=== PATIENT | female | born 1955 | race Caucasian/White ===

== ENCOUNTER 2025-08-02 19:21 | Inpatient (IN) | payer MEDICARE, MEDICAID, SELFPAY ==
[2025-08-02] VITALS (7 sets, daily range): BP systolic 74–138; BP diastolic 40–117; PULSE 61–76; RESP 14–25; TEMP 36.6–37; O2SAT 90–99; BMI 29.6
[2025-08-02 20:25] LABS: Hematocrit 32.5 % (37-47); Hemoglobin 10.8 g/dL (12.0-15.0); Immature Granulocytes Count 0.030 X10^3/uL (0.0-0.0); Mean Corp Hgb Conc 33.2 g/dL (32-36); Mean Corpuscular Volume 95.6 fL (81-99); Mean Platelet Vol. 10.4 fl (6.2-12.0); NRBC Flagged by Analyzer 0 % (0-5); Platelet Count 181 K/mm3 (150-450); RBC Distribution Width CV 13.8 % (11.6-14.6); RBC Distribution Width SD 47.9 fl (35.1-43.9); Red Blood Count 3.40 M/mm3 (4.2-5.4); White Blood Count 10.8 K/mm3 (4.4-11.0)
[2025-08-02] MEDS: 0.9% Normal Saline (1000mL) 1,000 ML 1000 ML IV ×2 (20:26→23:09)
--- NOTE | 2025-08-02 20:37 | CT_ITS ---
PROCEDURE: CT ABDOMEN/PELVIS WITHOUT CONTRAST 08/02/2025 REASON FOR EXAM: DIARRHEA TECHNIQUE: Procedure Code: CTABDPEL Modality: CT Procedure: ABDOMEN/PELVIS WITHOUT CONT Noncontrast technique limits evaluation of the abdominal and pelvic viscera. Coronal and Sagittal reconstruction series were provided. One or more dose reduction techniques were used (e.g., Automated exposure control, adjustment of the mA and/or kV according to patient size, use of iterative reconstruction technique). RADIATION DOSE SUMMARY: CTDlvol: 12.27 mGy DLP: 597.56 mGycm COMPARISON: None. FINDINGS: Lung bases: Clear. Liver: Unremarkable. Gallbladder: Surgically absent. Spleen: Unremarkable. Pancreas: Unremarkable. Adrenals: Unremarkable. Kidneys: No urolithiasis or hydronephrosis. Nonspecific bilateral perinephric fat stranding, nonspecific but symmetric and most likely chronic. Bladder: Unremarkable. Reproductive Organs: Enlarged lobulated myomatous uterus. Unremarkable adnexae. Bowel: No evidence of obstruction or active inflammatory process. Normal appendix. Extensive distal colonic diverticulosis without evidence for active diverticulitis/colitis. Lymph nodes: No suspicious lymph node enlargement. Vasculature: Normal caliber abdominal aorta and IVC. Mild atherosclerotic calcifications. Peritoneum / Retroperitoneum: No ascites or free air. Bones: Mild multilevel degenerative changes of the spine. CT/Abdomen/Pelvis without Cont IMPRESSION: 1. No bowel obstruction or active inflammatory process identified. 2. Extensive distal colonic diverticulosis without evidence of active diverticu litis/colitis. 3. Mildly enlarged lobulated myomatous uterus. Reading Location: [facility]
--- NOTE | 2025-08-02 20:40 | EX.ED.DYSGE1 ---
HPI History of Present Illness Chief Complaint: Abn Labs Informant: patient and family Onset/Context/Timing Onset: Today Context: Gradual Onset Timing: Continuous Quality: Weak, tired Location: Generalized Worsened by: Nothing Relieved by: Nothing Narrative Narrative: Patient presents with diarrhea that has been constant for the past several days. Patient saw her primary care nurse practitioner today who will stop the Ozempic and metformin. They noted that the patient's blood pressure was low and referred the patient to the emergency department. They did check labs earlier today which showed an elevated creatinine of 2.42. Primary care nurse practitioner states that this is markedly increased from previous results. Patient has a history of dementia and is a poor informant. [facility] Medical History Chronic kidney disease, stage 3 unspecified Other specified disorders of bone density and structure, unspecified site HTN (hypertension) Pure hypercholesterolemia, unspecified Diabetes mellitus Hypothyroidism, unspecified Other frontotemporal neurocognitive disorder AD (Alzheimer's disease) Allergy/AdvReac Type Severity Reaction Status Date / Time erythromycin base AdvReac PT UNSURE Verified 08/02/25 19:24 OF REACTION exenatide (From [place]) AdvReac PT UNSURE Verified 08/02/25 19:24 OF REACTION Penicillins AdvReac PT UNSURE Verified 08/02/25 19:24 OF REACTION Sulfa (Sulfonamide AdvReac PT UNSURE Verified 08/02/25 19:24 Antibiotics) OF REACTION Surgical History History of thyroid surgery Social History housing: group home Smoking Status: Former smoker ROS ROS ED Constitutional Constitutional ED: Denies chills or fever(s) Eyes Eyes: Denies blurry vision or change in vision ENT ENT ED: Denies rhinorrhea or sore throat Cardiovascular Cardiovascular: Denies chest pain or palpitations Respiratory/Chest Respiratory/Chest: Denies cough or dyspnea Gastrointestinal Gastrointestinal: Reports diarrhea, nausea and vomiting Genitourinary Genitourinary ED: Denies dysuria or hematuria Musculoskeletal Musculoskeletal: Denies back pain or neck pain Integumentary Denies abscess or rash Neurologic Neurologic: Denies headache(s) or weakness Allergic/Immunologic Allergic/Immunologic ED: Denies mouth swelling or urticaria EXAM Physical Exam Const Vital Signs: 08/02/25 19:22 08/02/25 19:22 08/02/25 19:34 Temperature 98 F Temperature Source Temporal Pulse Rate 76 Respiratory Rate 19 H Respiratory Pattern Normal Blood Pressure 74/45 L 79/40 L Blood Pressure Mean 54 53 Pulse Ox 99 Oxygen Delivery Method Room Air 08/02/25 19:40 08/02/25 20:15 08/02/25 21:00 Temperature Temperature Source Pulse Rate 66 69 64 Respiratory Rate 17 18 25 H Respiratory Pattern Blood Pressure 93/55 L 99/66 88/52 L Blood Pressure Mean 67 77 65 Pulse Ox 98 98 90 Oxygen Delivery Method Room Air 08/02/25 22:00 08/02/25 23:00 Temperature Temperature Source Pulse Rate 61 64 Respiratory Rate 21 H 14 Respiratory Pattern Blood Pressure 98/60 130/111 H Blood Pressure Mean 73 117 Pulse Ox 96 Oxygen Delivery Method Room Air Positive well nourished and well developed Constitutional Narrative: BMI is 29.6. General Appearance ED: well developed and NAD HEENT Reports moist mucous membranes Neck supple and no JVD Resp normal respiratory effort and clear to auscultation bilaterally Cardio regular rate and regular rhythm GI non-tender and non-distended Palpation: soft Extremity normal to inspection General Extremety ED: Negative for edema or tenderness General Extremity: Negative for edema Neuro CN's II-XII intact bilaterally and no sensory deficits noted Sensorium / Orientation: alert and orientation impaired Motor Exam: strength 5/5 throughout MDM MDM MDM Narrative Medical decision making narrative: Differential diagnosis includes acute kidney injury, dehydration, electrolyte abnormality, urinary tract infection, pyelonephritis, bowel obstruction, perforation, and sepsis. CBC will be obtained to assess for leukocytosis and anemia. Basic metabolic profile will be obtained to assess for electrolyte abnormality and renal function. PT with INR and PTT will be obtained to assess for coagulopathy. Serum lactate will be obtained to assess for sepsis. Urinalysis will be obtained to assess for urinary tract infection hematuria. Blood cultures will be obtained to assess for sepsis. Urine culture will be obtained to assess for urinary tract infection. CT scan of the abdomen pelvis will be obtained to assess for bowel obstruction, perforation, and pyelonephritis. Lab Data Attestation: I reviewed the patient's lab results. Lab results narrative: CBC was reviewed. There is a mild anemia with a hemoglobin of 10.8 and hematocrit of 32.5. Basic metabolic profile was reviewed. BUN was elevated at 47 and creatinine was 2.59. There are no prior labs available for comparison. Glucose was mildly elevated at 137. Serum lactate was reviewed and was normal at 1.9. PT with INR and PTT were reviewed and were within normal limits. Urinalysis was reviewed. Leukocyte esterase was 500 with 50-100 white blood cells. There is 1+ bacteria. Labs: Laboratory Results - last 24 hr 08/02/25 08/02/25 08/02/25 19:42 21:15 21:30 WBC 10.8 RBC 3.40 L Hgb 10.8 L Hct 32.5 L MCV 95.6 MCH 31.8 MCHC 33.2 RDW Std Deviation 47.9 H RDW Coeff of Kayleen 13.8 Plt Count 181 MPV 10.4 Immature Gran % (Auto) 0.300 Neut % (Auto) 70.2 H Lymph % (Auto) 21.0 [place] % (Auto) 7.6 Eos % (Auto) 0.6 Baso % (Auto) 0.3 Absolute Neuts (auto) 7.6 Absolute Lymphs (auto) 2.26 Nucleated RBC % 0 PT 13.0 INR 1.0 APTT 30.3 Sodium 141 Potassium 4.8 Chloride 104 Carbon Dioxide 23.7 Anion Gap 13 BUN 47 H Creatinine 2.59 H Estim Creat Clear Calc 19.72 L Est GFR (MDRD) Non-Af 19 L BUN/Creatinine Ratio 18.2 Glucose 137 H Lactic Acid 1.9 Calcium 9.8 Urine Color Yellow Urine Clarity Sl. Cloudy Urine pH 5.0 Ur Specific Elaine 1.015 Urine Protein 30 H Urine Glucose (UA) 1000 H Urine Ketones Negative Urine Occult Blood 10 H Urine Nitrite Negative Urine Bilirubin Negative Urine Urobilinogen Normal Ur Leukocyte Esterase 500 H Urine RBC 0-5 SEEN Urine WBC 50-100 SEEN Ur Squamous Epith Cells 0-5 SEEN Urine Bacteria 1+ Urine Mucus 0 SEEN Radiography Diagnostic Testing: Clinical Impression(s) from Imaging Studies Abdomen/Pelvis CT 08/02/25 20:37 IMPRESSION: 1. No bowel obstruction or active inflammatory process identified. 2. Extensive distal colonic diverticulosis without evidence of active diverticulitis/colitis. 3. Mildly enlarged lobulated myomatous uterus. Reading Location: [facility] CT scan of the abdomen pelvis was obtained. There is no evidence of bowel obstruction. There is diverticulosis but no evidence of diverticulitis or colitis. This was interpreted by the radiologist and was also independently reviewed by myself. Management Discussion w/another healthcare provider: Hospitalist Treatment and Re-Evaluation :: Patient was given IV fluids. Patient was given a dose of Rocephin here. Patient and family were apprised of the findings. Patient was advised of the need for admission to the hospital. Case was discussed with the hospitalist. He will admit the patient to his service. Family understands and is agreeable with the plan. All questions were answered. Discharge Plan Triage Chief Complaint: Abn Labs ED Provider: Lamberto Montiel Dx/Rx/DC Orders Clinical Impression: Acute kidney injury, Urinary tract infection, Anemia Primary Care Provider: Eduardo Hong NP Referrals: Eduardo Hong LEADERSHIP DEVELOPMENT MANAGER, LEADERSHIP DEVELOPMENT MANAGER-C [Primary Care Provider] - Print Language: Albanian Disposition Disposition: Acute Care Hospital [facility]
[2025-08-02 20:46] LABS: Anion Gap 13 (5-15); BUN 47 mg/dL (4-19); BUN/Creat Ratio 18.2 RATIO (10-20); Calcium,Total 9.8 mg/dL (7.6-11.0); Carbon Dioxide 23.7 mmol/L (21.0-32.0); Chloride 104 mmol/L (98-108); Estimated Creatinine Clearance 19.72 ml/min (50-250); Glucose 137 mg/dL (70-99); Potassium 4.8 mmol/L (3.3-5.1)
[2025-08-02 20:54] LABS: Prothrombin Time (Protime)PT. 13.0 SECONDS (11.7-14.9)
[2025-08-02 20:55] LABS: Partial Thromboplast Time 30.3 Seconds (24.1-36.2)
[2025-08-02 21:37] LABS: Mucous, Urine 0 SEEN /hpf (<or=2+)
[2025-08-02 21:43] LABS: Color, Urine Yellow (Yellow); Glucose, Dipstick 1000 mg/dl (Normal); Ketone-Dipstick Negative (Negative); Leukocyte Esterase-Dipstick 500 /ul (Negative); Nitrite-Dipstick Negative (Negative); Occult Blood-Urine 10 /ul (Negative); Protein-Dipstick 30 mg/dl (Negative); Specific Gravity, Urine 1.015 (1.002-1.030); Urine Bilirubin Dipstick Negative (Negative)
[2025-08-02 22:12] LABS: Squamous Epithelial Cells - UA 0-5 SEEN /hpf (5-10)
[2025-08-02 22:13] LABS: Red Blood Cells-Urine 0-5 SEEN /hpf (0-5)
--- NOTE | 2025-08-02 23:13 | PCM.HP.STD ---
[facility] - General General Date of Admission: 08/02/25 Date of Service: 08/02/25 Chief Complaint: Diarrhea, Generalized Weakness and Abnormal Labs. HPI Narrative GADIEL SAUL, is a 70 F with a past medical history of essential hypertension, hyperlipidemia, hypothyroidism; with history of thyroid surgery, overweight; with BMI of 29.6 this admission, former tobacco abuse, Alzheimer's dementia, DM-2; of unknown control on metformin and Ozempic, CKD; stage III of uncertain subtype and OA who presents to [facility] ER after she was noted to have diarrhea, generalized weakness and abnormal labs. Ms. Saul is not a reliable historian so information was gathered from chart, medical staff and computer. According to the records patient was noted to have nonbloody diarrhea that has been constant for the past several days with nurse practitioner at her facility electing to stop her Ozempic and metformin with initial suspicion for adverse drug reaction. Then earlier today she underwent routine laboratory testing which revealed an elevated serum creatinine of 2.42 mg deciliter consistent with TRACEY in the setting of CKD; stage III with nurse practitioner informing ER physician that this was a marked increase from the previous results. There was no report of associated fever, chills, changes in vision, discharge from eyes, runny nose, sore throat, chest pain, palpitations, heart racing, lower extremity edema, shortness of breath, cough, nausea, vomiting, abdominal pain, dysuria, hematuria, headache or rash. In the ER she was noted to have a UA positive for Acute Cystitis; without hematuria complicated by additional laboratory evidence of TRACEY; in setting of CKD: Stage III of uncertain subtype with elevated serum creatinine of 2.59 mg/dL and eGFR of 19 mL/min (with no previous results in our system available for comparison) compounded by Nonbloody Diarrhea all combining to cause Generalized Weakness with a corresponding CT scan of the abdomen and pelvis without contrast that revealed no bowel obstruction or active inflammatory process identified with extensive distal colonic diverticulosis without evidence of active diverticulitis/colitis and mildly enlarged lobulated myomatous uterus. She was then admitted to the general medical floor with telemetric monitoring for ongoing care for status is expected to extend beyond 2 midnights. [facility] Medical History (Updated 08/02/25 @ 23:[address] Jhonny Albrecht DO) Chronic kidney disease, stage 3 unspecified Other specified disorders of bone density and structure, unspecified site HTN (hypertension) Pure hypercholesterolemia, unspecified Diabetes mellitus Hypothyroidism, unspecified Other frontotemporal neurocognitive disorder AD (Alzheimer's disease) Home Medications ?Medication ?Instructions ?Recorded ?Last Taken ?Type calcium citrate 250 mg PO DAILY 08/02/25 Unknown History cholecalciferol (vitamin D3) 50 50 mcg PO DAILY 08/02/25 Unknown History mcg (2,000 unit) capsule dapagliflozin propanediol 5 mg 5 mg PO DAILY 08/02/25 Unknown History tablet (Farxiga) lisinopril 2.5 mg tablet 2.5 mg PO DAILY 08/02/25 Unknown History multivitamin (Daily Multi-Vitamin 1 tab PO DAILY 08/02/25 Unknown History tablet) quetiapine 25 mg tablet (Seroquel) 12.5 mg PO QHS 08/02/25 Unknown History rosuvastatin 20 mg tablet 20 mg PO QHS 08/02/25 Unknown History semaglutide 0.25 mg or 0.5 mg (2 0.5 mg subcut QWEEK 08/02/25 Unknown History mg/3 mL) subcutaneous pen injector (Ozempic) sertraline 25 mg tablet 25 mg PO DAILY 08/02/25 Unknown History Allergy/AdvReac Type Severity Reaction Status Date / Time erythromycin base AdvReac PT UNSURE Verified 08/02/25 19:24 OF REACTION exenatide (From [place]) AdvReac PT UNSURE Verified 08/02/25 19:24 OF REACTION Penicillins AdvReac PT UNSURE Verified 08/02/25 19:24 OF REACTION Sulfa (Sulfonamide AdvReac PT UNSURE Verified 08/02/25 19:24 Antibiotics) OF REACTION Surgical History History of thyroid surgery Social History housing: senior care Smoking Status: Former smoker ROS ROS Narrative Review of Systems: Constitutional: Patient denies fever or chills. Eyes: Patient denies changes in vision or discharge from eyes. ENT: Patient denies runny nose, sore throat or ear pain. Resp: Patient denies shortness of breath or cough. CV: Patient denies chest pain, palpitations, heart racing or lower extremity edema. GI: Patient admits to nonbloody diarrhea but she denies nausea, vomiting or abdominal pain as per HPI. : Patient denies dysuria or hematuria. MSK: Patient denies arthralgias or myalgias. Skin: Patient denies rash, abscess, wounds or jaundice. Psych: Patient has chronic dementia but she denies symptoms of uncontrolled depression or anxiety. Neuro: Patient denies headache, paresthesias or focal neurologic deficits. Allergy: Patient denies lip swelling, tongue swelling or urticaria. Hematology: Patient denies easy bleeding or easy bruisability. Endocrinology: Patient denies polyuria, polydipsia, polyphagia or heat/cold intolerance. 14 point ROS otherwise negative except for positives noted above in HPI. Vital Signs Vital Signs Vital Signs: 08/02/25 19:22 08/02/25 19:22 08/02/25 19:34 Temperature 98 F Temperature Source Temporal Pulse Rate 76 Respiratory Rate 19 H Respiratory Pattern Normal Blood Pressure 74/45 L 79/40 L Blood Pressure Mean 54 53 Pulse Ox 99 Oxygen Delivery Method Room Air 08/02/25 19:40 08/02/25 20:15 08/02/25 21:00 Temperature Temperature Source Pulse Rate 66 69 64 Respiratory Rate 17 18 25 H Respiratory Pattern Blood Pressure 93/55 L 99/66 88/52 L Blood Pressure Mean 67 77 65 Pulse Ox 98 98 90 Oxygen Delivery Method Room Air 08/02/25 22:00 Temperature Temperature Source Pulse Rate 61 Respiratory Rate 21 H Respiratory Pattern Blood Pressure 98/60 Blood Pressure Mean 73 Pulse Ox 96 Oxygen Delivery Method Weight Weight: 167 lb 5.294 oz Body Mass Index (BMI) 29.6 Physical Exam Const alert and no apparent distress Constitutional Narrative: Patient is pleasantly confused and nontoxic in appearance. General Appearance: cooperative Orientation / Consciousness: confused HEENT normocephalic, head/scalp atraumatic and hearing grossly normal bilaterally HEENT Narrative: Mucous membranes dry. Eyes PERRL, EOMs intact bilaterally and conjunctivae normal Neck no lymphadenopathy, supple and no JVD Resp normal respiratory effort, no retractions, no use of accessory muscles and clear to auscultation bilaterally Cardio regular rate and regular rhythm GI normal to inspection, nondistended, normoactive bowel sounds, soft to palpation, non-tender and non-distended Extremity normal to inspection, full ROM and no clubbing, cyanosis or edema Skin Skin Narrative: Patient is no evidence of rash, abscess, wounds or jaundice. Neuro CN's II-XII intact bilaterally, moves all extremities and no focal motor deficits Sensorium / Orientation: awake, alert, oriented to person and oriented to place Speech: speech normal Psych affect normal Results Medical Records Data Attestation: I reviewed the patient's medical records Lab / Micro Data Attestation: I reviewed the patient's lab results. 08/02/25 19:42 08/02/25 19:42 Labs: Laboratory Results - last 24 hr 08/02/25 19:42: WBC 10.8, RBC 3.40 L, Hgb 10.8 L, Hct 32.5 L, MCV 95.6, MCH 31.8, MCHC 33.2, RDW Std Deviation 47.9 H, RDW Coeff of Kayleen 13.8, Plt Count 181, MPV 10.4, Immature Gran % (Auto) 0.300, Neut % (Auto) 70.2 H, Lymph % (Auto) 21.0, Barnes % (Auto) 7.6, Eos % (Auto) 0.6, Baso % (Auto) 0.3, Absolute Neuts (auto) 7.6, Absolute Lymphs (auto) 2.26, Nucleated RBC % 0, PT 13.0, INR 1.0, APTT 30.3, Sodium 141, Potassium 4.8, Chloride 104, Carbon Dioxide 23.7, Anion Gap 13, BUN 47 H, Creatinine 2.59 H, Estim Creat Clear Calc 19.72 L, Est GFR (MDRD) Non-Af 19 L, BUN/Creatinine Ratio 18.2, Glucose 137 H, Calcium 9.8 08/02/25 21:15: Lactic Acid 1.9 08/02/25 21:30: Urine Color Yellow, Urine Clarity Sl. Cloudy, Urine pH 5.0, Ur Specific [place] 1.015, Urine Protein 30 H, Urine Glucose (UA) 1000 H, Urine Ketones Negative, Urine Occult Blood 10 H, Urine Nitrite Negative, Urine Bilirubin Negative, Urine Urobilinogen Normal, Ur Leukocyte Esterase 500 H, Urine RBC 0-5 SEEN, Urine WBC 50-100 SEEN, Ur Squamous Epith Cells 0-5 SEEN, Urine Bacteria 1+, Urine Mucus 0 SEEN Imaging Radiology Impression Abdomen/Pelvis CT 08/02/25 20:37 IMPRESSION: 1. No bowel obstruction or active inflammatory process identified. 2. Extensive distal colonic diverticulosis without evidence of active diverticulitis/colitis. 3. Mildly enlarged lobulated myomatous uterus. Reading Location: [facility] Assessment & Plan Assessment/Plan (1) Acute cystitis without hematuria: (2) Diarrhea: QUALIFIERS: Diarrhea type: presumed infectious Qualified Code(s): R19.7 - Diarrhea, unspecified (3) TRACEY (acute kidney injury): (4) CKD (chronic kidney disease), stage III: QUALIFIERS: Chronic kidney disease stage 3 subtype: unspecified whether 3a or 3b Qualified Code(s): N18.30 - Chronic kidney disease, stage 3 unspecified (5) Adverse drug reaction: QUALIFIERS: Encounter type: initial encounter Qualified Code(s): T50.905A - Adverse effect of unspecified drugs, medicaments and biological substances, initial encounter (6) Generalized weakness: (7) AD (Alzheimer's disease): (8) Overweight (BMI 25.0-29.9): PLAN: Plan 1. UA positive for Acute Cystitis; without hematuria - Admit to general medical floor telemetric monitoring. Continue empiric IV ceftriaxone begun in ER and await culture & sensitivity data. Give acetaminophen as needed for pain or fever. 2. Nonbloody Diarrhea complicating creatinine #1 - Place on enteric precautions and check stool studies. 3. TRACEY; in setting of CKD: Stage III of uncertain subtype with elevated serum creatinine of 2.59 mg/dL and eGFR of 19 mL/min (with no previous results in our system available for comparison) complicating #1 & #2 - Give vigorous IV fluid and recheck renal indices daily to follow trend. We will avoid potentially nephrotoxic agents. 4. DM-2; of unknown control on metformin and Ozempic with possible adverse drug reaction contributing to #2 & #3 - ADA diet. FSBS q. AC/HS plus SSI. Check HgbA1c to objectively assess quality of diabetic control. 5. Generalized Weakness attributable to #1 - #4 - PT/OT and Case Management to consult and treat for further recommendations with help appreciated in advance. 6. Alzheimer's dementia adding to the medical complexity of #1 - #5 - Stable. Check TSH, B12, Folate, HgbA1c, UDS and TANA to evaluate for potentially reversible causes of confusion. 7. Overweight; with BMI of 29.6 this admission adding to the burden of disease outlined from #1 - #6 - Weight loss will be recommended. Check TSH. 8. Essential hypertension - Hold scheduled antihypertensives in light of #3. Give IV hydralazine prn for systolic blood pressure > 160 mmHg. 9. Hyperlipidemia - Check Lipid Profile. 10. Hypothyroidism; with history of thyroid surgery - Check TSH. 11. Former tobacco abuse - Noted. 12. OA - We will give acetaminophen prn as outlined in #1. 13. DVT prophylaxis - Heparin 5,000U sq BID plus SCD's. Total time: Approximately (but not less than) 75 minutes. Charges/Coding Visit Charges Inpatient E&M: 14651 Init Hosp L3
[2025-08-03] VITALS (7 sets, daily range): BP systolic 86–115; BP diastolic 41–91; PULSE 58–82; RESP 16–18; TEMP 36.2–36.9; O2SAT 97–100; BMI 28.1; BMI 28.8
[2025-08-03 00:38] LABS: Magnesium 1.4 mg/dL (1.5-2.2)
[2025-08-03 00:49] LABS: Alcohol, Blood (Medical)-Serum < 10.1 mg/dL (<=10.0)
[2025-08-03 00:50] LABS: Barbiturate Urine NEGATIVE (< 200 ng/mL); Benzodiazepine Urine NEGATIVE (< 200 ng/mL); PCP Urine NEGATIVE (< 25 ng/mL); THC Urine NEGATIVE (< 50 ng/mL)
[2025-08-03 00:54] LABS: FOLATES,SERUM (FOLIC ACID) 6.23 ng/mL (4.60-34.80)
[2025-08-03] MEDS: 0.9% Normal Saline (1000mL) 1,000 ML 100 ML IV (01:01)
[2025-08-03] MEDS: MELATONIN 10 MG TABLET PO (01:20)
[2025-08-03 01:23] LABS: Vitamin B12 312 pg/mL (180-914)
--- NOTE | 2025-08-03 03:35 | NURSING ---
pt awake, pulled her iv out, keeps pulling her tele leads off. pt very suspicious of anything we ask her to do. refusing to let me restart an iv.
[2025-08-03 04:05] LABS: Hematocrit 28.1 % (37-47); Hemoglobin 9.3 g/dL (12.0-15.0); Immature Granulocytes Count 0.020 X10^3/uL (0.0-0.0); Mean Corp Hgb Conc 33.1 g/dL (32-36); Mean Corpuscular Volume 98.3 fL (81-99); Mean Platelet Vol. 10.1 fl (6.2-12.0); NRBC Flagged by Analyzer 0 % (0-5); Platelet Count 144 K/mm3 (150-450); RBC Distribution Width CV 13.7 % (11.6-14.6); RBC Distribution Width SD 49.7 fl (35.1-43.9); Red Blood Count 2.86 M/mm3 (4.2-5.4); White Blood Count 8.0 K/mm3 (4.4-11.0)
[2025-08-03 04:24] LABS: AST(SGOT) 38 U/L (<=31); Alanine Aminotransfer ALT/SGPT 22 U/L (<=34); Albumin, Serum 3.5 g/dL (3.4-4.8); Alkaline Phosphatase 35 U/L (35-104); Anion Gap 12 (5-15); BUN 42 mg/dL (4-19); BUN/Creat Ratio 20.1 RATIO (10-20); Calcium,Total 8.5 mg/dL (7.6-11.0); Carbon Dioxide 17.6 mmol/L (21.0-32.0); Chloride 109 mmol/L (98-108); Estimated Creatinine Clearance 24.74 ml/min (50-250); Globulin 2.2 g/dL (2.2-4.2); Glucose 153 mg/dL (70-99); Potassium 4.5 mmol/L (3.3-5.1)
[2025-08-03] MEDS: Magnesium Sulfate 2 GM in Dextrose 5%-Water (100mL Bag) 100 ML IV (07:00)
[2025-08-03 07:06] LABS: Cholesterol 99 mg/dL (<=200); Low Density Lipoprotein Calc. 38 mg/dL; Triglycerides 62 mg/dL; Very Low Density Lipoprotein 12 mg/dL (5-40); cholesterol:hdl ratio screen 2.03
--- NOTE | 2025-08-03 08:52 | PN.HOSP_ITS ---
Reason for Visit Chief Complaint: Diarrhea, Generalized Weakness and Abnormal Labs. Subjective Subjective Feeling well. Objective Data Objective Data Vital Signs: Vital Signs Temp Pulse Resp BP Pulse Ox O2 Del Method 36.9 C 64 16 110/58 L 98 Room Air 08/03/25 04:30 08/03/25 04:30 08/03/25 04:30 08/03/25 04:30 08/03/25 04:30 08/03/25 04:30 Oxygen Delivery Method Room Air Weight: 76.6 kg Body Mass Index (BMI) 28.8 Intake & Output: Intake and Output for Last 24 Hours 08/01/25 08/02/25 08/03/25 23:59 23:59 23:59 Intake Total 1000 / 1000 1050 / 1050 Balance 1000 / 1000 1050 / 1050 Lab / Micro Data 08/03/25 03:53 08/03/25 03:53 Labs: Laboratory Results - last 24 hr 08/02/25 19:42: WBC 10.8, RBC 3.40 L, Hgb 10.8 L, Hct 32.5 L, MCV 95.6, MCH 31.8, MCHC 33.2, RDW Std Deviation 47.9 H, RDW Coeff of Kayleen 13.8, Plt Count 181, MPV 10.4, Immature Gran % (Auto) 0.300, Neut % (Auto) 70.2 H, Lymph % (Auto) 21.0, [place] % (Auto) 7.6, Eos % (Auto) 0.6, Baso % (Auto) 0.3, Absolute Neuts (auto) 7.6, Absolute Lymphs (auto) 2.26, Nucleated RBC % 0, PT 13.0, INR 1.0, APTT 30.3, Sodium 141, Potassium 4.8, Chloride 104, Carbon Dioxide 23.7, Anion Gap 13, BUN 47 H, Creatinine 2.59 H, Estim Creat Clear Calc 19.72 L, Est GFR (MDRD) Non-Af 19 L, BUN/Creatinine Ratio 18.2, Glucose 137 H, Hemoglobin A1c 5.8 H, Calcium 9.8, Magnesium 1.4 L, TSH 1.490 08/02/25 21:15: Lactic Acid 1.9 08/02/25 21:30: Urine Color Yellow, Urine Clarity Sl. Cloudy, Urine pH 5.0, Ur Specific [place] 1.015, Urine Protein 30 H, Urine Glucose (UA) 1000 H, Urine Ketones Negative, Urine Occult Blood 10 H, Urine Nitrite Negative, Urine Bilirubin Negative, Urine Urobilinogen Normal, Ur Leukocyte Esterase 500 H, Urine RBC 0-5 SEEN, Urine WBC 50-100 SEEN, Ur Squamous Epith Cells 0-5 SEEN, Urine Bacteria 1+, Urine Mucus 0 SEEN, Urine Opiates Screen NEGATIVE, U Buprenorphine Qual NEGATIVE, Ur Oxycodone Screen NEGATIVE, Urine Methadone Screen NEGATIVE, Urine Fentanyl Screen NEGATIVE, Ur Barbiturates Screen NEGATIVE, Ur Phencyclidine Scrn NEGATIVE, Ur Amphetamines Screen NEGATIVE, U Benzodiazepines Scrn NEGATIVE, Urine Cocaine Screen NEGATIVE, U Cannabinoids Screen NEGATIVE 08/02/25 23:57: Vitamin B12 312, Serum Folate 6.23, Ethyl Alcohol < 10.1 08/03/25 03:53: WBC 8.0, RBC 2.86 L, Hgb 9.3 L, Hct 28.1 L, MCV 98.3, MCH 32.5 H , MCHC 33.1, RDW Std Deviation 49.7 H, RDW Coeff of Kayleen 13.7, Plt Count 144 L, MPV 10.1, Immature Gran % (Auto) 0.200, Neut % (Auto) 60.2, Lymph % (Auto) 31.0, [place] % (Auto) 7.5, Eos % (Auto) 0.6, Baso % (Auto) 0.5, Absolute Neuts (auto) 4.8, Absolute Lymphs (auto) 2.48, Nucleated RBC % 0, Sodium 139, Potassium 4.5, Chloride 109 H, Carbon Dioxide 17.6 L, Anion Gap 12, BUN 42 H, Creatinine 2.09 H , Estim Creat Clear Calc 24.74 L, Est GFR (MDRD) Non-Af 25 L, BUN/Creatinine Ratio 20.1 H, Glucose 153 H, Calcium 8.5, Phosphorus 2.4 L, Total Bilirubin 0.30, AST 38 H, ALT 22, Alkaline Phosphatase 35, Total Protein 5.7 L, Albumin 3.5, Globulin 2.2, Albumin/Globulin Ratio 1.6, Triglycerides 62, Cholesterol 99, LDL Cholesterol, Calc 38, VLDL Cholesterol 12, HDL Cholesterol 49, Cholesterol/HDL Ratio 2.03 08/03/25 06:18: POC Glucose 141 H Radiography Diagnostic Testing: Radiology Impression Abdomen/Pelvis CT 08/02/25 20:37 IMPRESSION: 1. No bowel obstruction or active inflammatory process identified. 2. Extensive distal colonic diverticulosis without evidence of active diverticulitis/colitis. 3. Mildly enlarged lobulated myomatous uterus. Reading Location: [facility] Physical Exam Const Constitutional Narrative: pleasantly confused. non-toxic. Resp normal respiratory effort, no retractions, no use of accessory muscles and clear to auscultation bilaterally Cardio regular rate, regular rhythm, S1 normal heart sound, S2 normal heart sound and no murmurs Extremity normal to inspection, full ROM and no clubbing, cyanosis or edema Neuro Sensorium / Orientation: awake, alert, oriented to person, oriented to place and oriented to time Assessment & Plan Assessment/Plan (1) Urinary tract infection: PLAN: UCx pending. On CTX (2) Acute kidney injury: PLAN: suspected. No baseline labs. Creatinine down from from 2.59 to 2.09. Continue IVF (3) Generalized weakness: PLAN: 2/2 UTI, TRACEY in patient w dementia. PT OT evaluate and treat PLAN: Plan Chronic medical conditions: * Alzheimer's dementia TSH, B12, Folate unremarkable. * Essential hypertension - Hold lisinopril given TRACEY * Hyperlipidemia - FLP WNL. LDL 38 * Hypothyroidism; TSH WNL. DVT prophylaxis - Heparin 5,000U sq BID plus SCD's. Charges/Coding Visit Charges Inpatient E&M: 79884 Subs Hosp L2
[2025-08-03] MEDS: Heparin Injection (Vial) 5,000 UNIT/ML VIAL 5000 UNIT SC ×2 (10:29→21:53)
[2025-08-03] MEDS: Lactobacillis Acidophilus 1 CAP PO ×4 (10:30→21:52)
[2025-08-03] MEDS: Cholecalciferol (VIT D3) 25 MCG TABLET (1,000 UNITS) 50 MCG PO (10:30)
--- NOTE | 2025-08-03 13:34 | CASEMGMT ---
Addendum entered by Thao Glasgow 08/03/25 14:24: CHANDRIKA met with Kristen and pt in pt room. Kristen reports that if pt needs SNF at d/c, she would like [facility] as [facility]. Pt agreeable. PT/OT to eval. CHANDRIKA remains available to follow. RIGO Zavala Original Note: Social Work- SW met with pt to verify directives. Pt is non-sensical and unable to maintain appropriate conversation. Pt observed to have disorganized speech. CHANDRIKA messaged René TOMPKINS via [employer] and provided clinical updates, as well as requested copies for HCPOA. SW called Kristen, reported HCPOA and left a non-descript voicemail. CHANDRIKA remains available to follow. RIGO Zavala
--- NOTE | 2025-08-03 14:16 | CASEMGMT ---
KEVIN CM into pt room, discussed therapy and DC planning with Pt. Pt states he does not feel he is able to DC home at this time and would like to go to a SNF. States he is a lot weaker than his usual baseline. Provided pt a list of local SNF choices, chose 1. [facility] and 2. [facility].
[2025-08-03] MEDS: 0.9% Saline Lock 10 ML Syringe IV (22:16)
[2025-08-04] VITALS (9 sets, daily range): BP systolic 87–119; BP diastolic 48–65; PULSE 58–70; RESP 16–18; TEMP 36.4–37.4; O2SAT 95–98; BMI 27.9
[2025-08-04] MEDS: MELATONIN 10 MG TABLET PO ×2 (00:21→21:42)
[2025-08-04 04:32] LABS: Hematocrit 27.2 % (37-47); Hemoglobin 8.7 g/dL (12.0-15.0); Immature Granulocytes Count 0.010 X10^3/uL (0.0-0.0); Mean Corp Hgb Conc 32.0 g/dL (32-36); Mean Corpuscular Volume 96.8 fL (81-99); Mean Platelet Vol. 9.9 fl (6.2-12.0); NRBC Flagged by Analyzer 0.3 % (0-5); Platelet Count 151 K/mm3 (150-450); RBC Distribution Width CV 13.7 % (11.6-14.6); RBC Distribution Width SD 49.1 fl (35.1-43.9); Red Blood Count 2.81 M/mm3 (4.2-5.4); White Blood Count 6.1 K/mm3 (4.4-11.0)
[2025-08-04 04:57] LABS: Anion Gap 9 (5-15); BUN 30 mg/dL (4-19); BUN/Creat Ratio 22.0 RATIO (10-20); Calcium,Total 8.7 mg/dL (7.6-11.0); Carbon Dioxide 19.9 mmol/L (21.0-32.0); Chloride 112 mmol/L (98-108); Estimated Creatinine Clearance 38.54 ml/min (50-250); Glucose 87 mg/dL (70-99); Potassium 4.7 mmol/L (3.3-5.1)
--- NOTE | 2025-08-04 07:30 | PCM.PN.HOSP ---
Reason for Visit Chief Complaint: Diarrhea, Generalized Weakness and Abnormal Labs. Subjective Subjective Confused overnight. Required additional Seroquel. Objective Data Objective Data Vital Signs: Vital Signs Temp Pulse Resp BP Pulse Ox O2 Del Method 36.6 C 66 16 99/56 L 95 Room Air 08/04/25 02:39 08/04/25 02:39 08/04/25 02:39 08/04/25 02:39 08/04/25 02:39 08/04/25 02:39 Oxygen Delivery Method Room Air Weight: 74.2 kg Body Mass Index (BMI) 27.9 Intake & Output: Intake and Output for Last 24 Hours 08/02/25 08/03/25 08/04/25 23:59 23:59 23:59 Intake Total 1000 / 1000 2684 / 2684 Balance 1000 / 1000 2684 / 2684 Lab / Micro Data 08/04/25 04:22 08/04/25 04:22 Labs: Laboratory Results - last 24 hr 08/03/25 11:32: POC Glucose 113 H 08/03/25 17:16: POC Glucose 109 H 08/03/25 22:32: POC Glucose 108 H 08/04/25 04:22: WBC 6.1, RBC 2.81 L, Hgb 8.7 L, Hct 27.2 L, MCV 96.8, MCH 31.0, MCHC 32.0, RDW Std Deviation 49.1 H, RDW Coeff of Kayleen 13.7, Plt Count 151, MPV 9.9, Immature Gran % (Auto) 0.200, Neut % (Auto) 54.5, Lymph % (Auto) 37.5, [place] % (Auto) 6.7, Eos % (Auto) 0.8, Baso % (Auto) 0.3, Absolute Neuts (auto) 3.4, Absolute Lymphs (auto) 2.30, Nucleated RBC % 0.3, Sodium 141, Potassium 4.7, Chloride 112 H, Carbon Dioxide 19.9 L, Anion Gap 9, BUN 30 H, Creatinine 1.34 H, Estim Creat Clear Calc 38.54 L, Est GFR (MDRD) Non-Af 43 L, BUN/Creatinine Ratio 22.0 H, Glucose 87, Calcium 8.7, Phosphorus 3.8 Physical Exam Const no apparent distress Constitutional Narrative: pleasantly confused. HEENT head/scalp atraumatic and moist oral mucous membranes Resp normal respiratory effort, no retractions, no use of accessory muscles and clear to auscultation bilaterally Cardio regular rate, regular rhythm, S1 normal heart sound and S2 normal heart sound GI normal to inspection, nondistended, normoactive bowel sounds and soft to palpation Assessment & Plan Assessment/Plan (1) Urinary tract infection: PLAN: UCx pending. On CTX (2) Acute kidney injury: PLAN: confirmed: Creatinine down from from 2.59 to 2.09 now to 1.34 completed IVF. continue to monitor (3) Generalized weakness: PLAN: 2/2 UTI, TRACEY in patient w dementia. PT OT follwing. PLAN: Plan Chronic medical conditions: Alzheimer's dementia TSH, B12, Folate unremarkable. Essential hypertension - lisinopril held given TRACEY. Would continue to hold given low BP. Hyperlipidemia - FLP WNL. LDL 38 Hypothyroidism; TSH WNL. DVT prophylaxis - Heparin 5,000U sq BID plus SCD's. Disposition: TBD. pt is a resident at [facility], but if SNF services needed, family (Kristen) requested [facility]. to reassess on 08/05 to readress with family. Charges/Coding Visit Charges Inpatient E&M: 13764 Subs Hosp L2
[2025-08-04] MEDS: Cholecalciferol (VIT D3) 25 MCG TABLET (1,000 UNITS) 50 MCG PO (09:41)
[2025-08-04] MEDS: Lactobacillis Acidophilus 1 CAP PO ×4 (09:41→21:42)
[2025-08-04] MEDS: Heparin Injection (Vial) 5,000 UNIT/ML VIAL 5000 UNIT SC ×2 (09:41→21:42)
[2025-08-04] MEDS: Glucerna Shake 120 ML LIQUID PO ×3 (09:46→21:52)
[2025-08-04] MEDS: 0.9% Saline Lock 10 ML Syringe IV (22:12)
[2025-08-05 06:00] VITALS: BMI 27.8
[2025-08-05 06:24] VITALS: BP 115/69; PULSE 55; RESP 16; TEMP 36.5; O2SAT 96
[2025-08-05 06:25] LABS: Hematocrit 27.8 % (37-47); Hemoglobin 9.1 g/dL (12.0-15.0); Immature Granulocytes Count 0.010 X10^3/uL (0.0-0.0); Mean Corp Hgb Conc 32.7 g/dL (32-36); Mean Corpuscular Volume 95.5 fL (81-99); Mean Platelet Vol. 10.3 fl (6.2-12.0); NRBC Flagged by Analyzer 0 % (0-5); Platelet Count 158 K/mm3 (150-450); RBC Distribution Width CV 14.0 % (11.6-14.6); RBC Distribution Width SD 48.6 fl (35.1-43.9); Red Blood Count 2.91 M/mm3 (4.2-5.4); White Blood Count 5.3 K/mm3 (4.4-11.0)
[2025-08-05 06:50] LABS: Anion Gap 10 (5-15); BUN 25 mg/dL (4-19); BUN/Creat Ratio 19.9 RATIO (10-20); Calcium,Total 8.9 mg/dL (7.6-11.0); Carbon Dioxide 21.4 mmol/L (21.0-32.0); Chloride 111 mmol/L (98-108); Estimated Creatinine Clearance 41.96 ml/min (50-250); Glucose 92 mg/dL (70-99); Potassium 4.6 mmol/L (3.3-5.1)
[2025-08-05 07:05] VITALS: O2SAT 93
[2025-08-05 09:16] VITALS: BP 99/62; PULSE 64; RESP 16; TEMP 36.7; O2SAT 98
[2025-08-05] MEDS: Lactobacillis Acidophilus 1 CAP PO ×4 (09:26→20:49)
[2025-08-05] MEDS: Heparin Injection (Vial) 5,000 UNIT/ML VIAL 5000 UNIT SC ×2 (09:26→20:50)
[2025-08-05] MEDS: Cholecalciferol (VIT D3) 25 MCG TABLET (1,000 UNITS) 50 MCG PO (09:27)
[2025-08-05] MEDS: Glucerna Shake 120 ML LIQUID PO ×3 (09:31→17:09)
--- NOTE | 2025-08-05 10:56 | CASEMGMT ---
Social Work- SW received updated from bedside nurse and hospitalist. CHANDRIKA called HCPOA to discuss discharge planning. Kristen, HCPOA, reports that she feels SNF at d/c is preference and is agreeable to referral to [facility]. [facility] notified of referral request. CHANDRIKA remains available to follow. RIGO Zavala
--- NOTE | 2025-08-05 11:26 | CASEMGMT ---
Addendum entered by Sir Tran 08/05/25 12:16: [facility] has accepted. Uncertain if precert will be needed as [facility] shows pt has traditional MCR and our records indicated [facility]. Awaiting confirmation from [facility]. Sri Tran DC Planning Asst. Original Note: Discharge Planning Referral sent to [facility]. Sri Tran DC Planning Asst.
--- NOTE | 2025-08-05 12:05 | CASEMGMT ---
Addendum entered by Thao Glasgow 08/05/25 16:06: Social Work- [facility] accepted referral and reporting that pt has MCR A & B. CHANDRIKA called [facility] registration to verify. [facility] registration verified and will correct in the system. CHANDRIKA notified [facility] of insurance verification. CHANDRIKA remains available to follow. RIGO Zavala Original Note: Social Work- CHANDRIKA received a copy of HCPOA document from René Lucio. Brother Galo is listed as primary agent. CHANDRIKA called Galo to verify agreement with discharge planning. Galo reports that although he is primary agent, Kristen as alternate agent is boots on the ground and as long as she's involved, it's fine. CHANDRIKA updated Galo on discharge plans; he expressed agreement. Galo reports that he would appreciate a call at d/c. CHANDRIKA remains available to follow. Plan: [facility]; pend level of care RIGO Zavala
--- NOTE | 2025-08-05 12:10 | PN_ITS ---
Subjective Subjective Patient seen and examined. She had no active complaints. Patient however does remain confused. She is however able to answer questions. She had no active complaints and review of systems otherwise negative. Objective Data Objective Data Vital Signs: Vital Signs Temp Pulse Resp BP Pulse Ox O2 Del Method 98.0 F 64 16 99/62 98 Room Air 08/05/25 09:16 08/05/25 09:16 08/05/25 09:16 08/05/25 09:16 08/05/25 09:16 08/05/25 09:16 Oxygen Delivery Method Room Air Weight: 163 lb 5.8 oz Body Mass Index (BMI) 27.8 Intake & Output: Intake and Output for Last 24 Hours 08/03/25 08/04/25 08/05/25 23:59 23:59 23:59 Intake Total 2684 / 2684 1000 / 1000 Balance 2684 / 2684 1000 / 1000 Lab / Micro Data 08/05/25 06:16 08/05/25 06:16 Labs: Laboratory Results - last 24 hr 08/04/25 15:58: POC Glucose 107 H 08/04/25 21:39: POC Glucose 100 08/05/25 06:16: WBC 5.3, RBC 2.91 L, Hgb 9.1 L, Hct 27.8 L, MCV 95.5, MCH 31.3, MCHC 32.7, RDW Std Deviation 48.6 H, RDW Coeff of Kayleen 14.0, Plt Count 158, MPV 10.3, Immature Gran % (Auto) 0.200, Neut % (Auto) 52.2, Lymph % (Auto) 39.0, [place] % (Auto) 7.1, Eos % (Auto) 1.1, Baso % (Auto) 0.4, Absolute Neuts (auto) 2.8, Absolute Lymphs (auto) 2.08, Nucleated RBC % 0, Sodium 142, Potassium 4.6, Chloride 111 H, Carbon Dioxide 21.4, Anion Gap 10, BUN 25 H, Creatinine 1.23 H, Estim Creat Clear Calc 41.96 L, Est GFR (MDRD) Non-Af 47 L, BUN/Creatinine Ratio 19.9, Glucose 92, Calcium 8.9 08/05/25 07:55: POC Glucose 91 08/05/25 10:52: POC Glucose 133 H Micro: Microbiology 08/02/25 22:40 Blood Culture (Wb) - Anticubital Right Blood Culture - Preliminary No growth in 48 hours. 08/02/25 23:05 Blood Culture (Wb) - Anticubital Right Blood Culture - Preliminary No growth in 48 hours. Physical Exam Const alert and no apparent distress Constitutional Narrative: confused General Appearance: cooperative HEENT normocephalic, head/scalp atraumatic, moist oral mucous membranes and oropharynx normal Eyes PERRL Neck no lymphadenopathy and supple Lymph Lymphatic: no lymphedema noted Resp normal respiratory effort, normal air movement and clear to auscultation bilaterally Cardio regular rate, regular rhythm, S1 normal heart sound and S2 normal heart sound GI normal to inspection, nondistended, normoactive bowel sounds, soft to palpation and non-tender Extremity normal capillary refill, no clubbing, cyanosis or edema and no calf tenderness General Extremity: no tenderness to palpation of joints or extremities Skin General Skin Exam: no breakdown Neuro no focal motor deficits and no sensory deficits noted Motor Exam: strength 5/5 throughout and general weakness Psych cooperative Psych Narrative: confused Assessment & Plan Assessment/Plan (1) Generalized weakness: (2) Acute cystitis without hematuria: PLAN: Plan #UTI * On IV ceftriaxone. Urine cultures pending still. #TRACEY: Creatinine has trended down to normal at 1.23 today. Encourage oral hydration #Debility and weakness: PT OT on board. Fall precautions. #Benign essential hypertension: On lisinopril which was held due to TRACEY and remains on hold due to low BP. IV hydralazine as needed #History of Alzheimer's dementia: Hyperlipidemia: On statin #Hypothyroidism: On Synthroid #DVT prophylaxis: heparin Disposition: Will benefit from placement. Case management on board to help with this. Charges/Coding Visit Charges Inpatient E&M: 03310 Subs Hosp L2
[2025-08-05 14:35] VITALS: BP 98/62; PULSE 67; RESP 16; TEMP 36.6; O2SAT 94
[2025-08-05 20:40] VITALS: BP 100/73; PULSE 67; RESP 18; TEMP 36.6; O2SAT 98
[2025-08-06 02:28] VITALS: BP 99/45; PULSE 71; RESP 18; TEMP 36.8; O2SAT 97
[2025-08-06 05:01] LABS: Hematocrit 28.1 % (37-47); Hemoglobin 9.2 g/dL (12.0-15.0); Immature Granulocytes Count 0.020 X10^3/uL (0.0-0.0); Mean Corp Hgb Conc 32.7 g/dL (32-36); Mean Corpuscular Volume 93.7 fL (81-99); Mean Platelet Vol. 10.1 fl (6.2-12.0); NRBC Flagged by Analyzer 0 % (0-5); Platelet Count 177 K/mm3 (150-450); RBC Distribution Width CV 13.6 % (11.6-14.6); RBC Distribution Width SD 46.6 fl (35.1-43.9); Red Blood Count 3.00 M/mm3 (4.2-5.4); White Blood Count 6.2 K/mm3 (4.4-11.0)
[2025-08-06 05:25] LABS: Anion Gap 10 (5-15); BUN 29 mg/dL (4-19); BUN/Creat Ratio 23.0 RATIO (10-20); Calcium,Total 9.1 mg/dL (7.6-11.0); Carbon Dioxide 23.1 mmol/L (21.0-32.0); Chloride 109 mmol/L (98-108); Estimated Creatinine Clearance 40.64 ml/min (50-250); Glucose 104 mg/dL (70-99); Potassium 4.6 mmol/L (3.3-5.1)
[2025-08-06 05:48] VITALS: BMI 28.3
[2025-08-06] MEDS: Lactobacillis Acidophilus 1 CAP PO ×4 (08:21→21:10)
[2025-08-06] MEDS: Cholecalciferol (VIT D3) 25 MCG TABLET (1,000 UNITS) 50 MCG PO (08:21)
[2025-08-06] MEDS: Heparin Injection (Vial) 5,000 UNIT/ML VIAL 5000 UNIT SC ×2 (08:21→21:11)
[2025-08-06] MEDS: Glucerna Shake 120 ML LIQUID PO (08:26)
[2025-08-06 08:30] VITALS: BP 93/63; PULSE 66; RESP 16; TEMP 36.3; O2SAT 96
[2025-08-06 11:19] VITALS: BP 92/61; PULSE 55; RESP 16; TEMP 36.3; O2SAT 96
--- NOTE | 2025-08-06 11:20 | CASEMGMT ---
Discharge Planning Clinicals sent to [facility] with update that pt won't discharge for another day or two. Sri Tran DC Planning Asst.
--- NOTE | 2025-08-06 12:56 | PN_ITS ---
Subjective Subjective Patient seen and examined with her nurse by the bedside. She had no active complaints this morning. She does seem to still be confused as she kept saying she has to going to call from 1 to and she was going to her mother's house. Her blood pressure is still running low today in the 90s systolic. Review of systems otherwise negative. Objective Data Objective Data Vital Signs: Vital Signs Temp Pulse Resp BP Pulse Ox O2 Del Method 97.4 F L 55 L 16 92/61 96 Room Air 08/06/25 11:19 08/06/25 11:19 08/06/25 11:19 08/06/25 11:19 08/06/25 11:19 08/06/25 11:19 Oxygen Delivery Method Room Air Weight: 166 lb 0.129 oz Body Mass Index (BMI) 28.3 Intake & Output: Intake and Output for Last 24 Hours 08/04/25 08/05/25 08/06/25 23:59 23:59 23:59 Intake Total 1000 / 1000 50 / 50 650 / 650 Balance 1000 / 1000 50 / 50 650 / 650 Lab / Micro Data 08/06/25 04:41 08/06/25 04:41 Labs: Laboratory Results - last 24 hr 08/05/25 16:06: POC Glucose 161 H 08/05/25 20:48: POC Glucose 126 H 08/06/25 04:41: WBC 6.2, RBC 3.00 L, Hgb 9.2 L, Hct 28.1 L, MCV 93.7, MCH 30.7, MCHC 32.7, RDW Std Deviation 46.6 H, RDW Coeff of Kayleen 13.6, Plt Count 177, MPV 10.1, Immature Gran % (Auto) 0.300, Neut % (Auto) 52.2, Lymph % (Auto) 39.7, [place] % (Auto) 6.5, Eos % (Auto) 1.0, Baso % (Auto) 0.3, Absolute Neuts (auto) 3.2, Absolute Lymphs (auto) 2.46, Nucleated RBC % 0, Sodium 142, Potassium 4.6, Chloride 109 H, Carbon Dioxide 23.1, Anion Gap 10, BUN 29 H, Creatinine 1.27 H, Estim Creat Clear Calc 40.64 L, Est GFR (MDRD) Non-Af 45 L, BUN/Creatinine Ratio 23.0 H, Glucose 104 H, Calcium 9.1 Micro: Microbiology 08/02/25 21:30 Urine, Clean Catch Urine Culture - Final Corynebacterium minutissimum GNR lactose clinical editor 08/02/25 22:40 Blood Culture (Wb) - Anticubital Right Blood Culture - Preliminary No growth in 48 hours. 08/02/25 23:05 Blood Culture (Wb) - Anticubital Right Blood Culture - Preliminary No growth in 48 hours. Physical Exam Const alert and no apparent distress Constitutional Narrative: confused General Appearance: cooperative Orientation / Consciousness: confused HEENT normocephalic, head/scalp atraumatic, hearing grossly normal bilaterally, moist oral mucous membranes and oropharynx normal Eyes PERRL, EOMs intact bilaterally and conjunctivae normal Neck no lymphadenopathy, supple and no JVD Lymph Lymphatic: no lymphedema noted Resp normal respiratory effort, normal air movement, no retractions, no use of accessory muscles and clear to auscultation bilaterally Cardio regular rate, regular rhythm, S1 normal heart sound, S2 normal heart sound and no murmurs GI normal to inspection, nondistended, normoactive bowel sounds, soft to palpation, non-tender and non-distended Extremity normal to inspection, full ROM, normal capillary refill, no clubbing, cyanosis or edema and no calf tenderness General Extremity: no tenderness to palpation of joints or extremities Skin General Skin Exam: no breakdown Neuro CN's II-XII intact bilaterally, moves all extremities, no focal motor deficits and no sensory deficits noted Sensorium / Orientation: awake and alert Speech: speech normal Motor Exam: strength 5/5 throughout and general weakness Psych cooperative and affect normal Psych Narrative: confused Assessment & Plan Assessment/Plan (1) Generalized weakness: (2) Acute cystitis without hematuria: PLAN: Plan #UTI * On IV ceftriaxone. Urine cultures growing corynebacterium remain UTI seen on and gram-negative pedrito lactose clinical editor. * Continue IV ceftriaxone pending speciation and sensitivities * #TRACEY: Creatinine is 1.27. Has largely resolved. Encourage oral hydration. #Debility and weakness: PT OT on board. Fall precautions. #Benign essential hypertension: On lisinopril which was held due to TRACEY and remains on hold due to low BP. IV hydralazine as needed #Hypotension: patient still remains hypotensive though asymptomatic. Will start on midodrine 5mg tid. #History of Alzheimer's dementia: Hyperlipidemia: On statin #Hypothyroidism: On Synthroid #DVT prophylaxis: heparin Disposition: Will benefit from placement. Case management on board to help with this. Charges/Coding Visit Charges Inpatient E&M: 48307 Subs Hosp L2
[2025-08-06 15:16] VITALS: BP 94/48; PULSE 60; RESP 16; TEMP 36.9; O2SAT 99
[2025-08-06 21:09] VITALS: BP 104/71; PULSE 72; RESP 17; TEMP 36.9; O2SAT 95
[2025-08-06] MEDS: MELATONIN 10 MG TABLET PO (21:11)
[2025-08-07 01:40] VITALS: BP 109/72; PULSE 53; RESP 14; TEMP 36.4; O2SAT 95
[2025-08-07 01:41] VITALS: PULSE 53
[2025-08-07 05:12] LABS: Hematocrit 28.7 % (37-47); Hemoglobin 9.5 g/dL (12.0-15.0); Immature Granulocytes Count 0.020 X10^3/uL (0.0-0.0); Mean Corp Hgb Conc 33.1 g/dL (32-36); Mean Corpuscular Volume 96.6 fL (81-99); Mean Platelet Vol. 9.8 fl (6.2-12.0); NRBC Flagged by Analyzer 0 % (0-5); Platelet Count 177 K/mm3 (150-450); RBC Distribution Width CV 14.0 % (11.6-14.6); RBC Distribution Width SD 49.6 fl (35.1-43.9); Red Blood Count 2.97 M/mm3 (4.2-5.4); White Blood Count 5.4 K/mm3 (4.4-11.0)
[2025-08-07 05:43] VITALS: BMI 28.4
[2025-08-07 05:54] LABS: Anion Gap 12 (5-15); BUN 24 mg/dL (4-19); BUN/Creat Ratio 20.5 RATIO (10-20); Calcium,Total 9.0 mg/dL (7.6-11.0); Carbon Dioxide 21.9 mmol/L (21.0-32.0); Chloride 110 mmol/L (98-108); Estimated Creatinine Clearance 44.92 ml/min (50-250); Glucose 93 mg/dL (70-99); Potassium 4.4 mmol/L (3.3-5.1)
[2025-08-07 06:13] VITALS: BP 100/64; PULSE 56; RESP 15; TEMP 36.4; O2SAT 97
[2025-08-07] MEDS: Heparin Injection (Vial) 5,000 UNIT/ML VIAL 5000 UNIT SC (09:28)
[2025-08-07] MEDS: Cholecalciferol (VIT D3) 25 MCG TABLET (1,000 UNITS) 50 MCG PO (09:31)
[2025-08-07] MEDS: Lactobacillis Acidophilus 1 CAP PO (09:32)
[2025-08-07 09:56] VITALS: BP 107/56; PULSE 62; RESP 16; TEMP 36.6; O2SAT 100
--- NOTE | 2025-08-07 11:46 | PCM.DC.SUM ---
Providers Date of Admission: 08/02/25 Date of Discharge: 08/07/25 Primary Care Physician: JARETT Mendes Reason For Visit: UTI, DIARRHEA & TRACEY WITH GENERALIZED Diagnosis Discharge Diagnosis (1) Generalized weakness: Status: Acute Code(s): R53.1 - Weakness (2) Acute cystitis without hematuria: Status: Acute Code(s): N30.00 - Acute cystitis without hematuria Plan #UTI On IV ceftriaxone. Urine cultures growing corynebacterium remain UTI seen on and gram-negative pedrito lactose adjustment examiner. Continue IV ceftriaxone pending speciation and sensitivities #TRACEY: Creatinine is 1.27. Has largely resolved. Encourage oral hydration. #Debility and weakness: PT OT on board. Fall precautions. #Benign essential hypertension: On lisinopril which was held due to TRACEY and remains on hold due to low BP. IV hydralazine as needed #Hypotension: patient still remains hypotensive though asymptomatic. Will start on midodrine 5mg tid. #History of Alzheimer's dementia: Hyperlipidemia: On statin #Hypothyroidism: On Synthroid #DVT prophylaxis: heparin Disposition: Will benefit from placement. Case management on board to help with this. Medications at Discharge Home Medications calcium citrate 250 mg PO DAILY 08/02/25 cholecalciferol (vitamin D3) 50 mcg (2,000 unit) capsule 50 mcg PO DAILY 08/02/25 dapagliflozin propanediol 5 mg tablet (Farxiga) 5 mg PO DAILY 08/02/25 multivitamin (Daily Multi-Vitamin tablet) 1 tab PO DAILY 08/02/25 quetiapine 25 mg tablet (Seroquel) 12.5 mg PO QHS 08/02/25 rosuvastatin 20 mg tablet 20 mg PO QHS 08/02/25 semaglutide 0.25 mg or 0.5 mg (2 mg/3 mL) subcutaneous pen injector (Ozempic) 0.5 mg subcut QWEEK 08/02/25 sertraline 25 mg tablet 25 mg PO DAILY 08/02/25 cefdinir 300 mg capsule 300 mg PO Q12 #8 caps 08/07/25 midodrine 5 mg tablet 5 mg PO TIDCM #90 tabs 08/07/25 Hospital Course Operations None Procedures None Summary of Care Provided Minutes Spent on Discharge: 45 Hospital Course: Patient is a 70-year-old female with an extensive past medical history as outlined which includes Alzheimer's dementia who was admitted from her correction on 08/02/2025 with a complaint of diarrhea, generalized weakness and abnormal labs. Due to patient's Alzheimer's dementia she is not a reliable historian so information was mainly gathered from the chart, medical staff and computer on admission. She was apparently found to have nonbloody diarrhea which have been going on for several days. She was on Ozempic and metformin and these were discontinued with concern for adverse drug reaction. Labs subsequently done showed elevated creatinine of 2.42 consistent with TRACEY in the setting of CKD stage III. She was brought into the ED where urinalysis done was positive for UTI. CT of the abdomen and pelvis showed no evidence of bowel obstruction or acute inflammatory process and showed extensive distal colonic diverticulosis without evidence of acute diverticulitis and colitis and mildly enlarged lobulated myomatous uterus. She was admitted to be managed for TRACEY in the setting of diarrhea and UTI. She was started on IV ceftriaxone. She was hydrated with IV fluids and her creatinine trended down to normal. Hospital course was complicated by hypotension. Her blood pressure medications were held. However stated her blood pressure remained low so she was started on midodrine. Urine cultures grew corynebacterium may need to send him and gram-negative pedrito lactose adjustment examiner of a low colony count of less than 8000. Susceptibility was no usually performed on the corynebacterium and the colony count of the gram-negative pedrito lactose adjustment examiner was thought to be below infection level. Her blood pressure improved on the midodrine. She was therefore discharged on p.o. cefdinir 300 mg daily for 5 days. She was also given a prescription for p.o. midodrine 5 mg 3 times daily. She is to have her blood pressure checked in the correction to determine if and when the blood pressure medication can be resumed and the midodrine discontinued. She is to follow-up with her primary care doctor within 1 to 2 weeks. Patient seen and examined. She remained confused though she was able to answer questions. She had no active complaints. Review of systems otherwise negative. Labs and vitals reviewed. Home medication reviewed and reconciled. Physical Exam Const alert and no apparent distress Constitutional Narrative: confused General Appearance: cooperative and comfortable Orientation / Consciousness: confused HEENT normocephalic, head/scalp atraumatic, hearing grossly normal bilaterally, moist oral mucous membranes and oropharynx normal Mouth: oral and palatal mucosa normal Eyes PERRL, EOMs intact bilaterally and conjunctivae normal Neck supple and no JVD Lymph Lymphatic: no lymphedema noted Resp normal respiratory effort, normal air movement, no retractions, no use of accessory muscles and clear to auscultation bilaterally Cardio regular rate, regular rhythm, S1 normal heart sound, S2 normal heart sound and no murmurs GI normal to inspection, nondistended, normoactive bowel sounds, soft to palpation, non-tender and non-distended Extremity normal to inspection, full ROM, normal capillary refill, no clubbing, cyanosis or edema and no calf tenderness General Extremity: no tenderness to palpation of joints or extremities Skin no rashes or lesions noted General Skin Exam: no breakdown Neuro CN's II-XII intact bilaterally, moves all extremities, no focal motor deficits and no sensory deficits noted Sensorium / Orientation: awake, alert, oriented to person, oriented to place and oriented to time Speech: speech normal Motor Exam: strength 5/5 throughout and general weakness Psych cooperative and affect normal Psych Narrative: confused Weight / BMI Weight Weight: 166 lb 10.711 oz Body Mass Index (BMI) 28.4 ABG / Lab / Microbiology Data 08/07/25 04:39 08/07/25 04:39 Laboratory: Laboratory Results - last 24 hr 08/07/25 04:39: WBC 5.4, RBC 2.97 L, Hgb 9.5 L, Hct 28.7 L, MCV 96.6, MCH 32.0, MCHC 33.1, RDW Std Deviation 49.6 H, RDW Coeff of Kayleen 14.0, Plt Count 177, MPV 9.8, Immature Gran % (Auto) 0.400, Neut % (Auto) 46.1 L, Lymph % (Auto) 43.4 H, [place] % (Auto) 7.7, Eos % (Auto) 1.7, Baso % (Auto) 0.7, Absolute Neuts (auto) 2.5, Absolute Lymphs (auto) 2.36, Nucleated RBC % 0, Sodium 144, Potassium 4.4, Chloride 110 H, Carbon Dioxide 21.9, Anion Gap 12, BUN 24 H, Creatinine 1.16, Estim Creat Clear Calc 44.92 L, Est GFR (MDRD) Non-Af 51 L, BUN/Creatinine Ratio 20.5 H, Glucose 93, Calcium 9.0 Microbiology: Microbiology 08/02/25 21:30 Urine, Clean Catch Urine Culture - Final Corynebacterium minutissimum GNR lactose adjustment examiner 08/02/25 22:40 Blood Culture (Wb) - Anticubital Right Blood Culture - Preliminary No growth in 48 hours. 08/02/25 23:05 Blood Culture (Wb) - Anticubital Right Blood Culture - Preliminary No growth in 48 hours. D/C Instructions Discharge Activity: Return to Normal Activity Weight Bearing Status: Weight bearing as tolerated Call your doctor if you observe: Fever of 101 or Higher, Shortness of breath, Dizziness, Swelling in the ankles and Chest pain DC O2, CPAP, BIPAP Needs Home O2 Discharge instructions: No DC home with Oxygen: No Meaningful Use Info Meaningful Use Meaningful Use Diagnoses (Choose all that apply): None applicable Discharge Plan Admission Admit Date/Time: 08/02/25 23:37 Primary Reason for Your Visit: UTI Attending Provider: Fatou Mcrae Primary Care Provider: Eduardo Hong NP Consulting Providers: Jhonny Albrecht; Lamberto Taylor Instructions Patient Instructions: ED Cystitis Female Adult Discharge Orders/Prescriptions Prescriptions: New midodrine 5 mg Tablet 5 mg PO TIDCM Qty: 90 2RF cefdinir 300 mg Capsule 300 mg PO Q12 Qty: 8 0RF Continued calcium citrate 250 mg calcium tablet 250 mg PO DAILY cholecalciferol (vitamin D3) 50 mcg (2,000 unit) capsule 50 mcg PO DAILY dapagliflozin propanediol [Farxiga] 5 mg tablet 5 mg PO DAILY multivitamin [Daily Multi-Vitamin] Tablet 1 tab PO DAILY Ozempic 0.25 mg or 0.5 mg (2 mg/3 mL) pen injector 0.5 mg SUBCUT QWEEK Patient Comments: [NO ORIGINAL SIG] Rx Instructions: inject sq in the morning every rosuvastatin 20 mg tablet 20 mg PO QHS quetiapine [Seroquel] 25 mg tablet 12.5 mg PO QHS sertraline 25 mg tablet 25 mg PO DAILY Discontinued lisinopril 2.5 mg tablet 2.5 mg PO DAILY Referrals / Follow Up: Eduardo Hong NP, [employer] [Primary Care Provider, Medical] - Within 1 Week Disposition Disposition (needs filled in before D/C Order can be placed): Longterm Facility Charges/Coding Visit Charges Inpatient E&M: 99069 Disch Hosp >30min
--- NOTE | 2025-08-07 11:46 | PCM.TXEXTCAR ---
Diet Diet Order/Speech Therapy: [facility]PATIENT [facility] Diet / Speech Therapy Order(s) 08/03/25 10:57 Diet: Carbohydrate Controlled Food consistency:: Regular Liquid Consistency:: Regular/Thin Dietary Modifications:: Sodium Restricted Routine Orders/Code Status Enema Type: Fleetz Enema Frequency: Daily PRN Suppository Type: Dulcolax 10mg Suppository Frequency: Daily PRN DC O2, CPAP, BIPAP needs Home O2 Discharge instructions: No Therapies Weight Bearing: Weight bearing as tolerated Physical Therapy: Eval and Treat Occupational Therapy: Eval and Treat Problem/Diagnosis (1) Generalized weakness: Status: Acute Code(s): R53.1 - Weakness (2) Acute cystitis without hematuria: Status: Acute Code(s): N30.00 - Acute cystitis without hematuria Plan #UTI On IV ceftriaxone. Urine cultures growing corynebacterium remain UTI seen on and gram-negative pedrito lactose community development specialist. Continue IV ceftriaxone pending speciation and sensitivities #TRACEY: Creatinine is 1.27. Has largely resolved. Encourage oral hydration. #Debility and weakness: PT OT on board. Fall precautions. #Benign essential hypertension: On lisinopril which was held due to TRACEY and remains on hold due to low BP. IV hydralazine as needed #Hypotension: patient still remains hypotensive though asymptomatic. Will start on midodrine 5mg tid. #History of Alzheimer's dementia: Hyperlipidemia: On statin #Hypothyroidism: On Synthroid #DVT prophylaxis: heparin Disposition: Will benefit from placement. Case management on board to help with this. Allergies/Procedures Done in Hospital Allergies erythromycin base Adverse Reaction (Verified 08/02/25 19:24) PT UNSURE OF REACTION exenatide (From [place]) Adverse Reaction (Verified 08/02/25 19:24) PT UNSURE OF REACTION Penicillins Adverse Reaction (Verified 08/02/25 19:24) PT UNSURE OF REACTION Sulfa (Sulfonamide Antibiotics) Adverse Reaction (Verified 08/02/25 19:24) PT UNSURE OF REACTION Procedures: None Type of Care/Length of Stay Estimated LOS: Convalescent Care Less Than 30 days Type of Care Needed: Skilled Rehab Potential: Fair Prognosis: Fair Additional Orders/Day of Discharge Day of Discharge: 08/07/25 Dietary and Speech Recommendations Dietitian Recommendations/Changes: Continue to consistent carbohydrate diet with a sodium restriction to manage medical condition. Continue 120ml glucerna shake 4x daily with medpass. Will monitor weight trends. Discharge Plan Admission Admit Date/Time: 08/02/25 23:37 Primary Reason for Your Visit: UTI Attending Provider: Fatou Mcrae Primary Care Provider: Eduardo Hong [employer]ER Consulting Providers: Jhonny Albrecht; Lamberto Taylor Instructions Patient Instructions: ED Cystitis Female Adult Discharge Orders/Prescriptions Prescriptions: New midodrine 5 mg Tablet 5 mg PO TIDCM Qty: 90 2RF cefdinir 300 mg Capsule 300 mg PO Q12 Qty: 8 0RF Continued calcium citrate 250 mg calcium tablet 250 mg PO DAILY cholecalciferol (vitamin D3) 50 mcg (2,000 unit) capsule 50 mcg PO DAILY dapagliflozin propanediol [Farxiga] 5 mg tablet 5 mg PO DAILY multivitamin [Daily Multi-Vitamin] Tablet 1 tab PO DAILY Ozempic 0.25 mg or 0.5 mg (2 mg/3 mL) pen injector 0.5 mg SUBCUT QWEEK Patient Comments: [NO ORIGINAL SIG] Rx Instructions: inject sq in the morning every rosuvastatin 20 mg tablet 20 mg PO QHS quetiapine [Seroquel] 25 mg tablet 12.5 mg PO QHS sertraline 25 mg tablet 25 mg PO DAILY Discontinued lisinopril 2.5 mg tablet 2.5 mg PO DAILY Referrals / Follow Up: Eduardo Hong TOOTH POLISHER, [facility] [employer] [Primary Care Provider, Medical] - Within 1 Week Disposition Disposition (needs filled in before D/C Order can be placed): [facility]
--- NOTE | 2025-08-07 12:40 | CASEMGMT ---
Social Work Physician updated that pt is ready for discharge today.? 7000 convalescent form completed in [facility] and sent along with discharge orders to [facility] via [facility].? Transportation arranged; Kristen to pickup at 14:00.? CHANDRIKA met with pt and they are agreeable to discharge plan as stated above.?Kristen and bedside nurse notified of discharge time. Disposition:[facility], skilled level of care RIGO Zavala
--- NOTE | 2025-08-07 13:18 | PHA.DC.MR.R ---
Pharmacy MA Med Reconciliation Pharmacy Service has performed discharge medication reconciliation for this patient. The patient's discharge medication list was reviewed for discrepancies and discrepancies were resolved. Medications at Discharge Home Medications calcium citrate 250 mg PO DAILY 08/02/25 cholecalciferol (vitamin D3) 50 mcg (2,000 unit) capsule 50 mcg PO DAILY 08/02/25 dapagliflozin propanediol 5 mg tablet (Farxiga) 5 mg PO DAILY 08/02/25 multivitamin (Daily Multi-Vitamin tablet) 1 tab PO DAILY 08/02/25 quetiapine 25 mg tablet (Seroquel) 12.5 mg PO QHS 08/02/25 rosuvastatin 20 mg tablet 20 mg PO QHS 08/02/25 semaglutide 0.25 mg or 0.5 mg (2 mg/3 mL) subcutaneous pen injector (Ozempic) 0.5 mg subcut QWEEK 08/02/25 sertraline 25 mg tablet 25 mg PO DAILY 08/02/25 cefdinir 300 mg capsule 300 mg PO Q12 #8 caps 08/07/25 midodrine 5 mg tablet 5 mg PO TIDCM #90 tabs 08/07/25
--- NOTE | 2025-08-07 14:15 | NURSING ---
report called and given to Radha at [facility]
== END 2025-08-07 13:59 | disposition skilled nursing facility (03) | DRG 683 ==
LOC: ED 23:30 → MS3 08-03 00:09
PROVIDERS: Admitting Provider Internal Medicine; Emergency Provider Emergency Medicine; PCP Nurse Practitioner Primary Care; Visit Provider Student in an Organized Health Care Education/Training Program
DX: N17.9 Acute kidney failure, unspecified (principal); N30.00 Acute cystitis without hematuria; E03.9 Hypothyroidism, unspecified; N18.30 Chronic kidney disease, stage 3 unspecified; E11.22 Type 2 diabetes mellitus with diabetic chronic kidney disease; F02.80 Dementia in other diseases classified elsewhere, unspecified severity, without behavioral disturbance, psychotic disturbance, mood disturbance, and anxiety; I12.9 Hypertensive chronic kidney disease with stage 1 through stage 4 chronic kidney disease, or unspecified chronic kidney disease; E78.00 Pure hypercholesterolemia, unspecified; M19.90 Unspecified osteoarthritis, unspecified site; G30.9 Alzheimer's disease, unspecified; K57.30 Diverticulosis of large intestine without perforation or abscess without bleeding; I95.9 Hypotension, unspecified; R19.7 Diarrhea, unspecified; T38.3X5A Adverse effect of insulin and oral hypoglycemic [antidiabetic] drugs, initial encounter; E66.3 Overweight; Z68.29 Body mass index [BMI] 29.0-29.9, adult; R53.81 Other malaise; R53.1 Weakness; Z79.84 Long term (current) use of oral hypoglycemic drugs; Z79.899 Other long term (current) drug therapy; Z87.891 Personal history of nicotine dependence
CPT/HCPCS: 36415; 74176; 80048; 80053; 80061; 80307; 81001; 82077; 82607; 82746; 82962; 83036; 83605; 83735; 84100; 84443; 85025; 85610; 85730; 87040; 87077; 87086; 87088; 97162; 97166; 97530; 97535; 97803; 99285; A4216

== ENCOUNTER → 2025-08-19 05:00 | Outpatient (REF) | payer MEDICARE, SELFPAY ==
--- OUTSIDE RECORDS SUMMARY | 2025-08-02 15:06 | XMS RPT_ITS ---
Author Name Auto Generated Organization [facility] Care Team Providers Care Checkman Name Role Phone MARIA T JULIEN Attending Unavailabl e BALTES WINDOW INSTALLER-REGRINDER, MARIA T Primary Care Unavailabl e BALTES WINDOW INSTALLER-REGRINDER, MARIA T Primary Care Unavailabl LAURO Griffiths MD Attending Unavailable ALEKSANDAR WINDOW INSTALLER-REGRINDER, MARIA T Primary Care Unavailabl e BALTES WINDOW INSTALLER-REGRINDER, MARIA T Attending Unavailabl e BALTES WINDOW INSTALLER-REGRINDER, MARIA T Attending Unavailabl e BALTES WINDOW INSTALLER-REGRINDER, MARIA T Primary Care Unavailabl e BALTES WINDOW INSTALLER-REGRINDER, MARIA T Primary Care Unavailabl e BALTES WINDOW INSTALLER-REGRINDER, MARIA T Attending Unavailabl e BALTES WINDOW INSTALLER-REGRINDER, MARIA T Attending Unavailabl e BALTES WINDOW INSTALLER-REGRINDER, MARIA T Primary Care Unavailabl e JOSH BERRY DO Attending Unavailable ALEKSANDAR WINDOW INSTALLER-REGRINDER, MARIA T Primary Care Unavailabl e PROBLEMS DATE TYPE CONDITION / CODE ATTENDING STATUS [facility] 08/02/2025 Admitting Diagnosis Nausea with vomiting, unspecified / R11.2(ICD-10) MARIA T JULIEN [facility] 08/02/2025 Admitting Diagnosis Type 2 diabetes mellitus without complications / E11.9(ICD-10) [facility] [place] [facility] 06/05/2025 Admitting Diagnosis 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) [facility] [place] [facility] 06/05/2025 Admitting Diagnosis Essential (primary) hypertension / I10(ICD-10) [facility] [place] [facility] 05/30/2025 Unknown Impacted cerumen , unspecified ear / H61.20(ICD-10) [facility] Encounter for screening, unspecified / Z13.9(ICD-10) [facility] Admitting Diagnosis Pure hypercholesterolemia , unspecified / E78.00(ICD-10) [facility] [place] [facility] 09/04/2024 Admitting Diagnosis Chronic kidney disease, unspecified / N18.9(ICD-10) [facility] [place] [facility] 09/04/2024 Admitting Diagnosis Vitamin D deficiency, unspecified / E55.9(ICD-10) [facility] [place] [facility] PROCEDURES No Procedure Records Found RESULTS CMP Collected: 08/02/2025 3:13 PM Status: F Source: [facility] TYPE CODE TESTS RESULT OUT OF RANGE REFERENCE UNITS LAB GLU(LOINC) Glucose Level 143 High 83-110 mg/dL LAB NA(LOINC) Sodium Level 144 136-145 mmol/L LAB K(LOINC) Potassium Level 4.7 3.5-5.1 mmol/L LAB CL(LOINC) Chloride 106 98-107 mmol/L LAB CO2(LOINC) CO2 28 23-31 mmol/L LAB EBAL(LOINC) Electrolyte Balance 10.0 4.0-15.0 mEq/L LAB BUN(LOINC) BUN 45 High 7-18 mg/dL LAB CRE(LOINC) Creatinine Lvl (s) 2.48 High 0.51-0.95 mg/dL LAB BC(LOINC) BUN/Creatinine Ratio 18 7-27 ratio LAB CA(LOINC) Calcium Lvl 9.7 8.4-10.2 mg/dL LAB PROT(LOINC) Total Protein 7.4 6.4-8.2 G/dL LAB ALB(LOINC) Albumin Level 4.1 3.4-4.8 G/dL LAB GLB(LOINC) Globulin 3.3 2.7-4.4 G/dL LAB AG(LOINC) A/G Ratio 1.2 1.1-2.5 ratio LAB BILT(LOINC) Bili Total 0.6 0.2-1.0 mg/dL Result Comment: Use of this assay is not recommended for patients undergoing treatment with eltrombopag due to the potential for falsely elevated results. LAB AP(LOINC) Alk Phos 41 40-135 U/L LAB AST(LOINC) AST/SGOT 38 10-40 U/L LAB ALT(LOINC) ALT/SGPT 38 14-59 U/L Performed By: #### CMP, GFR, A1C #### [address] [address] .GFR Collected: 08/02/2025 3:13 PM Status: F Source: [facility] TYPE CODE TESTS RESULT OUT OF RANGE REFERENCE UNITS LAB eGFR(LOINC) Estimated Glomerular Filtration Rate 20 ml/min/1. 73sqm Result Comment: Stages of Chronic Kidney Disease (CKD) Stage Description eGFR(ml/min/1.73 sq.m.) CKD 1 Normal kidney function or >=90 normal kindney function with possible kidney damage (ex. Proteinuria) CKD 2 Kidney damage with mild loss 60-89 of kidney function CKD 3a Mild to moderate loss of kidney 45-59 function CKD 3b Moderate to severe loss of 30-44 of kindey function CKD 4 Severe loss of kidney function 15-29 CKD 5 Kidney failure <15 Note: (go live 2024) the eGFR calculation was updated to the 2020 CKD-EPI creatinine equation without a race factor to calculate the eGFR results. Performed By: #### CMP, GFR, A1C #### [address] [address] A1C Collected: 3:13 PM Status: F Source: [facility] TYPE CODE TESTS RESULT OUT OF RANGE REFERENCE UNITS LAB A1C(LOINC) Hgb A1c 5.7 4.3-6.4 % LAB eAG(LOINC) Est Avg Glucose 117 mg/dL Result Comment: Estimated Av erage Glucose calculated by equation ((28.7xA1C)- 46.7) Estimated average glucose (eAG) is a calculated value from Hemoglobin A1C and is major account representative of the average blood glucose level in the last 2-3 month period. Normal range: less than 114 mg/dL Performed By: #### CMP, GFR, A1C #### [address] [place], [place] [address] BMP Collected: 06/06/2025 3:47 PM Status: F Source: [facility] TYPE CODE TESTS RESULT OUT OF RANGE REFERENCE UNITS LAB GLU(LOINC) Glucose Level 76 Low 83-110 mg/dL LAB NA(LOINC) Sodium Level 134 Low 136-145 mmol/L LAB K(LOINC) Potassium Level 5.1 3.5-5.1 mmol/L LAB CL(LOINC) Chloride 99 98-107 mmol/L LAB CO2(LOINC) CO2 24 23-31 mmol/L LAB EBAL(LOINC) Electrolyte Balance 11.0 4.0-15.0 mEq/L LAB BUN(LOINC) BUN 34 High 7-18 mg/dL LAB CRE(LOINC) Creatinine Lvl (s) 1.42 High 0.51-0.95 mg/dL LAB BC(LOINC) BUN/Creatinine Ratio 24 7-27 ratio LAB CA(LOINC) Calcium Lvl 9.4 8.4-10.2 mg/dL Performed By: #### BMP, GFR #### [address] [place], [place] [address] .GFR Collected: 06/06/2025 3:47 PM Status: F Source: [facility] TYPE CODE TESTS RESULT OUT OF RANGE REFERENCE UNITS LAB eGFR(LOINC) Estimated Glomerular Filtration Rate 40 ml/min/1. 73sqm Result Comment: Stages of Chronic Kidney Disease (CKD) Stage Description eGFR(ml/min/1.73 sq.m.) CKD 1 Normal kidney function or >=90 normal kindney function with possible kidney damage (ex. Proteinuria) CKD 2 Kidney damage with mild loss 60-89 of kidney function CKD 3a Mild to moderate loss of kidney 45-59 function CKD 3b Moderate to severe loss of 30-44 of kindey function CKD 4 Severe loss of kidney function 15-29 CKD 5 Kidney failure <15 Note: (go live 2024) the eGFR calculation was updated to the 2020 CKD-EPI creatinine equation without a race factor to calculate the eGFR results. Performed By: #### BMP, GFR #### [address] [address] MALBR Collected: 06/06/2025 9:28 AM Status: F Source: [facility] TYPE CODE TESTS RESULT OUT OF RANGE REFERENCE UNITS LAB CRU(LOINC) U Creatinine 281.7 mg/dL LAB MRUR(LOINC) U Microalb 66.3 mg/L LAB RMAL(LOINC) U Ratio Alb/Cre 24 0-30 mg/G Performed By: #### MALBR ### # [address] [address] BMP Collected: 06/05/2025 2:09 PM Status: F Source: [facility] TYPE CODE TESTS RESULT OUT OF RANGE REFERENCE UNITS LAB GLU(LOINC) Glucose Level 105 83-110 mg/dL LAB NA(LOINC) Sodium Level 141 136-145 mmol/L LAB K(LOINC) Potassium Level 4.5 3.5-5.1 mmol/L LAB CL(LOINC) Chloride 105 98-107 mmol/L LAB CO2(LOINC) CO2 25 23-31 mmol/L LAB EBAL(LOINC) Electrolyte Balance 11.0 4.0-15.0 mEq/L LAB BUN(LOINC) BUN 37 High 7-18 mg/dL LAB CRE(LOINC) Creatinine Lvl (s) 1.77 High 0.51-0.95 mg/dL LAB BC(LOINC) BUN/Creatinine Ratio 21 7-27 ratio LAB CA(LOINC) Calcium Lvl 9.5 8.4-10.2 mg/dL Performed By: #### GFR, BMP #### [address] [address] .GFR Collected: 06/05/2025 2:09 PM Status: F Source: [facility] TYPE CODE TESTS RESULT OUT OF RANGE REFERENCE UNITS LAB eGFR(LOINC) Estimated Glomerular Filtration Rate 31 ml/min/1. 73sqm Result Comment: Stages of Chronic Kidney Disease (CKD) Stage Description eGFR(ml/min/1.73 sq.m.) CKD 1 Normal kidney function or >=90 normal kindney function with possible kidney damage (ex. Proteinuria) CKD 2 Kidney damage with mild loss 60-89 of kidney function CKD 3a Mild to moderate loss of kidney 45-59 function CKD 3b Moderate to severe loss of 30-44 of kindey function CKD 4 Severe loss of kidney function 15-29 CKD 5 Kidney failure <15 Note: (go live 2024) the eGFR calculation was updated to the 2020 CKD-EPI creatinine equation without a race factor to calculate the eGFR results. Performed By: #### GFR, BMP #### [address] [address] UA Collected: 05/30/2025 8:21 PM Status: F Source: [facility] TYPE CODE TESTS RESULT OUT OF RANGE REFERENCE UNITS LAB SPCUA(LOINC) UA Specimen Type Clean Catch LAB CLRUA(LOINC) UA Color Yellow LAB APPUA(LOINC) UA Appear Clear Clear LAB SGUA(LOINC) UA Spec Grav >=1.030 Abnormal 1.015-1.025 LAB GLUA(LOINC) UA Glucose >=1000 Abnormal Negative mg/dL LAB BILUA(LOINC) UA Bili Moderate Abnormal Negative LAB KETUA(LOINC) UA Ketones 15 Abnormal Negative mg/dL LAB BLDUA(LOINC) UA Blood Moderate Abnormal Negative LAB PHUA(LOINC) UA pH 6.0 5.0 - 8.0 LAB PROUA(LOINC) UA Protein 100 Abnormal Negative mg/dL LAB UROUA(LOINC) UA Urobilinogen 0.2 0.2-1.0 E.U ./dL LAB NITUA(LOINC) UA Nitrite Negative Negative LAB LEUUA(LOINC) UA Leuk Est Trace Negative Performed By: #### UA, UAMIC #### [address] [address] UAMIC Collected: 8:21 PM Status: F Source: [facility] TYPE CODE TESTS RESULT OUT OF RANGE REFERENCE UNITS LAB RBCUA(LOINC) UA RBC 0-2 0-2 /hpf Result Comment: Microscopic exam performed on unspun urine specimen due to insufficient volume. LAB WBCUA(LOINC) UA WBC 5-10 Abnormal 0-5 /hpf LAB EPIUA(LOINC) UA Squam Epithelial 0-2 0-20 /hpf Performed By: #### UA, UAMIC #### [address] [address] VIDH Collected: 1:27 PM Status: F Source: [facility] TYPE CODE TESTS RESULT OUT OF RANGE REFERENCE UNITS LAB [facility] Vit. D 25-Hydroxy 41.3 ng/mL Result Comment: Interpretive Values Based on Total 25(OH) Vitamin D: Deficient <20 ng/mL Insufficient 20 - <30 ng/mL Sufficient 30-100 ng/mL Performed By: #### VIDH, CMP , GFR, LIPID #### [address] [address] CMP Collected: 09/04/2024 1:27 PM Status: F Source: [facility] TYPE CODE TESTS RESULT OUT OF RANGE REFERENCE UNITS LAB GLU(LOINC) Glucose Level 232 High 80-115 mg/dL LAB NA(LOINC) Sodium Level 139 136-145 mmol/L LAB K(LOINC) Potassium Level 4.2 3.5-5.1 mmol/L LAB CL(LOINC) Chloride 103 98-107 mmol/L LAB CO2(LOINC) CO2 29 23-31 mmol/L LAB EBAL(LOINC) Electrolyte Balance 7.0 4.0-15.0 mEq/L LAB BUN(LOINC) BUN 19 High 7-18 mg/dL LAB CRE(LOINC) Creatinine Lvl (s) 0.98 0.55-1.02 mg/dL Result Comment: Testing perf ormed on Siemens Dimension EXL analyzer using a modified kinetic Oscar technique. LAB BC(LOINC) BUN/Creatinine Ratio 19 7-27 ratio LAB CA(LOINC) Calcium Lvl 9.8 8.4-10.2 mg/dL LAB PROT(LOINC) Total Protein 6.7 6.4-8.2 G/dL LAB ALB(LOINC) Albumin Level 3.7 3.4-4.8 G/dL LAB GLB(LOINC) Globulin 3.0 G/dL LAB AG(LOINC) A/G Ratio 1.2 1.1-2.5 ratio LAB BILT(LOINC) Bili Total 0.8 0.2-1.0 mg/dL Result Comment: Use of this assay is not recommended for patients undergoing treatment with eltrombopag due to the potential for falsely elevated results. LAB AP(LOINC) Alk Phos 55 40-135 U/L LAB AST(LOINC) AST/SGOT 28 10-40 U/L LAB ALT(LOINC) ALT/SGPT 38 14-59 U/L Performed By: #### VIDH, CMP , GFR, LIPID #### [place] [address] .GFR Collected: 4 1:27 PM Status: F Source: [facility] TYPE CODE TESTS RESULT OUT OF RANGE REFERENCE UNITS LAB GFRAA(LOINC) GFR 68 ml/min/1. 73sqm Result Comment: GFR Population mean for , Non- Americans Ages 20-29 = 116 mL/min/1.73 sq.m. Ages 30-39 = 107 mL/min/1.73 sq.m. Ages 40-49 = 99 mL/min/1.73 sq.m. Ages 50-59 = 93 mL/min/1.73 sq.m. Ages 60-69 = 85 mL/min/1.73 sq.m. Ages 70+ = 75 mL/min/1.73 sq.m. Chronic Kidney Disease: Less than 60 mL/min/1.73 square meters End Stage Renal Disease: Less than 15 mL/min/1.73 square meters LAB GFRNO(LOINC) GFR Non- 56 ml/min/1. 73sqm Result Comment: GFR Population mean for , Non- Americans Ages 20-29 = 116 mL/min/1.73 sq.m. Ages 30-39 = 107 mL/min/1.73 sq.m. Ages 40-49 = 99 mL/min/1.73 sq.m. Ages 50-59 = 93 mL/min/1.73 sq.m. Ages 60-69 = 85 mL/min/1.73 sq.m. Ages 70+ = 75 mL/min/1.73 sq.m. Chronic Kidney Disease: Less than 60 mL/min/1.73 square meters End Stage Renal Disease: Less than 15 mL/min/1.73 square meters Performed By: #### MARIELENA, CMP , GFR, LIPID #### [facility] [address] [place], [place] [address] LIPID Collected: 09/04/2024 1:27 PM Status: F Source: [facility] TYPE CODE TESTS RESULT OUT OF RANGE REFERENCE UNITS LAB CHOL(LOINC) Cholesterol 141 0-200 mg/dL Result Comment: Cholesterol Reference Interval: Less than 200 Desirable 200-239 Borderline high risk 240 and above High risk LAB TRIG(LOINC) Triglycerides 134 0-150 mg/dL Result Comment: Triglyceride Reference Interval: Less than 150 Normal 150-199 Borderline high risk 200-499 High risk 500 or higher Very high risk LAB HD(LOINC) HDL Cholesterol 59 40-60 mg/dL LAB LDL(LOINC) LDL Cholesterol 55 0-130 mg/dL Performed By: #### MARIELENA, CMP , GFR, LIPID #### [address] [place], [place] [address] MRI BRAIN W/ + W/O CONTRAST Observed: 2:30 PM Status: F Source: [facility] ORIGINAL EXAMINATION: MRI OF THE BRAIN WITHOUT AND WITH CONTRAST 08/24/2024 3:09 pm TECHNIQUE: Multiplanar multisequence MRI of the head/brain was performed without and with the administration of intravenous contrast. COMPARISON: None. HISTORY: ORDERING SYSTEM PROVIDED HISTORY: Reason for Exam: Unsp symptoms and signs w cognitive functions and awareness FINDINGS: INTRACRANIAL STRUCTURES/VENTRICLES: There is no acute infarct. No mass effect or midline shift. No evidence of an acute intracranial hemorrhage. The ventricles and sulci are moderately enlarged. Scattered punctate foci of increased T2 signal are present in the periventricular white matter bilaterally. The sellar/suprasellar regions appear unremarkable. The normal signal voids within the major intracranial vessels appear maintained. No abnormal focus of enhancement is seen within the brain. ORBITS: The visualized portion of the orbits demonstrate no acute abnormality. SINUSES: The visualized paranasal sinuses and mastoid air cells demonstrate no acute abnormality. BONES/SOFT TISSUES: The bone marrow signal intensity appears normal. The soft tissues demonstrate no acute abnormality. IMPRESSION: 1. Moderate cerebral volume loss. 2. Mild chronic white matter changes. 3. No acute intracranial finding. Interpreted by: Lamberto Rinaldi Preliminary Report By: Lamberto Rinaldi Electronically signed By Lamberto Rinaldi Dictated Date: 08/28/2024 8:45:15 AM Prelim Date: 08/28/2024 8:51:12 AM Sign Date: 08/28/2024 8:51:12 AM Ordering Provider: LAURO PAT ALLERGIES No Allergies Records Found ENCOUNTERS ADMIT/DISCHARGE ACCOUNT NUMBER ADMITTING ENCOUNTER CLASS LOC ATION SOURCE 08/02/2025/ 5 [id number] [facility] 06/06/2025/ 5 [id number] [facility] 06/05/2025/ 5 [id number] [facility] [facility] 06/05/2025/ 5 [id number] [facility] [facility] 05/30/2025/ 5 [id number] [facility] 09/04/2024/ 4 [id number] [facility] [facility] 08/24/2024/ 4 [id number] [facility] [facility] PAYERS ENCOUNTER GUARANTOR PAYER SUBSCRIBER SOURCE 08/02/2025 GADIEL Arce SHORTDOB: [id number] [place] [address]~osmin [email or web address]: () Primary Insurance:MEDICARE PART B INSCOPolicy Number: [id number] Date:3833-83-70Pevt Name:[facility] [place] [place] Administrators [facility] [address] [place] [address]VF: GADIEL Arce SHORTDOB: [id number] [place] [address]Iic: (HP) (WP) [facility] 08/02/2025 Secondary Insurance:CARESOURCE INSCOPolicy Number: [id number] Date:1903-62-36Mwqo Name:XAttn Claims DeptPO [address] [place] [address]AZ: GADIEL Arce SHORTDOB: [id number] [place] [address]Vom: (HP) (WP) [facility] 06/06/2025 GADIEL Arce SHORTDOB: [place] [address]~cashort [email or web address]: (HP) Primary Insurance:CARESOURCE INSCOPolicy Number: [id number] Date:2756-25-73Xxkf Name:NATTN Claims DeptPO [address] [place] [phone]: GADIEL Arce SHORTDOB: [id number] [place] [address]Iuc: (HP) (WP) [facility] 06/05/2025 GADIEL Arce SHORTDOB: [place] [address]~cashort [email or web address]: (HP) Primary Insurance:[employer]OURCE INSCOPolicy Number: [id number] Date:6551-68-84Xyyu Name:NATTN Claims DeptPO [address] [place] [address]YX: GADIEL Arce SHORTDOB: [id number] [place] [address]Bui: (HP) (WP) [facility] 06/05/2025 GADIEL Arce SHORTDOB: [place] [address]~cashort [email or web address]: (HP) Primary Insurance:[employer]OURCE INSCOPolicy Number: [id number] Date:8838-60-05Edta Name:NATTN Claims [address] [address]IB: GADIEL Arce SHORTDOB: [id number] [place] [address]Yuh: (HP) (WP) [facility] 05/30/2025 GADIEL Arce SHORTDOB: [place] [address]~cashort [email or web address]: (HP) Primary Insurance:CARESOURCE INSCOPolicy Number: [id number] Date:1946-62-44Wipy Name:NATTN Claims [address] [address]PX: GADIEL Arce SHORTDOB: [id number] [place] [address]Rzz: (HP) (WP) [facility] 09/04/2024 GADIEL Arce SHORTDOB: [id number] [address] [address]~cashort [email or web address]: (HP) Primary Insurance:PRIMETIME INSCOPolicy Number: [id number] Date:5401-73-74Cgxv Name:[address] [address]UQ: GADIEL Arce SHORTDOB: [id number], [place] [address]Ydx: (WP) [facility] 08/24/2024 GADIEL Arce SHORTDOB: [id number] [address]~osmin [email or web address]: () Primary Insurance:PRIMETIME INSCOPolicy Number: [id number] Date:8091-06-63Bxtb Name:[facility] [address] [address]QU: GADIEL Arce SHORTDOB: [id number], [place] [address]Ikq: (WP) [facility]
[2025-08-19 08:29] LABS: Hematocrit 30.1 % (37-47); Hemoglobin 10.1 g/dL (12.0-15.0); Mean Corp Hgb Conc 33.6 g/dL (32-36); Mean Corpuscular Volume 94.4 fL (81-99); Mean Platelet Vol. 10.0 fl (6.2-12.0); Platelet Count 224 K/mm3 (150-450); RBC Distribution Width CV 13.9 % (11.6-14.6); RBC Distribution Width SD 48.0 fl (35.1-43.9); Red Blood Count 3.19 M/mm3 (4.2-5.4); White Blood Count 6.4 K/mm3 (4.4-11.0)
[2025-08-19 08:51] LABS: Anion Gap 10 (5-15); BUN 20 mg/dL (4-19); BUN/Creat Ratio 15.9 RATIO (10-20); Calcium,Total 9.4 mg/dL (7.6-11.0); Carbon Dioxide 24.7 mmol/L (21.0-32.0); Chloride 106 mmol/L (98-108); Glucose 137 mg/dL (70-99); Potassium 4.4 mmol/L (3.3-5.1)
== END ==
LOC: OLS.WCC 05:00
PROVIDERS: PCP Nurse Practitioner Primary Care; Visit Provider Family Medicine
DX: D64.9 Anemia, unspecified (principal); E11.22 Type 2 diabetes mellitus with diabetic chronic kidney disease; I12.9 Hypertensive chronic kidney disease with stage 1 through stage 4 chronic kidney disease, or unspecified chronic kidney disease; N18.30 Chronic kidney disease, stage 3 unspecified; E78.5 Hyperlipidemia, unspecified; E03.9 Hypothyroidism, unspecified; N30.00 Acute cystitis without hematuria; E78.00 Pure hypercholesterolemia, unspecified; N17.9 Acute kidney failure, unspecified
CPT/HCPCS: 36415; 80048; 85027

== ENCOUNTER → 2025-11-18 04:00 | Outpatient (REF) | payer MEDICARE, MEDICAID, SELFPAY ==
--- OUTSIDE RECORDS SUMMARY | 2025-11-18 03:18 | XMS RPT_ITS | CCD ---
Author Organization [facility] Care Team Providers Care Internet Security Specialist Name Role Phone MARIA T JULIEN Primary Care Physician [phone] ALEKSANDAR ALVAREZ, MARIA T Attending Unavailabl e BALTES FLEET DISPATCH MANAGER-STREET LIGHT SERVICER HELPER, MARIA T Primary Care Unavailabl e BALTES FLEET DISPATCH MANAGER-STREET LIGHT SERVICER HELPER, MARIA T Attending Unavailabl e BALTES FLEET DISPATCH MANAGER-STREET LIGHT SERVICER HELPER, MARIA T Primary Care Unavailabl e BALTES FLEET DISPATCH MANAGER-STREET LIGHT SERVICER HELPER, MARIA T Attending Unavailabl e BALTES FLEET DISPATCH MANAGER-STREET LIGHT SERVICER HELPER, MARIA T Primary Care Unavailabl e BALTES FLEET DISPATCH MANAGER-STREET LIGHT SERVICER HELPER, MARIA T Attending Unavailabl e BALTES FLEET DISPATCH MANAGER-STREET LIGHT SERVICER HELPER, MARIA T Primary Care Unavailabl e BALTES FLEET DISPATCH MANAGER-STREET LIGHT SERVICER HELPER, MARIA T Attending Unavailabl e BALTES FLEET DISPATCH MANAGER-STREET LIGHT SERVICER HELPER, MARIA T Primary Care Unavailabl e BALTES FLEET DISPATCH MANAGER-STREET LIGHT SERVICER HELPER, MARIA T Attending Unavailabl e BALTES FLEET DISPATCH MANAGER-STREET LIGHT SERVICER HELPER, MARIA T Primary Care Unavailabl e Baltes [employer] ELECTRICAL ENGINEER-C, Maria T Primary Care Provider [phone] Dr. Lamberto Montiel DO Emergency Provider Dr. Jhonny Albrecht DO Admit Provider Unavail able Dr. Jhonny Albrecht DO Attending Provider Unav ailable Aleksandar W[employer]UR[employer] ELECTRICAL ENGINEER-Mari aT Douglas Primary Care Physician [phone] Dr. Lamberto Montiel DO Emergency Department Physi vianca Dr. Jhonny Albrecht DO Admitting Physician Dominique vailable Dr. Jhonny Albrecht DO Nurse Practitioner Unav augusto Mcrae MD, Dr. Fatou Cole Attending Physician Dr. Lamberto Taylor DO Nurse Practitioner Dr. Lamberto Taylor DO Attending Physician [phone] [address]. Fatou Mcrae MD Nurse Practitioner BALTES FLEET DISPATCH MANAGER-STREET LIGHT SERVICER HELPER, MARIA T Attending Unavailabl e BALTES FLEET DISPATCH MANAGER-STREET LIGHT SERVICER HELPER, MARIA T Primary Care Unavailabl e BALTES FLEET DISPATCH MANAGER-STREET LIGHT SERVICER HELPER, MARIA T Primary Care Unavailabl e BALTES FLEET DISPATCH MANAGER-STREET LIGHT SERVICER HELPER, MARIA T Attending Unavailabl e BALTES FLEET DISPATCH MANAGER-STREET LIGHT SERVICER HELPER, MARIA T Primary Care Unavailabl e BALTES FLEET DISPATCH MANAGER-STREET LIGHT SERVICER HELPER, MARIA T Attending Unavailabl e BALTES FLEET DISPATCH MANAGER-STREET LIGHT SERVICER HELPER, MARIA T Primary Care Unavailabl e BALTES FLEET DISPATCH MANAGER-STREET LIGHT SERVICER HELPER, MARIA T Attending Unavailabl e BALTES FLEET DISPATCH MANAGER-STREET LIGHT SERVICER HELPER, MARIA T Primary Care Unavailabl e BALTES FLEET DISPATCH MANAGER-STREET LIGHT SERVICER HELPER, MARIA T Attending Unavailabl e LAURO PAT MD Attending Unavailable BALTES FLEET DISPATCH MANAGER-STREET LIGHT SERVICER HELPER, MARIA T Primary Care Unavailabl e BALTES FLEET DISPATCH MANAGER-STREET LIGHT SERVICER HELPER, MARIA T Primary Care Unavailabl e JOSH BERRY DO Attending Unavailable hJonny Albrecht Admitting Unavailable Baltes, Maria T Primary Care Unavailable KorFatou dickens Attending Unavailable Jhonny Albrecht Consulting Unavailable Lamberto Taylor Consulting Unavailable StaramFatou Consulting Unavailable Baltes, Maria T Primary Care Unavailable Vladimir Valencia Attending Unavailable Baltes, Maria T Primary Care Unavailable Jhonny Albrecht Consulting Unavailable Jhonny Albrecht Admitting Unavailable Fatou Mcrae Attending Unavailable Lamberto Taylor Consulting Unavailable Lamberto Taylor Attending Unavailable Jhonny Albrecht Attending Unavailable Allergies Allergy Classification Reported Allergen(s) Allergy Type Date of Onset Reaction(s) Facility (15 sources) Erythromycin; Translations: [erythromycin] Drug Allergy 5 Hives, PT UNSURE OF REACTION [facility] (15 sources) exenatide; Translations: [exenatide] Drug Allergy 5 Hives, PT UNSURE OF REACTION [facility] Comment on above: States it's the pack aging not the medicine (8 sources) Penicillin; Translations: [penicillins] Drug Allergy Hives [facility] (5 sources) Sulfonamides (Antibiotic); Translations: [sulfa drugs] Drug [facility] (8 sources) Sulfonamide; Translations: [sulfa drugs] Drug allergy [facility] (5 sources) Penicillin; Translations: [penicillins] [facility] (2 sources) Penicillins Propensity to adverse reactions 5 PT UNSURE OF REACTION [facility] (2 sources) Sulfonamides (Antibiotic) Propensity to adverse reactions 5 PT UNSURE OF REACTION [facility] (1 source) Erythromycin Drug Allergy 5 [facility] (1 source) exenatide Drug Allergy 5 [facility] (1 source) Penicillins Drug allergy (disorder) 5 [facility] (1 source) Sulfonamides (Antibiotic) Drug allergy (disorder) 5 [facility] Medications Current Medications Medication Drug Class(es) Dates Sig (Normalized) Sig (Original) 0.5 ML semaglutide 1 MG/ML Auto-Injector (4 sources) Start: 05-13-2025 End: 06-10-2025 inject 1 dose by subcutaneous injection every week semaglutide 0.5 mg/0.5 mL (0.5 mg dose) subcutaneous solution Dose : 0.5 mg =, Subcutaneous, qWeek, in the abdomen, thigh, or upper arm, # 2 mL, 0 Refill(s), Pharmacy: [facility], Type 2 diabetes mellitus, 162, cm, 03/05/25 11:50:00 EDT, Height, kg, 03/05/25 11:50:00 EDT, Dosing Weight Start Date: 05/13/25 Stop Date: 06/10/25 Status: Ordered Quantity: 2.0 Unit: mL Repeat number: 1 Indications: Type 2 diabetes mellitus without complications; 3 ML semaglutide 1.34 MG/ML Pen Injector [Ozempic] (4 sources) Start: 03-06-2025 inject 1 dose by subcutaneous injection every week Ozempic 4 mg/3 mL (1 mg dose) subcutaneous solution Dose : 1 mg =, Subcutaneous, qWeek, # 3 mL, 0 Refill(s), Pharmacy: [facility], Type 2 diabetes mellitus, 162, cm, 03/05/25 11:50:00 EDT, Height, kg, 03/05/25 11:50:00 EDT, Dosing Weight Start Date: 03/06/25 Status: Ordered Quantity: 3.0 Unit: mL Repeat number: 1 Indications: Type 2 diabetes mellitus without complications; acetaminophen 500 mg oral tablet (13 sources) Start: 06-25-2019 acetaminophen 500 mg oral tablet Dose : 1,000 mg = 2 tab(s), Oral, q6hr, PRN for pain, 0 Refill(s) Start Date: 06/25/19 Status: Ordered Medication Dispense Status: Completed Total Allowed Fills: 1 Fills Dispensed: 0 aspirin 81 mg delayed release oral tablet (6 sources) Platelet Aggregation Inhibitor, Nonsteroidal Anti-inflammatory Drug Start: 06-27-2020 aspirin 81 mg oral delayed release tablet Dose : 81 mg = 1 tab(s), Oral, qDay, 0 Refill(s) Start Date: 06/27/20 Status: Ordered calcium carbonate 1500 mg / cholecalciferol 0.01 mg oral tablet (6 sources) Vitamin D Start: 05-27-2023 take 1 tablet by mouth twice daily calcium (as carbonate)-vitamin D 600 mg-10 mcg (400 intl units) oral tablet Dose = 1 tab(s), Oral, BID, # 180 tab(s), 3 Refill(s), [facility], Osteopenia, 161.29, cm, 05/27/23 8:24:00 EDT, Height, kg, 05/27/23 8:24:00 EDT, Dosing Weight Start Date: 05/27/23 Status: Ordered Start: 12-16-2021 take 1 tablet by tia th twice daily calcium (as carbonate)-vitamin D 600 mg-10 mcg (400 intl units) oral tablet Dose = 1 tab(s), Oral, BID, # 180 tab(s), 3 Refill(s), [facility]: [id number], Osteopenia, 160, cm, 10/27/21 7:57:00 EST, Height, kg, 10/27/21 7:57:00 EST, Dosing Weight Start Date: 12/16/21 Status: Ordered calcium citrate 1040 mg oral tablet (7 sources) Start: 08-02-2025 take 1 tablet by tia once daily Start: 03-05-2025 calcium (as ca lcium citrate) 250 mg oral tablet Dose : 250 mg = 1 tab(s), Oral, BID, # 180 tab(s), 3 Refill(s), Pharmacy: [facility], Osteopenia Post-menopausal, 162, cm, 03/05/25 11:50:00 EDT, Height, kg, 03/05/25 11:50:00 EDT, Dosing Weight Start Date: 03/05/25 Status: Ordered Medication Dispense Status: Completed Quantity: 180.0 Unit: tab(s) Total Allowed Fills: 4 Fills Dispensed: 0 Indications: Asymptomatic menopausal state; Other specified disorders of bone density and structure, unspecified site; carbamide peroxide 65 mg/ml otic solution (1 source) Start: 05-30-2025 End: 06-07-2025 Debrox 6.5% otic solution Dose = 4 drop(s), Ear, both, BID, may repeat every 2 weeks as needed, X 4 day(s), # 15 mL, 1 Refill(s) Start Date: 05/30/25 Stop Date: 06/07/25 Status: Ordered Quantity: 15.0 Unit: mL Repeat number: 2 cefdinir 300 mg oral capsule (1 source) Cephalosporin Antibacterial Start: 08-07-2025 take 1 capsule by mouth every twelve hours cholecalciferol 0.05 mg oral capsule (2 sources) Vitamin D Start: 08-02-2025 take 1 capsule by mouth once daily D3-50 (50,000 units) oral capsule (1 source) Start: 06-24-2024 D3-50 (50,000 units) oral capsule Dose : 1,250 mcg = 1 cap(s), Oral, qWeek, # 13 cap(s), 0 Refill(s), Pharmacy: [facility]/pharmacy #[id number], Vitamin D deficiency, 161, cm, 05/25/24 11:07:00 EDT, Height, kg, 05/25/24 11:07:00 EDT, Dosing Weight Start Date: 06/24/24 Status: Ordered dapagliflozin 5 mg oral tablet (7 sources) Sodium-Glucose Cotransporter 2 Inhibitor Start: 08-02-2025 take 1 tablet by mouth once daily Start: 03-05-2025 End: 06-03-2025 Farxiga 5 mg oral tablet Dos e : 5 mg = 1 tab(s), Oral, qDay, # 90 tab(s), 0 Refill(s), Pharmacy: [facility], Type 2 diabetes mellitus Chronic kidney disease, 162, cm, 03/05/25 11:50:00 EDT, Height, kg, 03/05/25 11:50:00 EDT, Dosing Weight Start Date: 03/05/25 Stop Date: 06/03/25 Status: Ordered Medication Dispense Status: Completed Quantity: 90.0 Unit: tab(s) Total Allowed Fills: 1 Fills Dispensed: 0 Indications: Chronic kidney disease, unspecified; Type 2 diabetes mellitus without complications; donepezil hydrochloride 5 mg oral tablet (1 source) Start: 09-04-2024 donepezil 5 mg oral tablet Dose : 5 mg = 1 tab(s), Oral, qHS, 0 Refill(s) Start Date: 09/04/24 Status: Ordered ibuprofen 200 mg oral tablet (7 sources) Nonsteroidal Anti-inflammatory Drug Start: 09-18-2024 ibuprofen 200 mg oral tablet Dose : 600 mg = 3 tab(s), Oral, q6h, PRN for fever/pain, Take with food or milk., 0 Refill(s) Start Date: 09/18/24 Status: Ordered Repeat number: 1 Start: 06-25-2019 ibuprofen 200 mg oral tablet Dose : 400 mg = 2 tab(s), Oral, q6h, PRN for pain, Take with food or milk., 0 Refill(s) Start Date: 06/25/19 Status: Ordered 3 ml insulin glargine 300 unt/ml pen injector (5 sources) Insulin Analog Start: 05-27-2023 End: 11-23-2023 inject 1 dose by subcutaneous injection once daily Kim Morgan SoloStar 300 units/mL subcutaneous solution Dose : 22 unit(s) =, Subcutaneous, qDay, EA=BOX of 2? Dose increased from previous order, # 4.5 mL, 1 Refill(s), Pharmacy: [facility], Type 2 diabetes mellitus, 161.29, cm, 05/27/23 8:24:00 EDT, Height, kg, 05/27/23 8:24:00 EDT, Dosing Weight Start Date: 05/27/23 Stop Date: 11/23/23 Status: Ordered Start: 04-30-2022 End: 10-27-2022 inject 1 dose by subcutaneous injection once daily Kim Morgan SoloStar 300 units/mL subcutaneous solution Dose : 18 unit(s) =, Subcutaneous, qDay, EA=BOX of 2? Dose increased from previous order, # 1.5 mL, 1 Refill(s), other reason (Rx), Type 2 diabetes mellitus Start Date: 04/30/22 Stop Date: 10/27/22 Status: Ordered levothyroxine sodium 0.075 mg oral tablet (7 sources) l-Thyroxine Start: 04-17-2024 End: 10-14-2024 levothyroxine 75 mcg (0.075 mg) oral tablet Dose : 75 mcg = 1 tab(s), Oral, qDayAC, # 90 tab(s), 1 Refill(s), [facility]: [facility] #[id number], 161, cm, 04/03/24 11:35:00 EDT, Height, kg, 04/03/24 11:35:00 EDT, Dosing Weight Start Date: 04/17/24 Stop Date: 10/14/24 Status: Ordered Start: 05-27-2023 End: 11-23-2023 levothyroxine 75 mcg (0.075 mg) oral tablet Dose : 75 mcg = 1 tab(s), Oral, qDayAC, # 90 tab(s), 1 Refill(s), [facility], 161.29, cm, 05/27/23 8:24:00 EDT, Height, kg, 05/27/23 8:24:00 EDT, Dosing Weight Start Date: 05/27/23 Stop Date: 11/23/23 Status: Ordered Start: 10-06-2022 End: 04-04-2023 levothyroxine 75 mcg (0.075 mg) oral tablet Dose : 75 mcg = 1 tab(s), Oral, qDayAC, # 90 tab(s), 1 Refill(s), [facility]acy: [facility] #[id number], 161.29, cm, 08/04/22 13:13:00 EDT, Height, kg, 08/04/22 13:13:00 EDT, Dosing Weight Start Date: 10/06/22 Stop Date: 04/04/23 Status: Ordered Start: 03-23-2022 End: 09-19-2022 levothyroxine 75 mcg (0.075 mg) oral tablet Dose : 75 mcg = 1 tab(s), Oral, qDayAC, # 90 tab(s), 1 Refill(s), [facility] [address] 161.29, cm, 01/26/22 8:00:00 EST, Height, kg, 01/26/22 8:00:00 EST, Dosing Weight Start Date: 03/23/22 Stop Date: 09/19/22 Status: Ordered Menthol / methyl salicylate (13 sources) Start: 06-11-2021 BENGAY Arthrit is topical cream PRN arthritis, Isatu scent, 0 Refill(s), 111.6 Start Date: 06/11/21 Status: Ordered Medication Dispense Status: Completed Total Allowed Fills: 1 Fills Dispensed: 0 Start: 06-11-2021 BENGAY Arthrit is topical cream PRN arthritis, Isatu scent, 0 Refill(s), 111.6 Start Date: 06/11/21 Status: Ordered Repeat number: 1 Start: 06-11-2021 BENGAY Arthrit is topical cream PRN arthritis, Isatu scent, 0 Refill(s), 111.6 Start Date: 06/11/21 Status: Ordered metFORMIN hydrochloride 500 mg oral tablet (12 sources) Biguanide Start: 09-04-2024 End: 12-13-2024 metFORMIN 500 mg oral tablet (IR) Dose : 1,000 mg = 2 tab(s), Oral, BID, # 180 tab(s), 0 Refill(s), other reason (Rx), Type 2 diabetes mellitus Start Date: 12/05/24 Status: Ordered Quantity: 180.0 Unit: tab(s) Repeat number: 1 Indications: Type 2 diabetes mellitus without complications; Start: 04-03-2024 End: 07-12-2024 metFORMIN 500 mg oral tablet (IR) Dose : 1,000 mg = 2 tab(s), Oral, BID, # 400 tab(s), 0 Refill(s), [facility]: [facility] #[id number], Type 2 diabetes mellitus, 161, cm, 04/03/24 11:35:00 EDT, Height, kg, 04/03/24 11:35:00 EDT, Dosing Weight Start Date: 04/03/24 Stop Date: 07/12/24 Status: Ordered Start: 05-27-2023 metFORMIN 500 mg oral tablet (IR) Dose : 1,000 mg = 2 tab(s), Oral, BID, # 360 tab(s), 3 Refill(s), Pharmacy: [facility], Type 2 diabetes mellitus, 161.29, cm, 05/27/23 8:24:00 EDT, Height, kg, 05/27/23 8:24:00 EDT, Dosing Weight Start Date: 05/27/23 Status: Ordered Start: 04-30-2022 metFORMIN 500 mg oral tablet (IR) Dose : 1,000 mg = 2 tab(s), Oral, BID, # 360 tab(s), 3 Refill(s), [facility]: [facility], Type 2 diabetes mellitus, 161.29, cm, 04/30/22 9:48:00 EDT, Height, kg, 04/30/22 9:48:00 EDT, Dosing Weight Start Date: 04/30/22 Status: Ordered midodrine hydrochloride 5 mg oral tablet (1 source) alpha-Adrenergic Agonist Start: 08-07-2025 take 1 tablet b y mouth three times daily at mealtime Multivitamin (Daily Multi-Vitamin) tablet (2 sources) Start: 08-02-2025 Start: 08-02-2025 Multivitamin ( Daily Multi-Vitamin) tablet Active 1 {tbl} PO DAILY August 02, 2025 12:00am Multivitamin preparation (7 sources) Start: 05-25-2024 take 1 tablet by mouth once daily Multivitamin Dose = 1 tab(s), Oral, Daily, 0 Refill(s) Start Date: 05/25/24 Status: Ordered Medication Dispense Status: Completed Total Allowed Fills: 1 Fills Dispensed: 0 Start: 05-25-2024 take 1 tablet by tia th once daily Multivitamin Dose = 1 tab(s), Oral, Daily, 0 Refill(s) Start Date: 05/25/24 Status: Ordered Repeat number: 1 Start: 05-25-2024 take 1 tablet by tia th once daily Multivitamin Dose = 1 tab(s), Oral, Daily, 0 Refill(s) Start Date: 05/25/24 Status: Ordered Pen needles 6 mm (13 sources) Start: 05-05-2021 Pen needles 6 mm See Instructions, EA=BOX of 100, # 5 EA, 3 Refill(s), [facility] [address] 161.29, cm, 04/23/21 9:29:00 EDT, Height, 111.6, kg, 04/23/21 9:29:00 EDT, Dosing Weight Start Date: 05/05/21 Status: Ordered Medication Dispense Status: Completed Quantity: 5.0 Unit: EA Total Allowed Fills: 4 Fills Dispensed: 0 Start: 05-05-2021 Pen needles 6 mm See Instructions, EA=BOX of 100, # 5 EA, 3 Refill(s), [facility] [address] 161.29, cm, 04/23/21 9:29:00 EDT, Height, 111.6, kg, 04/23/21 9:29:00 EDT, Dosing Weight Start Date: 05/05/21 Status: Ordered Quantity: 5.0 Unit: EA Repeat number: 4 Start: 05-05-2021 Pen needles 6 mm See Instructions, EA=BOX of 100, # 5 EA, 3 Refill(s), [facility] [address] 161.29, cm, 04/23/21 9:29:00 EDT, Height, 111.6, kg, 04/23/21 9:29:00 EDT, Dosing Weight Start Date: 05/05/21 Status: Ordered QUEtiapine 25 mg oral tablet (3 sources) Atypical Antipsychotic Start: 08-02-2025 Start: 06-19-2025 End: 10-17-2025 Seroquel 25 mg oral tablet D ose : 12.5 mg = 0.5 tab(s), Oral, qHS, # 15 tab(s), 3 Refill(s), Pharmacy: [facility] Anxiety, 161, cm, 06/05/25 12:48:00 EDT, Height, kg, 06/05/25 12:36:00 EDT, Dosing Weight Start Date: 06/19/25 Stop Date: 10/17/25 Status: Ordered Medication Dispense Status: Completed Quantity: 15.0 Unit: tab(s) Total Allowed Fills: 4 Fills Dispensed: 0 Indications: Delirium due to known physiological condition; Anxiety disorder, unspecified; rosuvastatin calcium 20 mg oral tablet (15 sources) HMG-CoA Reductase Inhibitor Start: 08-02-2025 take 1 tablet by mouth at bedtime Start: 04-03-2024 End: 05-08-2025 rosuvastatin 20 mg oral tabl et Dose : 20 mg = 1 tab(s), Oral, qDay, Patient requested 30 day supply only, # 30 tab(s), 0 Refill(s), Pharmacy: [facility]/pharmacy #[id number], Hypercholesteremia Type 2 diabetes mellitus, 161, cm, 12/05/24 11:24:00 EST, Height, kg, 12/05/24 11:24:00 EST, Dosing Weight Start Date: 12/05/24 Stop Date: 01/04/25 Status: Ordered Medication Dispense Status: Completed Quantity: 30.0 Unit: tab(s) Total Allowed Fills: 1 Fills Dispensed: 0 Indications: Pure hypercholesterolemia, unspecified; Type 2 diabetes mellitus without complications; Start: 05-27-2023 rosuvastatin 2 0 mg oral tablet Dose : 20 mg = 1 tab(s), Oral, qDay, # 90 tab(s), 3 Refill(s), Pharmacy: [facility], Hypercholesteremia Type 2 diabetes mellitus, 161.29, cm, 05/27/23 8:24:00 EDT, Height, kg, 05/27/23 8:24:00 EDT, Dosing Weight Start Date: 05/27/23 Status: Ordered Start: 12-16-2021 rosuvastatin 2 0 mg oral tablet Dose : 20 mg = 1 tab(s), Oral, qDay, # 90 tab(s), 3 Refill(s), Pharmacy: [facility], Hypercholesteremia Type 2 diabetes mellitus, 160, cm, 10/27/21 7:57:00 EST, Height, kg, 10/27/21 7:57:00 EST, Dosing Weight Start Date: 12/16/21 Status: Ordered 0.25 mg, 0.5 mg dose 1.5 ml semaglutide 1.34 mg/ml pen injector (1 source) Start: 03-30-2023 End: 07-20-2023 inject 0.5 mg by subcutaneous injection every week Ozempic 2 mg/1.5 mL (0.25 mg or 0.5 mg dose) subcutaneous solution 0.5 mg, Subcutaneous, qWeek, rotate injection sites, # 1 EA, 3 Refill(s), Pharmacy: [facility], 160, cm, 02/25/23 11:34:00 EDT, Height, kg, 02/25/23 11:34:00 EDT, Dosing Weight Start Date: 03/30/23 Stop Date: 07/20/23 Status: Ordered Semaglutide (2 sources) Start: 08-02-2025 Start: 08-02-2025 Semaglutide (O zempic) 0.25 mg or 0.5 mg (2 mg/3 mL) pen injector Active 0.5 mg SC EVERY WEEK August 02, 2025 12:00am inject sq in the morning every sertraline 25 mg oral tablet (7 sources) Serotonin Reuptake Inhibitor Start: 05-13-2025 take 1 tablet by mouth once daily Vitamin D3 50 mcg (2000 intl units) oral capsule (6 sources) Start: 09-07-2024 End: 09-02-2025 Vitamin D3 50 mcg (2000 intl units) oral capsule Dose : 50 mcg = 1 cap(s), Oral, qDay, # 90 cap(s), 3 Refill(s), Pharmacy: [facility]/pharmacy #[id number], 161, cm, 09/04/24 11:35:00 EDT, Height, kg, 09/04/24 11:35:00 EDT, Dosing Weight Start Date: 09/07/24 Stop Date: 09/02/25 Status: Ordered Medication Dispense Status: Completed Quantity: 90.0 Unit: cap(s) Total Allowed Fills: 4 Fills Dispensed: 0 Start: 09-07-2024 End: 09-02-2025 Vitamin D3 50 mcg (2000 intl units) oral capsule Dose : 50 mcg = 1 cap(s), Oral, qDay, # 90 cap(s), 3 Refill(s), Pharmacy: [facility]/pharmacy #[id number], 161, cm, 09/04/24 11:35:00 EDT, Height, kg, 09/04/24 11:35:00 EDT, Dosing Weight Start Date: 09/07/24 Stop Date: 09/02/25 Status: Ordered Quantity: 90.0 Unit: cap(s) Repeat number: 4 Start: 09-07-2024 End: 09-02-2025 Vitamin D3 50 mcg (2000 intl units) oral capsule Dose : 50 mcg = 1 cap(s), Oral, qDay, # 90 cap(s), 3 Refill(s), [id number], 161, cm, 09/04/24 11:35:00 EDT, Height, kg, 09/04/24 11:35:00 EDT, Dosing Weight Start Date: 09/07/24 Stop Date: 09/02/25 Status: Ordered Completed/Discontinued Medications Medication Drug Class(es) Dates Sig (Normalized) Sig (Original) 0.25 MG, 0.5 MG Dose 3 ML semaglutide 0.68 MG/ML Pen Injector [Ozempic] (2 sources) Start: 06-28-2024 End: 07-26-2024 inject 0.5 mg by subcutaneous injection every week Ozempic 2 mg/3 mL (0.25 mg or 0.5 mg dose) subcutaneous solution Dose : 0.5 mg =, Subcutaneous, qWeek, rotate injection sites, # 1 EA, 0 Refill(s), Uncontrolled type 2 diabetes mellitus with hyperglycemia Start Date: 06/28/24 Stop Date: 07/26/24 Status: Ordered lisinopril 2.5 mg oral tablet (15 sources) Angiotensin Converting Enzyme Inhibitor Start: 04-03-2024 End: 08-07-2025 take 1 tablet by mouth once daily Lisinopril 2.5 mg tablet Discontinued 2.5 mg PO DAILY August 02, 2025 12:00am August 07, 2025 11:43am Start: 05-27-2023 lisinopril 10 mg oral tablet Dose : 10 mg = 1 tab(s), Oral, qDay, # 90 tab(s), 3 Refill(s), Pharmacy: [facility], Hypertension Type 2 diabetes mellitus, 161.29, cm, 05/27/23 8:24:00 EDT, Height, kg, 05/27/23 8:24:00 EDT, Dosing Weight Start Date: 05/27/23 Status: Ordered Start: 04-30-2022 lisinopril 10 mg oral tablet Dose : 10 mg = 1 tab(s), Oral, qDay, # 90 tab(s), 3 Refill(s), Pharmacy: [facility], Hypertension Type 2 diabetes mellitus, 161.29, cm, 04/30/22 9:48:00 EDT, Height, kg, 04/30/22 9:48:00 EDT, Dosing Weight Start Date: 04/30/22 Status: Ordered Problems Problem Classification Problem Date Documented Da te Episodic/Chronic Acute and unspecified renal failure (8 sources) Acute renal failure syndrome; Translations: [Acute kidney failure, unspecified] Onset: 08-07-2025 08-02-2025 Episodic Chronic kidney disease (20 sources) Chronic kidney disease stage 3; Translations: [Chronic kidney disease] Onset: 09-04-2024 05-27-2023 Chronic Chronic kidney disease (1 source) Chronic kidney disease; Translations: [Chronic kidney disease, stage 3 unspecified] Onset: 08-07-2025 Deficiency and other anemia (4 sources) Anemia; Translations: [Anemia, unspecified] 08-02-2025 Episodic Delirium, dementia, and amnestic and other cognitive disorders (6 sources) Alzheimer's disease; Translations: [Alzheimer's disease, unspecified] Onset: 08-07-2025 08-02-2025 Chronic Diabetes mellitus with complications (11 sources) Type II diabetes mellitus uncontrolled; Translations: [Chronic kidney disease due to type 2 diabetes mellitus] Onset: 06-05-2025 06-28-2024 Chronic Diabetes mellitus without complication (20 sources) Type 2 diabetes mellitus; Translations: [Secondary diabetes mellitus] Onset: 04-03-2024 03-24-2020 Chronic Disorders of lipid metabolism (15 sources) Hypercholesterolemia ; Translations: [Pure hypercholesterolemia , unspecified] Onset: 09-04-2024 03-24-2020 Chronic E Codes: Adverse effects of medical drugs (5 sources) Adverse reaction to drug; Translations: [Adverse effect of unspecified drugs, medicaments and biological substances, initial encounter] Onset: 08-07-2025 08-02-2025 Episodic Essential hypertension (20 sources) Hypertensive disorder; Translations: [Essential hypertension] Onset: 06-05-2025 06-22-2019 Chronic Inflammatory diseases of female pelvic organs (7 sources) Abscess of vulva 08-09-2024 Episodic Malaise and fatigue (5 sources) Asthenia; Translations: [Weakness] Onset: 08-07-2025 08-02-2025 Episodic Nausea and vomiting (2 sources) Nausea with vomiting, unspecified; Translations: [Nausea with vomiting, unspecified] Onset: 08-02-2025 Episodic Nutritional deficiencies (2 sources) Vitamin D deficiency, unspecified; Translations: [Vitamin D deficiency, unspecified] Onset: 09-04-2024 Chronic Other bone disease and musculoskeletal deformities (13 sources) Osteopenia 09-26-2020 Episodic Other ear and sense organ disorders (1 source) Impacted cerumen; Translations: [Impacted cerumen, unspecified ear] Onset: 05-30-2025 Episodic Other ear and sense organ disorders (1 source) Impacted cerumen, unspecified ear; Translations: [Impacted cerumen, unspecified ear] Onset: 05-30-2025 Episodic Other gastrointestinal disorders (4 sources) Diarrhea; Translations: [Diarrhea, unspecified] 08-02-2025 Episodic Other gastrointestinal disorders (1 source) Diarrhea, unspecified; Translations: [Diarrhea, unspecified] Onset: 08-07-2025 Episodic Other nutritional; endocrine; and metabolic disorders (9 sources) Body mass index 30+ - obesity 01-26-2022 Chronic Other nutritional; endocrine; and metabolic disorders (4 sources) Body mass index 25-29 - overweight; Translations: [Overweight] 08-02-2025 Episodic Other nutritional; endocrine; and metabolic disorders (1 source) Overweight; Translations: [Overweight] Onset: 08-07-2025 Episodic Other screening for suspected conditions (not mental disorders or infectious disease) (15 sources) Viral screening status; Translations: [Procedure carried out on subject] Onset: 05-30-2025 04-30-2022 Episodic Other upper respiratory infections (13 sources) Chronic sinusitis 06-22-2019 Chronic Residual codes; unclassified (12 sources) Postmenopausal state 07-30-2022 Episodic Residual codes; unclassified (1 source) Amnesia; Translations: [Other amnesia] Episodic Residual codes; unclassified (7 sources) Memory impairment 05-25-2024 Episodic Thyroid disorders (14 sources) Hypothyroidism; Translations: [Hypothyroidism, unspecified] 03-24-2020 Chronic Unclassified (20 sources) Patient encounter status 08-13-2020 Unclassified (12 sources) Pain of knee region 08-24-2022 Urinary tract infections (10 sources) Urinary tract infectious disease; Translations: [Urinary tract infection, site not specified] Onset: 08-07-2025 08-02-2025 Episodic Results Test Name Value Interpretation Reference Range Facility Basic Metabolic Profile (BMP )on 08-19-2025 BUN/CRE 15.9 RATIO Normal - [facility] Comment on above: Order Comment: 105.1 Performed By: #### L 501.080 #### [facility] [address] [place], [address] Calcium [Mass/Vol] 9.4 mg/dL Normal 7.6-11.0 [facility] Comment on above: Order Comment: 105.1 Performed By: #### L 501.080 #### [facility] [address] [place], [address] Chloride [Moles/Vol] 106 mmol/L Normal 98-108 [facility] Comment on above: Order Comment: 105.1 Performed By: #### L 501.080 #### [facility] [address] [place], [address] CO2 [Moles/Vol] 24.7 mmol/L Normal 21.0-32.0 [facility] Comment on above: Order Comment: 105.1 Performed By: #### L 501.080 #### [facility] [address] [place], [address] Creatinine [Mass/Vol] 1.23 mg/dL High 0.70-1.20 [facility] Comment on above: Order Comment: 105.1 Performed By: #### L 501.080 #### [facility] [address] [place], [address] GAP 10 Normal 5-15 [facility] Comment on above: Order Comment: 105.1 Performed By: #### L 501.080 #### [facility] [address] [place], [address] GFR/1.73 sq M.predicted among non-blacks MDRD (S/P/Bld) [Vol rate/Area] 47 mL/min/{1.73_m2} Low >60 [facility] Comment on above: Order Comment: 105.1 Result Comment: mL/m in/1.73m2 CKD-EPI Creatinine Equation (2020) Performed By: #### L 501.080 #### [facility] [address] [place], [address] Glucose [Mass/Vol] 137 mg/dL High 70-99 [facility] Comment on above: Order Comment: 105.1 Performed By: #### L 501.080 #### [facility] [address] [place], [address] Potassium [Moles/Vol] 4.4 mmol/L Normal 3.3-5.1 [facility] Comment on above: Order Comment: 105.1 Performed By: #### L 501.080 #### [facility] [address] [place], [address] Sodium [Moles/Vol] 141 mmol/L Normal 133-145 [facility] Comment on above: Order Comment: 105.1 Performed By: #### L 501.080 #### [facility] [address] [place], [address] Urea nitrogen [Mass/Vol] 20 mg/dL High 4-19 [facility] Comment on above: Order Comment: 105.1 Performed By: #### L 501.080 #### [facility] [address] [place], [address] CBC-Complete Blood Cnt No Kimmy porras 08-19-2025 Erythrocyte distribution width (RBC) [Ratio] 13.9 % Normal 11.6-14.6 [facility] Comment on above: Order Comment: 105.1 Performed By: #### L 501.080 #### [facility] [address] [place], [address] Hematocrit (Bld) [Volume fraction] 30.1 % Low 37-47 [facility] Comment on above: Order Comment: 105.1 Performed By: #### L 501.080 #### [facility] [address] [place], [address] Hemoglobin (Bld) [Mass/Vol] 10.1 g/dL Low 12.0-15.0 [facility] Comment on above: Order Comment: 105.1 Performed By: #### L 501.080 #### [facility] [address] [place], [address] MCH (RBC) [Entitic mass] 31.7 pg Normal 27.0-32.0 [facility] Comment on above: Order Comment: 105.1 Performed By: #### L 501.080 #### [facility] [address] [place], [address] MCHC (RBC) [Mass/Vol] 33.6 g/dL Normal 32-36 [facility] Comment on above: Order Comment: 105.1 Performed By: #### L 501.080 #### [facility] [address] [place], [address] MCV (RBC) [Entitic vol] 94.4 fL Normal 81-99 [facility] Comment on above: Order Comment: 105.1 Performed By: #### L 501.080 #### [facility] [address] [place], [address] Platelet mean volume (Bld) [Entitic vol] 10.0 fL Normal 6.2-12.0 [facility] Comment on above: Order Comment: 105.1 Performed By: #### L 501.080 #### [facility] [address] [place], [address] Platelets (Bld) [#/Vol] 224 10*3/uL Normal 150-450 [facility] Comment on above: Order Comment: 105.1 Performed By: #### L 501.080 #### [facility] [address] [place], [address] RBC (Bld) [#/Vol] 3.19 10*6/uL Low 4.2-5.4 [facility] Comment on above: Order Comment: 105.1 Performed By: #### L 501.080 #### [facility] [address] [place], [address] RDW SD 48.0 fl High 35.1-43.9 [facility] Comment on above: Order Comment: 105.1 Performed By: #### L 501.080 #### [facility] [address] [place], [address] WBC (Bld) [#/Vol] 6.4 10*3/uL Normal 4.4-11.0 [facility] Comment on above: Order Comment: 105.1 Performed By: #### L 501.080 #### [facility] [address] [place], [address] Basic Metabolic Profile (BMP )on 08-13-2025 BUN Normal 4-19 [facility] Comment on above: Result Comment: Canc elled via OM: Order cancelled - Patient discharged Performed By: #### L 501.080 #### [facility] [address] [place], [address] BUN/CRE Normal 10-20 [facility] Comment on above: Result Comment: Canc elled via OM: Order cancelled - Patient discharged Performed By: #### L 501.080 #### [facility] [address] [place], [address] Calcium Normal 7.6-11.0 [facility] Comment on above: Result Comment: Canc elled via OM: Order cancelled - Patient discharged Performed By: #### L 501.080 #### [facility] [address] [place], [address] CL Normal 98-108 [facility] Comment on above: Result Comment: Canc elled via OM: Order cancelled - Patient discharged Performed By: #### L 501.080 #### [facility] [address] [place], [address] CO2 Normal 21.0-32.0 [facility] Comment on above: Result Comment: Canc elled via OM: Order cancelled - Patient discharged Performed By: #### L 501.080 #### [facility] [address] [place], [address] CREAT,SERUM Normal 0.70-1.20 [facility] Comment on above: Result Comment: Canc elled via OM: Order cancelled - Patient discharged Performed By: #### L 501.080 #### [facility] [address] [place], [address] eGFR Normal >60 [facility] Comment on above: Result Comment: Canc elled via OM: Order cancelled - Patient discharged Performed By: #### L 501.080 #### [facility] [address] [place], [address] GAP Normal 5-15 [facility] Comment on above: Result Comment: Canc elled via OM: Order cancelled - Patient discharged Performed By: #### L 501.080 #### [facility] [address] [place], [address] GLU Normal 70-99 [facility] Comment on above: Result Comment: Canc elled via OM: Order cancelled - Patient discharged Performed By: #### L 501.080 #### [facility] [address] [place], [address] Potassium Normal 3.3-5.1 [facility] Comment on above: Result Comment: Canc elled via OM: Order cancelled - Patient discharged Performed By: #### L 501.080 #### [facility] [address] [place], [address] Basic Metabolic Profile (BMP) Normal 133-145 [facility] Comment on above: Result Comment: Canc elled via OM: Order cancelled - Patient discharged Performed By: #### L 501.080 #### [facility] [address] [place], [address] CBC W/Diff, Automatedon 09-2 Absolute Neut Normal 2.0-7.7 [facility] Comment on above: Result Comment: Canc elled via OM: Order cancelled - Patient discharged Performed By: #### L 501.080 #### [facility] [address] [place], [address] HCT Normal 37-47 [facility] Comment on above: Result Comment: Canc elled via OM: Order cancelled - Patient discharged Performed By: #### L 501.080 #### [facility] [address] [place], [address] HGB Normal 12.0-15.0 [facility] Comment on above: Result Comment: Canc elled via OM: Order cancelled - Patient discharged Performed By: #### L 501.080 #### [facility] [address] [place], [address] MCH Normal 27.0-32.0 [facility] Comment on above: Result Comment: Canc elled via OM: Order cancelled - Patient discharged Performed By: #### L 501.080 #### [facility] [address] [place], [address] MCHC Normal 32-36 [facility] Comment on above: Result Comment: Canc elled via OM: Order cancelled - Patient discharged Performed By: #### L 501.080 #### [facility] [address] [place], [address] MCV Normal 81-99 [facility] Comment on above: Result Comment: Canc elled via OM: Order cancelled - Patient discharged Performed By: #### L 501.080 #### [facility] [address] [place], [address] NEUT% Normal 47-70 [facility] Comment on above: Result Comment: Canc elled via OM: Order cancelled - Patient discharged Performed By: #### L 501.080 #### [facility] [address] [place], [address] PLT Normal 150-450 [facility] Comment on above: Result Comment: Canc elled via OM: Order cancelled - Patient discharged Performed By: #### L 501.080 #### [facility] [address] [place], [address] RBC Normal 4.2-5.4 [facility] Comment on above: Result Comment: Canc elled via OM: Order cancelled - Patient discharged Performed By: #### L 501.080 #### [facility] [address] [place], [address] RDW CV Normal 11.6-14.6 [facility] Comment on above: Result Comment: Canc elled via OM: Order cancelled - Patient discharged Performed By: #### L 501.080 #### [facility] [address] [place], [address] RDW SD Normal 35.1-43.9 [facility] Comment on above: Result Comment: Canc elled via OM: Order cancelled - Patient discharged Performed By: #### L 501.080 #### [facility] [address] [place], [address] WBC Normal 4.4-11.0 [facility] Comment on above: Result Comment: Canc elled via OM: Order cancelled - Patient discharged Performed By: #### L 501.080 #### [facility] [address] [place], [address] Basic Metabolic Profile (BMP )on 08-12-2025 BUN Normal 4-19 [facility] Comment on above: Result Comment: Canc elled via OM: Order cancelled - Patient discharged Performed By: #### L 100.0100, L500.2500 #### [facility] [address] [place], [address] BUN/CRE Normal 10-20 [facility] Comment on above: Result Comment: Canc elled via OM: Order cancelled - Patient discharged Performed By: #### L 100.0100, L500.2500 #### [facility] [address] [place], [address] Calcium Normal 7.6-11.0 [facility] Comment on above: Result Comment: Canc elled via OM: Order cancelled - Patient discharged Performed By: #### L 100.0100, L500.2500 #### [facility] [address] [place], [address] CL Normal 98-108 [facility] Comment on above: Result Comment: Canc elled via OM: Order cancelled - Patient discharged Performed By: #### L 100.0100, L500.2500 #### [facility] [address] [place], [address] CO2 Normal 21.0-32.0 [facility] Comment on above: Result Comment: Canc elled via OM: Order cancelled - Patient discharged Performed By: #### L 100.0100, L500.2500 #### [facility] [address] [place], [address] CREAT,SERUM Normal 0.70-1.20 [facility] Comment on above: Result Comment: Canc elled via OM: Order cancelled - Patient discharged Performed By: #### L 100.0100, L500.2500 #### [facility] [address] [place], [address] eGFR Normal >60 [facility] Comment on above: Result Comment: Canc elled via OM: Order cancelled - Patient discharged Performed By: #### L 100.0100, L500.2500 #### [facility] [address] [place], [address] GAP Normal 5-15 [facility] Comment on above: Result Comment: Canc elled via OM: Order cancelled - Patient discharged Performed By: #### L 100.0100, L500.2500 #### [facility] [address] [place], [address] GLU Normal 70-99 [facility] Comment on above: Result Comment: Canc elled via OM: Order cancelled - Patient discharged Performed By: #### L 100.0100, L500.2500 #### [facility] [address] [place], [address] Potassium Normal 3.3-5.1 [facility] Comment on above: Result Comment: Canc elled via OM: Order cancelled - Patient discharged Performed By: #### L 100.0100, L500.2500 #### [facility] [address] [place], [address] Basic Metabolic Profile (BMP) Normal 133-145 [facility] Comment on above: Result Comment: Canc elled via OM: Order cancelled - Patient discharged Performed By: #### L 100.0100, L500.2500 #### [facility] [address] [place], [address] CBC W/Diff, Automatedon 09-2 Absolute Neut Normal 2.0-7.7 [facility] Comment on above: Result Comment: Canc elled via OM: Order cancelled - Patient discharged Performed By: #### L 100.0100, L500.2500 #### [facility] [address] [place], [address] HCT Normal 37-47 [facility] Comment on above: Result Comment: Canc elled via OM: Order cancelled - Patient discharged Performed By: #### L 100.0100, L500.2500 #### [facility] [address] [place], [address] HGB Normal 12.0-15.0 [facility] Comment on above: Result Comment: Canc elled via OM: Order cancelled - Patient discharged Performed By: #### L 100.0100, L500.2500 #### [facility] [address] [place], [address] MCH Normal 27.0-32.0 [facility] Comment on above: Result Comment: Canc elled via OM: Order cancelled - Patient discharged Performed By: #### L 100.0100, L500.2500 #### [facility] [address] [place], [address] MCHC Normal 32-36 [facility] Comment on above: Result Comment: Canc elled via OM: Order cancelled - Patient discharged Performed By: #### L 100.0100, L500.2500 #### [facility] [address] [place], [address] MCV Normal 81-99 [facility] Comment on above: Result Comment: Canc elled via OM: Order cancelled - Patient discharged Performed By: #### L 100.0100, L500.2500 #### [facility] [address] [place], [address] NEUT% Normal 47-70 [facility] Comment on above: Result Comment: Canc elled via OM: Order cancelled - Patient discharged Performed By: #### L 100.0100, L500.2500 #### [facility] [address] [place], [address] PLT Normal 150-450 [facility] Comment on above: Result Comment: Canc elled via OM: Order cancelled - Patient discharged Performed By: #### L 100.0100, L500.2500 #### [facility] [address] [place], [address] RBC Normal 4.2-5.4 [facility] Comment on above: Result Comment: Canc elled via OM: Order cancelled - Patient discharged Performed By: #### L 100.0100, L500.2500 #### [facility] [address] [place], [address] RDW CV Normal 11.6-14.6 [facility] Comment on above: Result Comment: Canc elled via OM: Order cancelled - Patient discharged Performed By: #### L 100.0100, L500.2500 #### [facility] [address] [place], [address] RDW SD Normal 35.1-43.9 [facility] Comment on above: Result Comment: Canc elled via OM: Order cancelled - Patient discharged Performed By: #### L 100.0100, L500.2500 #### [facility] [address] [place], [address] WBC Normal 4.4-11.0 [facility] Comment on above: Result Comment: Canc elled via OM: Order cancelled - Patient discharged Performed By: #### L 100.0100, L500.2500 #### [facility] [address] [place], [address] Basic Metabolic Profile (BMP )on 08-11-2025 BUN Normal 4-19 [facility] Comment on above: Result Comment: Canc elled via OM: Order cancelled - Patient discharged Performed By: #### L 100.0100, L500.2500 #### [facility] [address] [place], [address] BUN/CRE Normal 10-20 [facility] Comment on above: Result Comment: Canc elled via OM: Order cancelled - Patient discharged Performed By: #### L 100.0100, L500.2500 #### [facility] [address] [place], [address] Calcium Normal 7.6-11.0 [facility] Comment on above: Result Comment: Canc elled via OM: Order cancelled - Patient discharged Performed By: #### L 100.0100, L500.2500 #### [facility] [address] [place], [address] CL Normal 98-108 [facility] Comment on above: Result Comment: Canc elled via OM: Order cancelled - Patient discharged Performed By: #### L 100.0100, L500.2500 #### [facility] [address] [place], [address] CO2 Normal 21.0-32.0 [facility] Comment on above: Result Comment: Canc elled via OM: Order cancelled - Patient discharged Performed By: #### L 100.0100, L500.2500 #### [facility] [address] [place], [address] CREAT,SERUM Normal 0.70-1.20 [facility] Comment on above: Result Comment: Canc elled via OM: Order cancelled - Patient discharged Performed By: #### L 100.0100, L500.2500 #### [facility] [address] [place], [address] eGFR Normal >60 [facility] Comment on above: Result Comment: Canc elled via OM: Order cancelled - Patient discharged Performed By: #### L 100.0100, L500.2500 #### [facility] [address] [place], [address] GAP Normal 5-15 [facility] Comment on above: Result Comment: Canc elled via OM: Order cancelled - Patient discharged Performed By: #### L 100.0100, L500.2500 #### [facility] [address] [place], [address] GLU Normal 70-99 [facility] Comment on above: Result Comment: Canc elled via OM: Order cancelled - Patient discharged Performed By: #### L 100.0100, L500.2500 #### [facility] [address] [place], [address] Potassium Normal 3.3-5.1 [facility] Comment on above: Result Comment: Canc elled via OM: Order cancelled - Patient discharged Performed By: #### L 100.0100, L500.2500 #### [facility] [address] [place], [address] Basic Metabolic Profile (BMP) Normal 133-145 [facility] Comment on above: Result Comment: Canc elled via OM: Order cancelled - Patient discharged Performed By: #### L 100.0100, L500.2500 #### [facility] [address] [place], [address] CBC W/Diff, Automatedon 09-2 Absolute Neut Normal 2.0-7.7 [facility] Comment on above: Result Comment: Canc elled via OM: Order cancelled - Patient discharged Performed By: #### L 100.0100, L500.2500 #### [facility] [address] [place], [address] HCT Normal 37-47 [facility] Comment on above: Result Comment: Canc elled via OM: Order cancelled - Patient discharged Performed By: #### L 100.0100, L500.2500 #### [facility] [address] [place], [address] HGB Normal 12.0-15.0 [facility] Comment on above: Result Comment: Canc elled via OM: Order cancelled - Patient discharged Performed By: #### L 100.0100, L500.2500 #### [facility] [address] [place], [address] MCH Normal 27.0-32.0 [facility] Comment on above: Result Comment: Canc elled via OM: Order cancelled - Patient discharged Performed By: #### L 100.0100, L500.2500 #### [facility] [address] [place], [address] MCHC Normal 32-36 [facility] Comment on above: Result Comment: Canc elled via OM: Order cancelled - Patient discharged Performed By: #### L 100.0100, L500.2500 #### [facility] [address] [place], [address] MCV Normal 81-99 [facility] Comment on above: Result Comment: Canc elled via OM: Order cancelled - Patient discharged Performed By: #### L 100.0100, L500.2500 #### [facility] [address] [place], [address] NEUT% Normal 47-70 [facility] Comment on above: Result Comment: Canc elled via OM: Order cancelled - Patient discharged Performed By: #### L 100.0100, L500.2500 #### [facility] [address] [place], [address] PLT Normal 150-450 [facility] Comment on above: Result Comment: Canc elled via OM: Order cancelled - Patient discharged Performed By: #### L 100.0100, L500.2500 #### [facility] [address] [place], [address] RBC Normal 4.2-5.4 [facility] Comment on above: Result Comment: Canc elled via OM: Order cancelled - Patient discharged Performed By: #### L 100.0100, L500.2500 #### [facility] [address] [place], [address] RDW CV Normal 11.6-14.6 [facility] Comment on above: Result Comment: Canc elled via OM: Order cancelled - Patient discharged Performed By: #### L 100.0100, L500.2500 #### [facility] [address] [place], [address] RDW SD Normal 35.1-43.9 [facility] Comment on above: Result Comment: Canc elled via OM: Order cancelled - Patient discharged Performed By: #### L 100.0100, L500.2500 #### [facility] [address] [place], [address] WBC Normal 4.4-11.0 [facility] Comment on above: Result Comment: Canc elled via OM: Order cancelled - Patient discharged Performed By: #### L 100.0100, L500.2500 #### [facility] [address] [place], [address] Basic Metabolic Profile (BMP )on 08-10-2025 BUN Normal - [facility] Comment on above: Result Comment: Canc elled via OM: Order cancelled - Patient discharged Performed By: #### L 501.080 #### [facility] [address] [place], [address] BUN/CRE Normal - [facility] Comment on above: Result Comment: Canc elled via OM: Order cancelled - Patient discharged Performed By: #### L 501.080 #### [facility] [address] [place], [address] Calcium Normal 7.6-11.0 [facility] Comment on above: Result Comment: Canc elled via OM: Order cancelled - Patient discharged Performed By: #### L 501.080 #### [facility] [address] [place], [address] CL Normal 98-108 [facility] Comment on above: Result Comment: Canc elled via OM: Order cancelled - Patient discharged Performed By: #### L 501.080 #### [facility] [address] [place], [address] CO2 Normal 21.0-32.0 [facility] Comment on above: Result Comment: Canc elled via OM: Order cancelled - Patient discharged Performed By: #### L 501.080 #### [facility] [address] [place], [address] CREAT,SERUM Normal 0.70-1.20 [facility] Comment on above: Result Comment: Canc elled via OM: Order cancelled - Patient discharged Performed By: #### L 501.080 #### [facility] [address] [place], [address] eGFR Normal >60 [facility] Comment on above: Result Comment: Canc elled via OM: Order cancelled - Patient discharged Performed By: #### L 501.080 #### [facility] [address] [place], [address] GAP Normal 5-15 [facility] Comment on above: Result Comment: Canc elled via OM: Order cancelled - Patient discharged Performed By: #### L 501.080 #### [facility] [address] [place], [address] GLU Normal 70-99 [facility] Comment on above: Result Comment: Canc elled via OM: Order cancelled - Patient discharged Performed By: #### L 501.080 #### [facility] [address] [place], [address] Potassium Normal 3.3-5.1 [facility] Comment on above: Result Comment: Canc elled via OM: Order cancelled - Patient discharged Performed By: #### L 501.080 #### [facility] [address] [place], [address] Basic Metabolic Profile (BMP) Normal 133-145 [facility] Comment on above: Result Comment: Canc elled via OM: Order cancelled - Patient discharged Performed By: #### L 501.080 #### [facility] [address] [place], [address] CBC W/Diff, Automatedon 09-2 0-2024 Absolute Neut Normal 2.0-7.7 [facility] Comment on above: Result Comment: Canc elled via OM: Order cancelled - Patient discharged Performed By: #### L 501.080 #### [facility] [address] [place], [address] HCT Normal 37-47 [facility] Comment on above: Result Comment: Canc elled via OM: Order cancelled - Patient discharged Performed By: #### L 501.080 #### [facility] [address] [place], [address] HGB Normal 12.0-15.0 [facility] Comment on above: Result Comment: Canc elled via OM: Order cancelled - Patient discharged Performed By: #### L 501.080 #### [facility] [address] [place], [address] MCH Normal 27.0-32.0 [facility] Comment on above: Result Comment: Canc elled via OM: Order cancelled - Patient discharged Performed By: #### L 501.080 #### [facility] [address] [place], [address] MCHC Normal 32-36 [facility] Comment on above: Result Comment: Canc elled via OM: Order cancelled - Patient discharged Performed By: #### L 501.080 #### [facility] [address] [place], [address] MCV Normal 81-99 [facility] Comment on above: Result Comment: Canc elled via OM: Order cancelled - Patient discharged Performed By: #### L 501.080 #### [facility] [address] [place], [address] NEUT% Normal 47-70 [facility] Comment on above: Result Comment: Canc elled via OM: Order cancelled - Patient discharged Performed By: #### L 501.080 #### [facility] [address] [place], [address] PLT Normal 150-450 [facility] Comment on above: Result Comment: Canc elled via OM: Order cancelled - Patient discharged Performed By: #### L 501.080 #### [facility] [address] [place], [address] RBC Normal 4.2-5.4 [facility] Comment on above: Result Comment: Canc elled via OM: Order cancelled - Patient discharged Performed By: #### L 501.080 #### [facility] [address] [place], [address] RDW CV Normal 11.6-14.6 [facility] Comment on above: Result Comment: Canc elled via OM: Order cancelled - Patient discharged Performed By: #### L 501.080 #### [facility] [address] [place], [address] RDW SD Normal 35.1-43.9 [facility] Comment on above: Result Comment: Canc elled via OM: Order cancelled - Patient discharged Performed By: #### L 501.080 #### [facility] [address] [place], [address] WBC Normal 4.4-11.0 [facility] Comment on above: Result Comment: Canc elled via OM: Order cancelled - Patient discharged Performed By: #### L 501.080 #### [facility] [address] [place], [address] Basic Metabolic Profile (BMP )on 08-09-2025 BUN Normal -19 [facility] Comment on above: Result Comment: Canc elled via OM: Order cancelled - Patient discharged Performed By: #### L 100.0100, L500.2500 #### [facility] [address] [place], [address] BUN/CRE Normal -20 [facility] Comment on above: Result Comment: Canc elled via OM: Order cancelled - Patient discharged Performed By: #### L 100.0100, L500.2500 #### [facility] [address] [place], [address] Calcium Normal 7.6-11.0 [facility] Comment on above: Result Comment: Canc elled via OM: Order cancelled - Patient discharged Performed By: #### L 100.0100, L500.2500 #### [facility] [address] [place], [address] CL Normal 98-108 [facility] Comment on above: Result Comment: Canc elled via OM: Order cancelled - Patient discharged Performed By: #### L 100.0100, L500.2500 #### [facility] [address] [place], [address] CO2 Normal 21.0-32.0 [facility] Comment on above: Result Comment: Canc elled via OM: Order cancelled - Patient discharged Performed By: #### L 100.0100, L500.2500 #### [facility] [address] [place], [address] CREAT,SERUM Normal 0.70-1.20 [facility] Comment on above: Result Comment: Canc elled via OM: Order cancelled - Patient discharged Performed By: #### L 100.0100, L500.2500 #### [facility] [address] [place], [address] eGFR Normal >60 [facility] Comment on above: Result Comment: Canc elled via OM: Order cancelled - Patient discharged Performed By: #### L 100.0100, L500.2500 #### [facility] [address] [place], [address] GAP Normal 5-15 [facility] Comment on above: Result Comment: Canc elled via OM: Order cancelled - Patient discharged Performed By: #### L 100.0100, L500.2500 #### [facility] [address] [place], [address] GLU Normal 70-99 [facility] Comment on above: Result Comment: Canc elled via OM: Order cancelled - Patient discharged Performed By: #### L 100.0100, L500.2500 #### [facility] [address] [place], [address] Potassium Normal 3.3-5.1 [facility] Comment on above: Result Comment: Canc elled via OM: Order cancelled - Patient discharged Performed By: #### L 100.0100, L500.2500 #### [facility] [address] [place], [address] Basic Metabolic Profile (BMP) Normal 133-145 [facility] Comment on above: Result Comment: Canc elled via OM: Order cancelled - Patient discharged Performed By: #### L 100.0100, L500.2500 #### [facility] [address] [place], [address] CBC W/Diff, Automatedon 09-1 Absolute Neut Normal 2.0-7.7 [facility] Comment on above: Result Comment: Canc elled via OM: Order cancelled - Patient discharged Performed By: #### L 100.0100, L500.2500 #### [facility] [address] [place], [address] HCT Normal 37-47 [facility] Comment on above: Result Comment: Canc elled via OM: Order cancelled - Patient discharged Performed By: #### L 100.0100, L500.2500 #### [facility] [address] [place], [address] HGB Normal 12.0-15.0 [facility] Comment on above: Result Comment: Canc elled via OM: Order cancelled - Patient discharged Performed By: #### L 100.0100, L500.2500 #### [facility] [address] [place], [address] MCH Normal 27.0-32.0 [facility] Comment on above: Result Comment: Canc elled via OM: Order cancelled - Patient discharged Performed By: #### L 100.0100, L500.2500 #### [facility] [address] [place], [address] MCHC Normal 32-36 [facility] Comment on above: Result Comment: Canc elled via OM: Order cancelled - Patient discharged Performed By: #### L 100.0100, L500.2500 #### [facility] [address] [place], [address] MCV Normal 81-99 [facility] Comment on above: Result Comment: Canc elled via OM: Order cancelled - Patient discharged Performed By: #### L 100.0100, L500.2500 #### [facility] [address] [place], [address] NEUT% Normal 47-70 [facility] Comment on above: Result Comment: Canc elled via OM: Order cancelled - Patient discharged Performed By: #### L 100.0100, L500.2500 #### [facility] [address] [place], [address] PLT Normal 150-450 [facility] Comment on above: Result Comment: Canc elled via OM: Order cancelled - Patient discharged Performed By: #### L 100.0100, L500.2500 #### [facility] [address] [place], [address] RBC Normal 4.2-5.4 [facility] Comment on above: Result Comment: Canc elled via OM: Order cancelled - Patient discharged Performed By: #### L 100.0100, L500.2500 #### [facility] [address] [place], [address] RDW CV Normal 11.6-14.6 [facility] Comment on above: Result Comment: Canc elled via OM: Order cancelled - Patient discharged Performed By: #### L 100.0100, L500.2500 #### [facility] [address] [place], [address] RDW SD Normal 35.1-43.9 [facility] Comment on above: Result Comment: Canc elled via OM: Order cancelled - Patient discharged Performed By: #### L 100.0100, L500.2500 #### [facility] [address] [place], [address] WBC Normal 4.4-11.0 [facility] Comment on above: Result Comment: Canc elled via OM: Order cancelled - Patient discharged Performed By: #### L 100.0100, L500.2500 #### [facility] [address] [place], [address] Basic Metabolic Profile (BMP )on 08-08-2025 BUN Normal 4-19 [facility] Comment on above: Result Comment: Canc elled via OM: Order cancelled - Patient discharged Performed By: #### L 100.0100, L500.2500 #### [facility] [address] [place], [address] BUN/CRE Normal 10-20 [facility] Comment on above: Result Comment: Canc elled via OM: Order cancelled - Patient discharged Performed By: #### L 100.0100, L500.2500 #### [facility] [address] [place], [address] Calcium Normal 7.6-11.0 [facility] Comment on above: Result Comment: Canc elled via OM: Order cancelled - Patient discharged Performed By: #### L 100.0100, L500.2500 #### [facility] [address] [place], [address] CL Normal 98-108 [facility] Comment on above: Result Comment: Canc elled via OM: Order cancelled - Patient discharged Performed By: #### L 100.0100, L500.2500 #### [facility] [address] [place], [address] CO2 Normal 21.0-32.0 [facility] Comment on above: Result Comment: Canc elled via OM: Order cancelled - Patient discharged Performed By: #### L 100.0100, L500.2500 #### [facility] [address] [place], [address] CREAT,SERUM Normal 0.70-1.20 [facility] Comment on above: Result Comment: Canc elled via OM: Order cancelled - Patient discharged Performed By: #### L 100.0100, L500.2500 #### [facility] [address] [place], [address] eGFR Normal >60 [facility] Comment on above: Result Comment: Canc elled via OM: Order cancelled - Patient discharged Performed By: #### L 100.0100, L500.2500 #### [facility] [address] [place], [address] GAP Normal 5-15 [facility] Comment on above: Result Comment: Canc elled via OM: Order cancelled - Patient discharged Performed By: #### L 100.0100, L500.2500 #### [facility] [address] [place], [address] GLU Normal 70-99 [facility] Comment on above: Result Comment: Canc elled via OM: Order cancelled - Patient discharged Performed By: #### L 100.0100, L500.2500 #### [facility] [address] [place], [address] Potassium Normal 3.3-5.1 [facility] Comment on above: Result Comment: Canc elled via OM: Order cancelled - Patient discharged Performed By: #### L 100.0100, L500.2500 #### [facility] [address] [place], [address] Basic Metabolic Profile (BMP) Normal 133-145 [facility] Comment on above: Result Comment: Canc elled via OM: Order cancelled - Patient discharged Performed By: #### L 100.0100, L500.2500 #### [facility] [address] [place], [address] CBC W/Diff, Automatedon 09-1 Absolute Neut Normal 2.0-7.7 [facility] Comment on above: Result Comment: Canc elled via OM: Order cancelled - Patient discharged Performed By: #### L 100.0100, L500.2500 #### [facility] [address] [place], [address] HCT Normal 37-47 [facility] Comment on above: Result Comment: Canc elled via OM: Order cancelled - Patient discharged Performed By: #### L 100.0100, L500.2500 #### [facility] [address] [place], [address] HGB Normal 12.0-15.0 [facility] Comment on above: Result Comment: Canc elled via OM: Order cancelled - Patient discharged Performed By: #### L 100.0100, L500.2500 #### [facility] [address] [place], [address] MCH Normal 27.0-32.0 [facility] Comment on above: Result Comment: Canc elled via OM: Order cancelled - Patient discharged Performed By: #### L 100.0100, L500.2500 #### [facility] [address] [place], [address] MCHC Normal 32-36 [facility] Comment on above: Result Comment: Canc elled via OM: Order cancelled - Patient discharged Performed By: #### L 100.0100, L500.2500 #### [facility] [address] [place], [address] MCV Normal 81-99 [facility] Comment on above: Result Comment: Canc elled via OM: Order cancelled - Patient discharged Performed By: #### L 100.0100, L500.2500 #### [facility] [address] [place], [address] NEUT% Normal 47-70 [facility] Comment on above: Result Comment: Canc elled via OM: Order cancelled - Patient discharged Performed By: #### L 100.0100, L500.2500 #### [facility] [address] [place], [address] PLT Normal 150-450 [facility] Comment on above: Result Comment: Canc elled via OM: Order cancelled - Patient discharged Performed By: #### L 100.0100, L500.2500 #### [facility] [address] [place], [address] RBC Normal 4.2-5.4 [facility] Comment on above: Result Comment: Canc elled via OM: Order cancelled - Patient discharged Performed By: #### L 100.0100, L500.2500 #### [facility] [address] [place], [address] RDW CV Normal 11.6-14.6 [facility] Comment on above: Result Comment: Canc elled via OM: Order cancelled - Patient discharged Performed By: #### L 100.0100, L500.2500 #### [facility] [address] [place], [address] RDW SD Normal 35.1-43.9 [facility] Comment on above: Result Comment: Canc elled via OM: Order cancelled - Patient discharged Performed By: #### L 100.0100, L500.2500 #### [facility] [address] [place], [address] WBC Normal 4.4-11.0 [facility] Comment on above: Result Comment: Canc elled via OM: Order cancelled - Patient discharged Performed By: #### L 100.0100, L500.2500 #### [facility] [address] [place], [address] Culture, Blood (WB)on 2024 CUB Blood cultures x2, f rom two different sites No growth in 5 days. Normal [facility] Comment on above: Performed By: #### L 501.080 #### [facility] [address] [place], [address] Absolute lymphocyte countOrd ered By: Fatou Mcrae on 08-07-2025 Lymphocytes Auto (Unsp spec) [#/Vol] 2.36 10*3/uL 0.83-4.51 [facility] Absolute neutrophil countOrd ered By: Fatou Mcrae on 08-07-2025 Neutrophils (Bld) [#/Vol] 2.5 10*3/uL 2.0-7.7 [facility] Anion gap in Serum or Plasma Ordered By: Fatou Mcrae on 08-07-2025 Anion gap [Moles/Vol] 12 mmol/L 5-15 [facility] Automated lymphocyte count a s percentage of total leukocytesOrdered By: Fatou Mcrae on 08-07-2025 Lymphocytes/100 WBC Auto (Unsp spec) 43.4 % High 19-41 [facility] BUN/creatinine ratioOrdered By: Fatou Mcrae on 08-07-2025 Urea nitrogen/Creatinine [Mass ratio] 20.5 mg/mg High 10-20 [facility] Basic Metabolic Profile (BMP )on 08-07-2025 BUN/CRE 20.5 RATIO High 10-20 [facility] Comment on above: Performed By: #### L 501.080 #### [facility] [address] [place], [address] Calcium [Mass/Vol] 9.0 mg/dL Normal 7.6-11.0 [facility] Comment on above: Performed By: #### L 501.080 #### [facility] [address] [place], [address] Chloride [Moles/Vol] 110 mmol/L High 98-108 [facility] Comment on above: Performed By: #### L 501.080 #### [facility] [address] [place], [address] CO2 [Moles/Vol] 21.9 mmol/L Normal 21.0-32.0 [facility] Comment on above: Performed By: #### L 501.080 #### [facility] [address] [place], [address] Creatinine [Mass/Vol] 1.16 mg/dL Normal 0.70-1.20 [facility] Comment on above: Performed By: #### L 501.080 #### [facility] [address] [place], [address] ECRCL 44.92 ml/min Low 50-250 [facility] Comment on above: Performed By: #### L 501.080 #### [facility] [address] [place], [address] GAP 12 Normal 5-15 [facility] Comment on above: Performed By: #### L 501.080 #### [facility] [address] [place], [address] GFR/1.73 sq M.predicted among non-blacks MDRD (S/P/Bld) [Vol rate/Area] 51 mL/min/{1.73_m2} Low >60 [facility] Comment on above: Result Comment: mL/m in/1.73m2 CKD-EPI Creatinine Equation (2020) Performed By: #### L 501.080 #### [facility] [address] [place], [address] Glucose [Mass/Vol] 93 mg/dL Normal 70-99 [facility] Comment on above: Performed By: #### L 501.080 #### [facility] [address] [place], [address] Potassium [Moles/Vol] 4.4 mmol/L Normal 3.3-5.1 [facility] Comment on above: Performed By: #### L 501.080 #### [facility] [address] [place], [address] Sodium [Moles/Vol] 144 mmol/L Normal 133-145 [facility] Comment on above: Performed By: #### L 501.080 #### [facility] [address] [place], [address] Urea nitrogen [Mass/Vol] 24 mg/dL High 4-19 [facility] Comment on above: Performed By: #### L 501.080 #### [facility] [address] [place], [address] Basophil percentageOrdered B y: Fatou Mcrae on 08-07-2025 Basophils/100 WBC (Bld) 0.7 % 0-1 [facility] CBC W/Diff, Automatedon 07-22-2024 Absolute Lymph 2.36 X10 3/uL Normal 0.83-4.51 [facility] Comment on above: Performed By: #### L 501.080 #### [facility] [address] [place], [address] Absolute Neut 2.5 X10 3/uL Normal 2.0-7.7 [facility] Comment on above: Performed By: #### L 501.080 #### [facility] [address] [place], [address] Basophils/100 WBC (Bld) 0.7 % Normal 0-1 [facility] Comment on above: Performed By: #### L 501.080 #### [facility] [address] [place], [address] Eosinophils/100 WBC (Bld) 1.7 % Normal 0-5 [facility] Comment on above: Performed By: #### L 501.080 #### [facility] [address] [place], [address] Erythrocyte distribution width (RBC) [Ratio] 14.0 % Normal 11.6-14.6 [facility] Comment on above: Performed By: #### L 501.080 #### [facility] [address] [place], [address] Hematocrit (Bld) [Volume fraction] 28.7 % Low 37-47 [facility] Comment on above: Performed By: #### L 501.080 #### [facility] [address] [place], [address] Hemoglobin (Bld) [Mass/Vol] 9.5 g/dL Low 12.0-15.0 [facility] Comment on above: Performed By: #### L 501.080 #### [facility] [address] [place], [address] IG% 0.400 Normal 0.0-0.9 [facility] Comment on above: Result Comment: IG% - Immature Granulocytes (promyelocytes, myelocytes and metamyelocytes) > 1% indicates that a LEFT SHIFT is Present. Performed By: #### L 501.080 #### [facility] [address] [place], [address] Lymphocytes/100 WBC (Bld) 43.4 % High 19-41 [facility] Comment on above: Performed By: #### L 501.080 #### [facility] [place], [address] MCH (RBC) [Entitic mass] 32.0 pg Normal 27.0-32.0 [facility] Comment on above: Performed By: #### L 501.080 #### [facility] [place], [address] MCHC (RBC) [Mass/Vol] 33.1 g/dL Normal 32-36 [facility] Comment on above: Performed By: #### L 501.080 #### [facility] [address] [place], [address] MCV (RBC) [Entitic vol] 96.6 fL Normal 81-99 [facility] Comment on above: Performed By: #### L 501.080 #### [facility] [address] [place], [address] Monocytes/100 WBC (Bld) 7.7 % Normal 0-10 [facility] Comment on above: Performed By: #### L 501.080 #### [facility] [address] [place], [address] Neutrophils/100 WBC (Bld) 46.1 % Low 47-70 [facility] Comment on above: Performed By: #### L 501.080 #### [facility] [address] [place], [address] Nucleated RBC (Bld) [#/Vol] 0 10*3/uL Normal 0-5 [facility] Comment on above: Performed By: #### L 501.080 #### [facility] [address] [place], [address] Platelet mean volume (Bld) [Entitic vol] 9.8 fL Normal 6.2-12.0 [facility] Comment on above: Performed By: #### L 501.080 #### [facility] [address] [place], [address] Platelets (Bld) [#/Vol] 177 10*3/uL Normal 150-450 [facility] Comment on above: Performed By: #### L 501.080 #### [facility] [address] [place], [address] RBC (Bld) [#/Vol] 2.97 10*6/uL Low 4.2-5.4 [facility] Comment on above: Performed By: #### L 501.080 #### [facility] [address] [place], [address] RDW SD 49.6 fl High 35.1-43.9 [facility] Comment on above: Performed By: #### L 501.080 #### [facility] [address] [place], [address] WBC (Bld) [#/Vol] 5.4 10*3/uL Normal 4.4-11.0 [facility] Comment on above: Performed By: #### L 501.080 #### [facility] [address] [place], [address] Carbon dioxide, total [Moles /volume] in Central venous bloodOrdered By: Fatou Mcrae on 08-07-2025 CO2 [Moles/Vol] 21.9 mmol/L 21.0-32.0 [facility] Chloride assayOrdered By: Na na Thor on 08-07-2025 Chloride [Moles/Vol] 110 mmol/L High 98-108 [facility] Eosinophil percentageOrdered By: Fatou Mcrae on 08-07-2025 Eosinophils/100 WBC (Bld) 1.7 % 0-5 [facility] Erythrocyte distribution wid th ratioOrdered By: Fatou Mcrae on 08-07-2025 Erythrocyte distribution width (RBC) [Ratio] 14.0 % 11.6-14.6 [facility] Erythrocyte distribution wid th standard deviationOrdered By: Fatou Mcrae on 08-07-2025 Erythrocyte distribution width (RBC) [Ratio] 49.6 fl High 35.1-43.9 [facility] Glomerular filtration rate ( GFR) estimation/1.73 sq m using serum, plasma, or whole bOrdered By: Fatou Mcrae on 08-07-2025 GFR/1.73 sq M.predicted among non-blacks MDRD (S/P/Bld) [Vol rate/Area] 51 mL/min/{1.73_m2} Low >60 [facility] Comment on above: mL/min/1.73m2 CKD-EP I Creatinine Equation (2020) Hematocrit Auto (Bld) [Volum e fraction]Ordered By: Fatou Mcrae on 08-07-2025 Hematocrit (Bld) [Volume fraction] 28.7 % Low 37-47 [facility] Hemoglobin measurementOrdere d By: Fatou cMrae on 08-07-2025 Hemoglobin (Bld) [Mass/Vol] 9.5 g/dL Low 12.0-15.0 [facility] Immature granulocytes/100 WB C Auto (Bld)Ordered By: Fatou Mcrae 08-07-2025 Immature granulocytes/100 WBC (Bld) 0.400 % 0.0-0.9 [facility] Comment on above: IG% - Immature Granu locytes (promyelocytes, myelocytes and metamyelocytes) > 1% indicates that a LEFT SHIFT is Present. MCV (mean corpuscular volume ) determinationOrdered By: Fatou Mcrae on 08-07-2025 MCV (RBC) [Entitic vol] 96.6 fL 81-99 [facility] Mean corpuscular hemoglobin (MCH) determinationOrdered By: Fatou Mcrae on 08-07-2025 MCH (RBC) [Entitic mass] 32.0 pg 27.0-32.0 [facility] Mean corpuscular hemoglobin concentration (MCHC) determinationOrdered By: Fatou Mcrae on 08-07-2025 MCHC (RBC) [Mass/Vol] 33.1 g/dL 32-36 [facility] Mean platelet volume determi nationOrdered By: Fatou Mcrae on 08-07-2025 Platelet mean volume (Bld) [Entitic vol] 9.8 fL 6.2-12.0 [facility] Monocyte percentageOrdered B y: Fatou Mcrae on 08-07-2025 Monocytes/100 WBC (Bld) 7.7 % 0-10 [facility] Neutrophil percentageOrdered By: Fatou Mcrae on 08-07-2025 Neutrophils/100 WBC (Bld) 46.1 % Low 47-70 [facility] Nucleated red blood cell per centageOrdered By: Fatou Mcrae on 08-07-2025 Nucleated RBC/100 WBC (Bld) [Ratio] 0 % 0-5 [facility] Platelet countOrdered By: Rachel Mcrae on 08-07-2025 Platelets (Bld) [#/Vol] 177 10*3/uL 150-450 [facility] Potassium measurement (mass/ volume)Ordered By: Fatou Mcrae on 08-07-2025 Potassium (Unsp spec) [Mass/Vol] 4.4 mmol/L 3.3-5.1 [facility] RBC Auto (Bld) [#/Vol]Ordere d By: Fatou Mcrae on 08-07-2025 RBC (Bld) [#/Vol] 2.97 10*6/uL Low 4.2-5.4 [facility] Serum creatinine measurement (mass/volume)Ordered By: Fatou Mcrae on 08-07-2025 Creatinine [Mass/Vol] 1.16 mg/dL 0.70-1.20 [facility] Serum glucose measurement (m ass/volume)Ordered By: Fatou Mcrae on 08-07-2025 Glucose [Mass/Vol] 93 mg/dL 70-99 [facility] Serum or plasma calcium gaudencio urement (mass/volume)Ordered By: Fatoukatty Mcrae on 08-07-2025 Calcium [Mass/Vol] 9.0 mg/dL 7.6-11.0 [facility] Serum or plasma urea nitroge n measurement (mass/volume)Ordered By: Fatou Mcrae on 08-07-2025 Urea nitrogen [Mass/Vol] 24 mg/dL High 4-19 [facility] Sodium levelOrdered By: Fatou Mcrae on 08-07-2025 Sodium [Moles/Vol] 144 mmol/L 133-145 [facility] White blood cell (WBC) count Ordered By: Fatou Mcrae on 08-07-2025 WBC (Bld) [#/Vol] 5.4 10*3/uL 4.4-11.0 [facility] Basic Metabolic Profile (BMP )on 08-06-2025 BUN/CRE 23.0 RATIO High 10-20 [facility] Comment on above: Performed By: #### L 100.0100, L500.2500 #### [facility] [address] [place], [address] Calcium [Mass/Vol] 9.1 mg/dL Normal 7.6-11.0 [facility] Comment on above: Performed By: #### L 100.0100, L500.2500 #### [facility] [address] [place], [address] Chloride [Moles/Vol] 109 mmol/L High 98-108 [facility] Comment on above: Performed By: #### L 100.0100, L500.2500 #### [facility] [address] [place], [address] CO2 [Moles/Vol] 23.1 mmol/L Normal 21.0-32.0 [facility] Comment on above: Performed By: #### L 100.0100, L500.2500 #### [facility] [address] [place], [address] Creatinine [Mass/Vol] 1.27 mg/dL High 0.70-1.20 [facility] Comment on above: Performed By: #### L 100.0100, L500.2500 #### [facility] [address] [place], [address] ECRCL 40.64 ml/min Low 50-250 [facility] Comment on above: Performed By: #### L 100.0100, L500.2500 #### [facility] [address] [place], [address] GAP 10 Normal 5-15 [facility] Comment on above: Performed By: #### L 100.0100, L500.2500 #### [facility] [address] [place], [address] GFR/1.73 sq M.predicted among non-blacks MDRD (S/P/Bld) [Vol rate/Area] 45 mL/min/{1.73_m2} Low >60 [facility] Comment on above: Result Comment: mL/m in/1.73m2 CKD-EPI Creatinine Equation (2020) Performed By: #### L 100.0100, L500.2500 #### [facility] [address] [place], [address] Glucose [Mass/Vol] 104 mg/dL High 70-99 [facility] Comment on above: Performed By: #### L 100.0100, L500.2500 #### [facility] [address] [place], [address] Potassium [Moles/Vol] 4.6 mmol/L Normal 3.3-5.1 [facility] Comment on above: Performed By: #### L 100.0100, L500.2500 #### [facility] [address] [place], [address] Sodium [Moles/Vol] 142 mmol/L Normal 133-145 [facility] Comment on above: Performed By: #### L 100.0100, L500.2500 #### [facility] [address] [place], [address] Urea nitrogen [Mass/Vol] 29 mg/dL High 4-19 [facility] Comment on above: Performed By: #### L 100.0100, L500.2500 #### [facility] [address] [place], [address] CBC W/Diff, Automatedon 07-22-2024 Absolute Lymph 2.46 X10 3/uL Normal 0.83-4.51 [facility] Comment on above: Performed By: #### L 100.0100, L500.2500 #### [facility] [address] [place], [address] Absolute Neut 3.2 X10 3/uL Normal 2.0-7.7 [facility] Comment on above: Performed By: #### L 100.0100, L500.2500 #### [facility] [address] [place], [address] Basophils/100 WBC (Bld) 0.3 % Normal 0-1 [facility] Comment on above: Performed By: #### L 100.0100, L500.2500 #### [facility] [address] [place], [address] Eosinophils/100 WBC (Bld) 1.0 % Normal 0-5 [facility] Comment on above: Performed By: #### L 100.0100, L500.2500 #### [facility] [address] [place], [address] Erythrocyte distribution width (RBC) [Ratio] 13.6 % Normal 11.6-14.6 [facility] Comment on above: Performed By: #### L 100.0100, L500.2500 #### [facility] [address] [place], [address] Hematocrit (Bld) [Volume fraction] 28.1 % Low 37-47 [facility] Comment on above: Performed By: #### L 100.0100, L500.2500 #### [facility] [address] [place], [address] Hemoglobin (Bld) [Mass/Vol] 9.2 g/dL Low 12.0-15.0 [facility] Comment on above: Performed By: #### L 100.0100, L500.2500 #### [facility] [address] [place], [address] IG% 0.300 Normal 0.0-0.9 [facility] Comment on above: Result Comment: IG% - Immature Granulocytes (promyelocytes, myelocytes and metamyelocytes) > 1% indicates that a LEFT SHIFT is Present. Performed By: #### L 100.0100, L500.2500 #### [facility] [address] [place], [address] Lymphocytes/100 WBC (Bld) 39.7 % Normal 19-41 [facility] Comment on above: Performed By: #### L 100.0100, L500.2500 #### [facility] [address] [place], [address] MCH (RBC) [Entitic mass] 30.7 pg Normal 27.0-32.0 [facility] Comment on above: Performed By: #### L 100.0100, L500.2500 #### [facility] [address] [place], [address] MCHC (RBC) [Mass/Vol] 32.7 g/dL Normal 32-36 [facility] Comment on above: Performed By: #### L 100.0100, L500.2500 #### [facility] [address] [place], [address] MCV (RBC) [Entitic vol] 93.7 fL Normal 81-99 [facility] Comment on above: Performed By: #### L 100.0100, L500.2500 #### [facility] [address] [place], [address] Monocytes/100 WBC (Bld) 6.5 % Normal 0-10 [facility] Comment on above: Performed By: #### L 100.0100, L500.2500 #### [facility] [address] [place], [address] Neutrophils/100 WBC (Bld) 52.2 % Normal 47-70 [facility] Comment on above: Performed By: #### L 100.0100, L500.2500 #### [facility] [address] [place], [address] Nucleated RBC (Bld) [#/Vol] 0 10*3/uL Normal 0-5 [facility] Comment on above: Performed By: #### L 100.0100, L500.2500 #### [facility] [address] [place], [address] Platelet mean volume (Bld) [Entitic vol] 10.1 fL Normal 6.2-12.0 [facility] Comment on above: Performed By: #### L 100.0100, L500.2500 #### [facility] [address] [place], [address] Platelets (Bld) [#/Vol] 177 10*3/uL Normal 150-450 [facility] Comment on above: Performed By: #### L 100.0100, L500.2500 #### [facility] [address] [place], [address] RBC (Bld) [#/Vol] 3.00 10*6/uL Low 4.2-5.4 [facility] Comment on above: Performed By: #### L 100.0100, L500.2500 #### [facility] [address] [place], [address] RDW SD 46.6 fl High 35.1-43.9 [facility] Comment on above: Performed By: #### L 100.0100, L500.2500 #### [facility] [address] [place], [address] WBC (Bld) [#/Vol] 6.2 10*3/uL Normal 4.4-11.0 [facility] Comment on above: Performed By: #### L 100.0100, L500.2500 #### [facility] [address] [place], [address] Urine Cultureon 08-06-2025 URC #1 Susceptibility no t normally performed on this organism. #2 Below infection level. Corynebacterium minutissimum [place] Count 80,000-100,000 GNR lactose slab puller GNR lactose slab puller Normal [facility] Comment on above: Performed By: #### L 501.080 #### [facility] [address] [place], [address] Basic Metabolic Profile (BMP )on 08-05-2025 BUN/CRE 19.9 RATIO Normal 10-20 [facility] Comment on above: Performed By: #### L 100.0100, L500.2500 #### [facility] [address] [place], [address] Calcium [Mass/Vol] 8.9 mg/dL Normal 7.6-11.0 [facility] Comment on above: Performed By: #### L 100.0100, L500.2500 #### [facility] [address] [place], [address] Chloride [Moles/Vol] 111 mmol/L High 98-108 [facility] Comment on above: Performed By: #### L 100.0100, L500.2500 #### [facility] [address] [place], [address] CO2 [Moles/Vol] 21.4 mmol/L Normal 21.0-32.0 [facility] Comment on above: Performed By: #### L 100.0100, L500.2500 #### [facility] [address] [place], [address] Creatinine [Mass/Vol] 1.23 mg/dL High 0.70-1.20 [facility] Comment on above: Performed By: #### L 100.0100, L500.2500 #### [facility] [address] [place], [address] ECRCL 41.96 ml/min Low 50-250 [facility] Comment on above: Performed By: #### L 100.0100, L500.2500 #### [facility] [address] [place], [address] GAP 10 Normal 5-15 [facility] Comment on above: Performed By: #### L 100.0100, L500.2500 #### [facility] [address] [place], [address] GFR/1.73 sq M.predicted among non-blacks MDRD (S/P/Bld) [Vol rate/Area] 47 mL/min/{1.73_m2} Low >60 [facility] Comment on above: Result Comment: mL/m in/1.73m2 CKD-EPI Creatinine Equation (2020) Performed By: #### L 100.0100, L500.2500 #### [facility] [address] [place], [address] Glucose [Mass/Vol] 92 mg/dL Normal 70-99 [facility] Comment on above: Performed By: #### L 100.0100, L500.2500 #### [facility] [address] [place], [address] Potassium [Moles/Vol] 4.6 mmol/L Normal 3.3-5.1 [facility] Comment on above: Performed By: #### L 100.0100, L500.2500 #### [facility] [address] [place], [address] Sodium [Moles/Vol] 142 mmol/L Normal 133-145 [facility] Comment on above: Performed By: #### L 100.0100, L500.2500 #### [facility] [address] [place], [address] Urea nitrogen [Mass/Vol] 25 mg/dL High 4-19 [facility] Comment on above: Performed By: #### L 100.0100, L500.2500 #### [facility] [address] [place], [address] Bedside Glucoseon 08-05-2025 FINGERSTICK GLU 126 mg/dL High 74-106 [facility] Comment on above: Result Comment: REMIGIO GEMENT OF PATIENT CARE PER NURSING PROTOCOL Performed By: #### L 501.080 #### [facility] [address] [place], [address] FINGERSTICK GLU 161 mg/dL High 74-106 [facility] Comment on above: Result Comment: REMIGIO GEMENT OF PATIENT CARE PER NURSING PROTOCOL Performed By: #### L 501.080 #### [facility] [address] [place], [address] FINGERSTICK GLU 133 mg/dL High 74-106 [facility] Comment on above: Result Comment: REMIGIO GEMENT OF PATIENT CARE PER NURSING PROTOCOL Performed By: #### L 501.080 #### [facility] [address] [place], [address] FINGERSTICK GLU 91 mg/dL Normal 74-106 [facility] Comment on above: Result Comment: REMIGIO GEMENT OF PATIENT CARE PER NURSING PROTOCOL Performed By: #### L 501.080 #### [facility] [address] [place], [address] CBC W/Diff, Automatedon 09-11 25-2024 Absolute Lymph 2.08 X10 3/uL Normal 0.83-4.51 [facility] Comment on above: Performed By: #### L 100.0100, L500.2500 #### [facility] [address] [place], [address] Absolute Neut 2.8 X10 3/uL Normal 2.0-7.7 [facility] Comment on above: Performed By: #### L 100.0100, L500.2500 #### [facility] [address] [place], [address] Basophils/100 WBC (Bld) 0.4 % Normal 0-1 [facility] Comment on above: Performed By: #### L 100.0100, L500.2500 #### [facility] [address] [place], [address] Eosinophils/100 WBC (Bld) 1.1 % Normal 0-5 [facility] Comment on above: Performed By: #### L 100.0100, L500.2500 #### [facility] [address] [place], [address] Erythrocyte distribution width (RBC) [Ratio] 14.0 % Normal 11.6-14.6 [facility] Comment on above: Performed By: #### L 100.0100, L500.2500 #### [facility] [address] [place], [address] Hematocrit (Bld) [Volume fraction] 27.8 % Low 37-47 [facility] Comment on above: Performed By: #### L 100.0100, L500.2500 #### [facility] [address] [place], [address] Hemoglobin (Bld) [Mass/Vol] 9.1 g/dL Low 12.0-15.0 [facility] Comment on above: Performed By: #### L 100.0100, L500.2500 #### [facility] [address] [place], [address] IG% 0.200 Normal 0.0-0.9 [facility] Comment on above: Result Comment: IG% - Immature Granulocytes (promyelocytes, myelocytes and metamyelocytes) > 1% indicates that a LEFT SHIFT is Present. Performed By: #### L 100.0100, L500.2500 #### [facility] [address] [place], [address] Lymphocytes/100 WBC (Bld) 39.0 % Normal 19-41 [facility] Comment on above: Performed By: #### L 100.0100, L500.2500 #### [facility] [address] [place], [address] MCH (RBC) [Entitic mass] 31.3 pg Normal 27.0-32.0 [facility] Comment on above: Performed By: #### L 100.0100, L500.2500 #### [facility] [address] [place], [address] MCHC (RBC) [Mass/Vol] 32.7 g/dL Normal 32-36 [facility] Comment on above: Performed By: #### L 100.0100, L500.2500 #### [facility] [address] [place], [address] MCV (RBC) [Entitic vol] 95.5 fL Normal 81-99 [facility] Comment on above: Performed By: #### L 100.0100, L500.2500 #### [facility] [address] [place], [address] Monocytes/100 WBC (Bld) 7.1 % Normal 0-10 [facility] Comment on above: Performed By: #### L 100.0100, L500.2500 #### [facility] [address] [place], [address] Neutrophils/100 WBC (Bld) 52.2 % Normal 47-70 [facility] Comment on above: Performed By: #### L 100.0100, L500.2500 #### [facility] [address] [place], [address] Nucleated RBC (Bld) [#/Vol] 0 10*3/uL Normal 0-5 [facility] Comment on above: Performed By: #### L 100.0100, L500.2500 #### [facility] [address] [place], [address] Platelet mean volume (Bld) [Entitic vol] 10.3 fL Normal 6.2-12.0 [facility] Comment on above: Performed By: #### L 100.0100, L500.2500 #### [facility] [address] [place], [address] Platelets (Bld) [#/Vol] 158 10*3/uL Normal 150-450 [facility] Comment on above: Performed By: #### L 100.0100, L500.2500 #### [facility] [address] [place], [address] RBC (Bld) [#/Vol] 2.91 10*6/uL Low 4.2-5.4 [facility] Comment on above: Performed By: #### L 100.0100, L500.2500 #### [facility] [address] [place], [address] RDW SD 48.6 fl High 35.1-43.9 [facility] Comment on above: Performed By: #### L 100.0100, L500.2500 #### [facility] [address] [place], [address] WBC (Bld) [#/Vol] 5.3 10*3/uL Normal 4.4-11.0 [facility] Comment on above: Performed By: #### L 100.0100, L500.2500 #### [facility] [address] [place], [address] Glucose measurement at [facility] deOrdered By: Fatou Mcrae on 08-05-2025 Glucose [Mass/Vol] 126 mg/dL High 74-106 [facility] Comment on above: MANAGEMENT OF PATIEN T CARE PER NURSING PROTOCOL Basic Metabolic Profile (BMP )on 08-04-2025 BUN/CRE 22.0 RATIO High 10-20 [facility] Comment on above: Performed By: #### L 100.0100, L500.2500 #### [facility] [address] [place], [address] Calcium [Mass/Vol] 8.7 mg/dL Normal 7.6-11.0 [facility] Comment on above: Performed By: #### L 100.0100, L500.2500 #### [facility] [address] [place], [address] Chloride [Moles/Vol] 112 mmol/L High 98-108 [facility] Comment on above: Performed By: #### L 100.0100, L500.2500 #### [facility] [address] [place], [address] CO2 [Moles/Vol] 19.9 mmol/L Low 21.0-32.0 [facility] Comment on above: Performed By: #### L 100.0100, L500.2500 #### [facility] [address] [place], [address] Creatinine [Mass/Vol] 1.34 mg/dL High 0.70-1.20 [facility] Comment on above: Performed By: #### L 100.0100, L500.2500 #### [facility] [address] [place], [address] ECRCL 38.54 ml/min Low 50-250 [facility] Comment on above: Performed By: #### L 100.0100, L500.2500 #### [facility] [address] [place], [address] GAP 9 Normal 5-15 [facility] Comment on above: Performed By: #### L 100.0100, L500.2500 #### [facility] [address] [place], [address] GFR/1.73 sq M.predicted among non-blacks MDRD (S/P/Bld) [Vol rate/Area] 43 mL/min/{1.73_m2} Low >60 [facility] Comment on above: Result Comment: mL/m in/1.73m2 CKD-EPI Creatinine Equation (2020) Performed By: #### L 100.0100, L500.2500 #### [facility] [address] [place], [address] Glucose [Mass/Vol] 87 mg/dL Normal 70-99 [facility] Comment on above: Performed By: #### L 100.0100, L500.2500 #### [facility] [address] [place], [address] Potassium [Moles/Vol] 4.7 mmol/L Normal 3.3-5.1 [facility] Comment on above: Performed By: #### L 100.0100, L500.2500 #### [facility] [address] [place], [address] Sodium [Moles/Vol] 141 mmol/L Normal 133-145 [facility] Comment on above: Performed By: #### L 100.0100, L500.2500 #### [facility] [address] [place], [address] Urea nitrogen [Mass/Vol] 30 mg/dL High 4-19 [facility] Comment on above: Performed By: #### L 100.0100, L500.2500 #### [facility] [address] [place], [address] Bedside Glucoseon 08-04-2025 FINGERSTICK GLU 100 mg/dL Normal 74-106 [facility] Comment on above: Result Comment: REMIGIO GEMENT OF PATIENT CARE PER NURSING PROTOCOL Performed By: #### L 501.080 #### [facility] [address] [place], [address] FINGERSTICK GLU 107 mg/dL High 74-106 [facility] Comment on above: Result Comment: REMIGIO GEMENT OF PATIENT CARE PER NURSING PROTOCOL Performed By: #### L 100.0100, L500.2500 #### [facility] [address] [place], [address] FINGERSTICK GLU 97 mg/dL Normal 74-106 [facility] Comment on above: Result Comment: REMIGIO GEMENT OF PATIENT CARE PER NURSING PROTOCOL Performed By: #### L 501.080 #### [facility] [address] [place], [address] CBC W/Diff, Automatedon 09- Absolute Lymph 2.30 X10 3/uL Normal 0.83-4.51 [facility] Comment on above: Performed By: #### L 501.080 #### [facility] [address] [place], [address] Absolute Neut 3.4 X10 3/uL Normal 2.0-7.7 [facility] Comment on above: Performed By: #### L 501.080 #### [facility] [address] [place], [address] Basophils/100 WBC (Bld) 0.3 % Normal 0-1 [facility] Comment on above: Performed By: #### L 501.080 #### [facility] [address] [place], [address] Eosinophils/100 WBC (Bld) 0.8 % Normal 0-5 [facility] Comment on above: Performed By: #### L 501.080 #### [facility] [address] [place], [address] Erythrocyte distribution width (RBC) [Ratio] 13.7 % Normal 11.6-14.6 [facility] Comment on above: Performed By: #### L 501.080 #### [facility] [address] [place], [address] Hematocrit (Bld) [Volume fraction] 27.2 % Low 37-47 [facility] Comment on above: Performed By: #### L 501.080 #### [facility] [address] [place], [address] Hemoglobin (Bld) [Mass/Vol] 8.7 g/dL Low 12.0-15.0 [facility] Comment on above: Performed By: #### L 501.080 #### [facility] [address] [place], [address] IG% 0.200 Normal 0.0-0.9 [facility] Comment on above: Result Comment: IG% - Immature Granulocytes (promyelocytes, myelocytes and metamyelocytes) > 1% indicates that a LEFT SHIFT is Present. Performed By: #### L 501.080 #### [facility] [address] [place], [address] Lymphocytes/100 WBC (Bld) 37.5 % Normal 19-41 [facility] Comment on above: Performed By: #### L 501.080 #### [facility] [address] [place], [address] MCH (RBC) [Entitic mass] 31.0 pg Normal 27.0-32.0 [facility] Comment on above: Performed By: #### L 501.080 #### [facility] [address] [place], [address] MCHC (RBC) [Mass/Vol] 32.0 g/dL Normal 32-36 [facility] Comment on above: Performed By: #### L 501.080 #### [facility] [address] [place], [address] MCV (RBC) [Entitic vol] 96.8 fL Normal 81-99 [facility] Comment on above: Performed By: #### L 501.080 #### [facility] [address] [place], [address] Monocytes/100 WBC (Bld) 6.7 % Normal 0-10 [facility] Comment on above: Performed By: #### L 501.080 #### [facility] [address] [place], [address] Neutrophils/100 WBC (Bld) 54.5 % Normal 47-70 [facility] Comment on above: Performed By: #### L 501.080 #### [facility] [address] [place], [address] Nucleated RBC (Bld) [#/Vol] 0.3 10*3/uL Normal 0-5 [facility] Comment on above: Performed By: #### L 501.080 #### [facility] [address] [place], [address] Platelet mean volume (Bld) [Entitic vol] 9.9 fL Normal 6.2-12.0 [facility] Comment on above: Performed By: #### L 501.080 #### [facility] [address] [place], [address] Platelets (Bld) [#/Vol] 151 10*3/uL Normal 150-450 [facility] Comment on above: Performed By: #### L 501.080 #### [facility] [address] [place], [address] RBC (Bld) [#/Vol] 2.81 10*6/uL Low 4.2-5.4 [facility] Comment on above: Performed By: #### L 501.080 #### [facility] [address] [place], [address] RDW SD 49.1 fl High 35.1-43.9 [facility] Comment on above: Performed By: #### L 501.080 #### [facility] [address] [place], [address] WBC (Bld) [#/Vol] 6.1 10*3/uL Normal 4.4-11.0 [facility] Comment on above: Performed By: #### L 501.080 #### [facility] [address] [place], [address] Phosphoruson 08-04-2025 Phosphate [Mass/Vol] 3.8 mg/dL Normal 2.7-4.5 [facility] Comment on above: Performed By: #### L 100.0100, L500.2500 #### [facility] [address] [place], [address] Alcohol, Blood (Medical)-Ser umon 08-03-2025 SERUM ETOH < 10.1 Normal <=10.0 [facility] Comment on above: Result Comment: This test is for medical purposes only. The legal definition of intoxication varies according to local law. Performed By: #### L 100.0100, L500.2500 #### [facility] [address] [place], [address] Bedside Glucoseon 08-03-2025 FINGERSTICK GLU 108 mg/dL High 74-106 [facility] Comment on above: Result Comment: REMIIGO GRAHAM OF PATIENT CARE PER NURSING PROTOCOL Performed By: #### L 501.080 #### [facility] [address] [place], [address] FINGERSTICK GLU 109 mg/dL High 74-106 [facility] Comment on above: Result Comment: REMIGIO GEMENT OF PATIENT CARE PER NURSING PROTOCOL Performed By: #### L 100.0100, L500.2500 #### [facility] [address] [place], [address] FINGERSTICK GLU 113 mg/dL High 74-106 [facility] Comment on above: Result Comment: REMIGIO GEMENT OF PATIENT CARE PER NURSING PROTOCOL Performed By: #### L 501.080 #### [facility] [address] [place], [address] FINGERSTICK GLU 141 mg/dL High 74-106 [facility] Comment on above: Result Comment: REMIGIO GEMENT OF PATIENT CARE PER NURSING PROTOCOL Performed By: #### L 501.080 #### [facility] [address] [place], [address] Bilirubin, totalOrdered By: Jhonny Sesay on 08-03-2025 Bilirubin [Mass/Vol] 0.30 mg/dL 0.00-1.30 [facility] CBC W/Diff, Automatedon 07-22 Absolute Lymph 2.48 X10 3/uL Normal 0.83-4.51 [facility] Comment on above: Performed By: #### L 501.2300, L500.4100, L500.4050, L100.0100 #### [facility] [address] [place], [address] Absolute Neut 4.8 X10 3/uL Normal 2.0-7.7 [facility] Comment on above: Performed By: #### L 501.2300, L500.4100, L500.4050, L100.0100 #### [facility] [address] [place], [address] Basophils/100 WBC (Bld) 0.5 % Normal 0-1 [facility] Comment on above: Performed By: #### L 501.2300, L500.4100, L500.4050, L100.0100 #### [facility] [address] [place], [address] Eosinophils/100 WBC (Bld) 0.6 % Normal 0-5 [facility] Comment on above: Performed By: #### L 501.2300, L500.4100, L500.4050, L100.0100 #### [facility] [address] [place], [address] Erythrocyte distribution width (RBC) [Ratio] 13.7 % Normal 11.6-14.6 [facility] Comment on above: Performed By: #### L 501.2300, L500.4100, L500.4050, L100.0100 #### [facility] [address] [place], [address] Hematocrit (Bld) [Volume fraction] 28.1 % Low 37-47 [facility] Comment on above: Performed By: #### L 501.2300, L500.4100, L500.4050, L100.0100 #### [facility] [address] [place], [address] Hemoglobin (Bld) [Mass/Vol] 9.3 g/dL Low 12.0-15.0 [facility] Comment on above: Performed By: #### L 501.2300, L500.4100, L500.4050, L100.0100 #### [facility] [address] [place], [address] IG% 0.200 Normal 0.0-0.9 [facility] Comment on above: Result Comment: IG% - Immature Granulocytes (promyelocytes, myelocytes and metamyelocytes) > 1% indicates that a LEFT SHIFT is Present. Performed By: #### L 501.2300, L500.4100, L500.4050, L100.0100 #### [facility] [address] [place], [address] Lymphocytes/100 WBC (Bld) 31.0 % Normal 19-41 [facility] Comment on above: Performed By: #### L 501.2300, L500.4100, L500.4050, L100.0100 #### [facility] [address] [place], [address] MCH (RBC) [Entitic mass] 32.5 pg High 27.0-32.0 [facility] Comment on above: Performed By: #### L 501.2300, L500.4100, L500.4050, L100.0100 #### [facility] [address] [place], [address] MCHC (RBC) [Mass/Vol] 33.1 g/dL Normal 32-36 [facility] Comment on above: Performed By: #### L 501.2300, L500.4100, L500.4050, L100.0100 #### [facility] [address] [place], [address] MCV (RBC) [Entitic vol] 98.3 fL Normal 81-99 [facility] Comment on above: Performed By: #### L 501.2300, L500.4100, L500.4050, L100.0100 #### [facility] [address] [place], [address] Monocytes/100 WBC (Bld) 7.5 % Normal 0-10 [facility] Comment on above: Performed By: #### L 501.2300, L500.4100, L500.4050, L100.0100 #### [facility] [address] [place], [address] Neutrophils/100 WBC (Bld) 60.2 % Normal 47-70 [facility] Comment on above: Performed By: #### L 501.2300, L500.4100, L500.4050, L100.0100 #### [facility] [address] [place], [address] Nucleated RBC (Bld) [#/Vol] 0 10*3/uL Normal 0-5 [facility] Comment on above: Performed By: #### L 501.2300, L500.4100, L500.4050, L100.0100 #### [facility] [address] [place], [address] Platelet mean volume (Bld) [Entitic vol] 10.1 fL Normal 6.2-12.0 [facility] Comment on above: Performed By: #### L 501.2300, L500.4100, L500.4050, L100.0100 #### [facility] [address] [place], [address] Platelets (Bld) [#/Vol] 144 10*3/uL Low 150-450 [facility] Comment on above: Performed By: #### L 501.2300, L500.4100, L500.4050, L100.0100 #### [facility] [address] [place], [address] RBC (Bld) [#/Vol] 2.86 10*6/uL Low 4.2-5.4 [facility] Comment on above: Performed By: #### L 501.2300, L500.4100, L500.4050, L100.0100 #### [facility] [address] [place], [address] RDW SD 49.7 fl High 35.1-43.9 [facility] Comment on above: Performed By: #### L 501.2300, L500.4100, L500.4050, L100.0100 #### [facility] [address] [place], [address] WBC (Bld) [#/Vol] 8.0 10*3/uL Normal 4.4-11.0 [facility] Comment on above: Performed By: #### L 501.2300, L500.4100, L500.4050, L100.0100 #### [facility] [address] [place], [address] Calculated very low density lipoprotein (VLDL) cholesterol measurementOrdered By: Jhonny Sesay on 08-03-2025 Calculated very low density lipoprotein (VLDL) cholesterol measurement 12 mg/dL 5-40 [facility] Comprehensive Metabolic Prof ilon 08-03-2025 Albumin [Mass/Vol] 3.5 g/dL Normal 3.4-4.8 [facility] Comment on above: Performed By: #### L 501.2300, L500.4100, L500.4050, L100.0100 #### [facility] [address] [place], [address] Albumin/Globulin [Mass ratio] 1.6 {ratio} Normal 0.9-2.4 [facility] Comment on above: Performed By: #### L 501.2300, L500.4100, L500.4050, L100.0100 #### [facility] [address] [place], [address] ALK PHOS 35 U/L Normal 35-104 [facility] Comment on above: Performed By: #### L 501.2300, L500.4100, L500.4050, L100.0100 #### [facility] [address] [place], [address] ALT [Catalytic activity/Vol] 22 U/L Normal <=34 [facility] Comment on above: Performed By: #### L 501.2300, L500.4100, L500.4050, L100.0100 #### [facility] [address] [place], [address] AST [Catalytic activity/Vol] 38 U/L High <=31 [facility] Comment on above: Performed By: #### L 501.2300, L500.4100, L500.4050, L100.0100 #### [facility] [address] [place], [address] Bilirubin [Mass/Vol] 0.30 mg/dL Normal 0.00-1.30 [facility] Comment on above: Performed By: #### L 501.2300, L500.4100, L500.4050, L100.0100 #### [facility] [address] [place], [address] BUN/CRE 20.1 RATIO High 10-20 [facility] Comment on above: Performed By: #### L 501.2300, L500.4100, L500.4050, L100.0100 #### [facility] [address] [place], [address] Calcium [Mass/Vol] 8.5 mg/dL Normal 7.6-11.0 [facility] Comment on above: Performed By: #### L 501.2300, L500.4100, L500.4050, L100.0100 #### [facility] [address] [place], [address] Chloride [Moles/Vol] 109 mmol/L High 98-108 [facility] Comment on above: Performed By: #### L 501.2300, L500.4100, L500.4050, L100.0100 #### [facility] [address] [place], [address] CO2 [Moles/Vol] 17.6 mmol/L Low 21.0-32.0 [facility] Comment on above: Performed By: #### L 501.2300, L500.4100, L500.4050, L100.0100 #### [facility] [address] [place], [address] Creatinine [Mass/Vol] 2.09 mg/dL High 0.70-1.20 [facility] Comment on above: Performed By: #### L 501.2300, L500.4100, L500.4050, L100.0100 #### [facility] [address] [place], [address] ECRCL 24.74 ml/min Low 50-250 [facility] Comment on above: Performed By: #### L 501.2300, L500.4100, L500.4050, L100.0100 #### [facility] [address] [place], [address] GAP 12 Normal 5-15 [facility] Comment on above: Performed By: #### L 501.2300, L500.4100, L500.4050, L100.0100 #### [facility] [address] [place], [address] GFR/1.73 sq M.predicted among non-blacks MDRD (S/P/Bld) [Vol rate/Area] 25 mL/min/{1.73_m2} Low >60 [facility] Comment on above: Result Comment: mL/m in/1.73m2 CKD-EPI Creatinine Equation (2020) Performed By: #### L 501.2300, L500.4100, L500.4050, L100.0100 #### [facility] [address] [place], [address] Globulin (S) [Mass/Vol] 2.2 g/dL Normal 2.2-4.2 [facility] Comment on above: Performed By: #### L 501.2300, L500.4100, L500.4050, L100.0100 #### [facility] [address] [place], [address] Glucose [Mass/Vol] 153 mg/dL High 70-99 [facility] Comment on above: Performed By: #### L 501.2300, L500.4100, L500.4050, L100.0100 #### [facility] [address] [place], [address] Potassium [Moles/Vol] 4.5 mmol/L Normal 3.3-5.1 [facility] Comment on above: Performed By: #### L 501.2300, L500.4100, L500.4050, L100.0100 #### [facility] [address] [place], [address] Sodium [Moles/Vol] 139 mmol/L Normal 133-145 [facility] Comment on above: Performed By: #### L 501.2300, L500.4100, L500.4050, L100.0100 #### [facility] [address] [place], [address] T PROT 5.7 g/dL Low 5.9-8.4 [facility] Comment on above: Performed By: #### L 501.2300, L500.4100, L500.4050, L100.0100 #### [facility] [address] [place], [address] Urea nitrogen [Mass/Vol] 42 mg/dL High 4-19 [facility] Comment on above: Performed By: #### L 501.2300, L500.4100, L500.4050, L100.0100 #### [facility] [address] [place], [address] Folates,Serum (Folic Acid)on 08-03-2025 FOLATES,SERUM 6.23 ng/mL Normal 4.60-34.80 [facility] Comment on above: Result Comment: Hemo lysis, Results will be affected, Requires Recollection. Performed By: #### L 501.080 #### [facility] [address] [place], [address] Hemoglobin A1con 08-03-2025 HbA1c (Bld) [Mass fraction] 5.8 % High <=5.6 [facility] Comment on above: Result Comment: Norm al < 5.7 % Prediabetic 5.7 - 6.4 % Diabetic >or= 6.5 % Please note range changes. Performed By: #### L 100.0100, L500.2500 #### [facility] [address] [place], [address] LDL calc ser/plasOrdered By: Jhonny Sesay on 08-03-2025 Cholesterol in LDL [Mass/Vol] 38 mg/dL [facility] Comment on above: Ioybzcvktz=959-486 m g/dL & Higher Crto=861 mg/dL or greaterFriedwald Equation for LDL-C Laboratory - Chemistry and C hemistry - challengeOrdered By: Jhonny Sesay on 08-03-2025 AST [Catalytic activity/Vol] 38 U/L High <32 [facility] Lipid Profileon 08-03-2025 CHOL:HDL 2.03 Normal [facility] Comment on above: Performed By: #### L 501.2300, L500.4100, L500.4050, L100.0100 #### [facility] [address] [place], [address] Cholesterol [Mass/Vol] 99 mg/dL Normal <=200 [facility] Comment on above: Result Comment: Chol esterol level, Desirable <200 mg/dL Borderline high cholesterol 200-239 mg/dL High cholesterol >=240 mg/dL Recommendations of the NCEP Adult Treatment Panel for the following risk-cutoff thresholds for the [place] population. Performed By: #### L 501.2300, L500.4100, L500.4050, L100.0100 #### [facility] [address] [place], [address] Cholesterol in HDL [Mass/Vol] 49 mg/dL Normal [facility] Comment on above: Result Comment: Liz onal Cholesterol Education Program (NCEP) guidelines: <40 mg/dL: Low HDL-cholesterol (major risk factor for CHD) >= 60 mg/dL: High HDL-cholesterol (negative risk factor for CHD) HDL-cholesterol is affected by a number of factors, e.g. smoking, exercise, hormones, sex and age. Performed By: #### L 501.2300, L500.4100, L500.4050, L100.0100 #### [facility] [address] [place], [address] Cholesterol in LDL [Mass/Vol] 38 mg/dL Normal [facility] Comment on above: Result Comment: Bord gbyhma=492-952 mg/dL Higher Flsh=351 mg/dL or greater Friedwald Equation for LDL-C Performed By: #### L 501.2300, L500.4100, L500.4050, L100.0100 #### [facility] [address] [place], [address] Cholesterol in VLDL [Mass/Vol] 12 mg/dL Normal 5-40 [facility] Comment on above: Performed By: #### L 501.2300, L500.4100, L500.4050, L100.0100 #### [facility] [address] [place], [address] Triglyceride [Mass/Vol] 62 mg/dL Normal [facility] Comment on above: Result Comment: The drugs N-Acetylcysteine and Metamizole may falsely depress this assay. Normal range: <150 mg/dL Borderline High: 150-199 mg/dL High: 200-499 mg/dL Very High: >500 mg/dL Performed By: #### L 501.2300, L500.4100, L500.4050, L100.0100 #### [facility] [address] [place], [address] Magnesiumon 08-03-2025 Magnesium [Mass/Vol] 1.4 mg/dL Low 1.5-2.2 [facility] Comment on above: Performed By: #### L 100.0100, L500.2500 #### [facility] [address] [place], [address] Phosphoruson 08-03-2025 Phosphate [Mass/Vol] 2.4 mg/dL Low 2.7-4.5 [facility] Comment on above: Performed By: #### L 501.2300, L500.4100, L500.4050, L100.0100 #### [facility] [address] [place], [address] Screening total cholesterol/ high density lipoprotein (HDL) cholesterol ratioOrdered By: Jhonny Sesay on 08-03-2025 Cholesterol.total/Janey sterol in HDL [Mass ratio] 2.03 {ratio} [facility] Serum globulin measurementOr dered By: Jhonny Sesay on 08-03-2025 Globulin (S) [Mass/Vol] 2.2 g/dL 2.2-4.2 [facility] Serum or plasma alanine lopez otransferase (ALT) measurementOrdered By: Jhonny Sesay on 08-03-2025 ALT [Catalytic activity/Vol] 22 U/L <35 [facility] Serum or plasma albumin gaudencio urement (mass/volume)Ordered By: Jhonny Sesay on 08-03-2025 Albumin [Mass/Vol] 3.5 g/dL 3.4-4.8 [facility] Serum or plasma albumin/glob ulin mass ratioOrdered By: Jhonny Sesay on 08-03-2025 Albumin/Globulin [Mass ratio] 1.6 {ratio} 0.9-2.4 [facility] Serum or plasma alkaline seamus sphatase measurementOrdered By: Jhonny Sesay on 08-03-2025 ALP [Catalytic activity/Vol] 35 U/L 35-104 [facility] Serum or plasma cholesterol in HDL measurement (mass/volume)Ordered By: Jhonny Sesay on 08-03-2025 Cholesterol in HDL [Mass/Vol] 49 mg/dL >40 [facility] Comment on above: National Cholesterol Education Program (NCEP) guidelines:<40 mg/dL: Low HDL-cholesterol (major risk factor for CHD)>= 60 mg/dL: High HDL-cholesterol (negative risk factor for CHD)HDL-cholesterol is affected by a number of factors, e.g. smoking, exercise, hormones, sex and age. Serum or plasma cholesterol measurement (mass/volume)Ordered By: Jhonny Sesay on 08-03-2025 Cholesterol [Mass/Vol] 99 mg/dL <201 [facility] Comment on above: Cholesterol level, D esirable <200 mg/dLBorderline high cholesterol 200-239 mg/dLHigh cholesterol >=240 mg/dLRecommendations of the NCEP Adult Treatment Panel for the following risk-cutoff thresholds for the [place] population. Thyroid Stim Hormone (TSH)on 08-03-2025 TSH 1.490 uIU/mL Normal 0.300-4.200 [facility] Comment on above: Performed By: #### L 100.0100, L500.2500 #### [facility] [address] [facility] [id number] Total proteinOrdered By: Rubén Sesay on 08-03-2025 Protein [Mass/Vol] 5.7 g/dL Low 5.9-8.4 [facility] Triglycerides measurementOrd ered By: Jhonny Sesay on 08-03-2025 Triglyceride [Mass/Vol] 62 mg/dL <199 [facility] Comment on above: The drugs N-Acetylcy steine and Metamizole may falsely depress this assay. Normal range: <150 mg/dLBorderline High: 150-199 mg/dLHigh: 200-499 mg/dLVery High: >500 mg/dL Urine Drug Screen (VISTA)on 08-03-2025 AMPHETAMINES Negative Normal <1000 ng/mL [facility] Comment on above: Performed By: #### L 100.0100, L500.2500 #### [facility] [address] [place], [place], [id number] BARBITIURATES Negative Normal < 200 ng/mL [facility] Comment on above: Performed By: #### L 100.0100, L500.2500 #### [facility] [address] [place], [address] BENZODIAZIPINE Negative Normal < 200 ng/mL [facility] Comment on above: Performed By: #### L 100.0100, L500.2500 #### [facility] [address] [place], [address] BUP Ur Drug Scr Negative Normal < 200 ng/mL [facility] Comment on above: Performed By: #### L 100.0100, L500.2500 #### [facility] [address] [place], [address] COCAINE Negative Normal < 300 ng/mL [facility] Comment on above: Performed By: #### L 100.0100, L500.2500 #### [facility] [address] [place], [address] Fentanyl Negative Normal <5 ng/mL [facility] Comment on above: Result Comment: CONF IRMATORY TESTING FOR ALL POSITIVE URINE DRUG SCREEN RESULTS WILL ONLY BE SENT OUT UPON PHYSICIAN ORDER. Ca Pro Urine Drug Screen methods provide only preliminary analytical test results. A more specific alternate chemical method must be used in order to obtain a confirmed analytical result. Gas chromatography/mass spectrometery (GC/MS) is the preferred confirmatory method. Clinical consideration and professional judgement should be applied to any drug of abuse test result, particularly when preliminary positive results are used. Urine TCA testing must be ordered separately. Use test mnemonic: UTCA Performed By: #### L 100.0100, L500.2500 #### [facility] [address] [place], [address] METHADONE Negative Normal < 300 ng/mL [facility] Comment on above: Performed By: #### L 100.0100, L500.2500 #### [facility] [address] [place], [address] OPIATES Negative Normal < 300 ng/mL [facility] Comment on above: Performed By: #### L 100.0100, L500.2500 #### [facility] [address] [place], [address] OXYCODONE Negative Normal < 100 ng/mL [facility] Comment on above: Performed By: #### L 100.0100, L500.2500 #### [facility] [address] [place], [address] PCP Negative Normal < 25 ng/mL [facility] Comment on above: Performed By: #### L 100.0100, L500.2500 #### [facility] [address] [place], [address] THC Negative Normal < 50 ng/mL [facility] Comment on above: Performed By: #### L 100.0100, L500.2500 #### [facility] [address] [place], [address] Vitamin B12on 08-03-2025 Cobalamin (Vitamin B12) [Mass/Vol] 312 pg/mL Normal 180-914 [facility] Comment on above: Performed By: #### L 100.0100, L500.2500 #### [facility] [address] [place], [address] .GFRon 08-02-2025 Estimated Glomerular Filtration Rate 20 ml/min/1.73sqm Normal [facility] Comment on above: Result Comment: Stages of Chronic Kidney Disease [...] calculate the eGFR results. Performed By: #### B MP, GFR #### [address] [place], [place] [address] A1Con 08-02-2025 Glucose [Mass/Vol] 117 mg/dL Normal [facility] Comment on above: Result Comment: Danni mated Average Glucose calculated by equation ((28.7xA1C)-46.7) Estimated average glucose (eAG) is a calculated value from Hemoglobin A1C and is inside account representative of the average blood glucose level in the last 2-3 month period. Normal range: less than 114 mg/dL Performed By: #### B MP, GFR #### [facility] [address] [place], [place] [address] HbA1c (Bld) [Mass fraction] 5.7 % Normal 4.3-6.4 [facility] Comment on above: Performed By: #### B MP, GFR #### [facility] [address] [place], [place] [address] Abdomen/Pelvis without Conto n 08-02-2025 Abdomen/Pelvis without Cont [facility] Imaging Services [address] [place] [id number] Abdomen/Pelvis without Cont MR#: [id number] Acct: [id number] Name: GADIEL SAUL Rep #: [id number] : 1955 F 70 From: Cain Toney MD PCP: JARETT Mendes Status: REG ER Study: Abdomen/Pelvis without Cont Date of Exam: 07/22 01/15 Exam# [id number] Ordering Dr: Lamberto Montiel DO PROCEDURE: CT ABDOMEN/PELVIS WITHOUT CONTRAST 08/02/2025 REASON FOR EXAM: DIARRHEA TECHNIQUE: Procedure Code: CTABDPEL Modality: CT Procedure: ABDOMEN/PELVIS WITHOUT CONT Noncontrast technique limits evaluation of the abdominal and pelvic viscera. Coronal and Sagittal reconstruction series were provided. One or more dose reduction techniques were used (e.g., Automated exposure control, adjustment of the mA and/or kV according to patient size, use of iterative reconstruction technique). RADIATION DOSE SUMMARY: CTDlvol: 12.27 mGy DLP: 597.56 mGycm COMPARISON: None. FINDINGS: Lung bases: Clear. Liver: Unremarkable. Gallbladder: Surgically absent. Spleen: Unremarkable. Pancreas: Unremarkable. Adrenals: Unremarkable. Kidneys: No urolithiasis or hydronephrosis. Nonspecific bilateral perinephric fat stranding, nonspecific but symmetric and most likely chronic. Bladder: Unremarkable. Reproductive Organs: Enlarged lobulated myomatous uterus. Unremarkable adnexae. Bowel: No evidence of obstruction or active inflammatory process. Normal appendix. Extensive distal colonic diverticulosis without evidence for active diverticulitis/colitis. Lymph nodes: No suspicious lymph node enlargement. Vasculature: Normal caliber abdominal aorta and IVC. Mild atherosclerotic calcifications. Peritoneum / Retroperitoneum: No ascites or free air. Bones: Mild multilevel degenerative changes of the spine. CT/Abdomen/Pelvis without Cont IMPRESSION: 1. No bowel obstruction or active inflammatory process identified. 2. Extensive distal colonic diverticulosis without evidence of active diverticulitis/colitis. 3. Mildly enlarged lobulated myomatous uterus. Reading Location: [facility] CC: JARETT Huertas; Dr. Lamberto Montiel DO Pull Worker: Signed Normal [facility] Absolute lymphocyte countOrd ered By: Lamberto Montiel on 08-02-2025 Lymphocytes Auto (Unsp spec) [#/Vol] 2.26 10*3/uL 0.83-4.51 [facility] Absolute neutrophil countOrd ered By: Lamberto Montiel on 08-02-2025 Neutrophils (Bld) [#/Vol] 7.6 10*3/uL 2.0-7.7 [facility] Activated partial thrombopla stin time (aPTT) in platelet poor plasma by coagulation aOrdered By: Lamberto Montiel on 08-02-2025 aPTT Coag (PPP) [Time] 30.3 s 24.1-36.2 [facility] Amphetamine detection with 1 000 ng/mL as cutoffOrdered By: Jhonny Sesay on 08-02-2025 Amphetamines Screen method >1000 ng/mL Ql (U) Negative < 200 ng/mL [facility] Anion gap in Serum or Plasma Ordered By: Lamberto Montiel on 08-02-2025 Anion gap [Moles/Vol] 13 mmol/L 5-15 [facility] Automated lymphocyte count a s percentage of total leukocytesOrdered By: Lamberto Montiel on 08-02-2025 Lymphocytes/100 WBC Auto (Unsp spec) 21.0 % 19-41 [facility] BUN/creatinine ratioOrdered By: Lamberto Montiel on 08-02-2025 Urea nitrogen/Creatinine [Mass ratio] 18.2 mg/mg 10- [facility] Basic Metabolic Profile (BMP )on 08-02-2025 BUN/CRE 18.2 RATIO Normal 10- [facility] Comment on above: Performed By: #### L 501.080 #### [facility] [address] [place], [address] Calcium [Mass/Vol] 9.8 mg/dL Normal 7.6-11.0 [facility] Comment on above: Performed By: #### L 501.080 #### [facility] [address] [place], [address] Chloride [Moles/Vol] 104 mmol/L Normal 98-108 [facility] Comment on above: Performed By: #### L 501.080 #### [facility] [address] [place], [address] CO2 [Moles/Vol] 23.7 mmol/L Normal 21.0-32.0 [facility] Comment on above: Performed By: #### L 501.080 #### [facility] [address] [place], [address] Creatinine [Mass/Vol] 2.59 mg/dL High 0.70-1.20 [facility] Comment on above: Performed By: #### L 501.080 #### [facility] [address] [place], [address] ECRCL 19.72 ml/min Low 50-250 [facility] Comment on above: Performed By: #### L 501.080 #### [facility] [address] [place], [address] GAP 13 Normal 5-15 [facility] Comment on above: Performed By: #### L 501.080 #### [facility] [address] [place], [address] GFR/1.73 sq M.predicted among non-blacks MDRD (S/P/Bld) [Vol rate/Area] 19 mL/min/{1.73_m2} Low >60 [facility] Comment on above: Result Comment: mL/m in/1.73m2 CKD-EPI Creatinine Equation (2020) Performed By: #### L 501.080 #### [facility] [address] [place], [address] Glucose [Mass/Vol] 137 mg/dL High 70-99 [facility] Comment on above: Performed By: #### L 501.080 #### [facility] [address] [place], [address] Potassium [Moles/Vol] 4.8 mmol/L Normal 3.3-5.1 [facility] Comment on above: Performed By: #### L 501.080 #### [facility] [address] [place], [address] Sodium [Moles/Vol] 141 mmol/L Normal 133-145 [facility] Comment on above: Performed By: #### L 501.080 #### [facility] [address] [place], [address] Urea nitrogen [Mass/Vol] 47 mg/dL High 4-19 [facility] Comment on above: Performed By: #### L 501.080 #### [facility] [address] [place], [address] Basophil percentageOrdered B y: Lamberto Montiel on 08-02-2025 Basophils/100 WBC (Bld) 0.3 % 0-1 [facility] Bilirubin Test strip Ql (U)O rdered By: Lamberto Montiel on 08-02-2025 Bilirubin Ql (U) Negative Negative [facility] CBC W/Diff, Automatedon 09-11 22-2024 Absolute Lymph 2.26 X10 3/uL Normal 0.83-4.51 [facility] Comment on above: Performed By: #### L 501.080 #### [facility] [address] [place], [address] Absolute Neut 7.6 X10 3/uL Normal 2.0-7.7 [facility] Comment on above: Performed By: #### L 501.080 #### [facility] [address] [place], [address] Basophils/100 WBC (Bld) 0.3 % Normal 0-1 [facility] Comment on above: Performed By: #### L 501.080 #### [facility] [address] [place], [address] Eosinophils/100 WBC (Bld) 0.6 % Normal 0-5 [facility] Comment on above: Performed By: #### L 501.080 #### [facility] [address] [place], [address] Erythrocyte distribution width (RBC) [Ratio] 13.8 % Normal 11.6-14.6 [facility] Comment on above: Performed By: #### L 501.080 #### [facility] [address] [place], [address] Hematocrit (Bld) [Volume fraction] 32.5 % Low 37-47 [facility] Comment on above: Performed By: #### L 501.080 #### [facility] [address] [place], [address] Hemoglobin (Bld) [Mass/Vol] 10.8 g/dL Low 12.0-15.0 [facility] Comment on above: Performed By: #### L 501.080 #### [facility] [address] [place], [address] IG% 0.300 Normal 0.0-0.9 [facility] Comment on above: Result Comment: IG% - Immature Granulocytes (promyelocytes, myelocytes and metamyelocytes) > 1% indicates that a LEFT SHIFT is Present. Performed By: #### L 501.080 #### [facility] [address] [place], [address] Lymphocytes/100 WBC (Bld) 21.0 % Normal 19-41 [facility] Comment on above: Performed By: #### L 501.080 #### [facility] [address] [place], [address] MCH (RBC) [Entitic mass] 31.8 pg Normal 27.0-32.0 [facility] Comment on above: Performed By: #### L 501.080 #### [facility] [address] [place], [address] MCHC (RBC) [Mass/Vol] 33.2 g/dL Normal 32-36 [facility] Comment on above: Performed By: #### L 501.080 #### [facility] [address] [place], [address] MCV (RBC) [Entitic vol] 95.6 fL Normal 81-99 [facility] Comment on above: Performed By: #### L 501.080 #### [facility] [address] [place], [address] Monocytes/100 WBC (Bld) 7.6 % Normal 0-10 [facility] Comment on above: Performed By: #### L 501.080 #### [facility] [address] [place], [address] Neutrophils/100 WBC (Bld) 70.2 % High 47-70 [facility] Comment on above: Performed By: #### L 501.080 #### [facility] [address] [place], [address] Nucleated RBC (Bld) [#/Vol] 0 10*3/uL Normal 0-5 [facility] Comment on above: Performed By: #### L 501.080 #### [facility] [address] [place], [address] Platelet mean volume (Bld) [Entitic vol] 10.4 fL Normal 6.2-12.0 [facility] Comment on above: Performed By: #### L 501.080 #### [facility] [address] [place], [address] Platelets (Bld) [#/Vol] 181 10*3/uL Normal 150-450 [facility] Comment on above: Performed By: #### L 501.080 #### [facility] [address] [place], [address] RBC (Bld) [#/Vol] 3.40 10*6/uL Low 4.2-5.4 [facility] Comment on above: Performed By: #### L 501.080 #### [facility] [address] [place], [address] RDW SD 47.9 fl High 35.1-43.9 [facility] Comment on above: Performed By: #### L 501.080 #### [facility] [address] [place], [address] WBC (Bld) [#/Vol] 10.8 10*3/uL Normal 4.4-11.0 [facility] Comment on above: Performed By: #### L 501.080 #### [facility] [address] [place], [address] CMPon 08-02-2025 Albumin Level 4.1 G/dL Normal 3.4-4.8 [facility] Comment on above: Performed By: #### B DONNY GFR #### [address] [address] Albumin/Globulin [Mass ratio] 1.2 {ratio} Normal 1.1-2.5 [facility] Comment on above: Performed By: #### B MP, GFR #### [address] [address] ALP [Catalytic activity/Vol] 41 U/L Normal 40-135 [facility] Comment on above: Performed By: #### B MP, GFR #### [address] [address] ALT [Catalytic activity/Vol] 38 U/L Normal 14-59 [facility] Comment on above: Performed By: #### B MP, GFR #### [address] [address] AST [Catalytic activity/Vol] 38 U/L Normal 10-40 [facility] Comment on above: Performed By: #### B MP, GFR #### [address] [address] Bili Total 0.6 mg/dL Normal 0.2-1.0 [facility] Comment on above: Result Comment: Use of this assay is not recommended for patients undergoing treatment with eltrombopag due to the potential for falsely elevated results. Performed By: #### B MP, GFR #### [address] [address] BUN/Creatinine Ratio 18 ratio Normal 7-27 [facility] Comment on above: Performed By: #### B MP, GFR #### [address] [address] Calcium [Mass/Vol] 9.7 mg/dL Normal 8.4-10.2 [facility] Comment on above: Performed By: #### B MP, GFR #### [address] [address] Chloride [Moles/Vol] 106 mmol/L Normal 98-107 [facility] Comment on above: Performed By: #### B MP, GFR #### [address] [address] CO2 [Moles/Vol] 28 mmol/L Normal 23-31 [facility] Comment on above: Performed By: #### B MP, GFR #### [address] [address] Creatinine [Mass/Vol] 2.48 mg/dL High 0.51-0.95 [facility] Comment on above: Performed By: #### B MP, GFR #### [address] [address] Electrolyte Balance 10.0 mEq/L Normal 4.0-15.0 [facility] Comment on above: Performed By: #### B MP, GFR #### [address] [address] Globulin 3.3 G/dL Normal 2.7-4.4 [facility] Comment on above: Performed By: #### B MP, GFR #### [address] [address] Glucose [Mass/Vol] 143 mg/dL High 83-110 [facility] Comment on above: Performed By: #### B MP, GFR #### [address] [address] Potassium [Moles/Vol] 4.7 mmol/L Normal 3.5-5.1 [facility] Comment on above: Performed By: #### B MP, GFR #### [address] [address] Sodium [Moles/Vol] 144 mmol/L Normal 136-145 [facility] Comment on above: Performed By: #### B MP, GFR #### [address] [address] Total Protein 7.4 G/dL Normal 6.4-8.2 [facility] Comment on above: Performed By: #### B MP, GFR #### [address] [address] Urea nitrogen [Mass/Vol] 45 mg/dL High 7-18 [facility] Comment on above: Performed By: #### B MP, GFR #### [facility] [address] [place], [place] [address] Carbon dioxide, total [Moles /volume] in Central venous bloodOrdered By: Lamberto Montiel on 08-02-2025 CO2 [Moles/Vol] 23.7 mmol/L 21.0-32.0 [facility] Chloride assayOrdered By: Chris Montiel on 08-02-2025 Chloride [Moles/Vol] 104 mmol/L 98-108 [facility] Emergency Department Summary on 08-02-2025 Emergency Department Summary [facility] Medical Records Department [address] [place] [address] Emergency Department Summary 08/02/25 MR#: [id number] Acct: [id number] Name: GADIEL SAUL Rep #: [id number] : 1955 70 From: Lamberto Montiel DO PCP: NITZA MendesC Status:ADM IN Location: [facility] LP900-3 HPI History of Present Illness Chief Complaint: Abn Labs Informant: patient and family Onset/Context/Timing Onset: Today Context: Gradual Onset Timing: Continuous Quality: Weak, tired Location: Generalized Worsened by: Nothing Relieved by: Nothing Narrative Narrative: Patient presents with diarrhea that has been constant for the past several days. Patient saw her primary care nurse practitioner today who will stop the Ozempic and metformin. They noted that the patient's blood pressure was low and referred the patient to the emergency department. They did check labs earlier today which showed an elevated creatinine of 2.42. Primary care nurse practitioner states that this is markedly increased from previous results. Patient has a history of dementia and is a poor informant. [facility] Medical History Chronic kidney disease, stage 3 unspecified Other specified disorders of bone density and structure, unspecified site HTN (hypertension) Pure hypercholesterolemia, unspecified Diabetes mellitus Hypothyroidism, unspecified Other frontotemporal neurocognitive disorder AD (Alzheimer's disease) Allergy/AdvReac Type Severity Reaction Status Date / Time erythromycin base AdvReac PT UNSURE Verified 08/02/25 19:24 OF REACTION exenatide (From [place]) AdvReac PT UNSURE Verified 08/02/25 19:24 OF REACTION Penicillins AdvReac PT UNSURE Verified 08/02/25 19:24 OF REACTION Sulfa (Sulfonamide AdvReac PT UNSURE Verified 08/02/25 19:24 Antibiotics) OF REACTION Surgical History History of thyroid surgery Social History housing: group home Smoking Status: Former smoker ROS ROS ED Constitutional Constitutional ED: Denies chills or fever(s) Eyes Eyes: Denies blurry vision or change in vision ENT ENT ED: Denies rhinorrhea or sore throat Cardiovascular Cardiovascular: Denies chest pain or palpitations Respiratory/Chest Respiratory/Chest: Denies cough or dyspnea Gastrointestinal Gastrointestinal: Reports diarrhea, nausea and vomiting Genitourinary Genitourinary ED: Denies dysuria or hematuria Musculoskeletal Musculoskeletal: Denies back pain or neck pain Integumentary Denies abscess or rash Neurologic Neurologic: Denies headache(s) or weakness Allergic/Immunologic Allergic/Immunologic ED: Denies mouth swelling or urticaria EXAM Physical Exam Const Vital Signs: 08/02/25 19:22 08/02/25 19:22 08/02/25 19:34 Temperature 98 F Temperature Source Temporal Pulse Rate 76 Respiratory Rate 19 H Respiratory Pattern Normal Blood Pressure 74/45 L 79/40 L Blood Pressure Mean 54 53 Pulse Ox 99 Oxygen Delivery Method Room Air 08/02/25 19:40 08/02/25 20:15 08/02/25 21:00 Temperature Temperature Source Pulse Rate 66 69 64 Respiratory Rate 17 18 25 H Respiratory Pattern Blood Pressure 93/55 L 99/66 88/52 L Blood Pressure Mean 67 77 65 Pulse Ox 98 98 90 Oxygen Delivery Method Room Air 08/02/25 22:00 08/02/25 23:00 Temperature Temperature Source Pulse Rate 61 64 Respiratory Rate 21 H 14 Respiratory Pattern Blood Pressure 98/60 130/111 H Blood Pressure Mean 73 117 Pulse Ox 96 Oxygen Delivery Method Room Air Positive well nourished and well developed Constitutional Narrative: BMI is 29.6. General Appearance ED: well developed and NAD HEENT Reports moist mucous membranes Neck supple and no JVD Resp normal respiratory effort and clear to auscultation bilaterally Cardio regular rate and regular rhythm GI non-tender and non-distended Palpation: soft Extremity normal to inspection General Extremety ED: Negative for edema or tenderness General Extremity: Negative for edema Neuro CN's II-XII intact bilaterally and no sensory deficits noted Sensorium / Orientation: alert and orientation impaired Motor Exam: strength 5/5 throughout MDM MDM MDM Narrative Medical decision making narrative: Differential diagnosis includes acute kidney injury, dehydration, electrolyte abnormality, urinary tract infection, pyelonephritis, bowel obstruction, perforation, and sepsis. CBC will be obtained to assess for leukocytosis and anemia. Basic metabolic profile will be obtained to assess for electrolyte abnormality and renal function. PT with INR and PTT will be ob (more content not included)... Normal [facility] Eosinophil percentageOrdered By: Lamberto Montiel on 08-02-2025 Eosinophils/100 WBC (Bld) 0.6 % 0-5 [facility] Erythrocyte distribution wid th ratioOrdered By: Lamberto Montiel on 08-02-2025 Erythrocyte distribution width (RBC) [Ratio] 13.8 % 11.6-14.6 [facility] Erythrocyte distribution wid th standard deviationOrdered By: Lamberto Montiel on 08-02-2025 Erythrocyte distribution width (RBC) [Ratio] 47.9 fl High 35.1-43.9 [facility] Folate [Moles/volume] in Ser um or PlasmaOrdered By: Jhonny Sesay on 08-02-2025 Folate [Moles/Vol] 6.23 ng/mL 4.60-34.80 [facility] Comment on above: Hemolysis, Results w ill be affected, Requires Recollection. Glomerular filtration rate ( GFR) estimation/1.73 sq m using serum, plasma, or whole bOrdered By: Lamberto Montiel on 08-02-2025 GFR/1.73 sq M.predicted among non-blacks MDRD (S/P/Bld) [Vol rate/Area] 19 mL/min/{1.73_m2} Low >60 [facility] Comment on above: mL/min/1.73m2 CKD-EP I Creatinine Equation (2020) [facility] H&P Exam - Hospitalist [facility] Medical Records Department [address] [place] [address] H P Exam - Hospitalist 08/02/25 2313 MR#: [id number] Acct: [id number] Name: GADIEL SAUL Rep #: [id number] : 1955 70 From: Jhonny Albrecht DO PCP: Maria T Huertas, [employer] Status:ADM IN Location: [facility] [place] [id number] HPI - General General Date of Admission: 08/02/25 Date of Service: 08/02/25 Chief Complaint: Diarrhea, Generalized Weakness and Abnormal Labs. HPI Narrative GADIEL SAUL, is a 70 F with a past medical history of essential hypertension, hyperlipidemia, hypothyroidism; with history of thyroid surgery, overweight; with BMI of 29.6 this admission, former tobacco abuse, Alzheimer's dementia, DM-2; of unknown control on metformin and Ozempic, CKD; stage III of uncertain subtype and OA who presents to [facility] ER after she was noted to have diarrhea, generalized weakness and abnormal labs. Ms. aSul is not a reliable historian so information was gathered from chart, medical staff and computer. According to the records patient was noted to have nonbloody diarrhea that has been constant for the past several days with nurse practitioner at her facility electing to stop her Ozempic and metformin with initial suspicion for adverse drug reaction. Then earlier today she underwent routine laboratory testing which revealed an elevated serum creatinine of 2.42 mg deciliter consistent with TRACEY in the setting of CKD; stage III with nurse practitioner informing ER physician that this was a marked increase from the previous results. There was no report of associated fever, chills, changes in vision, discharge from eyes, runny nose, sore throat, chest pain, palpitations, heart racing, lower extremity edema, shortness of breath, cough, nausea, vomiting, abdominal pain, dysuria, hematuria, headache or rash. In the ER she was noted to have a UA positive for Acute Cystitis; without hematuria complicated by additional laboratory evidence of TRACEY; in setting of CKD: Stage III of uncertain subtype with elevated serum creatinine of 2.59 mg/dL and eGFR of 19 mL/min (with no previous results in our system available for comparison) compounded by Nonbloody Diarrhea all combining to cause Generalized Weakness with a corresponding CT scan of the abdomen and pelvis without contrast that revealed no bowel obstruction or active inflammatory process identified with extensive distal colonic diverticulosis without evidence of active diverticulitis/colitis and mildly enlarged lobulated myomatous uterus. She was then admitted to the general medical floor with telemetric monitoring for ongoing care for status is expected to extend beyond 2 midnights. [facility] Medical History (Updated 08/02/25 @ 23:[address] Jhonny Albrecht, DO) Chronic kidney disease, stage 3 unspecified Other specified disorders of bone density and structure, unspecified site HTN (hypertension) Pure hypercholesterolemia, unspecified Diabetes mellitus Hypothyroidism, unspecified Other frontotemporal neurocognitive disorder AD (Alzheimer's disease) Home Medications ???Medication ???Instructions ???Recorded ???Last Taken ???Type calcium citrate 250 mg PO DAILY 08/02/25 Unknown H istory cholecalciferol (vitamin D3) 50 50 mcg PO DAILY 08/02/25 Unknown H istory mcg (2,000 unit) capsule dapagliflozin propanediol 5 mg 5 mg PO DAILY 08/02/25 Unknown His tory tablet (Farxiga) lisinopril 2.5 mg tablet 2.5 mg PO DAILY 08/02/25 Unknown H istory multivitamin (Daily Multi-Vitamin 1 tab PO DAILY 08/02/25 Unknown H istory tablet) quetiapine 25 mg tablet (Seroquel) 12.5 mg PO QHS 08/02/25 Unknown History rosuvastatin 20 mg tablet 20 mg PO QHS 08/02/25 Unknown Hist ory semaglutide 0.25 mg or 0.5 mg (2 0.5 mg subcut QWEEK 08/02/25 Unkno wn History mg/3 mL) subcutaneous pen injector (Ozempic) sertraline 25 mg tablet 25 mg PO DAILY 08/02/25 Unknown Hi story Allergy/AdvReac Type Severity Reaction Status Date / Time erythromycin base AdvReac PT UNSURE Verified 08/02/25 19:24 OF REACTION exenatide (From [place]) AdvReac PT UNSURE Verified 08/02/25 19:24 OF REACTION Penicillins AdvReac PT UNSURE Verified 08/02/25 19:24 OF REACTION Sulfa (Sulfonamide AdvReac PT UNSURE Verified 08/02/25 19:24 Antibiotics) OF REACTION Surgical History History of thyroid surgery Social History housing: group home Smoking Status: Former smoker ROS ROS Narrative Review of Systems: Constitutional: Patient denies fever or chills. Eyes: Patient denies changes in vision or discharge from eyes. ENT: Patient denies runny nose, sore throat or ear pain. Resp: Patient denies shortness of breath or cough. CV: Pat (more content not included)... Normal [facility] Hematocrit Auto (Bld) [Volum e fraction]Ordered By: Lamberto Montiel on 08-02-2025 Hematocrit (Bld) [Volume fraction] 32.5 % Low 37-47 [facility] Hemoglobin A1c percentageOrd ered By: Jhonny Sesay on 08-02-2025 HbA1c (Bld) [Mass fraction] 5.8 % High <5.7 [facility] Comment on above: Normal < 5.7 % Predi abetic 5.7 - 6.4 % Diabetic >or= 6.5 % Please note range changes. Hemoglobin measurementOrdere d By: Lamberto Montiel on 08-02-2025 Hemoglobin (Bld) [Mass/Vol] 10.8 g/dL Low 12.0-15.0 [facility] Immature granulocytes/100 WB C Auto (Bld)Ordered By: Lamberto Montiel on 08-02-2025 Immature granulocytes/100 WBC (Bld) 0.300 % 0.0-0.9 [facility] Comment on above: IG% - Immature Granu locytes (promyelocytes, myelocytes and metamyelocytes) > 1% indicates that a LEFT SHIFT is Present. International normalized rat io (INR) calculationOrdered By: Lamberto Montiel on 08-02-2025 INR Coag (Bld) [Relative time] 1.0 {INR} [facility] Ketones Test strip Ql (U)Ord ered By: Lamberto Montiel on 08-02-2025 Ketones Ql (U) Negative Negative [facility] LABORATORYOrdered By: SYSTEM SYSTEM on 08-02-2025 Albumin BCP dye [Mass/Vol] 4.1 G/dL Normal 3.4 - 4.8 G/dL AO ADM SS Albumin/Globulin [Mass ratio] 1.2 {ratio} Normal 1.1 - 2.5 ratio AO ADM SS ALP [Catalytic activity/Vol] 41 U/L Normal 40 - 135 U/L AO ADM SS ALT With P-5'-P [Catalytic activity/Vol] 38 U/L Normal 14 - 59 U/L AO ADM SS AST With P-5'-P [Catalytic activity/Vol] 38 U/L Normal 10 - 40 U/L AO ADM SS Bilirubin [Mass/Vol] 0.6 mg/dL Normal 0.2 - 1 .0 mg/dL AO ADM SS Comment on above: Interpretive Data: U se of this assay is not recommended for patients undergoing treatment with eltrombopag due to the potential for falsely elevated results. Calcium [Mass/Vol] 9.7 mg/dL Normal 8.4 - 10. 2 mg/dL AO ADM SS Chloride [Moles/Vol] 106 mmol/L Normal 98 - 10 7 mmol/L AO ADM SS CO2 [Moles/Vol] 28 mmol/L Normal 23 - 31 mmol/L AO ADM SS Creatinine [Mass/Vol] 2.48 mg/dL High 0.51 - 0.95 mg/dL AO ADM SS Electrolyte Balance 10.0 mEq/L Normal 4.0 - 15 .0 mEq/L AO ADM SS Estimated Glomerular Filtration Rate 20 ml/min/1.73sqm Invalid Interpretation Code AO Chemistry S Comment on above: Interpretive Data: Stages of Chronic Kidney Disease (CKD) Stage [...] race factor to calculate the eGFR results. Globulin 3.3 G/dL Normal 2.7 - 4.4 G/dL AO ADM SS Glucose [Mass/Vol] 117 mg/dL Invalid Interpretation Code AO Chemistry S Comment on above: Interpretive Data: E stimated average glucose (eAG) is a calculated value from Hemoglobin A1C and is inside account representative of the average blood glucose level in the last 2-3 month period. Normal range: less than 114 mg/dL Glucose [Mass/Vol] 143 mg/dL High 83 - 110 mg/dL AO ADM SS HbA1c (Bld) [Mass fraction] 5.7 % Normal 4.3 - 6.4 % AO ADM SS Potassium [Moles/Vol] 4.7 mmol/L Normal 3.5 - 5.1 mmol/L AO ADM SS Protein [Mass/Vol] 7.4 G/dL Normal 6.4 - 8.2 G/dL AO ADM SS Sodium [Moles/Vol] 144 mmol/L Normal 136 - 145 mmol/L AO ADM SS Urea nitrogen [Mass/Vol] 45 mg/dL High 7 - 18 mg/dL AO ADM SS Urea nitrogen/Creatinine [Mass ratio] 18 ratio Normal 7 - 27 ratio AO ADM SS Lactic Acidon 08-02-2025 Lactate [Moles/Vol] 1.9 mmol/L Normal 0.0-2.0 [facility] Comment on above: Order Comment: Y Performed By: #### L 501.080 #### [facility] [address] [place] [address], [address] Lactic acid measurementOrder ed By: Lamberto Montiel on 08-02-2025 Lactate [Moles/Vol] 1.9 mmol/L 0.0-2.0 [facility] MCV (mean corpuscular volume ) determinationOrdered By: Lamberto Montiel on 08-02-2025 MCV (RBC) [Entitic vol] 95.6 fL 81-99 [facility] Magnesium measurement (mass/ volume)Ordered By: Jhonny Sesay on 08-02-2025 Magnesium (Unsp spec) [Mass/Vol] 1.4 mg/dL Low 1.5-2.2 [facility] Mean corpuscular hemoglobin (MCH) determinationOrdered By: Lamberto Montiel on 08-02-2025 MCH (RBC) [Entitic mass] 31.8 pg 27.0-32.0 [facility] Mean corpuscular hemoglobin concentration (MCHC) determinationOrdered By: Lamberto Montiel on 08-02-2025 MCHC (RBC) [Mass/Vol] 33.2 g/dL 32-36 [facility] Mean platelet volume determi nationOrdered By: Lamberto Montiel on 08-02-2025 Platelet mean volume (Bld) [Entitic vol] 10.4 fL 6.2-12.0 [facility] Microscopic analysis of urin e for red blood cells (RBC)Ordered By: Lamberto Montiel on 08-02-2025 Microscopic analysis of urine for red blood cells (RBC) 0-5 SEEN /hpf 0-5 [facility] Monocyte percentageOrdered B y: Lamberto Montiel on 08-02-2025 Monocytes/100 WBC (Bld) 7.6 % 0-10 [facility] Mucus LM Ql (Urine sed)Order ed By: Lamberto Montiel on 08-02-2025 Mucus Ql (Urine sed) 0 SEEN /hpf [facility] Neutrophil percentageOrdered By: Lamberto Montiel on 08-02-2025 Neutrophils/100 WBC (Bld) 70.2 % High 47-70 [facility] Nitrite Test strip Ql (U)Ord ered By: Lamberto Montiel on 08-02-2025 Nitrite Ql (U) Negative Negative [facility] No Panel InformationOrdered By: Jhonny Sesay on 08-02-2025 Urine Buprenorphine Qualitative Negative < 200 ng/mL [facility] Urine Oxycodone Screen Negative < 100 ng/mL [facility] Nucleated red blood cell per centageOrdered By: Lamberto Montiel on 08-02-2025 Nucleated RBC/100 WBC (Bld) [Ratio] 0 % 0-5 [facility] Partial Thromboplast Timeon 08-02-2025 aPTT Coag (Bld) [Time] 30.3 s Normal 24.1-36.2 [facility] Comment on above: Performed By: #### L 501.080 #### [facility] [place] [address] [address] [place], [address] Platelet countOrdered By: Chris Montiel on 08-02-2025 Platelets (Bld) [#/Vol] 181 10*3/uL 150-450 [facility] Potassium measurement (mass/ volume)Ordered By: Lamberto Montiel on 08-02-2025 Potassium (Unsp spec) [Mass/Vol] 4.8 mmol/L 3.3-5.1 [facility] Protein Test strip Ql (U)Ord ered By: Lamberto Montiel on 08-02-2025 Protein Ql (U) 30 mg/dl High Negative [facility] Prothrombin Time w/INRon INR Coag (PPP) [Relative time] 1.0 {INR} Normal [facility] Comment on above: Performed By: #### L 501.080 #### [facility] [address] [place], [address] PT Coag (PPP) [Time] 13.0 s Normal 11.7-14.9 [facility] Comment on above: Performed By: #### L 501.080 #### [facility] [address] [place], [address] Prothrombin timeOrdered By: Lamberto Montiel on 08-02-2025 PT Coag (PPP) [Time] 13.0 s 11.7-14.9 [facility] Quantitative urine opiates m easurementOrdered By: Jhonny Sesay on 08-02-2025 Opiates Ql (U) Negative < 300 ng/mL [facility] RBC Auto (Bld) [#/Vol]Ordere d By: Lamberto Montiel on 08-02-2025 RBC (Bld) [#/Vol] 3.40 10*6/uL Low 4.2-5.4 [facility] Screening urine fentanyl rehan surementOrdered By: Jhonny Sesay on 08-02-2025 fentaNYL Screen Ql (U) Negative <5 ng/mL [facility] Comment on above: CONFIRMATORY TESTING FOR ALL POSITIVE URINE DRUG SCREENRESULTS WILL ONLY BE SENT OUT UPON PHYSICIAN ORDER. Ca Pro Urine Drug Screen methods provide only preliminaryanalytical test results. A more specific alternate chemicalmethod must be used in order to obtain a confirmedanalytical result. Gas chromatography/mass spectrometery(GC/MS) is the preferred confirmatory method. Clinicalconsideration and professional judgement should be appliedto any drug of abuse test result, particularly whenpreliminary positive results are used. Urine TCA testing must be ordered separately. Use test mnemonic: UTCA Serum creatinine measurement (mass/volume)Ordered By: Lamberto Montiel on 08-02-2025 Creatinine [Mass/Vol] 2.59 mg/dL High 0.70-1.20 [facility] Serum glucose measurement (m ass/volume)Ordered By: Lamberto Montiel on 08-02-2025 Glucose [Mass/Vol] 137 mg/dL High 70-99 [facility] Serum or plasma calcium gaudencio urement (mass/volume)Ordered By: Lamberto Montiel on 08-02-2025 Calcium [Mass/Vol] 9.8 mg/dL 7.6-11.0 [facility] Serum or plasma ethanol gaudencio urement (mass/volume)Ordered By: Jhonny Sesay on 08-02-2025 Ethanol [Mass/Vol] mg/dL <10.1 [facility] Comment on above: This test is for med ical purposes only. The legal definition of intoxication varies according to local law. Serum or plasma urea nitroge n measurement (mass/volume)Ordered By: Lamberto Montiel on 08-02-2025 Urea nitrogen [Mass/Vol] 47 mg/dL High 4-19 [facility] Sodium levelOrdered By: Lamberto Montiel on 08-02-2025 Sodium [Moles/Vol] 141 mmol/L 133-145 [facility] Squamous epithelial cells de tection in urine sediment by light microscopyOrdered By: Lamberto Montiel on 08-02-2025 Epithelial cells.squamous LM Ql (Urine sed) 0-5 SEEN /hpf 5-10 [facility] TSH DL <= 0.005 mIU/L QnOrde red By: Jhonny Sesay on 08-02-2025 TSH Qn 1.490 uIU/mL 0.300-4.200 [facility] Urinalysis, Completeon 08-02 RBC 0-5 SEEN Normal 0-5 [facility] Comment on above: Order Comment: CLEAN CATCH Performed By: #### L 501.080 #### [facility] [address] [place], [place] [address], [address] BACTERIA 1+ /hpf Normal None Seen [facility] Comment on above: Order Comment: CLEAN CATCH Performed By: #### L 501.080 #### [facility] [address] [place], [address] EPI,SQUAMOUS 0-5 SEEN Normal 5-10 [facility] Comment on above: Order Comment: CLEAN CATCH Performed By: #### L [id number] #### [facility] [address] [facility] [address] WBC 50-100 SEEN Normal 0-5 [facility] Comment on above: Order Comment: CLEAN CATCH Performed By: #### L [id number] #### [facility] [address] [place], [address] Mucus Ql (Urine sed) 0 SEEN Normal [facility] Comment on above: Order Comment: CLEAN CATCH Performed By: #### L 501.080 #### [facility] [address] [place], [place], [id number] Urine benzodiazepine levelOr dered By: Jhonny Sesay on 08-02-2025 Benzodiazepines Ql (U) Negative < 200 ng/mL [facility] Urine clarityOrdered By: Vikki Montiel on 08-02-2025 Clarity (U) Sl. Cloudy Clear [facility] Urine cocaine levelOrdered B y: Jhonny Sesay on 08-02-2025 Cocaine Ql (U) Negative < 300 ng/mL [facility] Urine color determinationOrd ered By: Lamberto Montiel on 08-02-2025 Color (U) Yellow Yellow [facility] Urine cultureOrdered By: Vikki Montiel on 08-02-2025 Bacteria identified Cx Nom (U) Corynebacterium minutissimum Abnormal [facility] Bacteria identified Cx Nom (U) GNR lactose slab puller Abnormal [facility] Urine dxgbq-0-puypagwpxrksvm abinol (THC) measurementOrdered By: Jhonny Sesay on 08-02-2025 Cannabinoids Screen Ql (U) Negative < 50 ng/mL [facility] Urine glucose detectionOrder ed By: Lamberto Montiel on 08-02-2025 Glucose Ql (U) 1000 mg/dl High Normal [facility] Urine leukocyte esterase det ection by dipstickOrdered By: Lamberto Montiel on 08-02-2025 Leukocyte esterase Test strip Ql (U) 500 /ul High Negative [facility] Urine pHOrdered By: Lamberto rock on 08-02-2025 pH (U) 5.0 [pH] 5.0 - 8.0 [facility] Urine phencyclidine (PCP) de tectionOrdered By: Jhonny Sesay on 08-02-2025 Phencyclidine Ql (U) Negative < 25 ng/mL [facility] Urine sediment bacteria coun t by microscopy (number/high power field)Ordered By: Lamberto Montiel on 08-02-2025 Bacteria LM.HPF (Urine sed) [#/Area] 1 /[HPF] None Seen [facility] Urine specific gravity measu rementOrdered By: Lamberto Montiel on 08-02-2025 Specific gravity (U) [Rel density] 1.015 1.002-1.030 [facility] Urine urobilinogen measureme ntOrdered By: Lamberto Montiel on 08-02-2025 Urobilinogen Ql (U) Normal mg/dl Normal [facility] Vitamin B12 ser/plasOrdered By: Jhonny Sesay on 08-02-2025 Cobalamin (Vitamin B12) [Mass/Vol] 312 pg/mL 180-914 [facility] White blood cell (WBC) count Ordered By: Lamberto Montiel on 08-02-2025 WBC (Bld) [#/Vol] 10.8 10*3/uL 4.4-11.0 [facility] White blood cell countOrdere d By: Lamberto Montiel on 08-02-2025 White blood cell count 50-100 SEEN /hpf 0-5 [facility] .GFRon 06-06-2025 Estimated Glomerular Filtration Rate 40 ml/min/1.73sqm Normal [facility] Comment on above: Result Comment: Stages of Chronic Kidney Disease [...] calculate the eGFR results. Performed By: #### B MP, GFR #### [address] [address] BMPon 06-06-2025 BUN/Creatinine Ratio 24 ratio Normal 7-27 [facility] Comment on above: Performed By: #### B MP, GFR #### [address] [address] Calcium [Mass/Vol] 9.4 mg/dL Normal 8.4-10.2 [facility] Comment on above: Performed By: #### B MP, GFR #### [address] [address] Chloride [Moles/Vol] 99 mmol/L Normal 98-107 [facility] Comment on above: Performed By: #### B MP, GFR #### [address] [address] CO2 [Moles/Vol] 24 mmol/L Normal 23-31 [facility] Comment on above: Performed By: #### B MP, GFR #### [address] [address] Creatinine [Mass/Vol] 1.42 mg/dL High 0.51-0.95 [facility] Comment on above: Performed By: #### B MP, GFR #### [address] [address] Electrolyte Balance 11.0 mEq/L Normal 4.0-15.0 [facility] Comment on above: Performed By: #### B MP, GFR #### [address] [address] Glucose [Mass/Vol] 76 mg/dL Low 83-110 [facility] Comment on above: Performed By: #### B MP, GFR #### [facility] [address] [place], [place] [address] Potassium [Moles/Vol] 5.1 mmol/L Normal 3.5-5.1 [facility] Comment on above: Performed By: #### B MP, GFR #### [facility] [address] [place], [place] [address] Sodium [Moles/Vol] 134 mmol/L Low 136-145 [facility] Comment on above: Performed By: #### B MP, GFR #### [facility] [address] [place], [place] [address] Urea nitrogen [Mass/Vol] 34 mg/dL High 7-18 [facility] Comment on above: Performed By: #### B MP, GFR #### [id number] [place], [place] [address] LABORATORYOrdered By: SYSTEM SYSTEM on 06-06-2025 Calcium [Mass/Vol] 9.4 mg/dL Normal 8.4 - 10. 2 mg/dL AO ADM SS Chloride [Moles/Vol] 99 mmol/L Normal 98 - 10 7 mmol/L AO ADM SS CO2 [Moles/Vol] 24 mmol/L Normal 23 - 31 mmol/L AO ADM SS Creatinine [Mass/Vol] 1.42 mg/dL High 0.51 - 0.95 mg/dL AO ADM SS Electrolyte Balance 11.0 mEq/L Normal 4.0 - 15 .0 mEq/L AO ADM SS Estimated Glomerular Filtration Rate 40 ml/min/1.73sqm Invalid Interpretation Code AO Chemistry S Comment on above: Interpretive Data: Stages of Chronic Kidney Disease (CKD) Stage [...] race factor to calculate the eGFR results. Glucose [Mass/Vol] 76 mg/dL Low 83 - 110 mg/dL AO ADM SS Potassium [Moles/Vol] 5.1 mmol/L Normal 3.5 - 5.1 mmol/L AO ADM SS Sodium [Moles/Vol] 134 mmol/L Low 136 - 145 mmol/L AO ADM SS Urea nitrogen [Mass/Vol] 34 mg/dL High 7 - 18 mg/dL AO ADM SS Urea nitrogen/Creatinine [Mass ratio] 24 ratio Normal 7 - 27 ratio AO ADM SS MALBRon 06-06-2025 U Creatinine 281.7 mg/dL Normal [facility] Comment on above: Performed By: #### B MP, GFR #### [address] [address] U Microalb 66.3 mg/L Normal [facility] Comment on above: Performed By: #### B MP, GFR #### [address] [address] U Ratio Alb/Cre 24 mg/G Normal 0-30 [facility] Comment on above: Performed By: #### B MP, GFR #### [address] [address] .GFRon 06-05-2025 Estimated Glomerular Filtration Rate 31 ml/min/1.73sqm Normal [facility] Comment on above: Result Comment: Stages of Chronic Kidney Disease [...] calculate the eGFR results. Performed By: #### G FR, BMP #### [address] [address] BMPon 06-05-2025 BUN/Creatinine Ratio 21 ratio Normal 7-27 [facility] Comment on above: Performed By: #### G FR, BMP #### [address] [address] Calcium [Mass/Vol] 9.5 mg/dL Normal 8.4-10.2 [facility] Comment on above: Performed By: #### G FR, BMP #### [address] [address] Chloride [Moles/Vol] 105 mmol/L Normal 98-107 [facility] Comment on above: Performed By: #### G FR, BMP #### [address] [address] CO2 [Moles/Vol] 25 mmol/L Normal 23-31 [facility] Comment on above: Performed By: #### G FR, BMP #### [address] [address] Creatinine [Mass/Vol] 1.77 mg/dL High 0.51-0.95 [facility] Comment on above: Performed By: #### G FR, BMP #### [address] [address] Electrolyte Balance 11.0 mEq/L Normal 4.0-15.0 [facility] Comment on above: Performed By: #### G FR, BMP #### [address] [address] Glucose [Mass/Vol] 105 mg/dL Normal 83-110 [facility] Comment on above: Performed By: #### G FR, BMP #### [address] [address] Potassium [Moles/Vol] 4.5 mmol/L Normal 3.5-5.1 [facility] Comment on above: Performed By: #### G FR, BMP #### [address] [address] Sodium [Moles/Vol] 141 mmol/L Normal 136-145 [facility] Comment on above: Performed By: #### G FR, BMP #### [facility] [address] [place], [place] [address] Urea nitrogen [Mass/Vol] 37 mg/dL High 7-18 [facility] Comment on above: Performed By: #### G , AMEYA #### [facility] [address] [place], [place] [address] LABORATORYOrdered By: SYSTEM SYSTEM on 06-05-2025 Calcium [Mass/Vol] 9.5 mg/dL Normal 8.4 - 10. 2 mg/dL AO ADM SS Chloride [Moles/Vol] 105 mmol/L Normal 98 - 10 7 mmol/L AO ADM SS CO2 [Moles/Vol] 25 mmol/L Normal 23 - 31 mmol/L AO ADM SS Creatinine [Mass/Vol] 1.77 mg/dL High 0.51 - 0.95 mg/dL AO ADM SS Electrolyte Balance 11.0 mEq/L Normal 4.0 - 15 .0 mEq/L AO ADM SS Estimated Glomerular Filtration Rate 31 ml/min/1.73sqm Invalid Interpretation Code AO Chemistry S Comment on above: Interpretive Data: Stages of Chronic Kidney Disease (CKD) Stage [...] race factor to calculate the eGFR results. Glucose [Mass/Vol] 105 mg/dL Normal 83 - 110 mg/dL AO ADM SS Potassium [Moles/Vol] 4.5 mmol/L Normal 3.5 - 5.1 mmol/L AO ADM SS Sodium [Moles/Vol] 141 mmol/L Normal 136 - 145 mmol/L AO ADM SS Urea nitrogen [Mass/Vol] 37 mg/dL High 7 - 18 mg/dL AO ADM SS Urea nitrogen/Creatinine [Mass ratio] 21 ratio Normal 7 - 27 ratio AO ADM SS LABORATORYOrdered By: Nan Mayer on 05-30-2025 Appearance (U) Clear (05/30/25 8:21 PM) Normal Clear AO Auto Urine SS Bilirubin Ql (U) Moderate *ABN* (05/30/25 8:21 PM) Invalid Interpretation Code Negative AO Auto Urine SS Color (U) Yellow (05/30/25 8:21 PM) Normal AO Auto Urine SS Glucose Test strip (U) [Mass/Vol] >=1000 mg/dL Invalid Interpretation Code Negative AO Auto Urine SS Hemoglobin Auto test strip (U) [Mass/Vol] Moderate *ABN* (05/30/25 8:21 PM) Invalid Interpretation Code Negative AO Auto Urine SS Ketones Ql (U) 15 mg/dL Invalid Interpretation Code Negative AO Auto Urine SS UA Leuk Est Trace (05/30/25 8:21 PM) Normal Negative AO Auto Urine SS UA Nitrite Negative (05/30/25 8:21 PM) Normal Negative AO Auto Urine SS UA pH 6.0 (05/30/25 8:21 PM) Normal 5.0 - 8.0 AO Auto Urine SS UA Protein 100 mg/dL Invalid Interpretation Code Negative AO Auto Urine SS UA RBC 0-2 /HPF Normal 0-2 AO Auto Urine SS Comment on above: Result Comment: Micr oscopic exam performed on unspun urine specimen due to insufficient volume. UA Spec Grav >=1.030 *ABN* (05/30/25 8:21 PM) Invalid Interpretation Code 1.015-1.025 AO Auto Urine SS UA Specimen Type Clean Catch (05/30/25 8:21 PM) Normal AO Auto Urine SS UA Squam Epithelial 0-2 /HPF Normal 0-20 AO Au to Urine SS UA Urobilinogen 0.2 E.U./dL Normal 0.2-1.0 AO Auto Urine SS WBC LM.HPF (Urine sed) [#/Area] 5-10 /HPF Invalid Interpretation Code 0-5 AO Auto Urine SS UAon 05-30-2025 Color (U) Yellow Normal [facility] Comment on above: Performed By: #### U A, UAMIC #### [id number] [place], [place] [address] Glucose (U) [Mass/Vol] mg/dL Abnormal Negative [facility] Comment on above: Performed By: #### U A, UAMIC #### [place] [address] Ketones Ql (U) 15 mg/dL Abnormal Negative [facility] Comment on above: Performed By: #### U A, UAMIC #### [place] [address] UA Appear Clear Normal Clear [facility] Comment on above: Performed By: #### U A, UAMIC #### [place] [address] UA Bili Moderate Abnormal Negative [facility] Comment on above: Performed By: #### U A, UAMIC #### [place] [address] UA Blood Moderate Abnormal Negative [facility] Comment on above: Performed By: #### U A, UAMIC #### [place] [address] UA Leuk Est Trace Normal Negative [facility] Comment on above: Performed By: #### U A, UAMIC #### [place] [address] UA Nitrite Negative Normal Negative [facility] Comment on above: Performed By: #### U A, UAMIC #### [place] [address] UA pH 6.0 Normal 5.0 - 8.0 [facility] Comment on above: Performed By: #### U A, UAMIC #### [place] [address] UA Protein 100 mg/dL Abnormal Negative [facility] Comment on above: Performed By: #### U A, UAMIC #### [place] [address] UA Spec Grav >=1.030 Abnormal 1.015-1.025 [facility] Comment on above: Performed By: #### U A, UAMIC #### [place] [address] UA Specimen Type Clean Catch Normal [facility] Comment on above: Performed By: #### U A, UAMIC #### [place] [address] UA Urobilinogen 0.2 E.U./dL Normal 0.2-1.0 [facility] Comment on above: Performed By: #### U A, UAMIC #### [address] [place] [id number] UAMICon 05-30-2025 UA RBC 0-2 Normal 0-2 [facility] Comment on above: Result Comment: Micr oscopic exam performed on unspun urine specimen due to insufficient volume. Performed By: #### U A, UAMIC #### [address] [place] [id number] UA Squam Epithelial 0-2 Normal 0-20 [facility] Comment on above: Performed By: #### U A, UAMIC #### [place] [address] UA WBC 5-10 Abnormal 0-5 [facility] Comment on above: Performed By: #### U A, UAMIC #### [place] [address] .GFRon 09-04-2024 GFR 68 ml/min/1.73sqm Normal [facility] Comment on above: Result Comment: GFR Population mean for , [...] 15 mL/min/1.73 square meters Performed By: #### V IDH, CMP, GFR, LIPID #### [place] [address] GFR Non- 56 ml/min/1.73sqm Normal [facility] Comment on above: Result Comment: GFR Population mean for , [...] 15 mL/min/1.73 square meters Performed By: #### V IDH, CMP, GFR, LIPID #### [address] [address] CMPon 09-04-2024 Albumin Level 3.7 G/dL Normal 3.4-4.8 [facility] Comment on above: Performed By: #### V IDH, CMP, GFR, LIPID #### [address] [address] Albumin/Globulin [Mass ratio] 1.2 {ratio} Normal 1.1-2.5 [facility] Comment on above: Performed By: #### V IDH, CMP, GFR, LIPID #### [address] [address] ALP [Catalytic activity/Vol] 55 U/L Normal 40-135 [facility] Comment on above: Performed By: #### V IDH, CMP, GFR, LIPID #### [address] [address] ALT [Catalytic activity/Vol] 38 U/L Normal 14-59 [facility] Comment on above: Performed By: #### V IDH, CMP, GFR, LIPID #### [address] [address] AST [Catalytic activity/Vol] 28 U/L Normal 10-40 [facility] Comment on above: Performed By: #### V IDH, CMP, GFR, LIPID #### [address] [address] Bili Total 0.8 mg/dL Normal 0.2-1.0 [facility] Comment on above: Result Comment: Use of this assay is not recommended for patients undergoing treatment with eltrombopag due to the potential for falsely elevated results. Performed By: #### V IDH, CMP, GFR, LIPID #### [place] [address] BUN/Creatinine Ratio 19 ratio Normal 7-27 [facility] Comment on above: Performed By: #### V IDH, CMP, GFR, LIPID #### [place] [address] Calcium [Mass/Vol] 9.8 mg/dL Normal 8.4-10.2 [facility] Comment on above: Performed By: #### V IDH, CMP, GFR, LIPID #### [place] [address] Chloride [Moles/Vol] 103 mmol/L Normal 98-107 [facility] Comment on above: Performed By: #### V IDH, CMP, GFR, LIPID #### [place] [address] CO2 [Moles/Vol] 29 mmol/L Normal 23-31 [facility] Comment on above: Performed By: #### V IDH, CMP, GFR, LIPID #### [place] [address] Creatinine [Mass/Vol] 0.98 mg/dL Normal 0.55-1.02 [facility] Comment on above: Result Comment: Test ing performed on Siemens Dimension EXL analyzer using a modified kinetic Oscar technique. Performed By: #### V IDH, CMP, GFR, LIPID #### [place] [address] Electrolyte Balance 7.0 mEq/L Normal 4.0-15.0 [facility] Comment on above: Performed By: #### V IDH, CMP, GFR, LIPID #### [address] [address] Globulin 3.0 G/dL Normal [facility] Comment on above: Performed By: #### V IDH, CMP, GFR, LIPID #### [address] [address] Glucose [Mass/Vol] 232 mg/dL High 80-115 [facility] Comment on above: Performed By: #### V IDH, CMP, GFR, LIPID #### [address] [address] Potassium [Moles/Vol] 4.2 mmol/L Normal 3.5-5.1 [facility] Comment on above: Performed By: #### V IDH, CMP, GFR, LIPID #### [address] [address] Sodium [Moles/Vol] 139 mmol/L Normal 136-145 [facility] Comment on above: Performed By: #### V IDH, CMP, GFR, LIPID #### [address] [address] Total Protein 6.7 G/dL Normal 6.4-8.2 [facility] Comment on above: Performed By: #### V IDH, CMP, GFR, LIPID #### [address] [address] Urea nitrogen [Mass/Vol] 19 mg/dL High 7-18 [facility] Comment on above: Performed By: #### V IDH, CMP, GFR, LIPID #### [address] [address] LABORATORYOrdered By: SYSTEM SYSTEM on 09-04-2024 25-hydroxyvitamin D3 [Mass/Vol] 41.3 ng/mL Invalid Interpretation Code AO ADM SS Comment on above: Interpretive Data: I nterpretive Values Based on Total 25(OH) Vitamin D: Deficient <20 ng/mL Insufficient 20 - <30 ng/mL Sufficient 30-100 ng/mL Albumin BCP dye [Mass/Vol] 3.7 G/dL Normal 3.4 - 4.8 G/dL AO ADM SS Albumin/Globulin [Mass ratio] 1.2 {ratio} Normal 1.1 - 2.5 ratio AO ADM SS ALP [Catalytic activity/Vol] 55 U/L Normal 40 - 135 U/L AO ADM SS ALT With P-5'-P [Catalytic activity/Vol] 38 U/L Normal 14 - 59 U/L AO ADM SS AST With P-5'-P [Catalytic activity/Vol] 28 U/L Normal 10 - 40 U/L AO ADM SS Bilirubin [Mass/Vol] 0.8 mg/dL Normal 0.2 - 1 .0 mg/dL AO ADM SS Comment on above: Interpretive Data: U se of this assay is not recommended for patients undergoing treatment with eltrombopag due to the potential for falsely elevated results. Calcium [Mass/Vol] 9.8 mg/dL Normal 8.4 - 10. 2 mg/dL AO ADM SS Chloride [Moles/Vol] 103 mmol/L Normal 98 - 10 7 mmol/L AO ADM SS CO2 [Moles/Vol] 29 mmol/L Normal 23 - 31 mmol/L AO ADM SS Creatinine [Mass/Vol] 0.98 mg/dL Normal 0.55 - 1.02 mg/dL AO ADM SS Comment on above: Interpretive Data: T esting performed on Siemens Dimension EXL analyzer using a modified kinetic Oscar technique. Electrolyte Balance 7.0 mEq/L Normal 4.0 - 15 .0 mEq/L AO ADM SS GFR/1.73 sq M.predicted among blacks MDRD (S/P/Bld) [Vol rate/Area] 68 ml/min/1.73sqm Invalid Interpretation Code AO Chemistry S Comment on above: Interpretive Data: GFR Population mean for , Non- Americans Ages 20-29 = 116 mL/min/1.73 sq.m. Ages 30-39 = 107 mL/min/1.73 sq.m. Ages 40-49 = 99 mL/min/1.73 sq.m. Ages 50-59 = 93 mL/min/1.73 sq.m. Ages 60-69 = 85 mL/min/1.73 sq.m. Ages 70+ = 75 mL/min/1.73 sq.m. Chronic Kidney Disease: Less than 60 mL/min/1.73 square meters End Stage Renal Disease: Less than 15 mL/min/1.73 square meters GFR/1.73 sq M.predicted among non-blacks MDRD (S/P/Bld) [Vol rate/Area] 56 ml/min/1.73sqm Invalid Interpretation Code AO Chemistry S Comment on above: Interpretive Data: GFR Population mean for , Non- Americans Ages 20-29 = 116 mL/min/1.73 sq.m. Ages 30-39 = 107 mL/min/1.73 sq.m. Ages 40-49 = 99 mL/min/1.73 sq.m. Ages 50-59 = 93 mL/min/1.73 sq.m. Ages 60-69 = 85 mL/min/1.73 sq.m. Ages 70+ = 75 mL/min/1.73 sq.m. Chronic Kidney Disease: Less than 60 mL/min/1.73 square meters End Stage Renal Disease: Less than 15 mL/min/1.73 square meters Globulin 3.0 G/dL Invalid Interpretation Code AO ADM SS Glucose [Mass/Vol] 232 mg/dL High 80 - 115 mg/dL AO ADM SS Potassium [Moles/Vol] 4.2 mmol/L Normal 3.5 - 5.1 mmol/L AO ADM SS Protein [Mass/Vol] 6.7 G/dL Normal 6.4 - 8.2 G/dL AO ADM SS Sodium [Moles/Vol] 139 mmol/L Normal 136 - 145 mmol/L AO ADM SS Urea nitrogen [Mass/Vol] 19 mg/dL High 7 - 18 mg/dL AO ADM SS Urea nitrogen/Creatinine [Mass ratio] 19 ratio Normal 7 - 27 ratio AO ADM SS LABORATORYOrdered By: Ganesh Gray on 09-04-2024 Cholesterol [Mass/Vol] 141 mg/dL Normal 0 - 2 00 mg/dL AO ADM SS Comment on above: Interpretive Data: C holesterol Reference Interval: Less than 200 Desirable 200-239 Borderline high risk 240 and above High risk Cholesterol in HDL [Mass/Vol] 59 mg/dL Normal 40 - 60 mg/dL AO ADM SS Cholesterol in LDL [Mass/Vol] 55 mg/dL Normal 0 - 130 mg/dL AO ADM SS Triglyceride [Mass/Vol] 134 mg/dL Normal 0 - 150 mg/dL AO ADM SS Comment on above: Interpretive Data: T riglyceride Reference Interval: Less than 150 Normal 150-199 Borderline high risk 200-499 High risk 500 or higher Very high risk LIPIDon 09-04-2024 Cholesterol [Mass/Vol] 141 mg/dL Normal 0-200 [facility] Comment on above: Result Comment: Chol esterol Reference Interval: Less than 200 Desirable 200-239 Borderline high risk 240 and above High risk Performed By: #### V IDH, CMP, GFR, LIPID #### [address] [address] Cholesterol in HDL [Mass/Vol] 59 mg/dL Normal 40-60 [facility] Comment on above: Performed By: #### V IDH, CMP, GFR, LIPID #### [address] [address] Cholesterol in LDL [Mass/Vol] 55 mg/dL Normal 0-130 [facility] Comment on above: Performed By: #### V IDH, CMP, GFR, LIPID #### [address] [address] Triglyceride [Mass/Vol] 134 mg/dL Normal 0-150 [facility] Comment on above: Result Comment: Trig lyceride Reference Interval: Less than 150 Normal 150-199 Borderline high risk 200-499 High risk 500 or higher Very high risk Performed By: #### V IDH, CMP, GFR, LIPID #### [address] [address] VIDHon 09-04-2024 Vit. D 25-Hydroxy 41.3 ng/mL Normal [facility] Comment on above: Result Comment: Inte rpretive Values Based on Total 25(OH) Vitamin D: Deficient <20 ng/mL Insufficient 20 - <30 ng/mL Sufficient 30-100 ng/mL Performed By: #### V IDH, CMP, GFR, LIPID #### [address] [address] MRI BRAIN W/ + W/O CONTRASTo n 08-28-2024 MRI BRAIN W/ + W/O CONTRAST ORIGINAL EXAMINATION: MRI OF THE BRAIN WITHOUT [...] Date: 08/28/2024 8:51:12 AM Ordering Provider: LAURO Corona [facility] .Auto Diffon 04-03-2024 Basophil, Absolute 0.0 10 3/mcL Normal 0.0-0.2 [facility] ([place] Comment on above: Performed By: #### V IDH, LIPID, CBC, TSH, ADIFF, CMP, GFR, ANEU #### [address] [address] Basophils/100 WBC (Bld) 0.3 % Normal 0.0-2.5 [facility] ([place]) Comment on above: Performed By: #### V IDH, LIPID, CBC, TSH, ADIFF, CMP, GFR, ANEU #### [address] [address] Eosinophil, Absolute 0.1 10 3/mcL Normal 0.0-0.4 [facility] ([place]) Comment on above: Performed By: #### V IDH, LIPID, CBC, TSH, ADIFF, CMP, GFR, ANEU #### [address] [place] [address] Eosinophils/100 WBC (Bld) 0.9 % Normal 0.0-7.0 [facility] ([place]) Comment on above: Performed By: #### V IDH, LIPID, CBC, TSH, ADIFF, CMP, GFR, ANEU #### [address] [address] Lymphocyte, Absolute 2.3 10 3/mcL Normal 0.8-3.9 [facility] ([place] Comment on above: Performed By: #### V IDH, LIPID, CBC, TSH, ADIFF, CMP, GFR, ANEU #### [address] [address] Lymphocytes/100 WBC (Bld) 23.0 % Normal 10.0-50.0 [facility] ([place] Comment on above: Performed By: #### V IDH, LIPID, CBC, TSH, ADIFF, CMP, GFR, ANEU #### [address] [address] Monocyte, Absolute 0.5 10 3/mcL Normal 0.2-1.0 [facility] ([place] Comment on above: Performed By: #### V IDH, LIPID, CBC, TSH, ADIFF, CMP, GFR, ANEU #### [address] [address] Monocytes/100 WBC (Bld) 4.9 % Normal 1.7-13.0 [facility] ([place] Comment on above: Performed By: #### V IDH, LIPID, CBC, TSH, ADIFF, CMP, GFR, ANEU #### [address] [address] Neutrophils/100 WBC (Bld) 70.9 % Normal 37.0-80.0 [facility] ([place] Comment on above: Performed By: #### V IDH, LIPID, CBC, TSH, ADIFF, CMP, GFR, ANEU #### [address] [address] .GFRon 04-03-2024 GFR 68 ml/min/1.73sqm Normal [facility] ([place] Comment on above: Result Comment: GFR Population mean for , [...] 15 mL/min/1.73 square meters Performed By: #### V IDH, LIPID, CBC, TSH, ADIFF, CMP, GFR, ANEU #### [address] [address] GFR Non- 56 ml/min/1.73sqm Normal [facility] ([place] Comment on above: Result Comment: GFR Population mean for , [...] 15 mL/min/1.73 square meters Performed By: #### V IDH, LIPID, CBC, TSH, ADIFF, CMP, GFR, ANEU #### [address] [address] .NEUABSon 04-03-2024 Neutrophil, Absolute 7.1 10 3/mcL High 2.9-6.2 [facility] ([place]) Comment on above: Performed By: #### V IDH, LIPID, CBC, TSH, ADIFF, CMP, GFR, ANEU #### [address] [address] CBCon 04-03-2024 Erythrocyte distribution width (RBC) [Ratio] 12.9 % Normal 11.5-14.5 [facility] ([place] Comment on above: Performed By: #### V IDH, LIPID, CBC, TSH, ADIFF, CMP, GFR, ANEU #### [address] [address] Hematocrit (Bld) [Volume fraction] 46.2 % Normal 37.0-47.0 [facility] ([place] Comment on above: Performed By: #### V IDH, LIPID, CBC, TSH, ADIFF, CMP, GFR, ANEU #### [place] [address] Hgb 16.3 G/dL High 12.0-16.0 [facility] ([place]) Comment on above: Performed By: #### V IDH, LIPID, CBC, TSH, ADIFF, CMP, GFR, ANEU #### [place] [id number] MCH (RBC) [Entitic mass] 32.9 pg High 27.0-31.2 [facility] ([place] Comment on above: Performed By: #### V IDH, LIPID, CBC, TSH, ADIFF, CMP, GFR, ANEU #### [place] [id number] MCHC 35.3 G/dL Normal 33.0-37.0 [facility] ([place] Comment on above: Performed By: #### V IDH, LIPID, CBC, TSH, ADIFF, CMP, GFR, ANEU #### [address] [address] MCV (RBC) [Entitic vol] 93.2 fL Normal 80.0-94.0 [facility] ([place]) Comment on above: Performed By: #### V IDH, LIPID, CBC, TSH, ADIFF, CMP, GFR, ANEU #### [address] [address] Platelet 232 10 3/mcL Normal 130-400 [facility] ([place] Comment on above: Performed By: #### V IDH, LIPID, CBC, TSH, ADIFF, CMP, GFR, ANEU #### [address] [address] Platelet mean volume (Bld) [Entitic vol] 8.1 fL Normal 7.4-10.4 [facility] ([place] Comment on above: Performed By: #### V IDH, LIPID, CBC, TSH, ADIFF, CMP, GFR, ANEU #### [address] [address] RBC 4.96 10 6/mcL Normal 4.20-5.40 [facility] ([place] Comment on above: Performed By: #### V IDH, LIPID, CBC, TSH, ADIFF, CMP, GFR, ANEU #### [address] [address] WBC 10.0 10 3/mcL Normal 4.6-10.8 [facility] ([place] Comment on above: Performed By: #### V IDH, LIPID, CBC, TSH, ADIFF, CMP, GFR, ANEU #### [address] [address] CMPon 04-03-2024 Albumin Level 4.1 G/dL Normal 3.4-4.8 [facility] ([place] Comment on above: Performed By: #### V IDH, LIPID, CBC, TSH, ADIFF, CMP, GFR, ANEU #### [address] [address] Albumin/Globulin [Mass ratio] 1.1 {ratio} Normal 1.1-2.5 [facility] ([place] Comment on above: Performed By: #### V IDH, LIPID, CBC, TSH, ADIFF, CMP, GFR, ANEU #### [address] [address] ALP [Catalytic activity/Vol] 97 U/L Normal 40-135 [facility] ([place] Comment on above: Performed By: #### V IDH, LIPID, CBC, TSH, ADIFF, CMP, GFR, ANEU #### [address] [address] ALT [Catalytic activity/Vol] 50 U/L Normal 14-59 [facility] ([place] Comment on above: Performed By: #### V IDH, LIPID, CBC, TSH, ADIFF, CMP, GFR, ANEU #### [address] [address] AST [Catalytic activity/Vol] 37 U/L Normal 10-40 [facility] ([place] Comment on above: Performed By: #### V IDH, LIPID, CBC, TSH, ADIFF, CMP, GFR, ANEU #### [address] [address] Bili Total 0.9 mg/dL Normal 0.2-1.0 [facility] ([place] Comment on above: Result Comment: Use of this assay is not recommended for patients undergoing treatment with eltrombopag due to the potential for falsely elevated results. Performed By: #### V IDH, LIPID, CBC, TSH, ADIFF, CMP, GFR, ANEU #### [address] [address] BUN/Creatinine Ratio 17 ratio Normal 7-27 [facility] ([place] Comment on above: Performed By: #### V IDH, LIPID, CBC, TSH, ADIFF, CMP, GFR, ANEU #### [address] [address] Calcium [Mass/Vol] 9.5 mg/dL Normal 8.4-10.2 Count includes the [facility] ([place]) Comment on above: Performed By: #### V IDH, LIPID, CBC, TSH, ADIFF, CMP, GFR, ANEU #### [address] [address] Chloride [Moles/Vol] 98 mmol/L Normal 98-107 [facility] ([place]) Comment on above: Performed By: #### V IDH, LIPID, CBC, TSH, ADIFF, CMP, GFR, ANEU #### [address] [address] CO2 [Moles/Vol] 26 mmol/L Normal 23-31 [facility] ([place]) Comment on above: Performed By: #### V IDH, LIPID, CBC, TSH, ADIFF, CMP, GFR, ANEU #### [address] [address] Creatinine [Mass/Vol] 0.98 mg/dL Normal 0.55-1.02 [facility] ([place]) Comment on above: Performed By: #### V IDH, LIPID, CBC, TSH, ADIFF, CMP, GFR, ANEU #### [address] [address] Electrolyte Balance 11.0 mEq/L Normal 4.0-15.0 [facility] ([place]) Comment on above: Performed By: #### V IDH, LIPID, CBC, TSH, ADIFF, CMP, GFR, ANEU #### [address] [address] Globulin 3.7 G/dL Normal [facility] ([place]) Comment on above: Performed By: #### V IDH, LIPID, CBC, TSH, ADIFF, CMP, GFR, ANEU #### [address] [address] Glucose [Mass/Vol] 281 mg/dL High 80-115 Count includes the [facility] ([place]) Comment on above: Performed By: #### V IDH, LIPID, CBC, TSH, ADIFF, CMP, GFR, ANEU #### [address] [address] Potassium [Moles/Vol] 4.9 mmol/L Normal 3.5-5.1 [facility] ([place]) Comment on above: Performed By: #### V IDH, LIPID, CBC, TSH, ADIFF, CMP, GFR, ANEU #### [address] [address] Sodium [Moles/Vol] 135 mmol/L Low 136-145 Count includes the [facility] ([place]) Comment on above: Performed By: #### V IDH, LIPID, CBC, TSH, ADIFF, CMP, GFR, ANEU #### [address] [address] Total Protein 7.8 G/dL Normal 6.4-8.2 [facility] ([place]) Comment on above: Performed By: #### V IDH, LIPID, CBC, TSH, ADIFF, CMP, GFR, ANEU #### [id number] [place], [place] [address] Urea nitrogen [Mass/Vol] 17 mg/dL Normal 7-18 [facility] ([place]) Comment on above: Performed By: #### V IDH, LIPID, CBC, TSH, ADIFF, CMP, GFR, ANEU #### [id number] [place], [place] [address] LABORATORYOrdered By: SYSTEM SYSTEM on 04-03-2024 25-hydroxyvitamin D3 [Mass/Vol] 22.1 ng/mL Invalid Interpretation Code AO ADM SS Comment on above: Interpretive Data: I nterpretive Values Based on Total 25(OH) Vitamin D: Deficient <20 ng/mL Insufficient 20 - <30 ng/mL Sufficient 30-100 ng/mL Albumin BCP dye [Mass/Vol] 4.1 G/dL Normal 3.4 - 4.8 G/dL AO ADM SS Albumin/Globulin [Mass ratio] 1.1 {ratio} Normal 1.1 - 2.5 ratio AO ADM SS ALP [Catalytic activity/Vol] 97 U/L Normal 40 - 135 U/L AO ADM SS ALT With P-5'-P [Catalytic activity/Vol] 50 U/L Normal 14 - 59 U/L AO ADM SS AST With P-5'-P [Catalytic activity/Vol] 37 U/L Normal 10 - 40 U/L AO ADM SS Basophil, Absolute 0.0 103/mcL Normal 0.0 - 0.2 10^3/mcL AO Workflow SS Basophils/100 WBC (Bld) 0.3 % Normal 0.0 - 2.5 % AO Workflow SS Bilirubin [Mass/Vol] 0.9 mg/dL Normal 0.2 - 1 .0 mg/dL AO ADM SS Comment on above: Interpretive Data: U se of this assay is not recommended for patients undergoing treatment with eltrombopag due to the potential for falsely elevated results. Calcium [Mass/Vol] 9.5 mg/dL Normal 8.4 - 10. 2 mg/dL AO ADM SS Chloride [Moles/Vol] 98 mmol/L Normal 98 - 10 7 mmol/L AO ADM SS CO2 [Moles/Vol] 26 mmol/L Normal 23 - 31 mmol/L AO ADM SS Creatinine [Mass/Vol] 0.98 mg/dL Normal 0.55 - 1.02 mg/dL AO ADM SS Electrolyte Balance 11.0 mEq/L Normal 4.0 - 15 .0 mEq/L AO ADM SS Eosinophil, Absolute 0.1 103/mcL Normal 0.0 - 0 .4 10^3/mcL AO Workflow SS Eosinophils/100 WBC (Bld) 0.9 % Normal 0.0 - 7.0 % AO Workflow SS Erythrocyte distribution width (RBC) [Ratio] 12.9 % Normal 11.5 - 14.5 % AO Workflow SS GFR/1.73 sq M.predicted among blacks MDRD (S/P/Bld) [Vol rate/Area] 68 ml/min/1.73sqm Invalid Interpretation Code AO Chemistry S Comment on above: Interpretive Data: GFR Population mean for , Non- Americans Ages 20-29 = 116 mL/min/1.73 sq.m. Ages 30-39 = 107 mL/min/1.73 sq.m. Ages 40-49 = 99 mL/min/1.73 sq.m. Ages 50-59 = 93 mL/min/1.73 sq.m. Ages 60-69 = 85 mL/min/1.73 sq.m. Ages 70+ = 75 mL/min/1.73 sq.m. Chronic Kidney Disease: Less than 60 mL/min/1.73 square meters End Stage Renal Disease: Less than 15 mL/min/1.73 square meters GFR/1.73 sq M.predicted among non-blacks MDRD (S/P/Bld) [Vol rate/Area] 56 ml/min/1.73sqm Invalid Interpretation Code AO Chemistry S Comment on above: Interpretive Data: GFR Population mean for , Non- Americans Ages 20-29 = 116 mL/min/1.73 sq.m. Ages 30-39 = 107 mL/min/1.73 sq.m. Ages 40-49 = 99 mL/min/1.73 sq.m. Ages 50-59 = 93 mL/min/1.73 sq.m. Ages 60-69 = 85 mL/min/1.73 sq.m. Ages 70+ = 75 mL/min/1.73 sq.m. Chronic Kidney Disease: Less than 60 mL/min/1.73 square meters End Stage Renal Disease: Less than 15 mL/min/1.73 square meters Globulin 3.7 G/dL Invalid Interpretation Code AO ADM SS Glucose [Mass/Vol] 281 mg/dL High 80 - 115 mg/dL AO ADM SS Hematocrit (Bld) [Volume fraction] 46.2 % Normal 37.0 - 47.0 % AO Workflow SS Hemoglobin (Bld) [Mass/Vol] 16.3 G/dL High 12.0 - 16.0 G/dL AO Workflow SS Lymphocyte, Absolute 2.3 103/mcL Normal 0.8 - 3 .9 10^3/mcL AO Workflow SS Lymphocytes/100 WBC (Bld) 23.0 % Normal 10.0 - 50.0 % AO Workflow SS MCH (RBC) [Entitic mass] 32.9 pg High 27.0 - 31.2 pg AO Workflow SS MCHC 35.3 G/dL Normal 33.0 - 37.0 G/dL AO Workflow SS MCV (RBC) [Entitic vol] 93.2 fL Normal 80.0 - 94.0 fL AO Workflow SS Monocyte, Absolute 0.5 103/mcL Normal 0.2 - 1.0 10^3/mcL AO Workflow SS Monocytes/100 WBC (Bld) 4.9 % Normal 1.7 - 13.0 % AO Workflow SS Neutrophil, Absolute 7.1 103/mcL High 2.9 - 6 .2 10^3/mcL AO Workflow SS Neutrophils/100 WBC (Bld) 70.9 % Normal 37.0 - 80.0 % AO Workflow SS Platelet mean volume (Bld) [Entitic vol] 8.1 fL Normal 7.4 - 10.4 fL AO Workflow SS Platelets (Bld) [#/Vol] 232 103/mcL Normal 130 - 400 10^3/mcL AO Workflow SS Potassium [Moles/Vol] 4.9 mmol/L Normal 3.5 - 5.1 mmol/L AO ADM SS Protein [Mass/Vol] 7.8 G/dL Normal 6.4 - 8.2 G/dL AO ADM SS RBC (Bld) [#/Vol] 4.96 106/mcL Normal 4.20 - 5.4 0 10^6/mcL AO Workflow SS Sodium [Moles/Vol] 135 mmol/L Low 136 - 145 mmol/L AO ADM SS TSH Qn 1.67 m[IU]/L Normal 0.36 - 3.74 mcIU/mL AO ADM SS Urea nitrogen [Mass/Vol] 17 mg/dL Normal 7 - 18 mg/dL AO ADM SS Urea nitrogen/Creatinine [Mass ratio] 17 ratio Normal 7 - 27 ratio AO ADM SS WBC (Bld) [#/Vol] 10.0 103/mcL Normal 4.6 - 10.8 10^3/mcL AO Workflow SS LABORATORYOrdered By: Viridiana Latif on 04-03-2024 Cholesterol [Mass/Vol] 326 mg/dL High 0 - 2 00 mg/dL AO ADM SS Comment on above: Interpretive Data: C holesterol Reference Interval: Less than 200 Desirable 200-239 Borderline high risk 240 and above High risk Cholesterol in HDL [Mass/Vol] 52 mg/dL Normal 40 - 60 mg/dL AO ADM SS Cholesterol in LDL [Mass/Vol] 230 mg/dL High 0 - 130 mg/dL AO ADM SS Triglyceride [Mass/Vol] 220 mg/dL High 0 - 150 mg/dL AO ADM SS Comment on above: Interpretive Data: T riglyceride Reference Interval: Less than 150 Normal 150-199 Borderline high risk 200-499 High risk 500 or higher Very high risk LIPIDon 04-03-2024 Cholesterol [Mass/Vol] 326 mg/dL High 0-200 [facility] ([place]) Comment on above: Result Comment: Chol esterol Reference Interval: Less than 200 Desirable 200-239 Borderline high risk 240 and above High risk Performed By: #### V IDH, LIPID, CBC, TSH, ADIFF, CMP, GFR, ANEU #### [address] [address] Cholesterol in HDL [Mass/Vol] 52 mg/dL Normal 40-60 [facility] ([place]) Comment on above: Performed By: #### V IDH, LIPID, CBC, TSH, ADIFF, CMP, GFR, ANEU #### [address] [address] Cholesterol in LDL [Mass/Vol] 230 mg/dL High 0-130 [facility] ([place]) Comment on above: Performed By: #### V IDH, LIPID, CBC, TSH, ADIFF, CMP, GFR, ANEU #### [address] [address] Triglyceride [Mass/Vol] 220 mg/dL High 0-150 [facility] ([place]) Comment on above: Result Comment: Trig lyceride Reference Interval: Less than 150 Normal 150-199 Borderline high risk 200-499 High risk 500 or higher Very high risk Performed By: #### V IDH, LIPID, CBC, TSH, ADIFF, CMP, GFR, ANEU #### [address] [address] MALBRon 04-03-2024 U Creatinine 131.7 mg/dL High 28.0-117.0 [facility] ([place]) Comment on above: Performed By: #### M ALBR #### [address] [address] U Microalb 1429 mcg/dL Normal [facility] ([place]) Comment on above: Performed By: #### M ALBR #### [id number] U Ratio Alb/Cre 11 mcg/mg Normal 0-30 [facility] ([place]) Comment on above: Performed By: #### M ALBR #### [address] [address] TSHon 04-03-2024 TSH Qn 1.67 m[IU]/L Normal 0.36-3.74 [facility] ([place]) Comment on above: Performed By: #### V IDH, LIPID, CBC, TSH, ADIFF, CMP, GFR, ANEU #### [address] [address] VIDHon 04-03-2024 Vit. D 25-Hydroxy 22.1 ng/mL Normal [facility] ([place]) Comment on above: Result Comment: Inte rpretive Values Based on Total 25(OH) Vitamin D: Deficient <20 ng/mL Insufficient 20 - <30 ng/mL Sufficient 30-100 ng/mL Performed By: #### V IDH, LIPID, CBC, TSH, ADIFF, CMP, GFR, ANEU #### [address] [address] LABORATORYOrdered By: Emmanuel Saunders on 02-25-2023 Albumin DL <= 20 mg/L (U) [Mass/Vol] 2398 mcg/dL Invalid Interpretation Code AO ADM SS Albumin/Creatinine DL <= 20 mg/L (U) [Mass ratio] 24 mcg/mg Invalid Interpretation Code 0 - 30 mcg/mg AO ADM SS Creatinine (U) [Mass/Vol] 99.6 mg/dL Invalid Interpretation Code 28.0 - 117.0 mg/dL AO ADM SS LABORATORYOrdered By: Emmanuel Saunders on 06-03-2022 C-Reactive Protein mg/dL Invalid Interpretation Code 0.0 - 0.9 mg/dL AO Chemistry S Uric Acid Lvl 6.0 mg/dL Invalid Interpretation Code 2.6 - 6.2 mg/dL AO ADM SS LABORATORYOrdered By: Leticia Jain on 06-03-2022 ESR 15 minute reading (Bld) [Velocity] 4 mm/hr Invalid Interpretation Code 0 - 30 mm/hr AO Man Heme SS Vital Signs Date Time Vital Sign Value Performing Clinician Shanda garcia 08-07-2025 09:56-0400 Body temperature 97.8 [degF] Maria T Baltes [employer] Work Phone: [facility] 08-07-2025 09:56-0400 Diastolic blood pressure 56 mm[Hg] Maria T Baltes [employer]C Work Phone: [facility] 08-07-2025 09:56-0400 Heart rate 62 /min Maria T Baltes [employer]C Work Phone: [facility] 08-07-2025 09:56-0400 Respiratory rate 16 /min Maria T Baltes [employer]C Work Phone: [facility] 08-07-2025 09:56-0400 SaO2% (BldA) [Mass fraction] 100 % Maria T Baltes [employer] ENGINE[employer]C Work Phone: [facility] 08-07-2025 09:56-0400 Systolic blood pressure 107 mm[Hg] Maria T Baltes [employer]INE[employer]C Work Phone: [facility] 08-07-2025 05:43-0400 Body mass index (BMI) [Ratio] 28.4 kg/m2 Maria T Baltes [employer]INEER[employer]C Work Phone: [facility] 08-07-2025 05:43-0400 Body weight 75.6 kg Maria T Baltes [employer]INEER[employer]C Work Phone: [facility] 08-06-2025 10:55-0400 Body height 162.56 cm Maria T Baltes [employer]ER[employer]C Work Phone: [facility] 08-03-2025 00:00-0400 Diastolic blood pressure 59 mm[Hg] Maria T Baltes [employer] ENGINEER[employer]C Work Phone: [facility] 08-03-2025 00:00-0400 Respiratory rate 18 /min Maria T Baltes [employer]ER[employer]C Work Phone: [facility] 08-03-2025 00:00-0400 SaO2% (BldA) [Mass fraction] 98 % Maria T Baltes [employer] ENGINEER[employer]C Work Phone: [facility] 08-03-2025 00:00-0400 Systolic blood pressure 101 mm[Hg] Maria T Baltes [employer] ENGINEER[employer]C Work Phone: [facility] 08-02-2025 23:32-0400 Body temperature 98.6 [degF] Maria T Baltes [employer] ENGINEER[employer]C Work Phone: [facility] 08-02-2025 23:32-0400 Heart rate 61 /min Maria T Baltes [employer]ER[employer]C Work Phone: [facility] 08-02-2025 19:34-0400 Body mass index (BMI) [Ratio] 29.6 kg/m2 Maria T Baltes [employer]C Work Phone: [facility] 08-02-2025 19:34-0400 Body weight 75.9 kg Maria T Baltes [employer]INEER[employer]C Work Phone: [facility] 08-02-2025 19:22-0400 Body height 160.02 cm Maria T Huertas [employer] ENGINEER-C Work Phone: [facility] Encounters Encounter Date Encounter Type Care Provider Facility Start: 08-19-2025 ambulatory Maria T Huertas Facility:[facility] Start: 08-07-2025 Non-patient / Non-visit Dr. Fatou Mcrae MD [facility] Work Phone: Start: 08-06-2025 Non-patient / Non-visit Dr. Fatou Mcrae MD [facility] Work Phone: Start: 08-05-2025 Non-patient / Non-visit Dr. Fatou Mcrae MD [facility] Work Phone: Start: 08-04-2025 Non-patient / Non-visit Dr. Lamberto Trinh [facility] Work Phone: Start: 08-03-2025 Non-patient / Non-visit Dr. Lamberto Trinh [facility] Work Phone: Start: 08-02-2025 ambulatory Jhonny Condon ty:[facility] Start: 08-02-2025 End: 08-07-2025 Evaluation and management of inpatient Dr. Jhonny Albrecht DO -[facility] Work Phone: Start: 08-02-2025 End: 08-06-2025 ambulatory MARIA T HUERTAS [employer]NA[employer] SERVICER HELPER Facility:[facility] Start: 08-02-2025 End: 08-06-2025 Outreach Lab MARIA T BALYVONNE [employer]ET DISPATCH MANAGER[employer] SERVIC[employer] HEL[employer] [facility] Start: 06-06-2025 End: 06-06-2025 ambulatory MARIA T ALEKSANDAR FLEET DISPATCH MANAGER-[employer] SERVICER HELPER Facility:[facility] Start: 06-06-2025 End: 06-06-2025 Patient encounter procedure MARIA T ALEKSANDAR [employer]LEET DISPATCH MANAGER[employer] SERVICER HELPER [facility] Start: 06-05-2025 End: 06-05-2025 ambulatory MARIA T BALTES [employer]LEET DISPATCH MANAGER[employer]IGHT SERVICER HELPER Facility:[facility] Start: 06-05-2025 End: 06-05-2025 Patient encounter procedure MARIA T BALYVONNE [employer]LEET DISPATCH MANAGER[employer] SERVICER HELPER [facility] Start: 06-05-2025 End: 06-09-2025 ambulatory MARIA T BALTES FLEET DISPATCH MANAGER[employer]RE[employer] LIGHT SERVICER HELPER Facility:[facility] Start: 06-05-2025 End: 06-09-2025 Outreach Lab MARIA T BALTES FLEET DISPATCH MANAGER[employer] SERVICER HELPER [facility] Start: 05-30-2025 End: 05-30-2025 Emergency department patient visit JOSH BERRY [facility] Start: 09-04-2024 End: 09-08-2024 ambulatory MARIA T BALTES FLEET DISPATCH MANAGER[employer] SERVICER HELPER Facility:[facility] Start: 09-04-2024 End: 09-08-2024 Outreach Lab MARIA T BALTES FLEET DISPATCH MANAGER[employer] SERVICER HELPER [facility] Start: 08-24-2024 End: 08-24-2024 ambulatory LAURO PAT MD Facility:[facility] Start: 08-24-2024 End: 08-24-2024 Patient encounter procedure LAURO PAT MD [facility] Start: 04-03-2024 End: 04-08-2024 ambulatory MARIA T BALTES FLEET DISPATCH MANAGER[employer]RE[employer]IGHT SERVICER HELPER Facility:[facility] Start: 04-03-2024 End: 04-03-2024 Patient encounter procedure MARIA T BALTES FLEET DISPATCH MANAGER[employer] SERVICER HELPER [facility] Start: 06-30-2023 ambulatory MARIA T BALTES FLEET DISPATCH MANAGER[employer]RE[employer] LIGHT SERVICER HELPER Fa cility:[facility] Start: 06-30-2023 End: 07-01-2023 ambulatory MARIA T BALTES FLEET DISPATCH MANAGER[employer]RE[employer]IGHT SERVICER HELPER Facility:[facility] Start: 06-30-2023 End: 06-30-2023 Patient encounter procedure MARIA T BALTES FLEET DISPATCH MANAGER[employer] SERVICER HELPER [facility] Start: 06-08-2023 End: 06-09-2023 ambulatory MARIA T BALTES FLEET DISPATCH MANAGER[employer]RE[employer] LIGHT SERVICER HELPER Facility:[facility] Start: 02-25-2023 End: 03-01-2023 Outreach Lab MARIA T HUERTAS FLEET DISPATCH MANAGER-[employer]RE[employer] SERVICER HELPER [facility] Start: 10-07-2022 End: 10-07-2022 Patient encounter procedure MARIA T HUERTAS FLEET DISPATCH MANAGER-[employer] SERVICER HELPER [facility] Start: 10-01-2022 End: 10-01-2022 Patient encounter procedure MARIA T HUERTAS FLEET DISPATCH MANAGER-[employer] SERVICER HELPER [facility] Start: 06-03-2022 End: 06-03-2022 Patient encounter procedure MARIA T HUERTAS FLEET DISPATCH MANAGER-[employer] SERVICER HELPER [facility] Procedures Date Procedure Procedure Detail Performing Clinician Start: 08-07-2025 Estimated creatinine clearance Maria T Huertas [employer] Work Phone: Start: 08-04-2025 Serum inorganic phos phate measurement Maria T Huertas [employer]C Work Phone: Start: 08-02-2025 Methadone measurement, urine Maria T Huertas [employer]C Work Phone: Start: 08-02-2025 Urnls dip stick/tabl et reagent auto microscopy Maria T Huertas [employer]ER[employer]C Work Phone: Start: 08-02-2025 CT of abdomen and pe lvis without contrast Maria T Aleksandar [employer] ENGINEER[employer]C Work Phone: Start: 08-02-2025 Estimated creatinine clearance Maria T Aleksandar [employer] ENGINEER[employer]C Work Phone: Start: 08-02-2025 Urine culture Maria T Joeystephen breaux [employer] E[employer] ENGINEER-C Work Phone: Start: 02-19-2013 Colonoscopy MARIA T BAXTER S FLEET DISPATCH MANAGER-STRE[employer] SERVICER HELPER Comment on above: polyp, tubular adeno ma; repeat 2-5 yrs. Start: 09-30-2003 Lobectomy of thyroid gland MARIA T ALEKSANDAR FLEET DISPATCH MANAGER-[employer]RE[employer] SERVICER HELPER Comment on above: L Start: 05-14-2002 Cholecystectomy MARIA T ABBOTT LTES FLEET DISPATCH MANAGER-STRE[employer] SERVICER HELPER Plan of Treatment Date Care Activity Detail Author Start: 08-07-2025 Patient discharge [facility] Start: 08-05-2025 [facility] Start: 08-04-2025 Application of inter mittent pneumatic compression device [facility] Start: 08-03-2025 Care planning and pr oblem solving actions [facility] Start: 08-03-2025 Following clinical p athway protocol [facility] Start: 08-03-2025 Assessment of risk o f venous thromboembolism [facility] Start: 08-03-2025 Insertion of cathete r into peripheral vein [facility] Start: 08-03-2025 Measuring intake and output [facility] Start: 08-03-2025 Providing care accor ding to standard [facility] Start: 08-03-2025 Provision of activit y privileges [facility] Start: 08-03-2025 Referral for physica l therapy [facility] Start: 08-03-2025 Referral to occupati onal therapist [facility] Start: 08-03-2025 Referral to service [facility] Start: 08-03-2025 [facility] Start: 08-02-2025 Verification routine [facility] Start: 08-02-2025 Admission procedure [facility] Start: 08-02-2025 Hospital admission, emergency, from emergency room, medical nature [facility] Start: 08-02-2025 End: 08-02-2025 [facility] Start: 08-02-2025 [facility] Start: 08-02-2025 [facility] Start: 08-02-2025 Thyroid stimulating hormone measurement [facility] Start: 08-02-2025 Bacteria identified in Blood by Culture Blood Culture [facility] Start: 08-02-2025 Bacteria identified in Urine by Culture Urine Culture [facility] Start: 08-02-2025 Blood culture Blood Culture [facility] Amphetamines [Presen ce] in Urine by Screen method >1000 ng/mL [facility] Benzodiazepine measu rement, urine [facility] Cocaine measurement, urine [facility] Ethanol [Mass/volume ] in Serum or Plasma [facility] fentaNYL [Presence] in Urine by Screen method [facility] Folate [Moles/volume ] in Serum or Plasma [facility] Hemoglobin A1c/Hemoglobin.total in Blood [facility] Magnesium measurement [facility] Methadone measuremen t, urine [facility] Nucleic acid assay [facility] Patient Education ED Cystitis Fe male Adult [facility] Work Phone: Phencyclidine [Prese nce] in Urine [facility] Urine cannabinoid measurement [facility] Urine culture [facility] Urine opiate measurement [facility] Immunizations Immunization Date Immunization Notes Care Provider Benito hinkle 09-04-2024 influenza, high dose seasonal, preservative-free; Translations: [Fluad PF Prefilled Syringe ] MARIA T HUERTAS [place] [facility] 01-11-2024 RSV vaccine, preF A- preF B, recombinant MARIA T HUERTAS [place] [facility] 08-25-2023 SARS-CoV-2 (COVID-19 ) mRNA-1273 vaccine MARIA T HUERTAS [place] [facility] 08-01-2023 influenza virus vacc ine, unspecified formulation MARIA T HUERTAS [employer]ET DISPATCH MANAGERKochzauber [facility] 09-21-2022 influenza virus vacc ine, unspecified formulation MARIA T HUERTAS [employer]LEET DISPATCH MANAGERKochzauber [facility] 09-21-2022 SARS-CoV-2 (CV19)mRNA-1273 bivalent vac MARIA T HUERTAS [employer]LEET DISPATCH MANAGERKochzauber [facility] 09-21-2022 SARSCoV2 (CV19)mRNA-1273(6y+ bival janie MARIA T HUERTAS [employer]LEET DISPATCH MANAGERKochzauber [facility] 04-28-2022 pneumococcal 20-brando nt conjugate vaccine [facility] 11-10-2021 COVID-19, mRNA, LNP- S, PF, 100 mcg or 50 mcg dose; Translations: [Moderna COVID-19 Vaccine] [facility] 08-25-2021 influenza virus vacc ine, unspecified formulation [facility] 03-07-2021 SARS-CoV-2 (COVID-19 ) mRNA-1273 vaccine [facility] 02-07-2021 SARS-CoV-2 (COVID-19 ) mRNA-1273 vaccine [facility] 08-15-2020 zoster vaccine recombinant [facility] 05-27-2020 pneumococcal conjuga te vaccine, 13 valent [facility] 05-27-2020 zoster vaccine recombinant [facility] 08-29-2019 influenza, injectabl e, quadrivalent, preservative free; Translations: [Fluarix PF Quadrivalent ] [facility] 12-29-2018 tetanus toxoid, redu tish diphtheria toxoid, and acellular pertussis vaccine, adsorbed [facility] 08-21-2018 influenza virus vacc ine, unspecified formulation MARIA T HUERTAS FLEET DISPATCH MANAGER-STREET LIGHT SERVICER HELPER [facility] 08-16-2016 influenza virus vacc ine, unspecified formulation MARIA T HUERTAS FLEET DISPATCH MANAGER-STRE[employer] LIGHT SERVICER HELPER [facility] 08-16-2016 pneumococcal polysaccharide vaccine, 23 valent MARIA T HUERTAS FLEET DISPATCH MANAGER-STREET LIGHT SERVICER HELPER [facility] 07-03-2015 zoster vaccine, live MARIA T GARDINER FLEET DISPATCH MANAGER-STREET LIGHT SERVICER HELPER [facility] 08-31-2014 influenza virus vacc ine, unspecified formulation MARIA T HUERTAS FLEET DISPATCH MANAGER-STRE[employer] LIGHT SERVICER HELPER [facility] 09-03-2013 influenza virus vacc ine, unspecified formulation MARIA T HUERTAS FLEET DISPATCH MANAGER-STRE[employer] LIGHT SERVICER HELPER [facility] 12-21-2012 hepatitis B pediatri c vaccine MARIA T HUERTAS FLEET DISPATCH MANAGER-STREET LIGHT SERVICER HELPER [facility] 11-21-1984 hepatitis B pediatri c vaccine MARIA T HUERTAS FLEET [employer] [facility] Payers Date Payer Category Payer Medicaid [id number] 2025 Medicare [id number] 2025 Medicare [id number] 2025 Self-pay 2025 Unknown [id number] 2024 Private Health Insurance [id number] 2024 Unknown [id number] 2023 Private Health Insurance [id number] 1955 Unknown [id number] 2.16.8 40.1.205787.3.579.2.627 1955 Unknown [id number] 2.16.8 40.1.830213.3.579.2. 1955 Unknown [id number] 2.16.8 40.1.339134.3.579.2. 1955 Unknown [id number] 2.16.8 40.1.348225.3.579.2. 1955 Unknown [id number] 2.16.8 40.1.131674.3.579.2. 1955 Unknown [id number] 2.16.8 40.1.031542.3.579.2. 1955 Unknown [id number] 2.16. 840.1.128463.3.579.2. 1955 Unknown [id number] 2.16. 840.1.058068.3.579.2. 1955 Unknown [id number] 2.16. 840.1.801135.3.579.2. 1955 Unknown [id number] 2.16. 840.1.343688.3.579.2. 1955 Unknown [id number] 2.16. 840.1.320974.3.579.2. 1955 Unknown [id number] 2.16.8 40.1.387508.3.579.2. 1955 Unknown [id number] 2.16.8 40.1.757605.3.579.2.627 Unknown [id number] 2.16.8 40.1.110275.3.579.2.462 Unknown [id number] 2.16.8 40.1.447200.3.579.2.462 Unknown [id number] 2.16.8 40.1.599304.3.579.2.462 Unknown [id number] 2.16.8 40.1.669118.3.579.2.462 Unknown [id number] 2.16.8 40.1.112104.3.579.2.462 Unknown [id number] 2.16.8 40.1.433300.3.579.2.462 Unknown [id number] 2.16.8 40.1.035056.3.579.2.462 Unknown [id number] 2.16.8 40.1.940123.3.579.2.462 Social History Date Type Detail Facility Start: 04-30-2022 End: 06-28-2024 Tobacco smoking status Light tobacco smoker (finding) [facility] Comment on above: Trying to quit compl etely, just here and there Trying to quit-hasn' t for 1 1/2 wk Pt states she is smo juan carlos very little. States she quit yest erday. Smells like smoke. Apartment smells like smoke. Sex Assigned At [facility] Tobacco Nicotine Use: denies. [facility] Start: 01-26-2018 Sex Female (finding) [facility] Start: 06-05-2025 End: 08-03-2025 Tobacco smoking status Ex-smoker (finding) [facility] Comment on above: QUIT in 01/15 At assisted living a nd not allowed to smoke when she finds one o r someone gives her a pack Pt states she is smo juan carlos very little. States she quit yest erday. Smells like smoke. Apartment smells like smoke. Trying to quit-hasn' t for 1 1/2 wk Trying to quit compl etely, just here and there No more smoking Start: 1955 Sex Assigned At Female [facility] Sex Female [facility] Medical Equipment Procedure Code Equipment Code Equipment Origin al Text Equipment Identifier Dates See Instructions , Selenastyle Lite, TID & PRN Diabetes E11.9 EA= BOX OF 100, # 6 EA, 3 Refill(s), Pharmacy: [facility] 161.29, cm, 06/11/21 9:34:00 EDT, Height, 107.1, kg, 06/11/21 9:34:00 EDT, Dosing Weight Start: 06-25-2021 See Instructions , EA=BOX of 100 E11.9 To test TID and PRN Lancets for Freestyle Lite, # 3 EA, 3 Refill(s), [facility]: [facility] 161.29, cm, 06/11/21 9:34:00 EDT, Height, 107.1, kg, 06/11/21 9:34:00 EDT, Dosing Weight Start: 06-26-2021 FREESTYLE LITE T EST STRIP, BID, 0 Refill(s) Start: 06-25-2019 See Instructions , Freestyle Lite, TID & PRN Diabetes E11.9 EA= BOX OF 100, # 6 EA, 3 Refill(s), [facility]acy: [facility] 161.29, cm, 06/11/21 9:34:00 EDT, Height, 107.1, kg, 06/11/21 9:34:00 EDT, Dosing Weight Start: 06-25-2021 See Instructions , EA=BOX of 100 E11.9 To test TID and PRN Lancets for Freestyle Lite, # 3 EA, 3 Refill(s), [facility]acy: [facility] 161.29, cm, 06/11/21 9:34:00 EDT, Height, 107.1, kg, 06/11/21 9:34:00 EDT, Dosing Weight Start: 06-26-2021 See Instructions , Freestyle Lite, TID & PRN Diabetes E11.9 EA= BOX OF 100, # 6 EA, 3 Refill(s), [facility]: [facility] 161.29, cm, 06/11/21 9:34:00 EDT, Height, 107.1, kg, 06/11/21 9:34:00 EDT, Dosing Weight Start: 06-25-2021 See Instructions , EA=BOX of 100 E11.9 To test TID and PRN Lancets for Freestyle Lite, # 3 EA, 3 Refill(s), [facility]acy: [facility] 161.29, cm, 06/11/21 9:34:00 EDT, Height, 107.1, kg, 06/11/21 9:34:00 EDT, Dosing Weight Start: 06-26-2021 See Instructions , Freestyle Lite, TID & PRN Diabetes E11.9 EA= BOX OF 100, # 6 EA, 3 Refill(s), [facility]acy: [facility] 161.29, cm, 06/11/21 9:34:00 EDT, Height, 107.1, kg, 06/11/21 9:34:00 EDT, Dosing Weight Start: 06-25-2021 See Instructions , EA=BOX of 100 E11.9 To test TID and PRN Lancets for Freestyle Lite, # 3 EA, 3 Refill(s), [facility]acy: [facility] 161.29, cm, 06/11/21 9:34:00 EDT, Height, 107.1, kg, 06/11/21 9:34:00 EDT, Dosing Weight Start: 06-26-2021 See Instructions , Freestyle Lite, TID & PRN Diabetes E11.9 EA= BOX OF 100, # 6 EA, 3 Refill(s), [facility]acy: [facility] 161.29, cm, 06/11/21 9:34:00 EDT, Height, 107.1, kg, 06/11/21 9:34:00 EDT, Dosing Weight Start: 06-25-2021 See Instructions , EA=BOX of 100 E11.9 To test TID and PRN Lancets for Freestyle Lite, # 3 EA, 3 Refill(s), [facility]acy: [facility] 161.29, cm, 06/11/21 9:34:00 EDT, Height, 107.1, kg, 06/11/21 9:34:00 EDT, Dosing Weight Start: 06-26-2021 See Instructions , Freestyle Lite, TID & PRN Diabetes E11.9 EA= BOX OF 100, # 6 EA, 3 Refill(s), [facility]acy: [facility] 161.29, cm, 06/11/21 9:34:00 EDT, Height, 107.1, kg, 06/11/21 9:34:00 EDT, Dosing Weight Start: 06-25-2021 See Instructions , EA=BOX of 100 E11.9 To test TID and PRN Lancets for Freestyle Lite, # 3 EA, 3 Refill(s), [facility]acy: [facility] 161.29, cm, 06/11/21 9:34:00 EDT, Height, 107.1, kg, 06/11/21 9:34:00 EDT, Dosing Weight Start: 06-26-2021 See Instructions , Freestyle Lite, TID & PRN Diabetes E11.9 EA= BOX OF 100, # 6 EA, 3 Refill(s), [facility]acy: [facility] 161.29, cm, 06/11/21 9:34:00 EDT, Height, 107.1, kg, 06/11/21 9:34:00 EDT, Dosing Weight Start: 06-25-2021 See Instructions , EA=BOX of 100 E11.9 To test TID and PRN Lancets for Freestyle Lite, # 3 EA, 3 Refill(s), [facility]acy: [facility] 161.29, cm, 06/11/21 9:34:00 EDT, Height, 107.1, kg, 06/11/21 9:34:00 EDT, Dosing Weight Start: 06-26-2021 See Instructions , Freestyle Lite, TID & PRN Diabetes E11.9 EA= BOX OF 100, # 6 EA, 3 Refill(s), [facility]acy: [facility] 161.29, cm, 06/11/21 9:34:00 EDT, Height, 107.1, kg, 06/11/21 9:34:00 EDT, Dosing Weight Start: 06-25-2021 See Instructions , EA=BOX of 100 E11.9 To test TID and PRN Lancets for Freestyle Lite, # 3 EA, 3 Refill(s), Pharmacy: [facility] 161.29, cm, 06/11/21 9:34:00 EDT, Height, 107.1, kg, 06/11/21 9:34:00 EDT, Dosing Weight Start: 06-26-2021 See Instructions , Freestyle Lite, TID & PRN Diabetes E11.9 EA= BOX OF 100, # 6 EA, 3 Refill(s), [facility]acy: [facility] 161.29, cm, 06/11/21 9:34:00 EDT, Height, 107.1, kg, 06/11/21 9:34:00 EDT, Dosing Weight Start: 06-25-2021 See Instructions , EA=BOX of 100 E11.9 To test TID and PRN Lancets for Freestyle Lite, # 3 EA, 3 Refill(s), Pharmacy: [facility] 161.29, cm, 06/11/21 9:34:00 EDT, Height, 107.1, kg, 06/11/21 9:34:00 EDT, Dosing Weight Start: 06-26-2021 See Instructions , Freestyle Lite, TID & PRN Diabetes E11.9 EA= BOX OF 100, # 6 EA, 3 Refill(s), Pharmacy: [facility] 161.29, cm, 06/11/21 9:34:00 EDT, Height, 107.1, kg, 06/11/21 9:34:00 EDT, Dosing Weight Start: 06-25-2021 See Instructions , EA=BOX of 100 E11.9 To test TID and PRN Lancets for Freestyle Lite, # 3 EA, 3 Refill(s), Pharmacy: [facility] 161.29, cm, 06/11/21 9:34:00 EDT, Height, 107.1, kg, 06/11/21 9:34:00 EDT, Dosing Weight Start: 06-26-2021 See Instructions , Freestyle Lite, TID & PRN Diabetes E11.9 EA= BOX OF 100, # 6 EA, 3 Refill(s), Pharmacy: [facility] 161.29, cm, 06/11/21 9:34:00 EDT, Height, 107.1, kg, 06/11/21 9:34:00 EDT, Dosing Weight Start: 06-25-2021 See Instructions , EA=BOX of 100 E11.9 To test TID and PRN Lancets for Freestyle Lite, # 3 EA, 3 Refill(s), Pharmacy: [facility] 161.29, cm, 06/11/21 9:34:00 EDT, Height, 107.1, kg, 06/11/21 9:34:00 EDT, Dosing Weight Start: 06-26-2021 See Instructions , Freestyle Lite, TID & PRN Diabetes E11.9 EA= BOX OF 100, # 6 EA, 3 Refill(s), Pharmacy: [facility] 161.29, cm, 06/11/21 9:34:00 EDT, Height, 107.1, kg, 06/11/21 9:34:00 EDT, Dosing Weight Start: 06-25-2021 See Instructions , EA=BOX of 100 E11.9 To test TID and PRN Lancets for Freestyle Lite, # 3 EA, 3 Refill(s), Pharmacy: [facility] 161.29, cm, 06/11/21 9:34:00 EDT, Height, 107.1, kg, 06/11/21 9:34:00 EDT, Dosing Weight Start: 06-26-2021 See Instructions , Freestyle Lite, TID & PRN Diabetes E11.9 EA= BOX OF 100, # 6 EA, 3 Refill(s), Pharmacy: [facility] 161.29, cm, 06/11/21 9:34:00 EDT, Height, 107.1, kg, 06/11/21 9:34:00 EDT, Dosing Weight Start: 06-25-2021 See Instructions , EA=BOX of 100 E11.9 To test TID and PRN Lancets for Freestyle Lite, # 3 EA, 3 Refill(s), Pharmacy: [facility] 161.29, cm, 06/11/21 9:34:00 EDT, Height, 107.1, kg, 06/11/21 9:34:00 EDT, Dosing Weight Start: 06-26-2021 Goals Date Patient Goal Desired Activity /State Functional Status Date Assessment Result Facility 08-07-2025 Functional status Ambulates [facility] Work Phone: Mental Status Date Assessment Result Facility 08-07-2025 Cognitive function Voice/Name [facility] Work Phone: 08-02-2025 Cognitive function Level Of Cons ciousness Awake;Alert;Appropriate;Follow s Commands [facility] Work Phone: Clinical Notes 06-03-2022 to 08-07-2025 Note Date & Type Note Facility 08-07-2025 Consult note [facility] 08-07-2025 Discharge summary Note Date/Time August 07, 2025 11:50am [facility] Medical Records Department [address] [place] [address] Transfer to [facility] MR#: [id number] Acct: [id number] Name: GADIEL SAUL Rep #:[id number] : 1955 70 From: Fatou Mcrae MD PCP: JARETT Mendes Status:ADM IN Certification of patient admission REQUIRED AT TIME OF ADMISSION. I CERTIFY THAT POST-HOSPITAL F SERVICES ARE REQUIRED TO BE GIVEN ON AN IN-PATIENT BASIS BECAUSE OF THE ABOVE NAMED PATIENT'S NEED FOR HALFWAY CARE ON A CONTINUING BASIS FOR THE CONDITION(S) FOR WHICH HE/SHE WAS RECEIVING IN-PATIENT HOSPITAL SERVICES PRIOR TO HIS/HER TRANSFER TO [facility]. 08/07/25 1150<Electronically signed by Fatou Mcrae MD> Diet Diet Order/Speech Therapy: INPATIENT Hospital Diet / Speech Therapy Order(s) 08/03/25 10:57 Diet: Carbohydrate Controlled Food consistency:: Regular Liquid Consistency:: Regular/Thin Dietary Modifications:: Sodium Restricted Routine Orders/Code Status Enema Type: Fleetz Enema Frequency: Daily PRN Suppository Type: Dulcolax 10mg Suppository Frequency: Daily PRN DC O2, CPAP, BIPAP needs Home O2 Discharge instructions: No Therapies Weight Bearing: Weight bearing as tolerated Physical Therapy: Eval and Treat Occupational Therapy: Eval and Treat Problem/Diagnosis (1) Generalized weakness: Status: Acute Code(s): R53.1 - Weakness (2) Acute cystitis without hematuria: Status: Acute Code(s): N30.00 - Acute cystitis without hematuria Plan #UTI * On IV ceftriaxone. Urine cultures growing corynebacterium remain UTI seen on and gram-negative pedrito lactose slab puller. * Continue IV ceftriaxone pending speciation and sensitivities * #TRCAEY: Creatinine is 1.27. Has largely resolved. Encourage oral hydration. #Debility and weakness: PT OT on board. Fall precautions. #Benign essential hypertension: On lisinopril which was held due to TRACEY and remains on hold due to low BP. IV hydralazine as needed #Hypotension: patient still remains hypotensive though asymptomatic. Will start on midodrine 5mg tid. #History of Alzheimer's dementia: Hyperlipidemia: On statin #Hypothyroidism: On Synthroid #DVT prophylaxis: heparin Disposition: Will benefit from placement. Case management on board to help withthis. Allergies/Procedures Done in Hospital Allergies erythromycin base Adverse Reaction (Verified 08/02/25 19:24) PT UNSURE OF REACTION exenatide (From Byetta) Adverse Reaction (Verified 08/02/25 19:24) PT UNSURE OF REACTION Penicillins Adverse Reaction (Verified 08/02/25 19:24) PT UNSURE OF REACTION Sulfa (Sulfonamide Antibiotics) Adverse Reaction (Verified 08/02/25 19:24) PT UNSURE OF REACTION Procedures: None Type of Care/Length of Stay Estimated LOS: Convalescent Care Less Than 30 days Type of Care Needed: Skilled Rehab Potential: Fair Prognosis: Fair Additional Orders/Day of Discharge Day of Discharge: 08/07/25 Dietary and Speech Recommendations Dietitian Recommendations/Changes: Continue to consistent carbohydrate diet witha sodium restriction to manage medical condition. Continue 120ml glucerna shake 4x daily with medpass. Will monitor weight trends. Discharge Plan Admission Admit Date/Time: 08/02/25 23:37 Primary Reason for Your Visit: UTI Attending Provider: Fatou Mcrae Primary Care Provider: Maria T Huertas NP Consulting Providers: Jhonny Albrecht; Lamberto Taylor Instructions Patient Instructions: ED Cystitis Female Adult Discharge Orders/Prescriptions Prescriptions: New midodrine 5 mg Tablet 5 mg PO TIDCM Qty: 90 2RF cefdinir 300 mg Capsule 300 mg PO Q12 Qty: 8 0RF Continued calcium citrate 250 mg calcium tablet 250 mg PO DAILY cholecalciferol (vitamin D3) 50 mcg (2,000 unit) capsule 50 mcg PO DAILY dapagliflozin propanediol [Farxiga] 5 mg tablet 5 mg PO DAILY multivitamin [Daily Multi-Vitamin] Tablet 1 tab PO DAILY Ozempic 0.25 mg or 0.5 mg (2 mg/3 mL) pen injector 0.5 mg SUBCUT QWEEK Patient Comments: [NO ORIGINAL SIG] Rx Instructions: inject sq in the morning every rosuvastatin 20 mg tablet 20 mg PO QHS quetiapine [Seroquel] 25 mg tablet 12.5 mg PO QHS sertraline 25 mg tablet 25 mg PO DAILY Discontinued lisinopril 2.5 mg tablet 2.5 mg PO DAILY Referrals / Follow Up: Maria T Huertas NP, [employer] [Primary Care Provider, Medical] - Within 1 Week Disposition Disposition (needs filled in before D/C Order can be placed): [facility] 08/07/25 1150 <Electronically signed by Fatou Mcrae MD> Cosigner Signature (if applicable): CC: JARETT Huertas; Dr. Jhonny Albrecht DO; Dr. Lamberto Taylor DO ~ [facility] Work Phone: 1(549) 278-456209-17-2025 Discharge summary [facility] Medical Records Department [address] [place] [id number] Transfer to [facility] MR#: [id number] Acct: [id number] Name: GADIEL SAUL Rep #:[id number] : 1955 70 From: Fatou Mcrae MD PCP: JARETT Mendes Status:ADM IN Certification of patient admission REQUIRED AT TIME OF ADMISSION. I CERTIFY THAT POST-HOSPITAL F SERVICES ARE REQUIRED TO BE GIVEN ON AN IN-PATIENT BASIS BECAUSE OF THE ABOVE NAMED PATIENT'S NEED FOR HALFWAY CARE ON A CONTINUING BASIS FOR THE CONDITION(S) FOR WHICH HE/SHE WAS RECEIVING IN-PATIENT HOSPITAL SERVICES PRIOR TO HIS/HER TRANSFER TO [facility]. 08/07/25 1150 Diet Diet Order/Speech Therapy: INPATIENT Hospital Diet / Speech Therapy Order(s) 08/03/25 10:57 Diet: Carbohydrate Controlled Food consistency:: Regular Liquid Consistency:: Regular/Thin Dietary Modifications:: Sodium Restricted Routine Orders/Code Status Enema Type: Fleetz Enema Frequency: Daily PRN Suppository Type: Dulcolax 10mg Suppository Frequency: Daily PRN DC O2, CPAP, BIPAP needs Home O2 Discharge instructions: No Therapies Weight Bearing: Weight bearing as tolerated Physical Therapy: Eval and Treat Occupational Therapy: Eval and Treat Problem/Diagnosis (1) Generalized weakness: Status: Acute Code(s): R53.1 - Weakness (2) Acute cystitis without hematuria: Status: Acute Code(s): N30.00 - Acute cystitis without hematuria Plan #UTI * On IV ceftriaxone. Urine cultures growing corynebacterium remain UTI seen on and gram-negative pedrito lactose slab puller. * Continue IV ceftriaxone pending speciation and sensitivities * #TRACEY: Creatinine is 1.27. Has largely resolved. Encourage oral hydration. #Debility and weakness: PT OT on board. Fall precautions. #Benign essential hypertension: On lisinopril which was held due to TRACEY and remains on hold due to low BP. IV hydralazine as needed #Hypotension: patient still remains hypotensive though asymptomatic. Will start on midodrine 5mg tid. #History of Alzheimer's dementia: Hyperlipidemia: On statin #Hypothyroidism: On Synthroid #DVT prophylaxis: heparin Disposition: Will benefit from placement. Case management on board to help withthis. Allergies/Procedures Done in Hospital Allergies erythromycin base Adverse Reaction (Verified 08/02/25 19:24) PT UNSURE OF REACTION exenatide (From Byetta) Adverse Reaction (Verified 08/02/25 19:24) PT UNSURE OF REACTION Penicillins Adverse Reaction (Verified 08/02/25 19:24) PT UNSURE OF REACTION Sulfa (Sulfonamide Antibiotics) Adverse Reaction (Verified 08/02/25 19:24) PT UNSURE OF REACTION Procedures: None Type of Care/Length of Stay Estimated LOS: Convalescent Care Less Than 30 days Type of Care Needed: Skilled Rehab Potential: Fair Prognosis: Fair Additional Orders/Day of Discharge Day of Discharge: 08/07/25 Dietary and Speech Recommendations Dietitian Recommendations/Changes: Continue to consistent carbohydrate diet witha sodium restriction to manage medical condition. Continue 120ml glucerna shake 4x daily with medpass. Will monitor weight trends. Discharge Plan Admission Admit Date/Time: 08/02/25 23:37 Primary Reason for Your Visit: UTI Attending Provider: Fatou Mcrae Primary Care Provider: Maria T Huertas NP Consulting Providers: Jhonny Albrecht; Lamberto Taylor Instructions Patient Instructions: ED Cystitis Female Adult Discharge Orders/Prescriptions Prescriptions: New midodrine 5 mg Tablet 5 mg PO TIDCM Qty: 90 2RF cefdinir 300 mg Capsule 300 mg PO Q12 Qty: 8 0RF Continued calcium citrate 250 mg calcium tablet 250 mg PO DAILY cholecalciferol (vitamin D3) 50 mcg (2,000 unit) capsule 50 mcg PO DAILY dapagliflozin propanediol [Farxiga] 5 mg tablet 5 mg PO DAILY multivitamin [Daily Multi-Vitamin] Tablet 1 tab PO DAILY Ozempic 0.25 mg or 0.5 mg (2 mg/3 mL) pen injector 0.5 mg SUBCUT QWEEK Patient Comments: [NO ORIGINAL SIG] Rx Instructions: inject sq in the morning every rosuvastatin 20 mg tablet 20 mg PO QHS quetiapine [Seroquel] 25 mg tablet 12.5 mg PO QHS sertraline 25 mg tablet 25 mg PO DAILY Discontinued lisinopril 2.5 mg tablet 2.5 mg PO DAILY Referrals / Follow Up: Maria T Huertas NP, [employer] [Primary Care Provider, Medical] - Within 1 Week Disposition Disposition (needs filled in before D/C Order can be placed): [facility] 08/07/25 1150 Cosigner Signature (if applicable): CC: JARETT Huertas; Dr. Jhonny Albrecht DO; Dr. Lamberto Taylor DO ~ [facility]09-17-2025 [facility] Medical Records Department [address] [place] [address] Discharge Summary 08/07/25 1146 MR#: [id number] Acct: [id number] Name: GADIEL SAUL Rep #: [id number] : 1955 70 From: Fatou Mcrae MD PCP: Maria T Baltes, [employer] Status:DIS IN Location: [id number] [id number] Providers Date of Admission: 08/02/25 Date of Discharge: 08/07/25 Primary Care Physician: JARETT Mendes Reason For Visit: UTI, DIARRHEA TRACEY WITH GENERALIZED Diagnosis Discharge Diagnosis (1) Generalized weakness: Status: Acute Code(s): R53.1 - Weakness (2) Acute cystitis without hematuria: Status: Acute Code(s): N30.00 - Acute cystitis without hematuria Plan #UTI * On IV ceftriaxone. Urine cultures growing corynebacterium remain UTI seen on and gram-negative pedrito lactose slab puller. * Continue IV ceftriaxone pending speciation and sensitivities * #TRACEY: Creatinine is 1.27. Has largely resolved. Encourage oral hydration. #Debility and weakness: PT OT on board. Fall precautions. #Benign essential hypertension: On lisinopril which was held due to TRACEY and remains on hold due to low BP. IV hydralazine as needed #Hypotension: patient still remains hypotensive though asymptomatic. Will start on midodrine 5mg tid. #History of Alzheimer's dementia: Hyperlipidemia: On statin #Hypothyroidism: On Synthroid #DVT prophylaxis: heparin Disposition: Will benefit from placement. Case management on board to help with this. Medications at Discharge Home Medications calcium citrate 250 mg PO DAILY 08/02/25 cholecalciferol (vitamin D3) 50 mcg (2,000 unit) capsule 50 mcg PO DAILY 08/02/25 dapagliflozin propanediol 5 mg tablet (Farxiga) 5 mg PO DAILY 08/02/25 multivitamin (Daily Multi-Vitamin tablet) 1 tab PO DAILY 08/02/25 quetiapine 25 mg tablet (Seroquel) 12.5 mg PO QHS 08/02/25 rosuvastatin 20 mg tablet 20 mg PO QHS 08/02/25 semaglutide 0.25 mg or 0.5 mg (2 mg/3 mL) subcutaneous pen injector (Ozempic) 0.5 mg subcut QWEEK 08/02/25 sertraline 25 mg tablet 25 mg PO DAILY 08/02/25 cefdinir 300 mg capsule 300 mg PO Q12 #8 caps 08/07/25 midodrine 5 mg tablet 5 mg PO TIDCM #90 tabs 08/07/25 Hospital Course Operations None Procedures None Summary of Care Provided Minutes Spent on Discharge: 45 Hospital Course: Patient is a 70-year-old female with an extensive past medical history as outlined which includes Alzheimer's dementia who was admitted from her group home on 08/02/2025 with a complaint of diarrhea, generalized weakness and abnormal labs. Due to patient's Alzheimer's dementia she is not a reliable historian so information was mainly gathered from the chart, medical staff and computer on admission. She was apparently found to have nonbloody diarrhea which have been going on for several days. She was on Ozempic and metformin and these were discontinued with concern for adverse drug reaction. Labs subsequently done showed elevated creatinine of 2.42 consistent with TRACEY in the setting of CKD stage III. She was brought into the ED where urinalysis done was positive for UTI. CT of the abdomen and pelvis showed no evidence of bowel obstruction or acute inflammatory process and showed extensive distal colonic diverticulosis without evidence of acute diverticulitis and colitis and mildly enlarged lobulated myomatous uterus. She was admitted to be managed for TRACEY in the setting of diarrhea and UTI. She was started on IV ceftriaxone. She was hydrated with IV fluids and her creatinine trended down to normal. Hospital course was complicated by hypotension. Her blood pressure medications were held. However stated her blood pressure remained low so she was started on midodrine. Urine cultures grew corynebacterium may need to send him and gram-negative pedrito lactose slab puller of a low colony count of less than 8000. Susceptibility was no usually performed on the corynebacterium and the colony count of the gram-negative pedrito lactose slab puller was thought to be below infection level. Her blood pressure improved on the midodrine. She was therefore discharged on p.o. cefdinir 300 mg daily for 5 days. She was also given a prescription for p.o. midodrine 5 mg 3 times daily. She is to have her blood pressure checked in the group home to determine if and when the blood pressure medication can be resumed and the midodrine discontinued. She is to follow-up with her primary care doctor within 1 to 2 weeks. Patient seen and examined. She remained confused though she was able to answer questions. She had no active complaints. Review of systems otherwise negative. Labs and vitals reviewed. Home medication reviewed and reconciled. Physical Exam Const alert and no apparent distress Constitutional Narrative: confused General Appearance: cooperative and comfortable Orientation / Consciousness: confused HEENT normocepha (more content not included)...[facility]09-16-2025 Progress note Author Fatou Mcrae [facility] Note Date/Time August 06, 2025 4:50pm [facility] Medical Records Department [address] [place] [address] Progress Note 08/06/25 1256 MR#: [id number] Acct: [id number] Name: GADIEL SAUL Rep #:[id number] : 1955 70 From: Fatou Mcrae MD PCP: Maria T Huertas [employer] Status:ADM IN Location: [facility]3 NZ776-7 Subjective Subjective Patient seen and examined with her nurse by the bedside. She had no active complaints this morning. She does seem to still be confused as she kept saying she has to going to call from 1 to and she was going to her mother's house. Herblood pressure is still running low today in the 90s systolic. Review of systems otherwise negative. Objective Data Objective Data Vital Signs: Vital Signs Temp Pulse Resp BP Pulse Ox O2 Del Method 97.4 F L 55 L 16 92/61 96 Room Air 08/06/25 11:19 08/06/25 11:19 08/06/25 11:19 08/06/25 11:19 08/06/25 11:19 08/06/25 11:19 Oxygen Delivery Method Room Air Weight: 166 lb 0.129 oz Body Mass Index (BMI) 28.3 Intake & Output: Intake and Output for Last 24 Hours 08/04/25 08/05/25 08/06/25 23:59 23:59 23:59 Intake Total 1000 / 1000 50 / 50 650 / 650 Balance 1000 / 1000 50 / 50 650 / 650 Lab / Micro Data 08/06/25 04:41 08/06/25 04:41 Labs: Laboratory Results - last 24 hr 08/05/25 16:06: POC Glucose 161 H 08/05/25 20:48: POC Glucose 126 H 08/06/25 04:41: WBC 6.2, RBC 3.00 L, Hgb 9.2 L, Hct 28.1 L, MCV 93.7, MCH 30.7, MCHC 32.7, RDW Std Deviation 46.6 H, RDW Coeff of Kayleen 13.6, Plt Count 177, MPV 10.1, Immature Gran % (Auto) 0.300, Neut % (Auto) 52.2, Lymph % (Auto) 39.7, Burleigh % (Auto) 6.5, Eos % (Auto) 1.0, Baso % (Auto) 0.3, Absolute Neuts (auto) 3.2, Absolute Lymphs (auto) 2.46, Nucleated RBC % 0, Sodium 142, Potassium 4.6, Chloride 109 H, Carbon Dioxide 23.1, Anion Gap 10, BUN 29 H, Creatinine 1.27 H, Estim Creat Clear Calc 40.64 L, Est GFR (MDRD) Non-Af 45 L, BUN/Creatinine Ratio23.0 H, Glucose 104 H, Calcium 9.1 Micro: Microbiology 08/02/25 21:30 Urine, Clean Catch Urine Culture - Final Corynebacterium minutissimum GNR lactose slab puller 08/02/25 22:40 Blood Culture (Wb) - Anticubital Right Blood Culture - Preliminary No growth in 48 hours. 08/02/25 23:05 Blood Culture (Wb) - Anticubital Right Blood Culture - Preliminary No growth in 48 hours. Physical Exam Const alert and no apparent distress Constitutional Narrative: confused General Appearance: cooperative Orientation / Consciousness: confused HEENT normocephalic, head/scalp atraumatic, hearing grossly normal bilaterally, moist oral mucous membranes and oropharynx normal Eyes PERRL, EOMs intact bilaterally and conjunctivae normal Neck no lymphadenopathy, supple and no JVD Lymph Lymphatic: no lymphedema noted Resp normal respiratory effort, normal air movement, no retractions, no use of accessory muscles and clear to auscultation bilaterally Cardio regular rate, regular rhythm, S1 normal heart sound, S2 normal heart sound and no murmurs GI normal to inspection, nondistended, normoactive bowel sounds, soft to palpation,non-tender and non-distended Extremity normal to inspection, full ROM, normal capillary refill, no clubbing, cyanosis or edema and no calf tenderness General Extremity: no tenderness to palpation of joints or extremities Skin General Skin Exam: no breakdown Neuro CN's II-XII intact bilaterally, moves all extremities, no focal motor deficits and no sensory deficits noted Sensorium / Orientation: awake and alert Speech: speech normal Motor Exam: strength 5/5 throughout and general weakness Psych cooperative and affect normal Psych Narrative: confused Assessment & Plan Assessment/Plan (1) Generalized weakness: (2) Acute cystitis without hematuria: PLAN: Plan #UTI * On IV ceftriaxone. Urine cultures growing corynebacterium remain UTI seen on and gram-negative pedrito lactose slab puller. * Continue IV ceftriaxone pending speciation and sensitivities * #TRACEY: Creatinine is 1.27. Has largely resolved. Encourage oral hydration. #Debility and weakness: PT OT on board. Fall precautions. #Benign essential hypertension: On lisinopril which was held due to TRACEY and remains on hold due to low BP. IV hydralazine as needed #Hypotension: patient still remains hypotensive though asymptomatic. Will start on midodrine 5mg tid. #History of Alzheimer's dementia: Hyperlipidemia: On statin #Hypothyroidism: On Synthroid #DVT prophylaxis: heparin Disposition: Will benefit from placement. Case management on board to help withthis. Charges/Coding Visit Charges Inpatient E&M: 11681 Subs Hosp L2 08/06/25 1650 <Electronically signed by Fatou Mcrae MD> Fatou Mcrae MD Cosigner Signature (if applicable): CC: ~ Signed [facility] Work Phone: 1(247) 944-245609-16-2025 Progress note [facility] Medical Records Department [address] [place] [address] Progress Note 08/06/25 1256 MR#: [id number] Acct: [id number] Name: GADIEL SAUL Rep #:[id number] : 1955 70 From: Fatou Mcrae MD PCP: NITZA MendesC Status:ADM IN Location: [facility] DC985-3 Subjective Subjective Patient seen and examined with her nurse by the bedside. She had no active complaints this morning.She does seem to still be confused as she kept saying she has to going to call from 1 to and she was going to her mother's house. Herblood pressure is still running low today in the 90s systolic. Review of systems otherwise negative. Objective Data Objective Data Vital Signs: Vital Signs Temp Pulse Resp BP Pulse Ox O2 Del Method 97.4 F L 55 L 16 92/61 96 Room Air 08/06/25 11:19 08/06/25 11:19 08/06/25 11:19 08/06/25 11:19 08/06/25 11:19 08/06/25 11:19 Oxygen Delivery Method Room Air Weight: 166 lb 0.129 oz Body Mass Index (BMI) 28.3 Intake & Output: Intake and Output for Last 24 Hours 08/04/25 08/05/25 08/06/25 23:59 23:59 23:59 Intake Total 1000 / 1000 50 / 50 650 / 650 Balance 1000 / 1000 50 / 50 650 / 650 Lab / Micro Data 08/06/25 04:41 08/06/25 04:41 Labs: Laboratory Results - last 24 hr 08/05/25 16:06: POC Glucose 161 H 08/05/25 20:48: POC Glucose 126 H 08/06/25 04:41: WBC 6.2, RBC 3.00 L, Hgb 9.2 L, Hct 28.1 L, MCV 93.7, MCH 30.7, MCHC 32.7, RDW Std Deviation 46.6 H, RDW Coeff of Kayleen 13.6, Plt Count 177, MPV 10.1, Immature Gran % (Auto) 0.300, Neut% (Auto) 52.2, Lymph % (Auto) 39.7, [place]leigh % (Auto) 6.5, Eos % (Auto) 1.0, Baso % (Auto) 0.3, Absolute Neuts (auto) 3.2, Absolute Lymphs (auto) 2.46, Nucleated RBC % 0, Sodium 142, Potassium 4.6, Chloride 109 H, Carbon Dioxide 23.1, Anion Gap 10, BUN 29 H, Creatinine 1.27 H, Estim Creat Clear Calc 40.64 L, Est GFR (MDRD) Non-Af 45 L, BUN/Creatinine Ratio23.0 H, Glucose 104 H, Calcium 9.1 Micro: Microbiology 08/02/25 21:30 Urine, Clean Catch Urine Culture - Final Corynebacterium minutissimum GNR lactose slab puller 08/02/25 22:40 Blood Culture (Wb) - Anticubital Right Blood Culture - Preliminary No growth in 48 hours. 08/02/25 23:05 Blood Culture (Wb) - Anticubital Right Blood Culture - Preliminary No growth in 48 hours. Physical Exam Const alert and no apparent distress Constitutional Narrative: confused General Appearance: cooperative Orientation / Consciousness: confused HEENT normocephalic, head/scalp atraumatic, hearing grossly normal bilaterally, moist oral mucous membranes and oropharynx normal Eyes PERRL, EOMs intact bilaterally and conjunctivae normal Neck no lymphadenopathy, supple and no JVD Lymph Lymphatic: no lymphedema noted Resp normal respiratory effort, normal air movement, no retractions, no use of accessory muscles and clear to auscultation bilaterally Cardio regular rate, regular rhythm, S1 normal heart sound, S2 normal heart sound and no murmurs GI normal to inspection, nondistended, normoactive bowel sounds, soft to palpation,non-tender and non-distended Extremity normal to inspection, full ROM, normal capillary refill, no clubbing, cyanosis or edema and no calftenderness General Extremity: no tenderness to palpation of joints or extremities Skin General Skin Exam: no breakdown Neuro CN's II-XII intact bilaterally, moves all extremities, no focal motor deficits and no sensory deficits noted Sensorium / Orientation: awake and alert Speech: speech normal Motor Exam: strength 5/5 throughout and general weakness Psych cooperative and affect normal Psych Narrative: confused Assessment & Plan Assessment/Plan (1) Generalized weakness: (2) Acute cystitis without hematuria: PLAN: Plan #UTI * On IV ceftriaxone. Urine cultures growing corynebacterium remain UTI seen on and gram-negative pedrito lactose slab puller. * Continue IV ceftriaxone pending speciation and sensitivities * #TRACEY: Creatinine is 1.27. Has largely resolved. Encourage oral hydration. #Debility and weakness: PT OT on board. Fall precautions. #Benign essential hypertension: On lisinopril which was held due to TRACEY and remains on hold due to low BP. IV hydralazine as needed #Hypotension: patient still remains hypotensive though asymptomatic. Will start on midodrine 5mg tid. #History of Alzheimer's dementia: Hyperlipidemia: On statin #Hypothyroidism: On Synthroid #DVT prophylaxis: heparin Disposition: Will benefit from placement. Case management on board to help withthis. Charges/Coding Visit Charges Inpatient E&M: 92122 Subs Hosp L2 08/06/25 5278 Fatou Mcrae MD Cosigner Signature (if applicable): CC: ~ Signed [facility]09-15-2025 [facility] Note Date/Time August 05, 2025 4:09pm [facility] Medical Records Department [address] [place] [address] Progress Note 08/05/25 1210 MR#: [id number] Acct: [id number] Name: GADIEL SAUL Rep #:[id number] : 1955 70 From: Fatou Mcrae MD PCP: Maria T Huertas [employer] Status:ADM IN Location: [place] HV389-5 Subjective Subjective Patient seen and examined. She had no active complaints. Patient however does remain confused. She is however able to answer questions. She had no active complaints and review of systems otherwise negative. Objective Data Objective Data Vital Signs: Vital Signs Temp Pulse Resp BP Pulse Ox O2 Del Method 98.0 F 64 16 99/62 98 Room Air 08/05/25 09:16 08/05/25 09:16 08/05/25 09:16 08/05/25 09:16 08/05/25 09:16 08/05/25 09:16 Oxygen Delivery Method Room Air Weight: 163 lb 5.8 oz Body Mass Index (BMI) 27.8 Intake & Output: Intake and Output for Last 24 Hours 08/03/25 08/04/25 08/05/25 23:59 23:59 23:59 Intake Total 2684 / 2684 1000 / 1000 Balance 2684 / 2684 1000 / 1000 Lab / Micro Data 08/05/25 06:16 08/05/25 06:16 Labs: Laboratory Results - last 24 hr 08/04/25 15:58: POC Glucose 107 H 08/04/25 21:39: POC Glucose 100 08/05/25 06:16: WBC 5.3, RBC 2.91 L, Hgb 9.1 L, Hct 27.8 L, MCV 95.5, MCH 31.3, MCHC 32.7, RDW Std Deviation 48.6 H, RDW Coeff of Kayleen 14.0, Plt Count 158, MPV 10.3, Immature Gran % (Auto) 0.200, Neut % (Auto) 52.2, Lymph % (Auto) 39.0, [place] % (Auto) 7.1, Eos % (Auto) 1.1, Baso % (Auto) 0.4, Absolute Neuts (auto) 2.8, Absolute Lymphs (auto) 2.08, Nucleated RBC % 0, Sodium 142, Potassium 4.6, Chloride 111 H, Carbon Dioxide 21.4, Anion Gap 10, BUN 25 H, Creatinine 1.23 H, Estim Creat Clear Calc 41.96 L, Est GFR (MDRD) Non-Af 47 L, BUN/Creatinine Ratio19.9, Glucose 92, Calcium 8.9 08/05/25 07:55: POC Glucose 91 08/05/25 10:52: POC Glucose 133 H Micro: Microbiology 08/02/25 22:40 Blood Culture (Wb) - Anticubital Right Blood Culture - Preliminary No growth in 48 hours. 08/02/25 23:05 Blood Culture (Wb) - Anticubital Right Blood Culture - Preliminary No growth in 48 hours. Physical Exam Const alert and no apparent distress Constitutional Narrative: confused General Appearance: cooperative HEENT normocephalic, head/scalp atraumatic, moist oral mucous membranes and oropharynxnormal Eyes PERRL Neck no lymphadenopathy and supple Lymph Lymphatic: no lymphedema noted Resp normal respiratory effort, normal air movement and clear to auscultation bilaterally Cardio regular rate, regular rhythm, S1 normal heart sound and S2 normal heart sound GI normal to inspection, nondistended, normoactive bowel sounds, soft to palpation and non-tender Extremity normal capillary refill, no clubbing, cyanosis or edema and no calf tenderness General Extremity: no tenderness to palpation of joints or extremities Skin General Skin Exam: no breakdown Neuro no focal motor deficits and no sensory deficits noted Motor Exam: strength 5/5 throughout and general weakness Psych cooperative Psych Narrative: confused Assessment & Plan Assessment/Plan (1) Generalized weakness: (2) Acute cystitis without hematuria: PLAN: Plan #UTI * On IV ceftriaxone. Urine cultures pending still. #TRACEY: Creatinine has trended down to normal at 1.23 today. Encourage oral hydration #Debility and weakness: PT OT on board. Fall precautions. #Benign essential hypertension: On lisinopril which was held due to TRACEY and remains on hold due to low BP. IV hydralazine as needed #History of Alzheimer's dementia: Hyperlipidemia: On statin #Hypothyroidism: On Synthroid #DVT prophylaxis: heparin Disposition: Will benefit from placement. Case management on board to help withthis. Charges/Coding Visit Charges Inpatient E&M: 29328 Subs Hosp L2 08/05/25 1609 <Electronically signed by Fatou Mcrae MD> Fatou Mcrae MD Cosigner Signature (if applicable): CC: ~ Signed [facility] Work Phone: 1(292) 449-262109-15-2025 Progress note [facility] Medical Records Department [address] [place] [address] Progress Note 08/05/25 1210 MR#: [id number] Acct: [id number] Name: GADIEL SAUL Rep #:[id number] : 1955 70 From: Fatou Mcrae MD PCP: JARETT Mendes Status:ADM IN Location: OK3 BQ900-1 Subjective Subjective Patient seen and examined. She had no active complaints. Patient however does remain confused. She is however able to answer questions. She had no active complaints and review of systems otherwise negative. Objective Data Objective Data Vital Signs: Vital Signs Temp Pulse Resp BP Pulse Ox O2 Del Method 98.0 F 64 16 99/62 98 Room Air 08/05/25 09:16 08/05/25 09:16 08/05/25 09:16 08/05/25 09:16 08/05/25 09:16 08/05/25 09:16 Oxygen Delivery Method Room Air Weight: 163 lb 5.8 oz Body Mass Index (BMI) 27.8 Intake & Output: Intake and Output for Last 24 Hours 08/03/25 08/04/25 08/05/25 23:59 23:59 23:59 Intake Total 2684 / 2684 1000 / 1000 Balance 2684 / 2684 1000 / 1000 Lab / Micro Data 08/05/25 06:16 08/05/25 06:16 Labs: Laboratory Results - last 24 hr 08/04/25 15:58: POC Glucose 107 H 08/04/25 21:39: POC Glucose 100 08/05/25 06:16: WBC 5.3, RBC 2.91 L, Hgb 9.1 L, Hct 27.8 L, MCV 95.5, MCH 31.3, MCHC 32.7, RDW Std Deviation 48.6 H, RDW Coeff of Kayleen 14.0, Plt Count 158, MPV 10.3, Immature Gran % (Auto) 0.200, Neut% (Auto) 52.2, Lymph % (Auto) 39.0, Burleigh % (Auto) 7.1, Eos % (Auto) 1.1, Baso % (Auto) 0.4, Absolute Neuts (auto) 2.8, Absolute Lymphs (auto) 2.08, Nucleated RBC % 0, Sodium 142, Potassium 4.6, Chloride 111 H, Carbon Dioxide 21.4, Anion Gap 10, BUN 25 H, Creatinine 1.23 H, Estim Creat Clear Calc 41.96 L, Est GFR (MDRD) Non-Af 47 L, BUN/Creatinine Ratio19.9, Glucose 92, Calcium 8.9 08/05/25 07:55: POC Glucose 91 08/05/25 10:52: POC Glucose 133 H Micro: Microbiology 08/02/25 22:40 Blood Culture (Wb) - Anticubital Right Blood Culture - Preliminary No growth in 48 hours. 08/02/25 23:05 Blood Culture (Wb) - Anticubital Right Blood Culture - Preliminary No growth in 48 hours. Physical Exam Const alert and no apparent distress Constitutional Narrative: confused General Appearance: cooperative HEENT normocephalic, head/scalp atraumatic, moist oral mucous membranes and oropharynxnormal Eyes PERRL Neck no lymphadenopathy and supple Lymph Lymphatic: no lymphedema noted Resp normal respiratory effort, normal air movement and clear to auscultation bilaterally Cardio regular rate, regular rhythm, S1 normal heart sound and S2 normal heart sound GI normal to inspection, nondistended, normoactive bowel sounds, soft to palpation and non-tender Extremity normal capillary refill, no clubbing, cyanosis or edema and no calf tenderness General Extremity: no tenderness to palpation of joints or extremities Skin General Skin Exam: no breakdown Neuro no focal motor deficits and no sensory deficits noted Motor Exam: strength 5/5 throughout and general weakness Psych cooperative Psych Narrative: confused Assessment & Plan Assessment/Plan (1) Generalized weakness: (2) Acute cystitis without hematuria: PLAN: Plan #UTI * On IV ceftriaxone. Urine cultures pending still. #TRACEY: Creatinine has trended down to normal at 1.23 today. Encourage oral hydration #Debility and weakness: PT OT on board. Fall precautions. #Benign essential hypertension: On lisinopril which was held due to TRACEY and remains on hold due to low BP. IV hydralazine as needed #History of Alzheimer's dementia: Hyperlipidemia: On statin #Hypothyroidism: On Synthroid #DVT prophylaxis: heparin Disposition: Will benefit from placement. Case management on board to help withthis. Charges/Coding Visit Charges Inpatient E&M: 27651 Subs Hosp L2 08/05/25 0678 Fatou Mcrae MD Cosigner Signature (if applicable): CC: ~ Signed [facility]09-14-2025 Progress note Author Lamberto Taylor [facility] Note Date/Time August 04, 2025 11:08am [facility] Medical Records Department [address] [place] [address] Progress Note - Hospitalist 08/04/25729 MR#: [id number] Acct: [id number] Name: GADIEL SAUL Rep #:[id number] : 1955 70 From: Lamberto Taylor DO PCP: JARETT Mendes Status:ADM IN [facility] Reason for Visit Chief Complaint: Diarrhea, Generalized Weakness and Abnormal Labs. Subjective Subjective Confused overnight. Required additional Seroquel. Objective Data Objective Data Vital Signs: Vital Signs Temp Pulse Resp BP Pulse Ox O2 Del Method 36.6 C 66 16 99/56 L 95 Room Air 08/04/25 02:39 08/04/25 02:39 08/04/25 02:39 08/04/25 02:39 08/04/25 02:39 08/04/25 02:39 Oxygen Delivery Method Room Air Weight: 74.2 kg Body Mass Index (BMI) 27.9 Intake & Output: Intake and Output for Last 24 Hours 08/02/25 08/03/25 08/04/25 23:59 23:59 23:59 Intake Total 1000 / 1000 2684 / 2684 Balance 1000 / 1000 2684 / 2684 Lab / Micro Data 08/04/25 04:22 08/04/25 04:22 Labs: Laboratory Results - last 24 hr 08/03/25 11:32: POC Glucose 113 H 08/03/25 17:16: POC Glucose 109 H 08/03/25 22:32: POC Glucose 108 H 08/04/25 04:22: WBC 6.1, RBC 2.81 L, Hgb 8.7 L, Hct 27.2 L, MCV 96.8, MCH 31.0, MCHC 32.0, RDW Std Deviation 49.1 H, RDW Coeff of Kayleen 13.7, Plt Count 151, MPV 9.9, Immature Gran % (Auto) 0.200, Neut % (Auto) 54.5, Lymph % (Auto) 37.5, Burleigh% (Auto) 6.7, Eos % (Auto) 0.8, Baso % (Auto) 0.3, Absolute Neuts (auto) 3.4, Absolute Lymphs (auto) 2.30, Nucleated RBC % 0.3, Sodium 141, Potassium 4.7, Chloride 112 H, Carbon Dioxide 19.9 L, Anion Gap 9, BUN 30 H, Creatinine 1.34 H, Estim Creat Clear Calc 38.54 L, Est GFR (MDRD) Non-Af 43 L, BUN/Creatinine Ratio22.0 H, Glucose 87, Calcium 8.7, Phosphorus 3.8 Physical Exam Const no apparent distress Constitutional Narrative: pleasantly confused. HEENT head/scalp atraumatic and moist oral mucous membranes Resp normal respiratory effort, no retractions, no use of accessory muscles and clearto auscultation bilaterally Cardio regular rate, regular rhythm, S1 normal heart sound and S2 normal heart sound GI normal to inspection, nondistended, normoactive bowel sounds and soft to palpation Assessment & Plan Assessment/Plan (1) Urinary tract infection: PLAN: UCx pending. On CTX (2) Acute kidney injury: PLAN: confirmed: Creatinine down from from 2.59 to 2.09 now to 1.34 completed IVF. continue to monitor (3) Generalized weakness: PLAN: 2/2 UTI, TRACEY in patient w dementia. PT OT follwing. PLAN: Plan Chronic medical conditions: * Alzheimer's dementia TSH, B12, Folate unremarkable. * Essential hypertension - lisinopril held given TRACEY. Would continue to hold given low BP. * Hyperlipidemia - FLP WNL. LDL 38 * Hypothyroidism; TSH WNL. DVT prophylaxis - Heparin 5,000U sq BID plus SCD's. Disposition: TBD. pt is a resident at [facility], but if SNF services needed, family (Kristen) requested [facility]. to reassess on 08/05 to readress with family. Charges/Coding Visit Charges Inpatient E&M: 76544 Subs Hosp L2 08/04/25 1108 <Electronically signed by Lamberto Taylor DO> Cosigner Signature (if applicable): CC: ~ Signed [facility] Work Phone: 1(165) 368-397309-14-2025 Progress note [facility] Medical Records Department [address] [place] [address] Progress Note - Hospitalist 08/04/2530 MR#: [id number] Acct: [id number] Name: GADIEL SAUL Rep #:[id number] : 1955 70 From: Lamberto Taylor DO PCP: NITZA MendesC Status:ADM IN Location: [place] GN996-4 Reason for Visit Chief Complaint: Diarrhea, Generalized Weakness and Abnormal Labs. Subjective Subjective Confused overnight. Required additional Seroquel. Objective Data Objective Data Vital Signs: Vital Signs Temp Pulse Resp BP Pulse Ox O2 Del Method 36.6 C 66 16 99/56 L 95 Room Air 08/04/25 02:39 08/04/25 02:39 08/04/25 02:39 08/04/25 02:39 08/04/25 02:39 08/04/25 02:39 Oxygen Delivery Method Room Air Weight: 74.2 kg Body Mass Index (BMI) 27.9 Intake & Output: Intake and Output for Last 24 Hours 08/02/25 08/03/25 08/04/25 23:59 23:59 23:59 Intake Total 1000 / 1000 2684 / 2684 Balance 1000 / 1000 2684 / 2684 Lab / Micro Data 08/04/25 04:22 08/04/25 04:22 Labs: Laboratory Results - last 24 hr 08/03/25 11:32: POC Glucose 113 H 08/03/25 17:16: POC Glucose 109 H 08/03/25 22:32: POC Glucose 108 H 08/04/25 04:22: WBC 6.1, RBC 2.81 L, Hgb 8.7 L, Hct 27.2 L, MCV 96.8, MCH 31.0, MCHC 32.0, RDW Std Deviation 49.1 H, RDW Coeff of Kayleen 13.7, Plt Count 151, MPV 9.9, Immature Gran % (Auto) 0.200, Neut % (Auto) 54.5, Lymph % (Auto) 37.5, [place]leigh% (Auto) 6.7, Eos % (Auto) 0.8, Baso % (Auto) 0.3, Absolute Neuts (auto) 3.4, Absolute Lymphs (auto) 2.30, Nucleated RBC % 0.3, Sodium 141, Potassium 4.7, Chloride 112 H, Carbon Dioxide 19.9 L, Anion Gap 9, BUN 30 H, Creatinine 1.34 H, Estim Creat Clear Calc 38.54 L, Est GFR (MDRD) Non-Af 43 L, BUN/Creatinine Ratio22.0 H, Glucose 87, Calcium 8.7, Phosphorus 3.8 Physical Exam Const no apparent distress Constitutional Narrative: pleasantly confused. HEENT head/scalp atraumatic and moist oral mucous membranes Resp normal respiratory effort, no retractions, no use of accessory muscles and clearto auscultation bilaterally Cardio regular rate, regular rhythm, S1 normal heart sound and S2 normal heart sound GI normal to inspection, nondistended, normoactive bowel sounds and soft to palpation Assessment & Plan Assessment/Plan (1) Urinary tract infection: PLAN: UCx pending. On CTX (2) Acute kidney injury: PLAN: confirmed: Creatinine down from from 2.59 to 2.09 now to 1.34 completed IVF. continue to monitor (3) Generalized weakness: PLAN: 2/2 UTI, TRACEY in patient w dementia. PT OT follwing. PLAN: Plan Chronic medical conditions: * Alzheimer's dementia TSH, B12, Folate unremarkable. * Essential hypertension - lisinopril held given TRACEY. Would continue to hold given low BP. * Hyperlipidemia - FLP WNL. LDL 38 * Hypothyroidism; TSH WNL. DVT prophylaxis - Heparin 5,000U sq BID plus SCD's. Disposition: TBD. pt is a resident at [facility], but if SNF services needed, family (Kristen) requested [facility]. to reassess on 08/05 to readress with family. Charges/Coding Visit Charges Inpatient E&M: 14249 Subs Hosp L2 08/04/25 1108 Cosigner Signature (if applicable): CC: ~ Signed [facility]09-13-2025 Progress note Author Lamberto Taylor [facility] Note Date/Time August 03, 2025 12:07pm [facility] Medical Records Department [address] [place] [address] Progress Note - Hospitalist 08/03/2552 MR#: [id number] Acct: [id number] Name: GADIEL SAUL Rep #:[id number] : 1955 70 From: Lamberto Taylor DO PCP: Maria T Huertas [employer] Status:ADM IN Location: [facility] TS667-3 Reason for Visit Chief Complaint: Diarrhea, Generalized Weakness and Abnormal Labs. Subjective Subjective Feeling well. Objective Data Objective Data Vital Signs: Vital Signs Temp Pulse Resp BP Pulse Ox O2 Del Method 36.9 C 64 16 110/58 L 98 Room Air 08/03/25 04:30 08/03/25 04:30 08/03/25 04:30 08/03/25 04:30 08/03/25 04:30 08/03/25 04:30 Oxygen Delivery Method Room Air Weight: 76.6 kg Body Mass Index (BMI) 28.8 Intake & Output: Intake and Output for Last 24 Hours 08/01/25 08/02/25 08/03/25 23:59 23:59 23:59 Intake Total 1000 / 1000 1050 / 1050 Balance 1000 / 1000 1050 / 1050 Lab / Micro Data 08/03/25 03:53 08/03/25 03:53 Labs: Laboratory Results - last 24 hr 08/02/25 19:42: WBC 10.8, RBC 3.40 L, Hgb 10.8 L, Hct 32.5 L, MCV 95.6, MCH 31.8, MCHC 33.2, RDW Std Deviation 47.9 H, RDW Coeff of Kayleen 13.8, Plt Count 181,MPV 10.4, Immature Gran % (Auto) 0.300, Neut % (Auto) 70.2 H, Lymph % (Auto) 21.0, Burleigh % (Auto) 7.6, Eos % (Auto) 0.6, Baso % (Auto) 0.3, Absolute Neuts (auto) 7.6, Absolute Lymphs (auto) 2.26, Nucleated RBC % 0, PT 13.0, INR 1.0, APTT 30.3, Sodium 141, Potassium 4.8, Chloride 104, Carbon Dioxide 23.7, Anion Gap 13, BUN 47 H, Creatinine 2.59 H, Estim Creat Clear Calc 19.72 L, Est GFR (MDRD) Non-Af 19 L, BUN/Creatinine Ratio 18.2, Glucose 137 H, Hemoglobin A1c 5.8H, Calcium 9.8, Magnesium 1.4 L, TSH 1.490 08/02/25 21:15: Lactic Acid 1.9 08/02/25 21:30: Urine Color Yellow, Urine Clarity Sl. Cloudy, Urine pH 5.0, Ur Specific Greenwood 1.015, Urine Protein 30 H, Urine Glucose (UA) 1000 H, Urine Ketones Negative, Urine Occult Blood 10 H, Urine Nitrite Negative, Urine Bilirubin Negative, Urine Urobilinogen Normal, Ur Leukocyte Esterase 500 H, Urine RBC 0-5 SEEN, Urine WBC 50-100 SEEN, Ur Squamous Epith Cells 0-5 SEEN, Urine Bacteria 1+, Urine Mucus 0 SEEN, Urine Opiates Screen NEGATIVE, U Buprenorphine Qual NEGATIVE, Ur Oxycodone Screen NEGATIVE, Urine Methadone Screen NEGATIVE, Urine Fentanyl Screen NEGATIVE, Ur Barbiturates Screen NEGATIVE, Ur Phencyclidine Scrn NEGATIVE, Ur Amphetamines Screen NEGATIVE, U Benzodiazepines Scrn NEGATIVE, Urine Cocaine Screen NEGATIVE, U Cannabinoids Screen NEGATIVE 08/02/25 23:57: Vitamin B12 312, Serum Folate 6.23, Ethyl Alcohol < 10.1 08/03/25 03:53: WBC 8.0, RBC 2.86 L, Hgb 9.3 L, Hct 28.1 L, MCV 98.3, MCH 32.5 H, MCHC 33.1, RDW Std Deviation 49.7 H, RDW Coeff of Kayleen 13.7, Plt Count 144 L, MPV 10.1, Immature Gran % (Auto) 0.200, Neut % (Auto) 60.2, Lymph % (Auto) 31.0,Burleigh % (Auto) 7.5, Eos % (Auto) 0.6, Baso % (Auto) 0.5, Absolute Neuts (auto) 4.8, Absolute Lymphs (auto) 2.48, Nucleated RBC % 0, Sodium 139, Potassium 4.5, Chloride 109 H, Carbon Dioxide 17.6 L, Anion Gap 12, BUN 42 H, Creatinine 2.09 H, Estim Creat Clear Calc 24.74 L, Est GFR (MDRD) Non-Af 25 L, BUN/Creatinine Ratio 20.1 H, Glucose 153 H, Calcium 8.5, Phosphorus 2.4 L, Total Bilirubin 0.30, AST 38 H, ALT 22, Alkaline Phosphatase 35, Total Protein 5.7 L, Albumin 3.5, Globulin 2.2, Albumin/Globulin Ratio 1.6, Triglycerides 62, Cholesterol 99,LDL Cholesterol, Calc 38, VLDL Cholesterol 12, HDL Cholesterol 49, Cholesterol/HDL Ratio 2.03 08/03/25 06:18: POC Glucose 141 H Radiography Diagnostic Testing: Radiology Impression Abdomen/Pelvis CT 08/02/25 20:37 IMPRESSION: 1. No bowel obstruction or active inflammatory process identified. 2. Extensive distal colonic diverticulosis without evidence of active diverticulitis/colitis. 3. Mildly enlarged lobulated myomatous uterus. Reading Location: [facility] Physical Exam Const Constitutional Narrative: pleasantly confused. non-toxic. Resp normal respiratory effort, no retractions, no use of accessory muscles and clearto auscultation bilaterally Cardio regular rate, regular rhythm, S1 normal heart sound, S2 normal heart sound and no murmurs Extremity normal to inspection, full ROM and no clubbing, cyanosis or edema Neuro Sensorium / Orientation: awake, alert, oriented to person, oriented to place andoriented to time Assessment & Plan Assessment/Plan (1) Urinary tract infection: PLAN: UCx pending. On CTX (2) Acute kidney injury: PLAN: suspected. No baseline labs. Creatinine down from from 2.59 to 2.09. Continue IVF (3) Generalized weakness: PLAN: 2/2 UTI, TRACEY in patient w dementia. PT OT evaluate and treat PLAN: Plan Chronic medical conditions: * Alzheimer's dementia TSH, B12, Folate unremarkable. * Essential hypertension - Hold lisinopril given TRACEY * Hyperlipidemia - FLP WNL. LDL 38 * Hypothyroidism; TSH WNL. DVT prophylaxis - Heparin 5,000U sq BID plus SCD's. Charges/Coding Visit Charges Inpatient E&M: 94968 Subs Hosp L2 08/03/25 1201 <Electronically signed by Lamberto Taylor DO> Cosigner Signature (if applicable): CC: ~ Signed [facility] Work Phone: [phone] Progress note [facility] Medical Records Department [address] [place] [address] Progress Note - Hospitalist 08/03/25 0852 MR#: [id number] Acct: [id number] Name: GADIEL SAUL Rep #:[id number] : 1955 70 From: Lamberto Taylor DO PCP: Maria T Huertas [employer] Status:ADM IN Location: [place] [id number] Reason for Visit Chief Complaint: Diarrhea, Generalized Weakness and Abnormal Labs. Subjective Subjective Feeling well. Objective Data Objective Data Vital Signs: Vital Signs Temp Pulse Resp BP Pulse Ox O2 Del Method 36.9 C 64 16 110/58 L 98 Room Air 08/03/25 04:30 08/03/25 04:30 08/03/25 04:30 08/03/25 04:30 08/03/25 04:30 08/03/25 04:30 Oxygen Delivery Method Room Air Weight: 76.6 kg Body Mass Index (BMI) 28.8 Intake & Output: Intake and Output for Last 24 Hours 08/01/25 08/02/25 08/03/25 23:59 23:59 23:59 Intake Total 1000 / 1000 1050 / 1050 Balance 1000 / 1000 1050 / 1050 Lab / Micro Data 08/03/25 03:53 08/03/25 03:53 Labs: Laboratory Results - last 24 hr 08/02/25 19:42: WBC 10.8, RBC 3.40 L, Hgb 10.8 L, Hct 32.5 L, MCV 95.6, MCH 31.8, MCHC 33.2, RDW Std Deviation 47.9 H, RDW Coeff of Kayleen 13.8, Plt Count 181,MPV 10.4, Immature Gran % (Auto) 0.300, Neut % (Auto) 70.2 H, Lymph % (Auto) 21.0, Burleigh % (Auto) 7.6, Eos % (Auto) 0.6, Baso % (Auto) 0.3, Absolute Neuts (auto) 7.6, Absolute Lymphs (auto) 2.26, Nucleated RBC % 0, PT 13.0, INR 1.0, APTT 30.3, Sodium 141, Potassium 4.8, Chloride 104, Carbon Dioxide 23.7, Anion Gap 13, BUN 47 H, Creatinine 2.59 H, Estim Creat Clear Calc 19.72 L, Est GFR (MDRD) Non-Af 19 L, BUN/Creatinine Ratio 18.2, Glucose 137 H, Hemoglobin A1c 5.8H, Calcium 9.8, Magnesium 1.4 L, TSH 1.490 08/02/25 21:15: Lactic Acid 1.9 08/02/25 21:30: Urine Color Yellow, Urine Clarity Sl. Cloudy, Urine pH 5.0, Ur Specific Greenwood 1.015, Urine Protein 30 H, Urine Glucose (UA) 1000 H, Urine Ketones Negative, Urine Occult Blood 10 H, Urine Nitrite Negative, Urine Bilirubin Negative, Urine Urobilinogen Normal, Ur Leukocyte Esterase 500 H, Urine RBC 0-5 SEEN, Urine WBC 50-100 SEEN, Ur Squamous Epith Cells 0-5 SEEN, Urine Bacteria 1+, Urine Mucus 0 SEEN, Urine Opiates Screen NEGATIVE, U Buprenorphine Qual NEGATIVE, Ur Oxycodone Screen NEGATIVE, Urine Methadone Screen NEGATIVE, Urine Fentanyl Screen NEGATIVE, Ur Barbiturates Screen NEGATIVE, Ur Phencyclidine Scrn NEGATIVE, Ur Amphetamines Screen NEGATIVE, U Benzodiazepines Scrn NEGATIVE, Urine Cocaine Screen NEGATIVE, U Cannabinoids Screen NEGATIVE 08/02/25 23:57: Vitamin B12 312, Serum Folate 6.23, Ethyl Alcohol < 10.1 08/03/25 03:53: WBC 8.0, RBC 2.86 L, Hgb 9.3 L, Hct 28.1 L, MCV 98.3, MCH 32.5 H, MCHC 33.1, RDW Std Deviation 49.7 H, RDW Coeff of Kayleen 13.7, Plt Count 144 L, MPV 10.1, Immature Gran % (Auto) 0.200, Neut % (Auto) 60.2, Lymph % (Auto) 31.0,Burleigh % (Auto) 7.5, Eos % (Auto) 0.6, Baso % (Auto) 0.5, Absolute Neuts (auto) 4.8, Absolute Lymphs (auto) 2.48, Nucleated RBC % 0, Sodium 139, Potassium 4.5, Chloride 109 H, Carbon Dioxide 17.6 L, Anion Gap 12, BUN 42 H, Creatinine 2.09 H, Estim Creat Clear Calc 24.74 L, Est GFR (MDRD) Non-Af 25 L, BUN/Creatinine Ratio 20.1 H, Glucose 153 H, Calcium 8.5, Phosphorus 2.4 L, Total Bilirubin 0.30, AST 38 H, ALT 22, Alkaline Phosphatase 35, Total Protein 5.7 L, Albumin 3.5, Globulin 2.2, Albumin/Globulin Ratio 1.6, Triglycerides 62, Cholesterol 99,LDL Cholesterol, Calc 38, VLDL Cholesterol 12, HDL Cholesterol 49, Cholesterol/HDL Ratio 2.03 08/03/25 06:18: POC Glucose 141 H Radiography Diagnostic Testing: Radiology Impression Abdomen/Pelvis CT 08/02/25 20:37 IMPRESSION: 1. No bowel obstruction or active inflammatory process identified. 2. Extensive distal colonic diverticulosis without evidence of active diverticulitis/colitis. 3. Mildly enlarged lobulated myomatous uterus. Reading Location: [facility] Physical Exam Const Constitutional Narrative: pleasantly confused. non-toxic. Resp normal respiratory effort, no retractions, no use of accessory muscles and clearto auscultation bilaterally Cardio regular rate, regular rhythm, S1 normal heart sound, S2 normal heart sound and no murmurs Extremity normal to inspection, full ROM and no clubbing, cyanosis or edema Neuro Sensorium / Orientation: awake, alert, oriented to person, oriented to place andoriented to time Assessment & Plan Assessment/Plan (1) Urinary tract infection: PLAN: UCx pending. On CTX (2) Acute kidney injury: PLAN: suspected. No baseline labs. Creatinine down from from 2.59 to 2.09. Continue IVF (3) Generalized weakness: PLAN: 2/2 UTI, TRACEY in patient w dementia. PT OT evaluate and treat PLAN: Plan Chronic medical conditions: * Alzheimer's dementia TSH, B12, Folate unremarkable. * Essential hypertension - Hold lisinopril given TRACEY * Hyperlipidemia - FLP WNL. LDL 38 * Hypothyroidism; TSH WNL. DVT prophylaxis - Heparin 5,000U sq BID plus SCD's. Charges/Coding Visit Charges Inpatient E&M: 80426 Subs Hosp L2 08/03/25 1207 Cosigner Signature (if applicable): CC: ~ Signed [facility]09-13-2025 History and physical note Author Jhonny Sesay [facility] Note Date/Time August 03, 2025 6:46am [facility] Medical Records Department [address] [place] [address] H&P Exam - Hospitalist 08/02/25 2313 MR#: [id number] Acct: [id number] Name: GADIEL SAUL Rep #:[id number] : 1955 70 From: Jhonny Boyce DO PCP: Maria T Huertas, [employer] Status:ADM IN Location: [facility] [id number] HPI - General General Date of Admission: 08/02/25 Date of Service: 08/02/25 Chief Complaint: Diarrhea, Generalized Weakness and Abnormal Labs. HPI Narrative GADIEL SAUL, is a 70 F with a past medical history of essential hypertension, hyperlipidemia, hypothyroidism; with history of thyroid surgery, overweight; with BMI of 29.6 this admission, former tobacco abuse, Alzheimer's dementia, DM-2; of unknown control on metformin and Ozempic, CKD; stage III of uncertain subtype and OA who presents to [facility] ER after she was notedto have diarrhea, generalized weakness and abnormal labs. Ms. Saul is not a reliable historian so information was gathered from chart, medical staff and computer. According to the records patient was noted to have nonbloody diarrheathat has been constant for the past several days with nurse practitioner at her facility electing to stop her Ozempic and metformin with initial suspicion for adverse drug reaction. Then earlier today she underwent routine laboratory testing which revealed an elevated serum creatinine of 2.42 mg deciliter consistent with TRACEY in the setting of CKD; stage III with nurse practitioner informing ER physician that this was a marked increase from the previous results. There was no report of associated fever, chills, changes in vision, discharge from eyes, runny nose, sore throat, chest pain, palpitations, heart racing, lower extremity edema, shortness of breath, cough, nausea, vomiting, abdominal pain, dysuria, hematuria, headache or rash. In the ER she was noted to have a UA positive for Acute Cystitis; without hematuria complicated by additional laboratory evidence of TRACEY; in setting of CKD: Stage III of uncertain subtype with elevated serum creatinine of 2.59 mg/dLand eGFR of 19 mL/min (with no previous results in our system available for comparison) compounded by Nonbloody Diarrhea all combining to cause Generalized Weakness with a corresponding CT scan of the abdomen and pelvis without contrastthat revealed no bowel obstruction or active inflammatory process identified with extensive distal colonic diverticulosis without evidence of active diverticulitis/colitis and mildly enlarged lobulated myomatous uterus. She was then admitted to the general medical floor with telemetric monitoring for ongoing care for status is expected to extend beyond 2 midnights. [facility] Medical History (Updated 08/02/25 @ 23:[address] Jhonny Albrecht, DO) Chronic kidney disease, stage 3 unspecified Other specified disorders of bone density and structure, unspecified site HTN (hypertension) Pure hypercholesterolemia, unspecified Diabetes mellitus Hypothyroidism, unspecified Other frontotemporal neurocognitive disorder AD (Alzheimer's disease) Home Medications ?Medication ?Instructions ?Recorded ?Last Taken ?Type calcium citrate 250 mg PO DAILY 08/02/25 Unk nown History cholecalciferol (vitamin D3) 50 50 mcg PO DAILY Unknown History mcg (2,000 unit) capsule dapagliflozin propanediol 5 mg 5 mg PO DAILY 08/02/25 Unknown History tablet (Farxiga) lisinopril 2.5 mg tablet 2.5 mg PO DAILY 08/02/25 Unk nown History multivitamin (Daily Multi-Vitamin 1 tab PO DAILY 08/02 Unknown History tablet) quetiapine 25 mg tablet (Seroquel) 12.5 mg PO QHS 07/22 01/15 Unknown History rosuvastatin 20 mg tablet 20 mg PO QHS 08/02/25 Unknow n History semaglutide 0.25 mg or 0.5 mg (2 0.5 mg subcut QWEEK 0 08/02/25 Unknown History mg/3 mL) subcutaneous pen injector (Ozempic) sertraline 25 mg tablet 25 mg PO DAILY 08/02/25 Unkn own History Allergy/AdvReac Type Severity Reaction Status Date / Time erythromycin base AdvReac PT UNSURE Verified 08/02/25 19:24 OF REACTION exenatide (From [place]) AdvReac PT UNSURE Verified 08/02/25 19:24 OF REACTION Penicillins AdvReac PT UNSURE Verified 08/02/25 19:24 OF REACTION Sulfa (Sulfonamide AdvReac PT UNSURE Verified 08/02/25 19:24 Antibiotics) OF REACTION Surgical History History of thyroid surgery Social History housing: group home Smoking Status: Former smoker ROS ROS Narrative Review of Systems: Constitutional: Patient denies fever or chills. Eyes: Patient denies changes in vision or discharge from eyes. ENT: Patient denies runny nose, sore throat or ear pain. Resp: Patient denies shortness of breath or cough. CV: Patient denies chest pain, palpitations, heart racing or lower extremity edema. GI: Patient admits to nonbloody diarrhea but she denies nausea, vomiting or abdominal pain as per HPI. : Patient denies dysuria or hematuria. MSK: Patient denies arthralgias or myalgias. Skin: Patient denies rash, abscess, wounds or jaundice. Psych: Patient has chronic dementia but she denies symptoms of uncontrolled depression or anxiety. Neuro: Patient denies headache, paresthesias or focal neurologic deficits. Allergy: Patient denies lip swelling, tongue swelling or urticaria. Hematology: Patient denies easy bleeding or easy bruisability. Endocrinology: Patient denies polyuria, polydipsia, polyphagia or heat/cold intolerance. 14 point ROS otherwise negative except for positives noted above in HPI. Vital Signs Vital Signs Vital Signs: 08/02/25 19:22 08/02/25 19:22 08/02/25 19:34 Temperature 98 F Temperature Source Temporal Pulse Rate 76 Respiratory Rate 19 H Respiratory Pattern Normal Blood Pressure 74/45 L 79/40 L Blood Pressure Mean 54 53 Pulse Ox 99 Oxygen Delivery Method Room Air 08/02/25 19:40 08/02/25 20:15 08/02/25 21:00 Temperature Temperature Source Pulse Rate 66 69 64 Respiratory Rate 17 18 25 H Respiratory Pattern Blood Pressure 93/55 L 99/66 88/52 L Blood Pressure Mean 67 77 65 Pulse Ox 98 98 90 Oxygen Delivery Method Room Air 08/02/25 22:00 Temperature Temperature Source Pulse Rate 61 Respiratory Rate 21 H Respiratory Pattern Blood Pressure 98/60 Blood Pressure Mean 73 Pulse Ox 96 Oxygen Delivery Method Weight Weight: 167 lb 5.294 oz Body Mass Index (BMI) 29.6 Physical Exam Const alert and no apparent distress Constitutional Narrative: Patient is pleasantly confused and nontoxic in appearance. General Appearance: cooperative Orientation / Consciousness: confused HEENT normocephalic, head/scalp atraumatic and hearing grossly normal bilaterally HEENT Narrative: Mucous membranes dry. Eyes PERRL, EOMs intact bilaterally and conjunctivae normal Neck no lymphadenopathy, supple and no JVD Resp normal respiratory effort, no retractions, no use of accessory muscles and clearto auscultation bilaterally Cardio regular rate and regular rhythm GI normal to inspection, nondistended, normoactive bowel sounds, soft to palpation,non-tender and non-distended Extremity normal to inspection, full ROM and no clubbing, cyanosis or edema Skin Skin Narrative: Patient is no evidence of rash, abscess, wounds or jaundice. Neuro CN's II-XII intact bilaterally, moves all extremities and no focal motor deficits Sensorium / Orientation: awake, alert, oriented to person and oriented to place Speech: speech normal Psych affect normal Results Medical Records Data Attestation: I reviewed the patient's medical records Lab / Micro Data Attestation: I reviewed the patient's lab results. 08/02/25 19:42 08/02/25 19:42 Labs: Laboratory Results - last 24 hr 08/02/25 19:42: WBC 10.8, RBC 3.40 L, Hgb 10.8 L, Hct 32.5 L, MCV 95.6, MCH 31.8, MCHC 33.2, RDW Std Deviation 47.9 H, RDW Coeff of Kayleen 13.8, Plt Count 181,MPV 10.4, Immature Gran % (Auto) 0.300, Neut % (Auto) 70.2 H, Lymph % (Auto) 21.0, Burleigh % (Auto) 7.6, Eos % (Auto) 0.6, Baso % (Auto) 0.3, Absolute Neuts (auto) 7.6, Absolute Lymphs (auto) 2.26, Nucleated RBC % 0, PT 13.0, INR 1.0, APTT 30.3, Sodium 141, Potassium 4.8, Chloride 104, Carbon Dioxide 23.7, Anion Gap 13, BUN 47 H, Creatinine 2.59 H, Estim Creat Clear Calc 19.72 L, Est GFR (MDRD) Non-Af 19 L, BUN/Creatinine Ratio 18.2, Glucose 137 H, Calcium 9.8 08/02/25 21:15: Lactic Acid 1.9 08/02/25 21:30: Urine Color Yellow, Urine Clarity Sl. Cloudy, Urine pH 5.0, Ur Specific Greenwood 1.015, Urine Protein 30 H, Urine Glucose (UA) 1000 H, Urine Ketones Negative, Urine Occult Blood 10 H, Urine Nitrite Negative, Urine Bilirubin Negative, Urine Urobilinogen Normal, Ur Leukocyte Esterase 500 H, Urine RBC 0-5 SEEN, Urine WBC 50-100 SEEN, Ur Squamous Epith Cells 0-5 SEEN, Urine Bacteria 1+, Urine Mucus 0 SEEN Imaging Radiology Impression Abdomen/Pelvis CT 08/02/25 20:37 IMPRESSION: 1. No bowel obstruction or active inflammatory process identified. 2. Extensive distal colonic diverticulosis without evidence of active diverticulitis/colitis. 3. Mildly enlarged lobulated myomatous uterus. Reading Location: [facility] Assessment & Plan Assessment/Plan (1) Acute cystitis without hematuria: (2) Diarrhea: QUALIFIERS: Diarrhea type: presumed infectious Qualified Code(s):R19.7 - Diarrhea, unspecified (3) TRACEY (acute kidney injury): (4) CKD (chronic kidney disease), stage III: QUALIFIERS: Chronic kidney disease stage 3 subtype: unspecified whether 3a or 3b Qualified Code(s): N18.30 - Chronic kidney disease, stage 3 unspecified (5) Adverse drug reaction: QUALIFIERS: Encounter type: initial encounter Qualified Code(s): T50.905A - Adverse effect of unspecified drugs, medicaments and biological substances, initial encounter (6) Generalized weakness: (7) AD (Alzheimer's disease): (8) Overweight (BMI 25.0-29.9): PLAN: Plan 1. UA positive for Acute Cystitis; without hematuria - Admit to general medicaldcoor telemetric monitoring. Continue empiric IV ceftriaxone begun in ER and await culture & sensitivity data. Give acetaminophen as needed for pain or fever. 2. Nonbloody Diarrhea complicating creatinine #1 - Place on enteric precautionsand check stool studies. 3. TRACEY; in setting of CKD: Stage III of uncertain subtype with elevated serum creatinine of 2.59 mg/dL and eGFR of 19 mL/min (with no previous results in our system available for comparison) complicating #1 & #2 - Give vigorous IV fluid and recheck renal indices daily to follow trend. We will avoid potentially nephrotoxic agents. 4. DM-2; of unknown control on metformin and Ozempic with possible adverse drugreaction contributing to #2 & #3 - ADA diet. FSBS q. AC/HS plus SSI. Check HgbA1c to objectively assess quality of diabetic control. 5. Generalized Weakness attributable to #1 - #4 - PT/OT and Case Management to consult and treat for further recommendations with help appreciated in advance. 6. Alzheimer's dementia adding to the medical complexity of #1 - #5 - Stable. Check TSH, B12, Folate, HgbA1c, UDS and TANA to evaluate for potentially reversible causes of confusion. 7. Overweight; with BMI of 29.6 this admission adding to the burden of disease outlined from #1 - #6 - Weight loss will be recommended. Check TSH. 8. Essential hypertension - Hold scheduled antihypertensives in light of #3. Give IV hydralazine prn for systolic blood pressure > 160 mmHg. 9. Hyperlipidemia - Check Lipid Profile. 10. Hypothyroidism; with history of thyroid surgery - Check TSH. 11. Former tobacco abuse - Noted. 12. OA - We will give acetaminophen prn as outlined in #1. 13. DVT prophylaxis - Heparin 5,000U sq BID plus SCD's. Total time: Approximately (but not less than) 75 minutes. Charges/Coding Visit Charges Inpatient E&M: 11415 Init Hosp L3 08/03/25 0646 <Electronically signed by Jhonny Albrecht DO> Cosigner Signature (if applicable): CC: JARETT Huertas; Dr. Jhonny Albrecht DO~ Signed [facility] Work Phone: [phone] History and physical note [facility] Medical Records Department [address] [place] [address] H&P Exam - Hospitalist 08/02/25 2313 MR#: [id number] Acct: [id number] Name: GADIEL SAUL Rep #:[id number] : 1955 70 From: Jhonny Boyce DO PCP: JARETT Mendes Status:ADM IN Location: [facility] IY351-3 HPI - General General Date of Admission: 08/02/25 Date of Service: 08/02/25 Chief Complaint: Diarrhea, Generalized Weakness and Abnormal Labs. HPI Narrative GADIEL SAUL, is a 70 F with a past medical history of essential hypertension, hyperlipidemia, hypothyroidism; with history of thyroid surgery, overweight; with BMI of 29.6 this admission, former tobacco abuse, Alzheimer's dementia, DM- 2; of unknown control on metformin and Ozempic, CKD; stage IIIof uncertain subtype and OA who presents to [facility] ER after she was notedto have diarrhea, generalized weakness and abnormal labs. Ms. Saul is not a reliable historian so information was gathered from chart, medical staff and computer. According to the records patient was notedto have nonbloody diarrheathat has been constant for the past several days with nurse practitioner at her facility electing to stop her Ozempic and metformin with initial suspicion for adverse drug reaction. Then earlier today she underwent routine laboratory testing which revealed an elevated serum creatinine of 2.42 mg deciliter consistent with TRACEY in the setting of CKD; stage III with nurse pra ctitioner informing ER physician that this was a marked increase from the previous results. There was no report of associated fever, chills, changes in vision, discharge from eyes, runny nose, sore throat, chest pain, palpitations, heart racing, lower extremity edema, shortness of breath, cough, nausea, vomiting, abdominal pain, dysuria, hematuria, headache or rash. In the ER she was noted to have a UA positive for Acute Cystitis; without hematuria complicated by additional laboratory evidence of TRACEY; in setting of CKD: Stage III of uncertain subtype with elevated serum creatinine of 2.59 mg/dLand eGFR of 19 mL/min (with no previous results in our system available for comparison) compounded by Nonbloody Diarrhea all combining to cause Generalized Weakness with a corresponding CT scan of the abdomen and pelvis without contrastthat revealed no bowel obstruction or active inflammatory process identified with extensive distal colonic diverticulosis without evidence of active diverticulitis/colitis and mildly enlarged lobulated myomatous uterus. She was then admitted to the general medical floor with telemetric monitoring for ongoing care for status is expected to extend beyond 2 midnights. [facility] Medical History (Updated 08/02/25 @ 23:[address] Jhonny Albrecht DO) Chronic kidney disease, stage 3 unspecified Other specified disorders of bone density and structure, unspecified site HTN (hypertension) Pure hypercholesterolemia, unspecified Diabetes mellitus Hypothyroidism, unspecified Other frontotemporal neurocognitive disorder AD (Alzheimer's disease) Home Medications ?Medication ?Instructions ?Recorded ?Last Taken ?Type calcium citrate 250 mg PO DAILY 08/02/25 Unk nown History cholecalciferol (vitamin D3) 50 50 mcg PO DAILY Unknown History mcg (2,000 unit) capsule dapagliflozin propanediol 5 mg 5 mg PO DAILY 08/02/25 Unknown History tablet (Farxiga) lisinopril 2.5 mg tablet 2.5 mg PO DAILY 08/02/25 Unk nown History multivitamin (Daily Multi-Vitamin 1 tab PO DAILY 08/02 Unknown History tablet) quetiapine 25 mg tablet (Seroquel) 12.5 mg PO QHS 07/22 01/15 Unknown History rosuvastatin 20 mg tablet 20 mg PO QHS 08/02/25 Unknow n History semaglutide 0.25 mg or 0.5 mg (2 0.5 mg subcut QWEEK 0 08/02/25 Unknown History mg/3 mL) subcutaneous pen injector (Ozempic) sertraline 25 mg tablet 25 mg PO DAILY 08/02/25 Unkn own History Allergy/AdvReac Type Severity Reaction Status Date / Time erythromycin base AdvReac PT UNSURE Verified 08/02/25 19:24 OF REACTION exenatide (From [place]) AdvReac PT UNSURE Verified 08/02/25 19:24 OF REACTION Penicillins AdvReac PT UNSURE Verified 08/02/25 19:24 OF REACTION Sulfa (Sulfonamide AdvReac PT UNSURE Verified 08/02/25 19:24 Antibiotics) OF REACTION Surgical History History of thyroid surgery Social History housing: group home Smoking Status: Former smoker ROS ROS Narrative Review of Systems: Constitutional: Patient denies fever or chills. Eyes: Patient denies changes in vision or discharge from eyes. ENT: Patient denies runny nose, sore throat or ear pain. Resp: Patient denies shortness of breath or cough. CV: Patient denies chest pain, palpitations, heart racing or lower extremity edema. GI: Patient admits to nonbloody diarrhea but she denies nausea, vomiting or abdominal pain as per HPI. : Patient denies dysuria or hematuria. MSK: Patient denies arthralgias or myalgias. Skin: Patient denies rash, abscess, wounds or jaundice. Psych: Patient has chronic dementia but she denies symptoms of uncontrolled depression or anxiety. Neuro: Patient denies headache, paresthesias or focal neurologic deficits. Allergy: Patient denies lip swelling, tongue swelling or urticaria. Hematology: Patient denies easy bleeding or easy bruisability. Endocrinology: Patient denies polyuria, polydipsia, polyphagia or heat/cold intolerance. 14 point ROS otherwise negative except for positives noted above in HPI. Vital Signs Vital Signs Vital Signs: 08/02/25 19:22 08/02/25 19:22 08/02/25 19:34 Temperature 98 F Temperature Source Temporal Pulse Rate 76 Respiratory Rate 19 H Respiratory Pattern Normal Blood Pressure 74/45 L 79/40 L Blood Pressure Mean 54 53 Pulse Ox 99 Oxygen Delivery Method Room Air 08/02/25 19:40 08/02/25 20:15 08/02/25 21:00 Temperature Temperature Source Pulse Rate 66 69 64 Respiratory Rate 17 18 25 H Respiratory Pattern Blood Pressure 93/55 L 99/66 88/52 L Blood Pressure Mean 67 77 65 Pulse Ox 98 98 90 Oxygen Delivery Method Room Air 08/02/25 22:00 Temperature Temperature Source Pulse Rate 61 Respiratory Rate 21 H Respiratory Pattern Blood Pressure 98/60 Blood Pressure Mean 73 Pulse Ox 96 Oxygen Delivery Method Weight Weight: 167 lb 5.294 oz Body Mass Index (BMI) 29.6 Physical Exam Const alert and no apparent distress Constitutional Narrative: Patient is pleasantly confused and nontoxic in appearance. General Appearance: cooperative Orientation / Consciousness: confused HEENT normocephalic, head/scalp atraumatic and hearing grossly normal bilaterally HEENT Narrative: Mucous membranes dry. Eyes PERRL, EOMs intact bilaterally and conjunctivae normal Neck no lymphadenopathy, supple and no JVD Resp normal respiratory effort, no retractions, no use of accessory muscles and clearto auscultation bilaterally Cardio regular rate and regular rhythm GI normal to inspection, nondistended, normoactive bowel sounds, soft to palpation,non-tender and non-distended Extremity normal to inspection, full ROM and no clubbing, cyanosis or edema Skin Skin Narrative: Patient is no evidence of rash, abscess, wounds or jaundice. Neuro CN's II-XII intact bilaterally, moves all extremities and no focal motor deficits Sensorium / Orientation: awake, alert, oriented to person and oriented to place Speech: speech normal Psych affect normal Results Medical Records Data Attestation: I reviewed the patient's medical records Lab / Micro Data Attestation: I reviewed the patient's lab results. 08/02/25 19:42 08/02/25 19:42 Labs: Laboratory Results - last 24 hr 08/02/25 19:42: WBC 10.8, RBC 3.40 L, Hgb 10.8 L, Hct 32.5 L, MCV 95.6, MCH 31.8, MCHC 33.2, RDW Std Deviation 47.9 H, RDW Coeff of Kayleen 13.8, Plt Count 181,MPV 10.4, Immature Gran % (Auto) 0.300, Neut % (Auto) 70.2 H, Lymph % (Auto) 21.0, [place] % (Auto) 7.6, Eos % (Auto) 0.6, Baso % (Auto) 0.3, Absolute Neuts (auto) 7.6, Absolute Lymphs (auto) 2.26, Nucleated RBC % 0, PT 13.0, INR 1.0, APTT 30.3, Sodium 141, Potassium 4.8, Chloride 104, Carbon Dioxide 23.7, Anion Gap 13, BUN 47 H, Creatinine 2.59 H, Estim Creat Clear Calc 19.72 L, Est GFR (MDRD) Non-Af 19 L, BUN/Creatinine Ratio 18.2, Glucose 137 H, Calcium 9.8 08/02/25 21:15: Lactic Acid 1.9 08/02/25 21:30: Urine Color Yellow, Urine Clarity Sl. Cloudy, Urine pH 5.0, Ur Specific [place] 1.015, Urine Protein 30 H, Urine Glucose (UA) 1000 H, Urine Ketones Negative, Urine Occult Blood 10 H, Urine Nitrite Negative, Urine Bilirubin Negative, Urine Urobilinogen Normal, Ur Leukocyte Esterase 500 H, Urine RBC 0-5 SEEN, Urine WBC 50-100 SEEN, Ur Squamous Epith Cells 0-5 SEEN, Urine Bacteria 1+, Urine Mucus 0 SEEN Imaging Radiology Impression Abdomen/Pelvis CT 08/02/25 20:37 IMPRESSION: 1. No bowel obstruction or active inflammatory process identified. 2. Extensive distal colonic diverticulosis without evidence of active diverticulitis/colitis. 3. Mildly enlarged lobulated myomatous uterus. Reading Location: [facility] Assessment & Plan Assessment/Plan (1) Acute cystitis without hematuria: (2) Diarrhea: QUALIFIERS: Diarrhea type: presumed infectious Qualified Code(s):R19.7 - Diarrhea, unspecified (3) TRACEY (acute kidney injury): (4) CKD (chronic kidney disease), stage III: QUALIFIERS: Chronic kidney disease stage 3 subtype: unspecified whether 3a or 3b Qualified Code(s):N18.30 - Chronic kidney disease, stage 3 unspecified (5) Adverse drug reaction: QUALIFIERS: Encounter type: initial encounter Qualified Code(s): T50.905A - Adverse effect of unspecified drugs, medicaments and biological substances, initial encounter (6) Generalized weakness: (7) AD (Alzheimer's disease): (8) Overweight (BMI 25.0-29.9): PLAN: Plan 1. UA positive for Acute Cystitis; without hematuria - Admit to general medicalfloor telemetric monitoring. Continue empiric IV ceftriaxone begun in ER and await culture & sensitivity data. Give acetaminophen as needed for pain or fever. 2. Nonbloody Diarrhea complicating creatinine #1 - Place on enteric precautionsand check stool studies. 3. TRACEY; in setting of CKD: Stage III of uncertain subtype with elevated serum creatinine of 2.59 mg/dL and eGFR of 19 mL/min (with no previous results in our system available for comparison) complicating #1 & #2 - Give vigorous IV fluid and recheck renal indices daily to follow trend. We will avoid potentially nephrotoxic agents. 4. DM-2; of unknown control on metformin and Ozempic with possible adverse drugreaction contributing to #2 & #3 - ADA diet. FSBS q. AC/HS plus SSI. Check HgbA1c to objectively assess quality of diabetic control. 5. Generalized Weakness attributable to #1 - #4 - PT/OT and Case Management to consult and treat for further recommendations with help appreciated in advance. 6. Alzheimer's dementia adding to the medical complexity of #1 - #5 - Stable. Check TSH, B12, Folate, HgbA1c, UDS and TANA to evaluate for potentially reversible causes of confusion. 7. Overweight; with BMI of 29.6 this admission adding to the burden of disease outlined from #1 - #6 - Weight loss will be recommended. Check TSH. 8. Essential hypertension - Hold scheduled antihypertensives in light of #3. Give IV hydralazine prn for systolic blood pressure > 160 mmHg. 9. Hyperlipidemia - Check Lipid Profile. 10. Hypothyroidism; with history of thyroid surgery - Check TSH. 11. Former tobacco abuse - Noted. 12. OA - We will give acetaminophen prn as outlined in #1. 13. DVT prophylaxis - Heparin 5,000U sq BID plus SCD's. Total time: Approximately (but not less than) 75 minutes. Charges/Coding Visit Charges Inpatient E&M: 98030 Init Hosp L3 08/03/25 0646 Cosigner Signature (if applicable): CC: JARETT Huertas; Dr. Jhonny Albrecht, DO~ Signed [facility]09-13-2025 Discharge summary Author Lamberto Montiel [facility] Note Date/Time August 03, 2025 12:46am [facility] Medical Records Department [address] [place] [address] Emergency Department Summary 08/02/25 MR#: [id number] Acct: [id number] Name: GADIEL SAUL Rep #:[id number] : 1955 70 From: Lamberto Carlson PCP: JARETT Mendes Status:ADM IN Location: [facility] [id number] HPI History of Present Illness Chief Complaint: Abn Labs Informant: patient and family Onset/Context/Timing Onset: Today Context: Gradual Onset Timing: Continuous Quality: Weak, tired Location: Generalized Worsened by: Nothing Relieved by: Nothing Narrative Narrative: Patient presents with diarrhea that has been constant for the past several days. Patient saw her primary care nurse practitioner today who will stop the Ozempicand metformin. They noted that the patient's blood pressure was low and referred the patient to the emergency department. They did check labs earlier today which showed an elevated creatinine of 2.42. Primary care nurse practitioner states that this is markedly increased from previous results. Patient has a history of dementia and is a poor informant. [facility] Medical History Chronic kidney disease, stage 3 unspecified Other specified disorders of bone density and structure, unspecified site HTN (hypertension) Pure hypercholesterolemia, unspecified Diabetes mellitus Hypothyroidism, unspecified Other frontotemporal neurocognitive disorder AD (Alzheimer's disease) Allergy/AdvReac Type Severity Reaction Status Date / Time erythromycin base AdvReac PT UNSURE Verified 08/02/25 19:24 OF REACTION exenatide (From [place]) AdvReac PT UNSURE Verified 08/02/25 19:24 OF REACTION Penicillins AdvReac PT UNSURE Verified 08/02/25 19:24 OF REACTION Sulfa (Sulfonamide AdvReac PT UNSURE Verified 08/02/25 19:24 Antibiotics) OF REACTION Surgical History History of thyroid surgery Social History housing: group home Smoking Status: Former smoker ROS ROS ED Constitutional Constitutional ED: Denies chills or fever(s) Eyes Eyes: Denies blurry vision or change in vision ENT ENT ED: Denies rhinorrhea or sore throat Cardiovascular Cardiovascular: Denies chest pain or palpitations Respiratory/Chest Respiratory/Chest: Denies cough or dyspnea Gastrointestinal Gastrointestinal: Reports diarrhea, nausea and vomiting Genitourinary Genitourinary ED: Denies dysuria or hematuria Musculoskeletal Musculoskeletal: Denies back pain or neck pain Integumentary Denies abscess or rash Neurologic Neurologic: Denies headache(s) or weakness Allergic/Immunologic Allergic/Immunologic ED: Denies mouth swelling or urticaria EXAM Physical Exam Const Vital Signs: 08/02/25 19:22 08/02/25 19:22 08/02/25 19:34 Temperature 98 F Temperature Source Temporal Pulse Rate 76 Respiratory Rate 19 H Respiratory Pattern Normal Blood Pressure 74/45 L 79/40 L Blood Pressure Mean 54 53 Pulse Ox 99 Oxygen Delivery Method Room Air 08/02/25 19:40 08/02/25 20:15 08/02/25 21:00 Temperature Temperature Source Pulse Rate 66 69 64 Respiratory Rate 17 18 25 H Respiratory Pattern Blood Pressure 93/55 L 99/66 88/52 L Blood Pressure Mean 67 77 65 Pulse Ox 98 98 90 Oxygen Delivery Method Room Air 08/02/25 22:00 08/02/25 23:00 Temperature Temperature Source Pulse Rate 61 64 Respiratory Rate 21 H 14 Respiratory Pattern Blood Pressure 98/60 130/111 H Blood Pressure Mean 73 117 Pulse Ox 96 Oxygen Delivery Method Room Air Positive well nourished and well developed Constitutional Narrative: BMI is 29.6. General Appearance ED: well developed and NAD HEENT Reports moist mucous membranes Neck supple and no JVD Resp normal respiratory effort and clear to auscultation bilaterally Cardio regular rate and regular rhythm GI non-tender and non-distended Palpation: soft Extremity normal to inspection General Extremety ED: Negative for edema or tenderness General Extremity: Negative for edema Neuro CN's II-XII intact bilaterally and no sensory deficits noted Sensorium / Orientation: alert and orientation impaired Motor Exam: strength 5/5 throughout MDM MDM MDM Narrative Medical decision making narrative: Differential diagnosis includes acute kidney injury, dehydration, electrolyte abnormality, urinary tract infection, pyelonephritis, bowel obstruction, perforation, and sepsis. CBC will be obtained to assess for leukocytosis and anemia. Basic metabolic profile will be obtained to assess for electrolyte abnormality and renal function. PT with INR and PTT will be obtained to assess for coagulopathy. Serum lactate will be obtained to assess for sepsis. Urinalysis will be obtained to assess for urinary tract infection hematuria. Blood cultures will be obtained to assess for sepsis. Urine culture will be obtained to assess for urinary tract infection. CT scan of the abdomen pelvis will be obtained to assess for bowel obstruction, perforation, and pyelonephritis. Lab Data Attestation: I reviewed the patient's lab results. Lab results narrative: CBC was reviewed. There is a mild anemia with a hemoglobin of 10.8 and hematocrit of 32.5. Basic metabolic profile was reviewed. BUN was elevated at 47 and creatinine was 2.59. There are no prior labs available for comparison. Glucose was mildly elevated at 137. Serum lactate was reviewed and was normal at 1.9. PT with INR and PTT were reviewed and were within normal limits. Urinalysis was reviewed. Leukocyte esterase was 500 with 50-100 white blood cells. There is 1+ bacteria. Labs: Laboratory Results - last 24 hr 08/02/25 08/02/25 08/02/25 19:42 21:15 21:30 WBC 10.8 RBC 3.40 L Hgb 10.8 L Hct 32.5 L MCV 95.6 MCH 31.8 MCHC 33.2 RDW Std Deviation 47.9 H RDW Coeff of Kayleen 13.8 Plt Count 181 MPV 10.4 Immature Gran % (Auto) 0.300 Neut % (Auto) 70.2 H Lymph % (Auto) 21.0 [place] % (Auto) 7.6 Eos % (Auto) 0.6 Baso % (Auto) 0.3 Absolute Neuts (auto) 7.6 Absolute Lymphs (auto) 2.26 Nucleated RBC % 0 PT 13.0 INR 1.0 APTT 30.3 Sodium 141 Potassium 4.8 Chloride 104 Carbon Dioxide 23.7 Anion Gap 13 BUN 47 H Creatinine 2.59 H Estim Creat Clear Calc 19.72 L Est GFR (MDRD) Non-Af 19 L BUN/Creatinine Ratio 18.2 Glucose 137 H Lactic Acid 1.9 Calcium 9.8 Urine Color Yellow Urine Clarity Sl. Cloudy Urine pH 5.0 Ur Specific [place] 1.015 Urine Protein 30 H Urine Glucose (UA) 1000 H Urine Ketones Negative Urine Occult Blood 10 H Urine Nitrite Negative Urine Bilirubin Negative Urine Urobilinogen Normal Ur Leukocyte Esterase 500 H Urine RBC 0-5 SEEN Urine WBC 50-100 SEEN Ur Squamous Epith Cells 0-5 SEEN Urine Bacteria 1+ Urine Mucus 0 SEEN Radiography Diagnostic Testing: Clinical Impression(s) from Imaging Studies Abdomen/Pelvis CT 08/02/25 20:37 IMPRESSION: 1. No bowel obstruction or active inflammatory process identified. 2. Extensive distal colonic diverticulosis without evidence of active diverticulitis/colitis. 3. Mildly enlarged lobulated myomatous uterus. Reading Location: [facility] CT scan of the abdomen pelvis was obtained. There is no evidence of bowel obstruction. There is diverticulosis but no evidence of diverticulitis or colitis. This was interpreted by the radiologist and was also independently reviewed by myself. Management Discussion w/another healthcare provider: Hospitalist Treatment and Re-Evaluation :: Patient was given IV fluids. Patient was given a dose of Rocephin here. Patient and family were apprised of the findings. Patient was advised of the need for admission to the hospital. Case was discussed with the hospitalist. He will admit the patient to his service. Family understands and is agreeable with the plan. All questions were answered. Discharge Plan Triage Chief Complaint: Abn Labs ED Provider: Lamberto Montiel Dx/Rx/DC Orders Clinical Impression: Acute kidney injury, Urinary tract infection, Anemia Primary Care Provider: Maria T Huertas NP Referrals: Maria T Huertas [employer], [employer]-C [Primary Care Provider] - Print Language: Uzbek Disposition Disposition: [facility] What to do if you have Problems For any increased pain, shortness of breath, bleeding, nausea or vomiting, chestpain, or any unexpected problems, contact your Primary Care Provider. Call [facility] ([phone]) or report to the closest Emergency Room. Call 911 if necessary. 08/03/25 0046 <Electronically signed by Lamberto Montiel DO> Cosigner Signature (if applicable): CC: [employer] Maria T Huertas ~ Signed [facility] Work Phone: 1(877) 354-860909-13-2025 Evaluation note* Diagnosis Onset Date Resolution Status Admit Date Acute cystitis without hematuria acute August 02, 2025 11:37pm TRACEY (acute kidney injury) acute August 02, 2025 11:37pm AD (Alzheimer's disease) acute August 02, 2025 11:37pm Adverse drug reaction acute Sep tember 2024 11:37pm Anemia acute July 11:37pm Diarrhea acute July 11:37pm Generalized weakness acute Jul 11:37pm Overweight (BMI 25.0-29.9) acute August 02, 2025 11:37pm Urinary tract infection acute S eptember 2024 11:37pm CKD (chronic kidney disease) , stage III chronic August 02, 2025 11:37pm [facility] Work Phone: 1(126) 366-762709-13-2025 Discharge summary [facility] Medical Records Department [address] [place] [address] Emergency Department Summary 08/02/25 MR#: [id number] Acct: [id number] Name: GADIEL SAUL Rep #:[id number] : 1955 70 From: Lamberto Carlson PCP: Maria T Huertas NP-C Status:ADM IN Location: MS3 [id number] HPI History of Present Illness Chief Complaint: Abn Labs Informant: patient and family Onset/Context/Timing Onset: Today Context: Gradual Onset Timing: Continuous Quality: Weak, tired Location: Generalized Worsened by: Nothing Relieved by: Nothing Narrative Narrative: Patient presents with diarrhea that has been constant for the past several days. Patient saw her primary care nurse practitioner today who will stop the Ozempicand metformin. They noted that the patient's blood pressure was low and referred the patient to the emergency department. They did check labs earlier today which showed an elevated creatinine of 2.42. Primary care nurse practitioner statesthat this is markedly increased from previous results. Patient has a history of dementia and is a poor informant. PFSH PFSH Medical History Chronic kidney disease, stage 3 unspecified Other specified disorders of bone density and structure, unspecified site HTN (hypertension) Pure hypercholesterolemia, unspecified Diabetes mellitus Hypothyroidism, unspecified Other frontotemporal neurocognitive disorder AD (Alzheimer's disease) Allergy/AdvReac Type Severity Reaction Status Date / Time erythromycin base AdvReac PT UNSURE Verified 08/02/25 19:24 OF REACTION exenatide (From [place]) AdvReac PT UNSURE Verified 08/02/25 19:24 OF REACTION Penicillins AdvReac PT UNSURE Verified 08/02/25 19:24 OF REACTION Sulfa (Sulfonamide AdvReac PT UNSURE Verified 08/02/25 19:24 Antibiotics) OF REACTION Surgical History History of thyroid surgery Social History housing: group home Smoking Status: Former smoker ROS ROS ED Constitutional Constitutional ED: Denies chills or fever(s) Eyes Eyes: Denies blurry vision or change in vision ENT ENT ED: Denies rhinorrhea or sore throat Cardiovascular Cardiovascular: Denies chest pain or palpitations Respiratory/Chest Respiratory/Chest: Denies cough or dyspnea Gastrointestinal Gastrointestinal: Reports diarrhea, nausea and vomiting Genitourinary Genitourinary ED: Denies dysuria or hematuria Musculoskeletal Musculoskeletal: Denies back pain or neck pain Integumentary Denies abscess or rash Neurologic Neurologic: Denies headache(s) or weakness Allergic/Immunologic Allergic/Immunologic ED: Denies mouth swelling or urticaria EXAM Physical Exam Const Vital Signs: 08/02/25 19:22 08/02/25 19:22 08/02/25 19:34 Temperature 98 F Temperature Source Temporal Pulse Rate 76 Respiratory Rate 19 H Respiratory Pattern Normal Blood Pressure 74/45 L 79/40 L Blood Pressure Mean 54 53 Pulse Ox 99 Oxygen Delivery Method Room Air 08/02/25 19:40 08/02/25 20:15 08/02/25 21:00 Temperature Temperature Source Pulse Rate 66 69 64 Respiratory Rate 17 18 25 H Respiratory Pattern Blood Pressure 93/55 L 99/66 88/52 L Blood Pressure Mean 67 77 65 Pulse Ox 98 98 90 Oxygen Delivery Method Room Air 08/02/25 22:00 08/02/25 23:00 Temperature Temperature Source Pulse Rate 61 64 Respiratory Rate 21 H 14 Respiratory Pattern Blood Pressure 98/60 130/111 H Blood Pressure Mean 73 117 Pulse Ox 96 Oxygen Delivery Method Room Air Positive well nourished and well developed Constitutional Narrative: BMI is 29.6. General Appearance ED: well developed and NAD HEENT Reports moist mucous membranes Neck supple and no JVD Resp normal respiratory effort and clear to auscultation bilaterally Cardio regular rate and regular rhythm GI non-tender and non-distended Palpation: soft Extremity normal to inspection General Extremety ED: Negative for edema or tenderness General Extremity: Negative for edema Neuro CN's II-XII intact bilaterally and no sensory deficits noted Sensorium / Orientation: alert and orientation impaired Motor Exam: strength 5/5 throughout MDM MDM MDM Narrative Medical decision making narrative: Differential diagnosis includes acute kidney injury, dehydration, electrolyte abnormality, urinary tract infection, pyelonephritis, bowel obstruction, perforation, and sepsis. CBC will be obtained toassess for leukocytosis and anemia. Basic metabolic profile will be obtained to assess for electrolyte abnormality and renal function. PT with INR and PTT will be obtained to assess for coagulopathy.Serum lactate will be obtained to assess for sepsis. Urinalysis will be obtained to assess for urinary tract infection hematuria. Blood cultures will be obtained to assess for sepsis. Urine culture will be obtained to assess for urinary tract infection. CT scan of the abdomen pelvis will be obtained to assess for bowel obstruction, perforation, and pyelonephritis. Lab Data Attestation: I reviewed the patient's lab results. Lab results narrative: CBC was reviewed. There is a mild anemia with a hemoglobin of 10.8 and hematocrit of 32.5. Basic metabolic profile was reviewed. BUN was elevated at 47 and creatinine was 2.59. There are no prior labs available for comparison. Glucose was mildly elevated at 137. Serum lactate was reviewed and was normal at 1.9. PT with INR and PTT were reviewed and were within normal limits. Urinalysis was reviewed. Leukocyte esterase was 500 with 50-100 white blood cells. There is 1+ bacteria. Labs: Laboratory Results - last 24 hr 08/02/25 08/02/25 08/02/25 19:42 21:15 21:30 WBC 10.8 RBC 3.40 L Hgb 10.8 L Hct 32.5 L MCV 95.6 MCH 31.8 MCHC 33.2 RDW Std Deviation 47.9 H RDW Coeff of Kayleen 13.8 Plt Count 181 MPV 10.4 Immature Gran % (Auto) 0.300 Neut % (Auto) 70.2 H Lymph % (Auto) 21.0 [place] % (Auto) 7.6 Eos % (Auto) 0.6 Baso % (Auto) 0.3 Absolute Neuts (auto) 7.6 Absolute Lymphs (auto) 2.26 Nucleated RBC % 0 PT 13.0 INR 1.0 APTT 30.3 Sodium 141 Potassium 4.8 Chloride 104 Carbon Dioxide 23.7 Anion Gap 13 BUN 47 H Creatinine 2.59 H Estim Creat Clear Calc 19.72 L Est GFR (MDRD) Non-Af 19 L BUN/Creatinine Ratio 18.2 Glucose 137 H Lactic Acid 1.9 Calcium 9.8 Urine Color Yellow Urine Clarity Sl. Cloudy Urine pH 5.0 Ur Specific [place] 1.015 Urine Protein 30 H Urine Glucose (UA) 1000 H Urine Ketones Negative Urine Occult Blood 10 H Urine Nitrite Negative Urine Bilirubin Negative Urine Urobilinogen Normal Ur Leukocyte Esterase 500 H Urine RBC 0-5 SEEN Urine WBC 50-100 SEEN Ur Squamous Epith Cells 0-5 SEEN Urine Bacteria 1+ Urine Mucus 0 SEEN Radiography Diagnostic Testing: Clinical Impression(s) from Imaging Studies Abdomen/Pelvis CT 08/02/25 20:37 IMPRESSION: 1. No bowel obstruction or active inflammatory process identified. 2. Extensive distal colonic diverticulosis without evidence of active diverticulitis/colitis. 3. Mildly enlarged lobulated myomatous uterus. Reading Location: [facility] CT scan of the abdomen pelvis was obtained. There is no evidence of bowel obstruction. There is diverticulosis but no evidence of diverticulitis or colitis. This was interpreted by the radiologist and was also independently reviewed by myself. Management Discussion w/another healthcare provider: Hospitalist Treatment and Re-Evaluation :: Patient was given IV fluids. Patient was given a dose of Rocephin here. Patient and family were apprised of the findings. Patient was advised of the need for admission to the hospital. Case was discussed with the hospitalist. He will admit the patient to his service. Family understands and is agreeable with the plan. All questions were answered. Discharge Plan Triage Chief Complaint: Abn Labs ED Provider: Lamberto Montiel Dx/Rx/DC Orders Clinical Impression: Acute kidney injury, Urinary tract infection, Anemia Primary Care Provider: Maria T Huertas NP Referrals: Maria T Huertas NP, [employer] [Primary Care Provider] - Print Language: Uzbek Disposition Disposition: Acute Care Hospital [facility] What to do if you have Problems For any increased pain, shortness of breath, bleeding, nausea or vomiting, chestpain, or any unexpected problems, contact your Primary Care Provider. Call [facility] ([phone]) or report tothe closest Emergency Room. Call 911 if necessary. 08/03/25 0046 Cosigner Signature (if applicable): CC: JARETT Huertas ~ Signed [facility]09-12-2025 Radiology Diagnostic study note [facility] Imaging Services [address], [place] [id number] Abdomen/Pelvis without Cont MR#: [id number] Acct: [id number] Name: GADIEL SAUL Rep #: [id number] : 1955 F 70 From: Nehemiah Toney MD PCP: JARETT Mendes Status: REG ER Study:Abdomen/Pelvis without Cont Date of Exa m: 08/02/25 Exam# [id number] Ordering Dr: Lamberto Montiel DO PROCEDURE: CT ABDOMEN/PELVIS WITHOUT CONTRAST 08/02/2025 REASON FOR EXAM: DIARRHEA TECHNIQUE: Procedure Code: CTABDPEL Modality: CT Procedure: ABDOMEN/PELVIS WITHOUT CONT Noncontrast technique limits evaluation of the abdominal and pelvic viscera. Coronal and Sagittal reconstruction series were provided. One or more dose reduction techniques were used (e.g., Automated exposure control, adjustment of the mA and/or kV according to patient size, use of iterative reconstruction technique). RADIATION DOSE SUMMARY: CTDlvol: 12.27 mGy DLP: 597.56 mGycm COMPARISON: None. FINDINGS: Lung bases: Clear. Liver: Unremarkable. Gallbladder: Surgically absent. Spleen: Unremarkable. Pancreas: Unremarkable. Adrenals: Unremarkable. Kidneys: No urolithiasis or hydronephrosis. Nonspecific bilateral perinephric fat stranding, nonspecific but symmetric and most likely chronic. Bladder: Unremarkable. Reproductive Organs: Enlarged lobulated myomatous uterus. Unremarkable adnexae. Bowel: No evidence of obstruction or active inflammatory process. Normal appendix. Extensive distalcolonic diverticulosis without evidence for active diverticulitis/colitis. Lymph nodes: No suspicious lymph node enlargement. Vasculature: Normal caliber abdominal aorta and IVC. Mild atherosclerotic calcifications. Peritoneum / Retroperitoneum: No ascites or free air. Bones: Mild multilevel degenerative changes of the spine. CT/Abdomen/Pelvis without Cont IMPRESSION: 1. No bowel obstruction or active inflammatory process identified. 2. Extensive distal colonic diverticulosis without evidence of active diverticulitis/colitis. 3. Mildly enlarged lobulated myomatous uterus. Reading Location: [facility] CC: JARETT Huertas; Dr. Lamberto Montiel, DO ~ Pull Worker: Signed [facility]07-10-2025 Hospital Discharge instructions Patient Education 05/30/2025 20:53:03 Earwax Removal Earwax Removal The ear canal makes earwax from the canal s lining. The ears make wax to lubricate and protect the ear canal. The ear canal is the tube that connects the middle ear to the outside of the ear. The waxprotects the ear from bacteria, infection, and damage from water or trauma. The wax that forms in the canal naturally moves toward the outside of the ear and falls out. In some cases, the ear may make too much wax. If the wax causes problems or keeps the healthcare provider from seeing into the ear, the extra wax may be removed. Too much wax can affect your hearing. It can cause itching. In rare cases, it can be painful. Earwax should not be removed unless it is causing a problem. You should not stick objects into your ear to remove wax unless told to do so by your healthcare provider. Healthcare providers can remove earwax safely. It is important to stay still during the procedure to avoid damage to the ear canal. But removing earwax generally doesn t hurt. You will not usually need anesthesia or pain medicine when the provider removes the earwax. A number of conditions lead to earwax buildup. These include some skin problems, a narrow ear canal, or ears that make too much earwax. Using cotton swabs in the canal pushes earwax deeper into the ear and contributes to the buildup of earwax. Home care The healthcare provider may recommend mineral oil or an smmc-iog-ocstdfn eardrop to use at home to soften the earwax. Use these products only if the provider recommends them. Carefully follow the instructions given. Don t use mineral oil or OTC eardrops if you might have an ear infection or a ruptured eardrum. Tell your healthcare provider right away if you have diabetes or an immune disorder. Don t use cotton swabs in your ears. Cotton swabs may push wax deeper into the ear canal or damage the eardrum. Use cotton gauze or a wet washcloth to gently remove wax on the outside of the ear and around the opening to the ear canal. Don't use any probing device or object such as cotton-tipped swabs or jose pins to clean the inside of your ears. Don t use ear candles to clean your ears. Candling can be dangerous. It can burn the ear canal. It can also make the condition worse instead of better. Don t use cold water to rinse the ear. This will make you dizzy. If your provider tells you to rinse your ear, use only warm water or follow his or her instructions. Check the ear for signs of infection or irritation listed below under When to seek medical advice. Steps for using eardrops 1. Warm the medicine bottle by rubbing it between your hands for a few minutes. 2. Lie down on your side, with the affected ear up. 3. Place the recommended number of drops in the ear. Wet a cotton ball with the medicine. Gently put the cotton ball into the ear opening. Follow-up care Follow up with your healthcare provider, or as directed. When to seek medical advice Call the provider right away if you have: Ear pain that gets worse Fever of 100.4F F (38 C) or higher, or as directed by your healthcare provider Worsening wax buildup Severe pain, dizziness, or nausea Bleeding from the ear Hearing problems Signs of irritation from the eardrops, such as burning, stinging, or swelling and tenderness Foul-smelling fluid draining from the ear Swelling, redness, or tenderness of the outer ear Headache, neck pain, or stiff neck [id number] [employer]. [address] [place] [address]. All rights reserved. This information is not intended as a substitute for professional medical care. Always follow yourhealthcare professional's instructions. Follow Up Care 05/30/2025 19:26:34 With:Go to emergency room if symptoms worsen Address:Unknown When:2-4 days With:MARIA T HUERTAS Address: [address] [place], [place] [id number] [phone] When:2-4 days [facility] 07-10-2025 Emergency department Discharge summary Discharge Instructions Thank you for allowing [facility] to assist you with your healthcare needs. The following is importantdischarge information regarding your hospital visit. Diagnosis from Today's Visit Cerumen impaction Encounter for medical screening examination What to Do Next Instructions from Your Care Team please follow up with pcp or return to the ED for any acute worsening symptoms or concerns. No qualifying data available. Post Acute Orders No qualifying data available. You Need to Schedule the Following Appointments Follow Up with Go to emergency room if symptoms worsen When:Within 2-4 days Follow Up with MARIA T HUERTAS When:Within 2-4 days Where:[address] [place] [phone] Allergies [place] Prefilled Pen Hives erythromycin Hives penicillin Hives sulfa drugs Thrush Medications Please ask your primary doctor or pharmacist before taking any other medication not listed, including over the counter drugs, herbal medications, vitamins and or supplements as they may interact withyour home medications. What How Much When Why Instructions Last Dose New carbamide peroxide otic (Debrox 6.5% otic solution) 4 Drops Both ears Two (2) times a day Duration: 4 Days Refills: 1 may repeat every 2 weeks as needed Printed Prescription Unchanged acetaminophen (acetaminophen 500 mg oral tablet) 2 tab(s) by mouth Every 6 hours as needed for for pain Unchanged calcium citrate (calcium (as calcium citrate) 250 mg oral tablet) 1 tab(s) by mouth Two (2) times a day Osteopenia Post-menopausal Unchanged cholecalciferol (Vitamin D3 50 mcg (2000 intl units) oral capsule) 1 cap by mouth Once a day Duration: 90 Days Unchanged dapagliflozin (Farxiga 5 mg oral tablet) 1 tab(s) by mouth Once a day Type 2 diabetes mellitus Chronic kidney disease Duration: 90 Days Unchanged DME (Blood Glucose Test Strips) See instructions Freestyle Lite, TID & PRN Diabetes E11.9 EA= BOX OF 100 Unchanged DME (DME MISCellaneous) See instructions EA=BOX of 100 E11.9 To test TID and PRN Lancets for Freestyle Lite Unchanged DME (Pen needles 6 mm) See instructions EA=BOX of 100 Unchanged ibuprofen (ibuprofen 200 mg oral tablet) 3 tab(s) by mouth Every 6 hours as needed for for fever/pain Take with food or milk. Unchanged lisinopril (lisinopril 2.5 mg oral tablet) 1 tab(s) by mouth Every day Type 2 diabetes mellitus Hypertension Unchanged metFORMIN (metFORMIN 500 mg oral tablet (IR)) 2 tab(s) by mouth Two (2) times a day Type 2 diabetes mellitus Unchanged methyl salicylate topical (BENGAY Arthritis topical cream) As needed for arthritis Isatu scent Unchanged multivitamin (Multivitamin) 1 tab(s) by mouth Every day Unchanged rosuvastatin (rosuvastatin 20 mg oral tablet) 1 tab(s) by mouth Once a day Hypercholesteremia Type 2 diabetes mellitus Duration: 30 Days Patient requested 30 day supply only Unchanged semaglutide (Ozempic 4 mg/ 3 mL (1 mg dose) subcutaneous solution) 1 Milligram Subcutaneous Every week Type 2 diabetes mellitus Unchanged semaglutide (semaglutide 0.5 mg/ 0.5 mL (0.5 mg dose) subcutaneous solution) 0.5 Milligram Subcutaneous Every week Type 2 diabetes mellitus Duration: 4 week(s) in the abdomen, thigh, or upper arm Unchanged sertraline (sertraline 25 mg oral tablet) 1 tab(s) by mouth Once a day Depression Please take this list to your next doctor s visit. Bring all medications you take, including over the counter medications, herbals and other supplements with you to your doctor s visit. Patients and families are reminded to discard old lists and to update any records with all medication providers or retail pharmacies. Education Materials Earwax Removal The ear canal makes earwax from the canal s lining. The ears make wax to lubricate and protect the ear canal. The ear canal is the tube that connects the middle ear to the outside of the ear. The waxprotects the ear from bacteria, infection, and damage from water or trauma. The wax that forms in the canal naturally moves toward the outside of the ear and falls out. In some cases, the ear may make too much wax. If the wax causes problems or keeps the healthcare provider from seeing into the ear, the extra wax may be removed. Too much wax can affect your hearing. It can cause itching. In rare cases, it can be painful. Earwax should not be removed unless it is causing a problem. You should not stick objects into your ear to remove wax unless told to do so by your healthcare provider. Healthcare providers can remove earwax safely. It is important to stay still during the procedure to avoid damage to the ear canal. But removing earwax generally doesn t hurt. You will not usually need anesthesia or pain medicine when the provider removes the earwax. A number of conditions lead to earwax buildup. These include some skin problems, a narrow ear canal, or ears that make too much earwax. Using cotton swabs in the canal pushes earwax deeper into the ear and contributes to the buildup of earwax. Home care The healthcare provider may recommend mineral oil or an dmcf-chp-gykeoex eardrop to use at home to soften the earwax. Use these products only if the provider recommends them. Carefully follow the instructions given. Don t use mineral oil or OTC eardrops if you might have an ear infection or a ruptured eardrum. Tell your healthcare provider right away if you have diabetes or an immune disorder. Don t use cotton swabs in your ears. Cotton swabs may push wax deeper into the ear canal or damage the eardrum. Use cotton gauze or a wet washcloth to gently remove wax on the outside of the ear and around the opening to the ear canal. Don't use any probing device or object such as cotton-tipped swabs or jose pins to clean the inside of your ears. Don t use ear candles to clean your ears. Candling can be dangerous. It can burn the ear canal. It can also make the condition worse instead of better. Don t use cold water to rinse the ear. This will make you dizzy. If your provider tells you to rinse your ear, use only warm water or follow his or her instructions. Check the ear for signs of infection or irritation listed below under When to seek medical advice. Steps for using eardrops 1. Warm the medicine bottle by rubbing it between your hands for a few minutes. 2. Lie down on your side, with the affected ear up. 3. Place the recommended number of drops in the ear. Wet a cotton ball with the medicine. Gently put the cotton ball into the ear opening. Follow-up care Follow up with your healthcare provider, or as directed. When to seek medical advice Call the provider right away if you have: Ear pain that gets worse Fever of 100.4F F (38 C) or higher, or as directed by your healthcare provider Worsening wax buildup Severe pain, dizziness, or nausea Bleeding from the ear Hearing problems Signs of irritation from the eardrops, such as burning, stinging, or swelling and tenderness Foul-smelling fluid draining from the ear Swelling, redness, or tenderness of the outer ear Headache, neck pain, or stiff neck [phone] [employer]. [address] [place] [address], [place] [address]. All rights reserved. This information is not intended as a substitute for professional medical care. Always follow yourhealthcare professional's instructions. Additional Information VACCINATE! IT SAVES LIVES! Members of the community who have not yet received the COVID-19 vaccine and would like to receive it can visit one of [facility] vaccine clinics. There are many vaccine clinic locations within the [facility]. For locations and available times, please visit www.gettheshot.coronavirus.[place].gov/. It is important to note that some COVID mobile vaccine clinics are held outdoors and may be canceled in rainy or stormy conditions. To learn more about pediatric vaccinations (ages 5-11), we invite you to visit the [facility] webpage. https://www.[facility].org/pages/8073-Qvebt-Njirqgdifkc-Ttfezuahlg-Gylcs-Erc stions.htmlTo learn more about the COVID-19 vaccine, we invite you to visit the CDC website for a list of frequently asked questions. https://www.cdc.gov/coronavirus/2019-ncov/vaccines/faq.html [facility] Patient Portal Access Instructions: Stay connected with your healthcare team and access your personal medical information anytime with the [facility] Patient Portal. If you would like a full copy of your medical records please contact the [facility] Medical Records Department Tuesday through Tuesday between 8a.m. and 4:30p.m. Please follow the directions below to access the portal: 1.Access the email account you provided upon registration to the hospital.2.Look for an invitation email from [facility].3.Open the email and access the invitation link: Accept Invitation to [facility]4.Fill in the required gibbons to create your account. Sign into www.[email or web address] with your username and password that you created in the above steps to stay up to date. You can then view a summary of results, a summary of your visits, and the ability to download your summaries to your computer or send the information securely to a physician. Remember that your healthcare information is confidential, so carefully consider who you will allow to register on the [facility] Patient Portal for access to your information. You can also access the [address] [facility] Patient Portal on the [employer] juan j. Simply click on "Health Records" under "[facility]" and then click on the [employer] logo. HOW TO SAFELY DISPOSE OF PRESCRIPTION MEDICATIONS Please use one of the following methods to safely dispose of your unused medications. 1.Use a drug disposal kit: the drug disposal pouch allows you to safely discard your old and unuseddrugs. Ask your nurse to give you one when you are discharged.2.Visit a local take-back location: Many local pharmacies and police departments have programs that collect old and unwanted prescriptiondrugs. Call your local pharmacy or go to http://naaptol.seniorshelf.com/7T0Sg7e to find one close to you.3.Make use of household items: Use cat litter or old coffee grounds to dispose medications if other options arenot available. Mix your drugs with these household products, seal them in an airtight container andthrow it into the garbage. Call [facility]: [phone] to be sure your drugs can be disposed of in this way. Some medicines may require a different approach.4.Never flush your medications down the toilet. IF YOU HAVE BEEN PRESCRIBED AN OPIOIDS FOR PAIN If you have been prescribed an opioid (such as hydrocodone, oxycodone or morphine), it is critical to understand the possible side effects and risks of opioid pain medications. Even when taken as directed, opioids can have several side effects including: Tolerance, meaning you might need to take more of a medication for the same pain relief. Nausea, vomiting and/or constipation. Sleepiness, dizziness, dry mouth, confusion, depression or itching. Physical dependence, meaning you have withdrawal symptoms when a medication is stopped ? this can develop within a few days. KNOW YOUR RESPONSIBILITIES It is important to know exactly how much and how often to take the opioid pain medications you are prescribed. Never take opioids in higher amounts or more often than prescribed. Do not combine opioids with alcohol or other drugs that cause drowsiness, such as benzodiazepines, also known as benzos, including diazepam and alprazolam, muscle relaxants or sleep aids. Never sell or share prescription opioids. This is illegal. Store opioids in a secure place and out of reach of others (including children, family, friends and visitors). The last page(s) of this document has been signed and retained as a CHART COPY Signatures Patient Education Materials Earwax Removal Medication Leaflets My discharge plan and instructions have been reviewed and explained to me and I,BRYAN, GADIEL Arce understand my current condition and have read and understand these discharge instructions. I have received a written copy of the plan/instructions. If I have questions, I am aware that I should contact my doctor. Patient/Animal Attendant Signature: Date/Time: Relationship to Patient: Witness Name/Signature: Date/Time: [facility]11-11-2022 Note ORIGINAL EXAMINATION: BONE DENSITOMETRY 10/01/2022 10:48 am TECHNIQUE: A bone density dual x-ray absorptiometry (DEXA) scan was performed of the lumbar spine and left hip. COMPARISON: 09/22/2020. HISTORY: ORDERING SYSTEM PROVIDED HISTORY: Reason for Exam: Osteoporosis Screening FINDINGS: T Score Left Femoral Neck: -2.1 Left Femoral Neck: 0.611 (g/cm2) T Score Left Hip: -0.1 Left Hip: 0.933 (g/cm2) T Score Lumbar Spine: -0.5 Lumbar Spine: 0.992 (g/cmd2) *By the World Health Organization standards: Osteopenia is present when the bone mineral density is greater than 1 standard deviation (SD) but less than 2.5 SDs below a young normal sex matched population. Osteoporosis is present when the bone mineral density is equal to or greater than 2.5 SDs below a young normal sex matched population. IMPRESSION: Osteopenia by WHO criteria. *By the World Health Organization criteria: (Comparing with young normal sex matched population) - Normal: T-score at or above -1 SD (standard deviation) - Osteopenia: T-score between -1 and -2.5 SD - Osteoporosis: T-score at or below -2.5 SD Interpreted by: Jhonny Sarah DO Preliminary Report By: Jhonny Sarah DO Electronically signed By Jhonny Sarah DO Dictated Date: 10/01/2022 11:35:57 AM Prelim Date: 10/01/2022 11:36:38 AM Sign Date: 10/01/2022 11:36:38 AM Ordering Provider: MARIA T HUERTAS [facility]11-11-2022 Note ORIGINAL EXAMINATION: BONE DENSITOMETRY 10/01/2022 10:48 am TECHNIQUE: A bone density dual x-ray absorptiometry (DEXA) scan was performed of the lumbar spine and left hip. COMPARISON: 09/22/2020. HISTORY: ORDERING SYSTEM PROVIDED HISTORY: Reason for Exam: Osteoporosis Screening FINDINGS: T Score Left Femoral Neck: -2.1 Left Femoral Neck: 0.611 (g/cm2) T Score Left Hip: -0.1 Left Hip: 0.933 (g/cm2) T Score Lumbar Spine: -0.5 Lumbar Spine: 0.992 (g/cmd2) *By the World Health Organization standards: Osteopenia is present when the bone mineral density is greater than 1 standard deviation (SD) but less than 2.5 SDs below a young normal sex matched population. Osteoporosis is present when the bone mineral density is equal to or greater than 2.5 SDs below a young normal sex matched population. IMPRESSION: Osteopenia by WHO criteria. *By the World Health Organization criteria: (Comparing with young normal sex matched population) - Normal: T-score at or above -1 SD (standard deviation) - Osteopenia: T-score between -1 and -2.5 SD - Osteoporosis: T-score at or below -2.5 SD Interpreted by: Jhonny Sarah DO Preliminary Report By: Jhonny Sarah DO Electronically signed By Jhonny Sraah DO Dictated Date: 10/01/2022 11:35:57 AM Prelim Date: 10/01/2022 11:36:38 AM Sign Date: 10/01/2022 11:36:38 AM Ordering Provider: MARIA T [facility] [address]07-14-2022 Note ORIGINAL EXAMINATION: THREE XRAY VIEWS OF THE RIGHT KNEE 06/03/2022 12:04 pm COMPARISON: None. HISTORY: ORDERING SYSTEM PROVIDED HISTORY: Reason for Exam: bilateral knee pain FINDINGS: No acute fracture, dislocation, aggressive osseous lesion, joint effusion, or radiopaque foreign body. There is joint space narrowing, greatest of the medial compartment. Tricompartmental osteophyte formation. IMPRESSION: Moderate degenerative change. Interpreted by: Lupe Cat MD Preliminary Report By: Lupe Cat MD Electronically signed By Lupe Cat MD Dictated Date: 06/03/2022 10:17:11 PM Prelim Date: 06/03/2022 10:17:54 PM Sign Date: 06/03/2022 10:17:54 PM Ordering Provider: [address]14-2022 Note ORIGINAL EXAMINATION: THREE XRAY VIEWS OF THE LEFT KNEE 06/03/2022 12:05 pm COMPARISON: None. HISTORY: ORDERING SYSTEM PROVIDED HISTORY: Reason for Exam: bilateral knee pain FINDINGS: No acute fracture, dislocation, aggressive osseous lesion, or radiopaque foreign body. There is joint space narrowing. Small lateral compartment and patellofemoral compartment osteophytes vascular calcifications are shown in the soft tissues. IMPRESSION: Mild degenerative changes. Interpreted by: Lupe Cat MD Preliminary Report By: Lupe Cat MD Electronically signed By Lupe Cat MD Dictated Date: 06/03/2022 10:01:27 PM Prelim Date: 06/03/2022 10:02:08 PM Sign Date: 06/03/2022 10:02:08 PM Ordering Provider: [address]14-2022 Note ORIGINAL EXAMINATION: THREE XRAY VIEWS OF THE LEFT KNEE 06/03/2022 12:05 pm COMPARISON: None. HISTORY: ORDERING SYSTEM PROVIDED HISTORY: Reason for Exam: bilateral knee pain FINDINGS: No acute fracture, dislocation, aggressive osseous lesion, or radiopaque foreign body. There is joint space narrowing. Small lateral compartment and patellofemoral compartment osteophytes vascular calcifications are shown in the soft tissues. IMPRESSION: Mild degenerative changes. Interpreted by: Lupe Cat MD Preliminary Report By: Lupe Cat MD Electronically signed By Lupe Cat MD Dictated Date: 06/03/2022 10:01:27 PM Prelim Date: 06/03/2022 10:02:08 PM Sign Date: 06/03/2022 10:02:08 PM Ordering Provider: [address]14-2022 Note ORIGINAL EXAMINATION: THREE XRAY VIEWS OF THE RIGHT KNEE 06/03/2022 12:04 pm COMPARISON: None. HISTORY: ORDERING SYSTEM PROVIDED HISTORY: Reason for Exam: bilateral knee pain FINDINGS: No acute fracture, dislocation, aggressive osseous lesion, joint effusion, or radiopaque foreign body. There is joint space narrowing, greatest of the medial compartment. Tricompartmental osteophyte formation. IMPRESSION: Moderate degenerative change. Interpreted by: Lupe Cat MD Preliminary Report By: Lupe Cat MD Electronically signed By Lupe Cat MD Dictated Date: 06/03/2022 10:17:11 PM Prelim Date: 06/03/2022 10:17:54 PM Sign Date: 06/03/2022 10:17:54 PM [facility] Emmie Anderson [facility] Note Date/Time August 07, 2025 1:59pm [facility] Medical Records Department [address] [place] [address] Counseling Note - Pharmacy 08/07/25 1318 MR#: [id number] Acct: [id number] Name: GADIEL SAUL Rep #:[id number] : 1955 70 From: Emmie Anderson PCP: JARETT Mendes Status:ADM IN [facility] Med Reconciliation Pharmacy Service has performed discharge medication reconciliation for this patient. The patient's discharge medication list was reviewed for discrepancies and discrepancies were resolved. Medications at Discharge Home Medications calcium citrate 250 mg PO DAILY 08/02/25 cholecalciferol (vitamin D3) 50 mcg (2,000 unit) capsule 50 mcg PO DAILY 08/02/25 dapagliflozin propanediol 5 mg tablet (Farxiga) 5 mg PO DAILY 08/02/25 multivitamin (Daily Multi-Vitamin tablet) 1 tab PO DAILY 08/02/25 quetiapine 25 mg tablet (Seroquel) 12.5 mg PO QHS 08/02/25 rosuvastatin 20 mg tablet 20 mg PO QHS 08/02/25 semaglutide 0.25 mg or 0.5 mg (2 mg/3 mL) subcutaneous pen injector (Ozempic) 0.5 mg subcut QWEEK 08/02/25 sertraline 25 mg tablet 25 mg PO DAILY 08/02/25 cefdinir 300 mg capsule 300 mg PO Q12 #8 caps 08/07/25 midodrine 5 mg tablet 5 mg PO TIDCM #90 tabs 08/07/25 08/07/25 1318 <Electronically signed by Emmie Anderson> Date _ Emmie Espinoza Signature (if applicable): Date CC: ~ Signed [facility] Work Phone: Evaluation + Plan note Future Appointments Appointment Date:07/30/2022 09:30:00 AM Scheduled Provider:MARIA T HUERTAS Location:[facility] Appointment Type: Wellness Medicare Diagnostic Tests Pending * Rheumatoid Factor 06/03/22 Future Scheduled Tests Laboratory* A1C Hemoglobin 07/31/22 * Hepatitis C Antibody IgG 07/31/22 [facility] Evaluation + Plan note Future Appointments Appointment Date:10/07/2022 11:30:00 AM Scheduled Provider: Location:[facility] Appointment Type:NUT Diet Visit Individual Future Scheduled Tests Laboratory* A1C Hemoglobin 07/31/22 * Hepatitis C Antibody IgG 07/31/22 [facility] Evaluation + Plan note Future Appointments Appointment Date:10/20/2022 11:30:00 AM Scheduled Provider: Location:[facility] Appointment Type:NUT Diet Visit Individual Future Scheduled Tests Laboratory* A1C Hemoglobin 07/31/22 * Hepatitis C Antibody IgG 07/31/22 [facility] evaluation + Plan note Future Appointments Appointment Date:05/27/2023 08:30:00 AM Scheduled Provider:MARIA T HUERTAS Location:[facility] Appointment Type:PC OV Future Scheduled Tests Laboratory* A1C Hemoglobin 07/31/22 * Complete Blood Count 02/25/23 * Lipid Profile 02/25/23 * Hepatitis C Antibody IgG 07/31/22 * Complete Metabolic Panel 02/25/23 [facility] evaluation + Plan note Future Appointments Appointment Date:07/21/2023 11:00:00 AM Scheduled Provider: Location:[facility] Appointment Type:DB Diabetic Individual Visit (AOH) Appointment Date:07/21/2023 11:30:00 AM Scheduled Provider: Location:[facility] Appointment Type:NUT Diet Visit Individual Appointment Date:08/26/2023 08:30:00 AM Scheduled Provider:MARIA T HUERTAS Location:[facility] Appointment Type:PC Wellness Medicare Future Scheduled Tests Laboratory* Thyroid Stimulating Hormone 05/27/23 * A1C Hemoglobin 07/31/22 * Complete Blood Count 05/27/23 * Lipid Profile 05/27/23 * Hepatitis C Antibody IgG 05/27/23 * Hepatitis C Antibody IgG 07/31/22 * Complete Metabolic Panel 05/27/23 [facility] Evaluation + Plan note Future Appointments Appointment Date:05/22/2024 11:30:00 AM Scheduled Provider:MARIA T HUERTAS Location:[facility] Appointment Type:PC OV Future Scheduled Tests Laboratory* Thyroid Stimulating Hormone 05/27/23 * Complete Blood Count 05/27/23 * Lipid Profile 05/27/23 * Hepatitis C Antibody IgG 05/27/23 * Complete Metabolic Panel 05/27/23 [facility] Evaluation + Plan note Future Appointments Appointment Date:09/04/2024 11:30:00 AM Scheduled Provider:MARIA T HUERTAS Location:[facility] Appointment Type:PC OV Future Scheduled Tests Laboratory* Thyroid Stimulating Hormone 05/25/24 * Vitamin D Level 05/25/24 [facility] Evaluation + Plan note Future Appointments Appointment Date:12/04/2024 11:00:00 AM Scheduled Provider:MARIA T HUERTAS Location:[facility] Appointment Type:PC OV Future Scheduled Tests Laboratory* Thyroid Stimulating Hormone 05/25/24 [facility] Evaluation + Plan note Future Appointments Appointment Date:06/05/2025 12:30:00 PM Scheduled Provider:MARIA T HUERTAS Location:[facility] Appointment Type:PC OV [facility] Evaluation + Plan note Future Appointments Appointment Date:09/05/2025 12:30:00 PM Scheduled Provider:MARIA T HUERTAS Location:[facility] Appointment Type:PC OV Follow Up Future Scheduled Tests Laboratory* Basic Metabolic Panel 06/05/25 * Albumin/Creatinine Ratio, Random Urine 06/05/25 [facility] Evaluation + Plan note Future Appointments Appointment Date:09/05/2025 12:30:00 PM Scheduled Provider:MARIA T HUERTAS Location:[facility] Appointment Type:PC OV Follow Up [facility] Evaluation + Plan note Future Appointments Appointment Date:09/05/2025 12:30:00 PM Scheduled Provider:MARIA T HUERTAS Location:[facility] Appointment Type:PC OV Follow Up Future Scheduled Tests Laboratory* Basic Metabolic Panel 06/08/25 [facility] Evaluation note* Diagnosis Onset Date Resolution Status Admit Date Acute cystitis without hematuria acute August 02, 2025 11:37pm TRACEY (acute kidney injury) acute August 02, 2025 11:37pm AD (Alzheimer's disease) acute August 02, 2025 11:37pm Adverse drug reaction acute Sep 2024 11:37pm Anemia acute July 11:37pm Diarrhea acute July 11:37pm Generalized weakness acute Jul 11:37pm Overweight (BMI 25.0-29.9) acute August 02, 2025 11:37pm Urinary tract infection acute S ep2024 11:37pm CKD (chronic kidney disease) , stage III chronic August 02, 2025 11:37pm [facility] Work Phone: Hospital course Narrative No data available for this section [facility] Hospital Discharge instructions No data available for this section [facility] Hospital Discharge instructionsAdditional Instructions Date of Discharge: [facility]25[facility] Work Phone: Progress note No data available for this section [facility] Reason for referral (narrative)No reason for referral information [facility] Work Phone: Summary Purpose Family History No Family History Records Found Advance Directives No Advanced Directives Records Found Advance Directive Response Recorded Date/ Time Do you have a Healthcare Power of Hide Worker? No August 02, 2025 7:38pm Advance Directive Response Recorded Date/ Time Do you have a Healthcare Power of Hide Worker? Yes August 03, 2025 1:03am Chief Complaint and Reason for Visit Chief Complaint Admit Date UTI, DIARRHEA & TRACEY WITH GENERALIZED Sep tember 2024 11:37pm Reason for Visit Admit Date Acute cystitis without hematuria Septemb er 2024 11:37pm TRACEY (acute kidney injury) July 11:37pm AD (Alzheimer's disease) August 02, 2025 11:37pm Adverse drug reaction August 02 11:37pm Anemia August 02, 2025 11:37pm Diarrhea August 02, 2025 11:37pm Generalized weakness August 02 11:37pm Overweight (BMI 25.0-29.9) July 11:37pm Urinary tract infection August 02, 2025 11:37pm CKD (chronic kidney disease), stage III August 02, 2025 11:37pm Chief Complaint Admit Date UTI, DIARRHEA & TRACEY WITH GENERALIZED Sep tember 2024 11:37pm UTI, DIARRHEA & TRACEY WITH GENERALIZED Sep tember 2024 8:52am UTI, DIARRHEA & TRACEY WITH GENERALIZED Sep tember 2024 7:30am UTI, DIARRHEA & TRACEY WITH GENERALIZED Sep tember 2024 12:10pm UTI, DIARRHEA & TRACEY WITH GENERALIZED Sep tember 2024 12:56pm UTI, DIARRHEA & TRACEY WITH GENERALIZED Sep tember 2024 11:46am Additional Source Comments Care Team (unrecognized sect ion and content) Care Team Personnel Name: MARIA T HUERTAS Position: P4 Advanced Practice Nurse Med Service: Active Provider Member Role: Primary Care Physician Address: Address: [address] [place] [address]- [place] Care Team Related Persons Name: SARITHA SAUL Care Team Personnel Name: MARIA T HUERTAS FLEET DISPATCH MANAGER-STREET LIGHT SERVICER HELPER Position: P4 Advanced Practice Nurse Member Role: Primary Care Physician Address: Address: [address] [place] [address] Care Team Related Persons Name: SARITHA SAUL Care Team Personnel Name: MARIA T HUERTAS FLEET DISPATCH MANAGER-STREET LIGHT SERVICER HELPER Position: P4 Advanced Practice Nurse Member Role: Primary Care Physician Address: Address: [address] [place] [address]- Care Team Related Persons Name: SARITHA SAUL Patient Care team informatio n (unrecognized section and content) Team Status: Active Member Role/Relationship Status Dates Maria T Huertas WIND TURBINE ELECTRICAL ENGINEER, WIND TURBINE ELECTRICAL ENGINEER-C Primary Care Provider Active Team Status: Active Member Role/Relationship Status Dates Maria T Huertas WIND TURBINE ELECTRICAL ENGINEER, WIND TURBINE ELECTRICAL ENGINEER-C Primary Care Provider Active Start: August 02, 2025 Dr. Lamberto Montiel , Emergency Provider Active Start: August 02, 2025 Dr. Jhonny Albrecht , Admit Provider Active Start: August 02, 2025 Dr. Jhonny Albrecht , Attending Provider Active Start: August 02, 2025 Team Status: Active Member Role/Relationship Status Dates Maria T Huertas WIND TURBINE ELECTRICAL ENGINEER, WIND TURBINE ELECTRICAL ENGINEER-C Primary care physician Active Team Status: Inactive Member Role/Relationship Status Dates Maria T Huertas WIND TURBINE ELECTRICAL ENGINEER, WIND TURBINE ELECTRICAL ENGINEER-C Primary care physician Active Start: August 02, 2025 End: August 07, 2025 Dr. Lamberto Montiel DO Emergency Departm ent Physician Active Start: August 02, 2025 End: August 07, 2025 Dr. Jhonny Albrecht DO Admitting physician Active Start: August 02, 2025 End: August 07, 2025 Dr. Jhonny Albrecht , Nurse Practitioner Active Start: August 02, 2025 End: August 07, 2025 Dr. Fatou Mcrae MD Attending physician Active Start: August 02, 2025 End: August 07, 2025 Dr. Lamberto Taylor , Nurse Practitioner Active Start: August 02, 2025 End: August 07, 2025 Team Status: Active Member Role/Relationship Status Dates Maria T Huertas WIND TURBINE ELECTRICAL ENGINEER, WIND TURBINE ELECTRICAL ENGINEER-C Primary care physician Active Start: August 03, 2025 Dr. Lamberto Schwiger , DO Emergency Departm ent Physician Active Start: August 03, 2025 Dr. Jhonny Albrecht , DO Admitting physician Active Start: August 03, 2025 Dr. Jhonny Albrecht , DO Nurse Practitioner Active Start: August 03, 2025 Dr. Lamberto Taylor , DO Attending physician Active Start: August 03, 2025 Dr. Lamberto Taylor , DO Nurse Practitioner Active Start: August 03, 2025 Team Status: Active Member Role/Relationship Status Dates Maria T Huertas WIND TURBINE ELECTRICAL ENGINEER, WIND TURBINE ELECTRICAL ENGINEER-C Primary care physician Active Start: August 04, 2025 Dr. Lamberto Montiel , DO Emergency Departm ent Physician Active Start: August 04, 2025 Dr. Jhonny Albrecht , DO Admitting physician Active Start: August 04, 2025 Dr. Jhonny Albrecht , DO Nurse Practitioner Active Start: August 04, 2025 Dr. Lamberto Taylor , DO Attending physician Active Start: August 04, 2025 Dr. Lamberto Taylor , DO Nurse Practitioner Active Start: August 04, 2025 Team Status: Active Member Role/Relationship Status Dates Maria T Huertas WIND TURBINE ELECTRICAL ENGINEER, WIND TURBINE ELECTRICAL ENGINEER-C Primary care physician Active Start: August 05, 2025 Dr. Lamberto Montiel , DO Emergency Departm ent Physician Active Start: August 05, 2025 Dr. Jhonny Albrecht , DO Admitting physician Active Start: August 05, 2025 Dr. Jhonny Albrecht , DO Nurse Practitioner Active Start: August 05, 2025 Dr. Fatou Mcrae MD Attending physician Active Start: August 05, 2025 Dr. Fatou Mcrae MD Nurse Practitioner Active Start: August 05, 2025 Dr. Lamberto Taylor , DO Nurse Practitioner Active Start: August 05, 2025 Team Status: Active Member Role/Relationship Status Dates Maria T Huertas WIND TURBINE ELECTRICAL ENGINEER, WIND TURBINE ELECTRICAL ENGINEER-C Primary care physician Active Start: August 06, 2025 Dr. Lamberto Montiel , DO Emergency Departm ent Physician Active Start: August 06, 2025 Dr. Jhonny Albrecht , DO Admitting physician Active Start: August 06, 2025 Dr. Jhonny Albrecht , DO Nurse Practitioner Active Start: August 06, 2025 Dr. Fatou Mcrae MD Attending physician Active Start: August 06, 2025 Dr. Fatou Mcrae MD Nurse Practitioner Active Start: August 06, 2025 Dr. Lamberto Taylor , Nurse Practitioner Active Start: August 06, 2025 Team Status: Active Member Role/Relationship Status Dates Maria T Huertas WIND TURBINE ELECTRICAL ENGINEER, WIND TURBINE ELECTRICAL ENGINEER-C Primary care physician Active Start: August 07, 2025 Dr. Lamberto Montiel , DO Emergency Departm ent Physician Active Start: August 07, 2025 Dr. Jhonny Albrecht , Admitting physician Active Start: August 07, 2025 Dr. Jhonny Albrecht , DO Nurse Practitioner Active Start: August 07, 2025 Dr. Fatou Mcrae MD Attending physician Active Start: August 07, 2025 Dr. Fatou Mcare MD Nurse Practitioner Active Start: August 07, 2025 Dr. Lamberto Taylor , Nurse Practitioner Active Start: August 07, 2025 INFORMATION SOURCE (unrecogn ized section and content) DATE CREATED AUTHOR 04/10/2024 [facility] DATE CREATED AUTHOR AUTHOR'S ORGANIZ ATION 08/08/2025 [facility] DATE CREATED AUTHOR AUTHOR'S ORGANIZ ATION 08/24/2025 [facility] Goals (unrecognized section and content) Goals may be documented in a n alternate section FOR RECORDS PERTAINING TO PATIENTS WHO ARE OR HAVE BEEN ENROLLED IN A CHEMICAL DEPENDENCY/SUBSTANCEABUSE PROGRAM, SOME INFORMATION MAY BE OMITTED. This clinical summary was aggregated from multiple sources. Caution should be exercised in using it in the provision of clinical care. This summary normalizes information from multiple sources, and as a consequence, information in this document may materially change the coding, format and clinical context of patient data. In addition, data may be omitted in some cases. CLINICAL DECISIONS SHOULD BE BASED ON THE PRIMARY CLINICAL RECORDS. [employer] [facility]. provides no warranty or guarantee of the accuracy or completeness of information in this document.
[2025-11-18 07:45] LABS: Hematocrit 35.5 % (37-47); Hemoglobin 11.6 g/dL (12.0-15.0); Mean Corp Hgb Conc 32.7 g/dL (32-36); Mean Corpuscular Volume 94.7 fL (81-99); Mean Platelet Vol. 10.1 fl (6.2-12.0); Platelet Count 177 K/mm3 (150-450); RBC Distribution Width CV 12.7 % (11.6-14.6); RBC Distribution Width SD 43.9 fl (35.1-43.9); Red Blood Count 3.75 M/mm3 (4.2-5.4); White Blood Count 6.3 K/mm3 (4.4-11.0)
[2025-11-18 08:00] LABS: Anion Gap 8 (7-18); BUN 23 mg/dL (4-19); BUN/Creat Ratio 19.4 RATIO (10-20); Calcium,Total 9.1 mg/dL (7.6-11.0); Carbon Dioxide 28.0 mmol/L (20.0-29.0); Chloride 106 mmol/L (96-106); Glucose 114 mg/dL (70-99); Potassium 4.1 mmol/L (3.5-5.1)
== END ==
LOC: OLS.WCC 04:00
PROVIDERS: PCP Nurse Practitioner Primary Care; Referring Provider Family Medicine; Visit Provider Family Medicine
DX: D64.9 Anemia, unspecified (principal); I12.9 Hypertensive chronic kidney disease with stage 1 through stage 4 chronic kidney disease, or unspecified chronic kidney disease; E78.5 Hyperlipidemia, unspecified; Z79.899 Other long term (current) drug therapy; N18.30 Chronic kidney disease, stage 3 unspecified
CPT/HCPCS: 36415; 80048; 85027